=== PATIENT | female | born 1955 | race Caucasian/White ===

== ENCOUNTER → 2019-05-23 12:53 | Outpatient (CLI) | payer BC, SELFPAY ==
[2019-05-23 13:13] LABS: RBC Urine None Seen (0-5/HPF); WBC Urine None Seen (0-5/HPF)
[2019-05-23 13:49] LABS: Add Manual Diff / Slide Review NO; Basophils Absolute Auto 100 /uL (0-100); Basophils Percent Auto 0.6 % (0-2); Eosinophils Absolute Auto 100 /uL (0-450); Eosinophils Percent Auto 0.7 % (2-4); Hematocrit 41.2 % (36-46); Hemoglobin 13.4 g/dL (12.0-16.0); Lymphocytes Absolute Auto 1500 /uL (1100-4500); Lymphocytes Percent Auto 12.7 % (25-40); Mean Corpuscular HGB Conc 32.6 % (30-36); Mean Corpuscular Hemoglobin 27.9 PG (26-34); Mean Corpuscular Volume 85.5 fL (80-100); Monocytes Absolute Auto 600 /uL (0-900); Monocytes Percent Auto 5.1 % (3-14); Neutrophils Absolute Auto 9800 /uL (1500-7000); Neutrophils Percent Auto 80.9 % (50-75); Platelet Count 370 X10^3/uL (150-400); Red Blood Cell Count 4.81 X10^6/uL (4.0-5.2); Red Cell Distribution Width 15.2 % (11.6-14.8); White Blood Cell Count 12.1 X10^3/uL (4.5-11.0)
[2019-05-23 13:57] LABS: Appearance Urine UA CLEAR; Bilirubin Urine UA NEGATIVE (NEGATIVE); Color Urine UA YELLOW; Glucose Urine UA NEGATIVE (Negative); Ketones Urine UA NEGATIVE (NEGATIVE); Leukocyte Esterase Urine UA TRACE (NEGATIVE); Nitrite Urine UA NEGATIVE (Negative); Occult Blood Urine UA NEGATIVE (Negative); Protein Urine UA NEGATIVE (Negative); Specific Gravity Urine UA <=1.005 (1.000-1.035); Urobilinogen Urine UA 0.2 E.U./dL (0.2)
[2019-05-23 14:08] LABS: Bacteria Urine Occasional (0-1); Culture Indicated Urine Specimen Cultured; Squamous Epithelial Cell Urine 0-1 /HPF (0-5/HPF); pH Urine UA 7.5 (4.5-8.0)
[2019-05-23 14:21] LABS: Blood Urea Nitrogen 12 mg/dL (7-17); Calcium 9.7 mg/dL (8.4-10.2); Carbon Dioxide 28 mmol/L (22-32); Chloride 104 mmol/L (98-107); Estimated Glomerular Filt Rate > 60.0 mL/min (>60); Glucose 101 mg/dL (80-110); HEMOLYSIS < 15 (0-50); Potassium 4.6 mmol/L (3.4-5.1); Sodium 140 mmol/L (137-145)
== END ==
PROVIDERS: Visit Provider Orthopaedic Surgery
DX: Z01.818 Encounter for other preprocedural examination (principal); Z01.812 Encounter for preprocedural laboratory examination; N39.9 Disorder of urinary system, unspecified; Z13.1 Encounter for screening for diabetes mellitus; R73.9 Hyperglycemia, unspecified
CPT/HCPCS: 36415; 80048; 81001; 83036; 85025; 87086; 93005

== ENCOUNTER 2019-07-17 12:15 | Observation (INO) | payer BC, SELFPAY ==
[2019-07-11 11:42] VITALS: BMI 30.6
[2019-07-16] VITALS (19 sets, daily range): BP systolic 80–158; BP diastolic 56–91; PULSE 72–87; RESP 10–19; TEMP 35.7–36.9; O2SAT 92–100; BMI 30.8
[2019-07-16] MEDS: LACTATED RINGERS 1,000 ML 42 ML IV ×2 (08:45→13:15)
[2019-07-16] MEDS: VANCOMYCIN 1,000 MG/200 ML PIGGYBACK 200 MG IV (09:10)
[2019-07-16] MEDS: ACETAMINOPHEN 325 MG TABLET 975 MG PO (09:19)
[2019-07-16] MEDS: CELECOXIB 200 MG CAPSULE PO (09:19)
--- NOTE | 2019-07-16 10:04 | PM.PREOP ---
Pre-operative Note Interval Note History & Physical reviewed/Exam performed by Physician: Yes Changes to H&P: No
--- NOTE | 2019-07-16 10:05 | PM.OP.1 ---
Operative Date/Time/Diagnoses Date of procedure: 07/16/19 Time of procedure: 11:05 Pre-op diagnosis: Left knee medial compartment arthritis Post-op diagnosis: same Procedure & Clinicians Procedure: Left knee medial compartment arthroplasty Same procedure as scheduled: Yes Indications: The patient has had progressively worsening left knee pain with radiographic changes consistent with arthritis. Non-operative management has failed and the patient has requested a medial unicompartment knee replacement. The risks, benefits and alternatives to surgery were discussed with the patient prior to proceeding. Risks discussed included, but were not limited to, failure to relieve pain, stiffness, infection, nerve damage, deep venous thrombosis, pulmonary embolism, stroke, coma, heart attack, permanent paralysis and , as well as the potential need for eventual revision of the prosthetic. Surgeon: Cyndy Dunn Moulder Operator: Kevin Valentin Anesthesia Type: General Operative Notes Findings: Severe left knee medial compartment arthritis Closure Type: primary Specimen(s): none sent Prosthetic devices, grafts, tissues, transplants, or devices: [employer] Z UK size D femur, size 3 tibia, +8 poly Estimated Blood Loss (mL): 250 Blood products transfused: none Tourniquet time (min): 79 Procedure in detail: The patient was seen in the pre-operative area, where the left knee was identified as the operative site and this was marked with my initials. The patient received pre-operative antibiotics, and was taken to the operating room and placed on the operative table in the supine position. After satisfactory anesthesia, a real time operator out was performed. The left leg was encircled with a tourniquet about the proximal thigh, and the leg was prepared from the toes to the tourniquet with ChloroPrep in the usual fashion and draped through sterile drapes. The leg was elevated and exsanguinated with Eschmark bandage and the tourniquet inflated to [250] mmHg pressure. The knee was approached through an approximately 10 cm incision medial parapatella incision and carried into the knee through a medial parapatellar arthrotomy. The osteophytes and medial meniscus were removed. Next, a small amount of the anterior tibial boss was carefully resected with a saw. The guide was placed along the medial joint line. It was meticulously adjusted to make sure there was appropriate slope that it was at the joint line and then was pinned to the tibia and the femur. The medial femoral condylar cut was made in extension. The tibial cut was made in flexion. The bone was meticulously irrigated with normal saline. Small amount of additional meniscus was resected posterior capsule was checked and injected with Marcaine. The extension gap was carefully checked with an 8 mm gap director of provider relations was noted that it fit well. A small number of additional osteophytes were resected. The tibia was a size [3]. It was noted that it fit without overhang. The femur was sized and it was noted to be a D. The appropriate cutting guide was pinned into place and carefully positioned on the femoral condyle. Drill holes were placed. The tibia was pinned into place and drill holes were made. Trial reduction with the appropriate poly showed full range of motion and good stability at 0, 45. and 90? with normal tracking of the components without edge loading. The bone was meticulously irrigated and dried. Additional Marcaine was injected. The posterior capsule was injected with 0.25% Marcaine mixed with 20 ml Exparel for post-operative pain control. The remainder of this mixture was injected into the capsule and subcutaneous tissues during cement curing. Range of motion was [0-130], with good stability throughout the range. The trials were then remove. The cement was as applied and the final prosthetics placed. Excess cement was removed during and after cement curing. A brief medial compartment Betadine soak was performed. After confirming there was no extruded cement posteriorly, the final tibial insert was placed. The knee was copiously irrigated and the tourniquet deflated. Hemostasis was obtained. The capsule was closed with interrupted vicryl. The subcutaneous tissue was closed with barbed sutures. The skin with a running 3-0 V-Lock suture and surgical glue. An Aquacel Ag dressing was applied and the patient was taken to recovery having tolerated the procedure well. Complications: none Post-operative Condition: stable Disposition: observation Plan for aftercare: The patient will be maintained on a standard total knee replacement protocol with weight bearing as tolerated. The patient will receive aspirin and sequential compression devices for DVT prophylaxis. The patient will be discharged home when safe for the home environment. She has a history of [place]'s disease and has had episodes of [place]'s crisis in the past. Were get planning to give her preoperative steroids and we will admit her if she is having any problems with either blood pressure or nausea or vomiting.
[2019-07-16] MEDS: CEFAZOLIN 2 GM/100 ML FROZ.PIGGY IV ×2 (10:34→17:30)
[2019-07-16] MEDS: TRANEXAMIC ACID 1,000 MG VIAL 2000 MG INJ ×2 (10:45→12:00)
--- NOTE | 2019-07-16 10:56 | SUR.OPER ---
Supine on padded OR bed. Pillow under head, arms secured on padded armboards <90 degree abduction. Safety belt across torso. Non-operative leg secured with tape over blanket over lower leg. Operative leg secured in DeMayo/Goran positioner. Foam padded brace at thigh of operative leg.
[2019-07-16] MEDS: BUPIVACAINE 0.5% W/ EPI (PF) 30 ML VIAL INJ (11:06)
[2019-07-16] MEDS: BUPIVACAINE LIPOSOME 266 MG/20 ML VIAL INJ (11:07)
[2019-07-16] MEDS: SODIUM CHLORIDE IRRIG SOLUTION 250 ML, POVIDONE-IODINE SPONGE STICKS 1 APPLIC IRR (11:13)
--- NOTE | 2019-07-16 13:07 | DI.RAD.S_ITS ---
PROCEDURE: XR KNEE LT 1TO2V INDICATIONS: POST OPERATIVE UNI KNEE ARTHROPLASTY TECHNIQUE: 2 view(s) of the knee acquired. COMPARISON: [facility], MR, MR KNEE LEFT WITHOUT CONTRAST, 01/31/2019, 9:24. [facility], CR, XR KNEE ARTHRITIC SERIES LT, 12/07/2018, 9:37. FINDINGS: Bones: Patient is status post knee joint arthroplasty. Hardware components are in expected positions. Visualized bony structures are intact. Soft tissues: Overlying postoperative changes are noted. IMPRESSION: Expected limits status post placement of left knee medial unicondylar arthroplasty. Dictated by: Chandan LÓPEZ Interpreted: Cheyenne Melgoza MD on 07/16/2019 at 17:40 Approved by: Cheyenne Melgoza M.D. on 07/16/2019 at 18:37
[2019-07-16] MEDS: fentaNYL 100 MCG/2 ML INJ IV (13:08)
[2019-07-16] MEDS: ONDANSETRON 4 MG/2 ML INJ IV (13:12)
--- NOTE | 2019-07-16 13:15 | SUR.PHASEI ---
Rx given for pain and c/o nausea. HOB elevated, drowsy, maintaining sat on 5LNP.
--- NOTE | 2019-07-16 13:20 | SUR.PHASEI ---
very drowsy, states that pain and nausea are improving, doesn't give number.
--- NOTE | 2019-07-16 13:30 | SUR.PHASEI ---
Pt quietly holding emesis bag to face. Order obtained for Rx.
[2019-07-16] MEDS: METOCLOPRAMIDE 10 MG/2 ML INJ IV (13:33)
--- NOTE | 2019-07-16 13:35 | SUR.PHASEI ---
Pt calm, occasionally holding emesis bag to face for a small amount (indicated by how far apart she held her fingers) of nausea. Reports pin is a 'little better' at 7/10. See FLACC scale.
--- NOTE | 2019-07-16 13:46 | SUR.PHASEI ---
Dr Dunn informed the patient that she is keeping her overnight; report called to the floor. Pt sleeping sitting up, no grimace or non-verbal indicators of pain.
--- NOTE | 2019-07-16 14:10 | PC.NURSE ---
Day shift: Pt on AC unit at approx 1400. Oriented to room and call light. VS WNL. Left knee RUBINA wrap and Aquacel is CDI. CMS intact and PPP. High Fall risk protocol in place. Call light in reach.
--- NOTE | 2019-07-16 14:12 | SUR.PHASEI ---
1357 to room 218, transported on O2 @ 2LNP; transferred into bed with assistance holding left leg. SCDs on, O2 at 2LNP, VSS. Dressing remains CDI, CMS unchanged. Stable, clothing bag and glasses to the room. Pt repeatedly expressed appreciation for care. Pt. reported pain to AC RN, he explained need to balance pain control and breathing. Will assume care for her. No c/o nausea r/t transport, no longer holding emesis bag.
[2019-07-16] MEDS: LACTATED RINGERS 1,000 ML 125 ML IV (14:48)
--- NOTE | 2019-07-16 15:32 | PC.NURSE ---
At 1520, 218 up in chair, complained of pain on right side of bottom, received waffle cushion for support.
--- NOTE | 2019-07-16 16:26 | PT-IP ANOTE ---
PT orders received and chart reviewed. This PT contacted the patient to initiate evaluation, but pt reported feeling too groggy to participate. In the context of pt's adrenal insufficiency and stated reluctance, will hold PT until morning of 07/17.
[2019-07-16] MEDS: OXYCODONE IR 5 MG TABLET PO ×2 (17:14→22:07)
[2019-07-16] MEDS: IBUPROFEN 400 MG TABLET PO ×2 (17:14→22:08)
[2019-07-16] MEDS: ACETAMINOPHEN 325 MG TABLET 650 MG PO (22:08)
[2019-07-16] MEDS: ASPIRIN EC 81 MG TABLET PO (22:08)
[2019-07-16] MEDS: DOCUSATE 100 MG CAPSULE PO (22:08)
[2019-07-16] MEDS: HYDROCORTISONE 10 MG TABLET PO (22:09)
[2019-07-17] MEDS: CEFAZOLIN 2 GM/100 ML FROZ.PIGGY IV (02:38)
[2019-07-17] MEDS: IBUPROFEN 400 MG TABLET PO ×5 (02:39→16:34)
[2019-07-17] MEDS: LEVOTHYROXINE 75 MCG TABLET PO (05:20)
[2019-07-17] MEDS: PANTOPRAZOLE 20 MG TABLET PO (05:20)
[2019-07-17 05:33] VITALS: BP 111/62; PULSE 74; RESP 16; TEMP 36.9; O2SAT 94
[2019-07-17 06:32] LABS: Hematocrit 36.9 % (36-46); Hemoglobin 11.9 g/dL (12.0-16.0)
--- NOTE | 2019-07-17 06:52 | PC.NURSE ---
Pt rested without nausea or uncontrolled pain overnight. Pt reports looking forward to going home today and has plan for neighbor to help her with her needs until she is more independent. RUBINA wrap to left knee intact no signs of bleeding. CMS intact, pt able to independently move BLE, remains weak in LLE. Pt with Hx Lamar's disease. Consults with Endocrinologists. There is a note in pt red chart with directions for treatment if pt becomes symtomatic and also has this [facility] phone number and [facility] provider is encouraged to call if questions arise.
--- NOTE | 2019-07-17 08:08 | P.PN_ITS ---
Subjective Subjective Date Patient Seen: 07/17/19 Time Patient Seen: 08:08 Interval history: Pain is mild. Denies fever chills. No nausea vomiting. She has not yet worked with physical therapy. Otherwise without complaints. Exam Vital Signs (past 8 hours): - 07/17/19 05:33 Temperature 98.4 F Pulse Rate 74 Respiratory Rate 16 Blood Pressure 111/62 Pulse Oximetry 94 Oxygen Delivery Method Room Air Oxygen Flow Rate 0 Narrative Exam Narrative: 64-year-old female resting comfortably in bed in no apparent distress. Left knee dressing is clean, dry and intact. Motor functions intact distally. Sensation grossly intact to light touch. Objective Labs Result Diagrams: 07/17/19 06:25 Labs: Laboratory Results - last 24 hr 07/17/19 06:25 Hgb 11.9 L Hct 36.9 Assessment & Plan Post-op Postoperative Procedures: Procedures Operation Date: 07/16/19 10:15 Actual Procedures Side Surgeon p Unicompartment Knee Arthroplasty-Medial Left Cyndytisha Dunn MD Postop day 1 status post left knee medial compartment arthroplasty. Patient progressing as expected. Mobilize with physical therapy. Likely discharge home later today. Of adrenal insufficiency. We will use 50 mg hydrocortisone every 8 hours if needed if hemodynamically unstable. Patient may resume her current dose of hydrocortisone and fludrocortisone 1 she is back to eating regular meals .
[2019-07-17] MEDS: ASPIRIN EC 81 MG TABLET PO (08:34)
[2019-07-17] MEDS: METFORMIN HCL 500 MG TABLET 1000 MG PO (08:35)
[2019-07-17] MEDS: DOCUSATE 100 MG CAPSULE PO (08:35)
[2019-07-17] MEDS: ACETAMINOPHEN 325 MG TABLET 650 MG PO ×2 (08:36→15:06)
[2019-07-17] MEDS: DULOXETINE 30 MG CAPSULE 60 MG PO (08:36)
[2019-07-17] MEDS: HYDROCORTISONE 10 MG TABLET PO (08:42)
[2019-07-17] MEDS: FLUDROCORTISONE 0.1 MG TABLET PO (08:43)
[2019-07-17 09:08] VITALS: BP 116/68; PULSE 85; RESP 16; TEMP 36.7; O2SAT 95
--- NOTE | 2019-07-17 09:20 | PT.IIE ---
Current Diagnoses Unilateral primary osteoarthritis, left knee (07/16/19) Surgery Performed Operation Date: 07/16/19 10:15 Actual Procedures p Unicompartment Knee Arthroplasty-Medial(Left) - Cyndy Dunn MD Surgical History (Last Updated 07/11/19 @ 11:48 by Lindsay Brown RN) Anesthesia (Resolved) Fibroids (Resolved) History of bladder surgery (Resolved) History of bunionectomy (Resolved ~1996) History of eyelid surgery (Resolved ~2005) History of hysterectomy (Resolved ~1994) History of knee surgery (Resolved) History of oophorectomy (Resolved ~2014) History of tonsillectomy (Resolved ~1960) Status post epidural steroid injection (Acute) Medical History (Last Updated 07/11/19 @ 12:06 by Lindsay Brown RN) Abnormal chest x-ray (Inactive ~2008) Abnormal Pap smear of cervix (Inactive) [place]'s disease (Chronic ~2001) Adrenal crisis (Acute ~2016) Adrenal insufficiency (Acute) Anemia (Inactive ~2000) Asthma (Chronic ~1999) Bulging discs (Chronic ~2015) Cataracts, bilateral (Chronic ~2018) Chicken pox (Resolved) Chronic back pain (Chronic ~2015) Chronic lymphocytic leukemia (Inactive ~2001) Depression (Chronic ~1993) Diabetes mellitus (Chronic ~2008) Diabetes type 2, controlled (Acute) Fecal incontinence (Chronic ~2016) Fibromyalgia (Chronic ~1986) GERD (gastroesophageal reflux disease) (Chronic) Headache (Chronic ~2015) Heavy menstrual period (Inactive) Hemorrhoid (Inactive ~2014) Hiatal hernia (Chronic ~2004) HTN (hypertension) (Acute) Hyperpigmentation (Acute) Hypothyroidism (Chronic ~2001) Infertility (Inactive ~1988) Irregular menstrual cycle (Inactive) Mumps (Resolved ~1967) Ovarian cyst (Resolved) Painful menstrual periods (Inactive) Pneumonia (Resolved ~2008) Sleep apnea (Chronic ~2005) Urinary incontinence in female (Chronic ~2008) Physical Therapy Inpatient Evaluation/Re-Eval M1 PT/OT-IP Prior Functional Status Start: 07/16/19 16:16 Freq: NEEDED Status: Active Protocol: Document 07/17/19 09:20 AB (Rec: 07/17/19 12:02 AB [id number]) Medical Review Prior Functional Status Medical History Reviewed Yes Communication able to make needs known Mobility and Gait pt stated that she is modified independent with all mobilities and ambulation without AD but occasionall uses a SPC due to knee pain Social History Household Members none Living Arrangements House Number of Floors (Floors) One Floor Number of Stairs To Enter/Railing? no steps to enter Home Environment Standard Height Toilet,Walk in Shower,Built-In Shower Seat Home Equipment Straight Cane,Hand Held Shower ,Grab Bars In Shower Additional Social History Comment has a cook candy that comes in every 2 weeks M2 PT-IP Current Condition Start: 07/16/19 16:16 Freq: NEEDED Status: Active Protocol: Document 07/17/19 09:20 AB (Rec: 07/17/19 12:02 AB [id number]) Physical Therapy Current Condition Current Condition Evaluation Date 07/17/19 Treatment Diagnosis s/p L uni knee; difficulty in walking Onset Date 07/16/19 Weight Bearing Status Weight Bearing Status Weight Bear as Tolerated Allowed Weight Bearing Amount (enter % WBAT LLE or #) (%) M3 PT-IP Subjective Start: 07/16/19 16:16 Freq: NEEDED Status: Active Protocol: Document 07/17/19 09:20 AB (Rec: 07/17/19 12:02 AB [id number]) Subjective Physical Therapy Visit Type Type Initial Evaluation Visit Start Time 09:20 Visit Stop Time 10:00 Total Visit Minutes 40 Number of PT SITTER Visits 0 Physical Therapy Visit Comments Patient Comments agreeable to do PT Therapy Pain Assessment Pain When Pain Assessed During Mobility Pain Present Pain Present Pain Reported Location Left Knee Intensity 2 Scale Used Numeric (1 - 10) Pain Management Techniques Apply Cold,Re-positioning, Timing of Activity with Medications M4 PT-IP Mobility and Gait Start: 07/16/19 16:16 Freq: NEEDED Status: Active Protocol: Document 07/17/19 09:20 AB (Rec: 07/17/19 12:02 AB [id number]) PT-Bed Mobility Assessment Supine to Sit Supine to Sit Standby Assistance Sit to Supine Sit to Supine Standby Assistance PT-Transfer Assessment Sit to and From Stand Sit to and from Stand Standby Assistance Equipment Transfer Assistive Device Gait Belt,Front Wheeled Walker Orthotic/Prosthetic Devices or Brace: No Transfers Transfer Destination Chair Transfer Technique ambulated using FWW Transfer Ability Level of Assist Standby Assistance,1 Person Assistance,Use of Upper Extremities Gait Assessment Gait Gait Assistance Required: Standby Assistance Distance (Feet) 40 Able to Maintain Weight Bearing Status Yes During Gait Assistive Devices Assistive Device Gait Belt,Front Wheeled Walker Orthotic/Prosthetic Devices or Brace: No Gait Deviations General Gait Pattern Antalgic Factors Limiting Gait Function Factors Limiting Gait Function Decreased Activity Tolerance, Decreased Strength,Limited Range of Motion,Pain,Poor Balance PT-Balance Assessment Sitting Balance and Reactions Static Sitting Balance Ability Normal Dynamic Sitting Balance Ability Normal Standing Balance and Reactions Static Standing Balance Ability Good Dynamic Standing Balance Ability Fair Device Used FWW M5 PT-IP Objective Assessments Start: 07/16/19 16:16 Freq: NEEDED Status: Active Protocol: Document 07/17/19 09:20 AB (Rec: 07/17/19 12:02 [id number]) Orientation Orientation/Cognition Level of Alertness Alert Orientation Name,Age,Birthday,Month,Date, Year,Day of Week,Place, Situation Language Function Ability No Deficits Noted Safety Awareness Understands Safety Issues Memory Description No Deficits Noted Gross Range of Motion Lower Extremity ROM Assessment Left Impaired Impairments L knee flexion: ~ 60 deg L knee extension: lacking ~ 10 deg to neutral Strength Lower Extremity Strength Assessment Left Impaired Hip 4-/5 Knee 3+/5 Coordination Assessment Gross Coordination Gross Coordination WNL Sensation Assessment Sensation Gross Sensation WNL Muscle Tone Muscle Tone WNL Yes M6 PT-IP Treatment Start: 07/16/19 16:16 Freq: NEEDED Status: Active Protocol: Document 07/17/19 09:20 AB (Rec: 07/17/19 12:02 [id number]) Physical Therapy Treatment Exercises Exercises Heel Slides Education Education Provided Precautions,Weight Bearing Status,Post-Op Packet,Safety M7 PT-IP Assessment and Plan Start: 07/16/19 16:16 Freq: NEEDED Status: Active Protocol: Document 07/17/19 09:20 AB (Rec: 07/17/19 12:02 [id number]) PT Summary Assessment and Plan Potential Rehabilitation Potential Good Status of Condition at Evaluation Stable Summary Impairments Pain,ROM,Strength,Balance,Bed Mobility,Transfers,Gait, Activity Tolerance Assessment Summary pt requires SBA with mobility. pt lives alone and is set up for outpt PT. informed manager operations research regrading need for FWW and stated that she will get an order. pt plans to go home later on today. Goals Bed Mobility Goal Independent Transfer Goal Independent,Front Wheeled Walker Gait Goal Independent,Front Wheel Walker Gait Distance 150 Days to Meet Goals 5 Frequency of Treatment Frequency Of Treatment Twice a Day Treatment Plan Physical Therapy Treatment Plan Bed Mobility Training,Transfer Training,Gait Training, Therapeutic Exercise,Balance Retraining,Post Op Education, Discharge Planning,Hot or Cold Pack,Neuromuscular Re-ed, Coordination Retraining,Manual Therapy Other Recommendations and Next Treatment ambulation Focus Recommendations To Nursing Amount of Assist Needed Standby Assistance Discharge Recommendations PT Discharge Recommendations Home,Outpatient PT Equipment Needed for Home Before FWW Discharge
--- NOTE | 2019-07-17 09:26 | CM.DANOTE ---
Addendum entered by Jeanie Dunn 07/17/19 11:43: FWW ordered for home use. PT requested. Original Note: DCP/Assessment: Reviewed chart. Patient is a 64yr old female admitted under VTC status for uni of left knee performed by Dr. Dunn on 07-16-19. PCP is Dr. Vasquez. Primary payor is 1)[employer] out of State. Met with patient explained CM/SW role. Patient alert and oriented, sitting in recliner at time of visit. Patient anticipates going home today. Therapy evaluation pending. Patient resides alone in [place]. Patient reports no family nearby. Patient resides in single level residence. Patient has cane for ambulation. Patient currently switching PCP to Dr. Vasquez at [facility]. Patient reports that she does have friend/Toma that can assist on occasion if needed. P: Anticipate home later today if stable. FWW may be needed. Awaiting PT evaluation recommendations. ALYX Villanueva Discharge Planning/Care Management CM Discharge Assessment Start: 07/17/19 09:24 Freq: Status: Active Protocol: Document 07/17/19 09:24 KJS (Rec: 07/17/19 09:26 KJS [id number]) Discharge Planning Assessment Assigned Computerized Mill Mill Recorder ALYX Villanueva Contact Information Gera Shah (son) Advance Directives? Yes History Provided By Patient,Medical Record Prior Living Arrangements House Household Members none Type of transporation used prior to Drives own vehicle admit Independent with ADL's Yes Is patient alert and oriented? Yes Caregiver for Another No DME Already Rented / Owned Cane Barriers to Discharge No Transportation Arrangement Friend/Toma can provide transport home Whiteboard Updated in Patient Room with Yes name and ext. # of Computerized Mill Mill Recorder Review Status In Process Next Review Type Continued Stay Review Pre-Anesthesia Assessment Start: 07/11/19 11:42 Freq: Status: Complete Protocol: Document 07/11/19 11:42 CAB (Rec: 07/11/19 12:41 CAB [id number]) Pre-Anesthesia Assessment PAC Comment Surgeon H&P not available at time of chart review. Anesthesia review completed r/ t [place] Patient Information Reviewed Via Chart Review Diagnostic Results EKG Comment Labs/EKG @ 05/23/19 Primary Care Provider Laura Ellis Seen Specialist in Last 12 Months Yes Specialist Seen Internet Marketing Specialist,Orthopedist Comment Dr. Puga's pre/post-op recommendations scanned to record Primary Language [employer] Weapons Custodian Required No Height 165.1 cm Weight 83.461 kg Body Mass Index (BMI) 30.6 Barriers to Learning None Other Aids No Hx Anesthesia Reactions Yes: PONV, headaches, blood pressure issues Anesthesia Review Requested Yes: Surgeon requested re: [place]'s Smoking Status Never smoker Pain Present Pain Reported Musculoskeletal Symptoms Joint Pain Patient is completely paralyzed or No completely immobile Mental Status Oriented to own ability Hx Sleep Apnea Yes: CPAP compliance unknown Currently Taking a Beta Rhona No Anti-Coagulant Therapy No Has a Mortgage Branch Manager No Cardiac Testing No Hx Pacemaker/ICD No Pacemaker Rep Required? No Cardiac Clearance Received Not Applicable dysphagia No Bladder Pattern Incontinent Urinary Catheter Present No Hx Urinary Self Catheterization No Diabetes Yes HgbA1C 6.0 Date 05/23/19 Patient No Lactating No Marital Status Patient Discharge Plan Description Return Home
--- NOTE | 2019-07-17 10:23 | PC.NURSE ---
Addendum entered by Alondra Mcknight R.N. 07/17/19 11:28: PAIN - reports good results from earlier oxycodone, pain 1-2 on scale 0/10. Addendum entered by Alondra Mcknight R.N. 07/17/19 11:10: MS/PAIN - phys therapy in and pt ambul in room, out into hallway,ret to chair for short time and then ret to bed, states the knee discomfort was 5 on scale 0/10, given 5mg po oxycodone with crackers. Original Note: AM NOTE - pt is alert and lamont diet this am w/o nausea, denies discomfort knee at this time, given scheduled tylenol.
[2019-07-17] MEDS: OXYCODONE IR 5 MG TABLET PO ×2 (10:39→16:34)
[2019-07-17 12:00] VITALS: BP 126/67; PULSE 72; RESP 16; TEMP 36.9; O2SAT 96
--- NOTE | 2019-07-17 15:26 | CM.DPNOTE ---
DCP/continued: Received request from ANDERS/Pradip Rodriguez requesting that HH be arranged for this patient. Order obtained for PT/OT. Met with patient and she has no preference in agencies. Asked RICK/Jessica to coordinate HH arrangements and provide patient with agency information. P: Home with [facility]. Patient aware and agreeable. ALYX Villanueva
[2019-07-17 15:45] VITALS: BP 130/76; PULSE 79; RESP 17; TEMP 36.6; O2SAT 92
--- NOTE | 2019-07-17 16:09 | PT.IPTN ---
Current Diagnoses Unilateral primary osteoarthritis, left knee (07/17/19) Surgery Performed Operation Date: 07/16/19 10:15 Actual Procedures p Unicompartment Knee Arthroplasty-Medial(Left) - Cyndy Dunn MD Physical Therapy Treatment Note M2 PT-IP Current Condition Start: 07/16/19 16:16 Freq: NEEDED Status: Active Protocol: Document 07/17/19 09:20 AB (Rec: 07/17/19 12:02 AB [id number]) Physical Therapy Current Condition Current Condition Evaluation Date 07/17/19 Treatment Diagnosis s/p L uni knee; difficulty in walking Onset Date 07/16/19 Weight Bearing Status Weight Bearing Status Weight Bear as Tolerated Allowed Weight Bearing Amount (enter % WBAT LLE or #) (%) M3 PT-IP Subjective Start: 07/16/19 16:16 Freq: NEEDED Status: Active Protocol: Document 07/17/19 14:37 ARIK (Rec: 07/17/19 15:22 ARIK [id number]) Subjective Physical Therapy Visit Type Type Treatment Note Visit Start Time 14:37 Visit Stop Time 15:06 Total Visit Minutes 29 Notes Treatment supervised by GAMING COMMISSIONER Barb. Number of GAMING COMMISSIONER Visits 1 Physical Therapy Visit Comments Patient Comments Pt agreeable to work w/ PT. Patient Goals To go home Therapy Pain Assessment Pain When Pain Assessed During Mobility Pain Present Pain Present Pain Reported Location Left Knee Intensity 3 Scale Used Numeric (1 - 10) Pain Management Techniques Apply Cold,Re-positioning, Timing of Activity with Medications M4 PT-IP Mobility and Gait Start: 07/16/19 16:16 Freq: NEEDED Status: Active Protocol: Document 07/17/19 14:37 ARIK (Rec: 07/17/19 15:22 ARIK [id number]) PT-Bed Mobility Assessment Supine to Sit Supine to Sit Standby Assistance Sit to Supine Sit to Supine Standby Assistance Scooting Scooting to Edge of Bed Standby Assistance PT-Transfer Assessment Sit to and From Stand Sit to and from Stand Standby Assistance Equipment Transfer Assistive Device Gait Belt,Front Wheeled Walker Orthotic/Prosthetic Devices or Brace: No Transfers Transfer Destination Bed,Toilet Transfer Technique ambulated using FWW Transfer Ability Level of Assist Standby Assistance,1 Person Assistance,Use of Upper Extremities Comments Mobility Comments Pt was SBA for all bed mobility and transfers. Required no cues for proper management of FWW. Pt requested to use bathroom, SBA for stand<>sit and sit<>stand from toilet w/ safe use of handrail. Pt left in bed w/ all needs in reach. Gait Assessment Gait Gait Assistance Required: Standby Assistance Distance (Feet) 200 Able to Maintain Weight Bearing Status Yes During Gait Assistive Devices Assistive Device Gait Belt,Front Wheeled Walker Orthotic/Prosthetic Devices or Brace: No Gait Deviations General Gait Pattern Antalgic Factors Limiting Gait Function Factors Limiting Gait Function Decreased Activity Tolerance, Decreased Sensation,Decreased Strength,Limited Range of Motion,Pain Comments Gait Comments Pt was able to ambulate ~200 ft from bed to toilet then into hallway and back to bed. She demonstrated proper use of FWW and utilizied more UE when feeling fatigued. Required 2 short standing rest breaks. Min cues for heel toe walking and quad activation. PT-Balance Assessment Sitting Balance and Reactions Static Sitting Balance Ability Normal Dynamic Sitting Balance Ability Normal Standing Balance and Reactions Static Standing Balance Ability Good Dynamic Standing Balance Ability Fair Device Used FWW Comments Other Balance Tests/Deviations/Treatment Weight shifting w/ FWW. : M5 PT-IP Objective Assessments Start: 07/16/19 16:16 Freq: NEEDED Status: Active Protocol: Document 07/17/19 09:20 AB (Rec: 07/17/19 12:02 AB [id number]) Orientation Orientation/Cognition Level of Alertness Alert Orientation Name,Age,Birthday,Month,Date, Year,Day of Week,Place, Situation Language Function Ability No Deficits Noted Safety Awareness Understands Safety Issues Memory Description No Deficits Noted Gross Range of Motion Lower Extremity ROM Assessment Left Impaired Impairments L knee flexion: ~ 60 deg L knee extension: lacking ~ 10 deg to neutral Strength Lower Extremity Strength Assessment Left Impaired Hip 4-/5 Knee 3+/5 Coordination Assessment Gross Coordination Gross Coordination WNL Sensation Assessment Sensation Gross Sensation WNL Muscle Tone Muscle Tone WNL Yes M6 PT-IP Treatment Start: 07/16/19 16:16 Freq: NEEDED Status: Active Protocol: Document 07/17/19 14:37 ARIK (Rec: 07/17/19 15:22 ARIK [id number]) Physical Therapy Treatment Education Education Provided Precautions,Weight Bearing Status,Post-Op Packet,Safety M7 PT-IP Assessment and Plan Start: 07/16/19 16:16 Freq: NEEDED Status: Active Protocol: Document 07/17/19 14:37 ARIK (Rec: 07/17/19 15:22 ARIK [id number]) PT Summary Assessment and Plan Potential Rehabilitation Potential Good Status of Condition at Evaluation Stable Summary Impairments Pain,ROM,Strength,Balance,Bed Mobility,Transfers,Gait, Activity Tolerance Assessment Summary Pt showed improvements for tolerance to actvity. Pain did not go above a 3. Pt is SBA for all bed mobility and transfers. She safely demonstrated ability to get in and out of bed, as well as sit and stand from toilet. Pt ambulated ~200 ft w/ 2 short rest breaks and min cues for heel toe walking and quad activation. Reviewed post op exercises. Pt reported that she has home health PT being set up. Goals Bed Mobility Goal Independent Transfer Goal Independent,Front Wheeled Walker Gait Goal Independent,Front Wheel Walker Gait Distance 150 Days to Meet Goals 5 Frequency of Treatment Frequency Of Treatment Twice a Day Treatment Plan Physical Therapy Treatment Plan Bed Mobility Training,Transfer Training,Gait Training, Therapeutic Exercise,Balance Retraining,Post Op Education, Discharge Planning,Hot or Cold Pack,Neuromuscular Re-ed, Coordination Retraining,Manual Therapy Recommendations To Nursing Amount of Assist Needed Standby Assistance,1 Person Assist Discharge Recommendations PT Discharge Recommendations Home,Outpatient PT Equipment Needed for Home Before FWW Discharge Reviewed by Barb Hinson PTA
--- NOTE | 2019-07-17 17:11 | P.DS_ITS ---
History of Present Illness History of Present Illness Date Patient Seen: 07/17/19 Time Patient Seen: 17:11 Chief complaint: [id number] Narrative: Patient did well with physical therapy. Denies fever chills. No nausea vomiting. Pain is well controlled. Discharge Providers Provider Date of admission: 07/17/19 12:15 Discharge Date: 07/17/19 Primary care physician: Laura Ellis MD Consults: 07/11/19 12:46 Consult to Anesthesiology Routine Comment: Consulting Provider: Anesthesiologist Reason for consultation: Surgeon requested re: Boone's disease Consult to Respiratory Therapy Evaluate & Treat Comment: OTPT 07/16-Sleep apnea-CPAP compliance unknown Physician Instructions: Evaluate and treat 07/16/19 06:00 Consult to Anesthesiology Routine Comment: Consulting Provider: Anesthesiologist Reason for consultation: Regional block for post operative pain control 07/16/19 09:18 Consult to Respiratory Therapy Evaluate & Treat Comment: Physician Instructions: Evaluate and treat 07/16/19 14:09 Consult to Discharge Planning Routine Comment: Consult to Physical Therapy Evaluate & Treat Comment: Physician Instructions: postop TKA protocol Consult to Respiratory Therapy Evaluate & Treat Comment: Physician Instructions: Evaluate and treat 07/17/19 11:36 Consult to Home Health Routine Comment: DX: Osteoarthritis left knee Reason For Exam: FWW for home use Discharge provider: Pradip Rodriguez PA-C Summary Hospital Course Discharge Diagnosis: Status post left knee medial compartment arthroplasty secondary to left knee medial compartment arthritis Hospital Course: Procedure: Left knee medial compartment arthroplasty Same procedure as scheduled: Yes Indications: The patient has had progressively worsening left knee pain with radiographic changes consistent with arthritis. Non-operative management has failed and the patient has requested a medial unicompartment knee replacement. The risks, benefits and alternatives to surgery were discussed with the patient prior to proceeding. Risks discussed included, but were not limited to, failure to relieve pain, stiffness, infection, nerve damage, deep venous thrombosis, pulmonary embolism, stroke, coma, heart attack, permanent paralysis and , as well as the potential need for eventual revision of the prosthetic. Surgeon: Cyndy Dunn Custodial Officer: Kevin Valentin Anesthesia Type: General Operative Notes Findings: Severe left knee medial compartment arthritis Closure Type: primary Specimen(s): none sent Prosthetic devices, grafts, tissues, transplants, or devices: [employer] size D femur, size 3 tibia, +8 poly Estimated Blood Loss (mL): 250 Blood products transfused: none Tourniquet time (min): 79 Patient admitted to the hospital for left knee medial compartment arthroplasty. Patient consented to the same. Patient taken to operating room yesterday underwent left knee medial compartment arthroplasty. Patient back in her room recovering well as in stable condition. Her vitals have remained stable. Rubi guevara has history of primary adrenal insufficiency and hemodynamically has remained stable postoperatively. The patient has a neighbor that will be assisting her at home. She does have limited mobility, range of motion and balance as well as decreased strength left lower extremity. She will need home health physical therapy secondary to these issues. Status at Discharge Cognitive/behavioral status at discharge: at baseline, oriented Functional status at discharge: uses cane/walker Overall status at discharge: patient is progressing back to baseline Time Spent with Patient Time spent: Less than 30 minutes Exam Vital Signs (past 8 hours): - 07/17/19 12:00 07/17/19 15:45 Temperature 98.4 F 97.8 F Pulse Rate 72 79 Respiratory Rate 16 17 Blood Pressure 126/67 130/76 Pulse Oximetry 96 92 Oxygen Delivery Method Room Air Oxygen Flow Rate 0 Narrative Exam Narrative: Pleasant 64-year-old female in no apparent distress. See prior progress note. Objective Labs Result Diagrams: 07/17/19 06:25 Labs: Laboratory Results - last 24 hr 07/17/19 06:25 Hgb 11.9 L Hct 36.9 Discharge Plan Discharge Plan Patient Disposition: Home Discharge orders & Medications Prescriptions: New acetaminophen 325 mg Tablet 650 mg PO TID Qty: 60 RF: 0 aspirin 81 mg Tablet,Delayed Release (Dr/Ec) 81 mg PO BID Qty: 60 RF: 0 ibuprofen 400 mg Tablet 400 mg PO Q4HR Qty: 60 RF: 0 oxycodone 5 mg Tablet 5 mg PO Q3HR PRN (Reason: Pain, Moderate (4-6)) Qty: 40 RF: 0 Continued hydrocortisone 5 mg Tablet 10 mg PO BID RF: 0 metformin 500 mg Tablet 1,000 mg PO DAILY RF: 0 levothyroxine [Synthroid] 75 mcg Tablet 75 mcg PO DAILY RF: 0 omeprazole 20 mg Capsule,Delayed Release(Dr/Ec) 20 mg PO DAILY RF: 0 montelukast 10 mg Tablet 10 mg PO DAILY RF: 0 lisinopril 5 mg Tablet 5 mg PO DAILY RF: 0 fludrocortisone 0.1 mg Tablet 0.1 mg PO BID RF: 0 duloxetine 60 mg Capsule,Delayed Release(Dr/Ec) 60 mg PO DAILY RF: 0 Myrbetriq 50 mg Tablet Extended Release 24 Hr 50 mg PO DAILY RF: 0 Follow up/Referrals: Laura Ellis MD [Primary Care Provider] - Cyndy Dunn MD [Physician] - (2 wks) Discharge Health Status Health Concerns: Patient has history of primary adrenal insufficiency. Patient may resume her current dose of hydrocortisone and fludrocortosine now that she is back eathing regular meals. Diet/Activity/Treatments Diet: Carb-consistent/Diabetic Activity: WBAT Cold/Heat Therapy: ice as needed Skin/Wound/Dressing Care Report to your healthcare provider any signs of infection, such as:: chills, fever, increased pain, unusual drainage and unusual redness Dressing: keep clean and dry Discharge Data Primary Care Provider: Laura Ellis Attending Provider: Cyndy Dunn Admit Date/Time: 07/17/19 12:15
== END 2019-07-17 20:16 | disposition home health service (06) ==
LOC: OR 13:49
PROVIDERS: Admitting Provider Orthopaedic Surgery; PCP Internal Medicine; Visit Provider Orthopaedic Surgery
PROC: (CPT 27446; principal; 2019-07-16 10:15)
DX: M17.12 Unilateral primary osteoarthritis, left knee (principal); I10 Essential (primary) hypertension; G47.30 Sleep apnea, unspecified; E11.9 Type 2 diabetes mellitus without complications; J45.909 Unspecified asthma, uncomplicated; Z79.84 Long term (current) use of oral hypoglycemic drugs; E27.1 Primary adrenocortical insufficiency; E66.9 Obesity, unspecified; D64.9 Anemia, unspecified
CPT/HCPCS: 27446; 36415; 73560; 82962; 85014; 85018; 94762; 97116; 97161; 97530; C1776; G0378; C9290; J0690; J2405; J2704; J2765; J3010

== ENCOUNTER → 2020-04-19 10:16 | Outpatient (CLI) | payer BC, SELFPAY ==
[2019-07-16 15:35] VITALS: BMI 30.8
[2020-04-22 06:50] LABS: COVID19 Sendout Not Detected (Not Detect)
== END ==
PROVIDERS: PCP Family Medicine; Visit Provider Nurse Practitioner
DX: Z11.59 Encounter for screening for other viral diseases (principal)
CPT/HCPCS: 87635

== ENCOUNTER 2020-04-22 13:47 | Day surgery (SDC) | payer BC, SELFPAY ==
[2019-07-16 15:35] VITALS: BMI 30.8
[2020-04-20 11:36] VITALS: BMI 31.6
[2020-04-22] VITALS (8 sets, daily range): BP systolic 112–144; BP diastolic 72–98; PULSE 76–91; RESP 14–20; TEMP 35.8–37.1; O2SAT 98–100; BMI 29.9
--- NOTE | 2020-04-22 | PATH_ITS ---
[facility] Accession Number: [id number] . 01 Material submitted: . neck - POSTERIOR NECK MASS . 01 Clinical history: . SDC . 01 Diagnosis: Posterior Neck, Excision: Mature fibroadipose tissue, consistent with lipoma. MRV 04/24/2020 0943 Local . 01 Electronically signed: . Ja Miguel MD, Dermatopathologist NPI- [id number] . 01 Gross description: . Received in formalin, labeled posterior neck mass, and consists of a 3.0 x 1.5 x 1.2 cm newberry-yellow fragment of soft tissue, which is inked blue and sectioned to reveal newberry-yellow lobulated cut surfaces. [employer] sections are submitted in cassettes A1-A2. ([id number]) /MRV 04/23/2020 1237 Local . 01 Pathologist provided ICD-10: D17.9 . 01 CPT . 503340 Performed at: [address], [place], [place] [id number] MD Sergey Schultz MD Phone: [phone]
[2020-04-22] MEDS: LACTATED RINGERS 1,000 ML 42 ML IV (14:06)
[2020-04-22] MEDS: SCOPOLAMINE 1 PATCH TOP (14:07)
[2020-04-22] MEDS: ACETAMINOPHEN 325 MG TABLET 975 MG PO (14:07)
--- NOTE | 2020-04-22 15:13 | PM.PREOP ---
Pre-operative Note COVID-19 COVID-19 status: Negative Result date/Date tested (Pos, Neg/Pending): 04/19/20 Interval Note History & Physical reviewed/Exam performed by Physician: Yes Changes to H&P: No
[2020-04-22] MEDS: methylPREDNISolone 125 MG/2 ML VIAL 100 MG IV (15:15)
[2020-04-22] MEDS: CEFAZOLIN 2 GM/100 ML FROZ.PIGGY IV (15:20)
--- NOTE | 2020-04-22 15:49 | SUR.OPER ---
Lateral on padded OR bed, head on pillow, bottom leg bent with gel pad under knee to foot, upper leg straight and supported with pillows. Upper arm supported by pillows and secured over bottom arm to padded arm board. Safety belt at hip, tape over blanket lower legs.
[2020-04-22] MEDS: BUPIVACAINE 0.25% W/ EPI 30 ML VIAL INJ (15:53)
--- NOTE | 2020-04-22 16:20 | PM.OP.1 ---
Operative Date/Time/Diagnoses Date of procedure: 04/22/20 Time of procedure: 16:21 Pre-op diagnosis: Posterior neck mass Post-op diagnosis: other (irregular fatty mass with heterogenous consistency ) Procedure & Clinicians Procedure: Excision of posterior neck mass 2 cm x 2 cm x 3 cm Same procedure as scheduled: Yes Indications: Pain, paresthesias, neoplasm of uncertain malignant potential Surgeon: Val Brunson Anesthesia Type: General Operative Notes Findings: Regular fatty mass of heterogeneous consistency, 2 x 2 x 3 cm Closure Type: primary Specimen(s): other (Posterior neck mass) Estimated Blood Loss (mL): 1 Procedure in detail: The patient was brought into the OR, placed supine on the OR table, and appropriate preoperative antibiotics were given. Sequential compression devices were placed on both legs and turned on. General anesthesia was induced and the patient was intubated with an LMA by the anesthesiologist. She was then positioned in right lateral decubitus position in the posterior neck was prepped and draped in sterile fashion. Surgical time-out was conducted. Local anesthetic was then infiltrated in the skin crease overlying the mass. A 4 cm transverse incision was made in the skin with a 15 blade, and carried down through the dermis and subcutaneous tissue using cautery. A dense fibrous fatty mass was encountered and dissected free from surrounding fascia and muscle attachments. Once entirely freed, it was removed from the wound and passed off the field for pathology. The remaining wound bed was irrigated, and hemostasis was achieved with cautery. The deep dermis was closed with 3-0 vicryl. The skin was closed with running 4-0 Monocryl subcuticular stitch. The skin edges were sealed with Dermabond. The patient was awakened from anesthesia and extubated. She tolerated the procedure well. Needle, sponge and instrument counts were correct x 2. The patient was transferred to PACU in stable condition. Complications: none Post-operative Condition: stable Disposition: PACU
--- NOTE | 2020-04-22 17:16 | SUR.PHASEII ---
Pt up and ambulating gait steady, getting dressed now, ride on her way.
== END 2020-04-22 17:53 | disposition home or self-care (01) ==
PROVIDERS: PCP Family Medicine; Referring Provider Surgery; Visit Provider Surgery
PROC: (CPT 21931; principal; 2020-04-22 15:15)
DX: D17.1 Benign lipomatous neoplasm of skin and subcutaneous tissue of trunk (principal); I10 Essential (primary) hypertension; E27.1 Primary adrenocortical insufficiency; K21.9 Gastro-esophageal reflux disease without esophagitis; G47.33 Obstructive sleep apnea (adult) (pediatric); M79.7 Fibromyalgia
CPT/HCPCS: 21931; J0690; J1100; J1885; J2250; J2405; J2704; J2930

== ENCOUNTER → 2020-12-26 15:04 | Outpatient (CLI) | payer BC, SELFPAY ==
[2019-07-16 15:35] VITALS: BMI 30.8
--- NOTE | 2020-12-26 15:05 | DI.MRI.S_ITS ---
PROCEDURE: MR CERVICAL SPINE WO CON INDICATIONS: Radiculopathy, cervical region TECHNIQUE: Noncontrast sagittal T1 spin echo and T2 fast spin echo, sagittal STIR, foraminal oblique sagittal T2 fast spin echo, and axial gradient echo or T2 fast spin echo through the cervical spine. COMPARISON: None. FINDINGS: Image quality: Excellent. Alignment and Curvature: There is loss of normal cervical lordosis. There is mild, grade 1 retrolisthesis of C4 on C5 and C5 on C6. Mild grade 1 anterolisthesis of C7 on T1. Bone Marrow: Marrow demonstrates normal overall signal. There is mild reactive signal within the endplates adjacent to the C4-C5, C5-C6, C6-C7, C7-T1 intervertebral discs. Spinal Cord: Visualized spinal cord has normal size and signal. No cerebellar tonsillar herniation. Paraspinous Soft Tissues: No paravertebral masses. Prevertebral soft tissues are normal in thickness. C2-C3: Moderate disc desiccation. Mild diffuse disc bulge. No significant canal, or foraminal stenosis. C3-C4: Mild disc desiccation and diffuse disc bulge. Mild facet and uncovertebral hypertrophy. Mild canal stenosis. No foraminal stenosis. C4-C5: Moderate disc height loss and desiccation. Mild diffuse disc bulge. Mild facet and uncovertebral hypertrophy bilaterally. Moderate to severe canal stenosis with minimal anterior cord flattening. Moderate bilateral foraminal stenosis. C5-C6: Moderate disc height loss and desiccation. Mild diffuse disc bulge with superimposed right far lateral broad-based protrusion. Mild facet and uncovertebral hypertrophy bilaterally. Moderate to severe canal stenosis. Minimal anterior cord flattening. Severe right and moderate left foraminal stenosis. Right C6 nerve root compression. C6-C7: Moderate disc height loss and desiccation. Mild diffuse disc bulge with superimposed right far lateral broad-based protrusion. Moderate facet and uncovertebral hypertrophy bilaterally. Moderate canal stenosis. Severe right and moderate left foraminal stenosis. Right C7 nerve root compression. C7-T1: Mild disc height loss and desiccation. Mild diffuse disc bulge. Mild facet and uncovertebral hypertrophy bilaterally. Mild canal stenosis. Mild bilateral foraminal stenosis. IMPRESSION: 1. Multilevel degenerative disc and facet disease, as well as ligamentum flavum hypertrophy and epidural lipomatosis. 2. Multilevel canal stenoses, worst at C4-C5 and C5-C6, where there is minimal cord flattening present. 3. Multilevel foraminal stenoses, worst at C5-C6 and C6-C7 where there is associated intraforaminal nerve root compression. Recommend correlation with clinical symptoms to ascertain relevance of these findings. Dictated by: Sri Pressley M.D. on 12/28/2020 at 9:17 Approved by: Sri Pressley M.D. on 12/28/2020 at 9:21
== END ==
PROVIDERS: PCP Family Medicine; Referring Provider Physical Medicine & Rehabilitation; Visit Provider Physical Medicine & Rehabilitation
DX: M47.22 Other spondylosis with radiculopathy, cervical region (principal); M50.11 Cervical disc disorder with radiculopathy, high cervical region; M48.02 Spinal stenosis, cervical region; E88.2 Lipomatosis, not elsewhere classified
CPT/HCPCS: 72141

== ENCOUNTER → 2021-09-01 14:57 | Outpatient (CLI) | payer MEDICARE, OTHER, SELFPAY ==
[2021-08-16 13:49] VITALS: BMI 30.8
--- NOTE | 2021-09-01 14:59 | DI.MG.S_ITS ---
BILATERAL DIGITAL SCREENING MAMMOGRAM 3D/2D WITH CAD: 09/01/2021 CLINICAL: Routine screening. Family history of breast cancer. Comparison is made to exams dated: 09/04/2018 mammogram and 10/15/2018 mammogram - outside location. There are scattered fibroglandular elements in both breasts. Current study was also evaluated with a Computer Aided Detection (CAD) system. There are benign calcifications in both breasts. No significant masses, calcifications, or other findings are seen in either breast. There has been no significant interval change. IMPRESSION: BENIGN There is no mammographic evidence of malignancy. A 1 year screening mammogram is recommended. This exam was interpreted at Station ID: [id number]. NOTE: For mammograms, a report in lay terms will be sent to the patient. Approximately 15% of breast malignancies will not be visualized mammographically. In the management of a palpable breast mass, a negative mammogram must not discourage biopsy of a clinically suspicious lesion. Electronically Signed By: Sergey hernandez/elias:09/01/2021 15:22:19 letter sent: Normal Exam ACR BI-RADS Category 2: Benign Finding(s) 3342F
== END ==
PROVIDERS: PCP Family Medicine; Referring Provider Family Medicine; Visit Provider Family Medicine
DX: Z12.31 Encounter for screening mammogram for malignant neoplasm of breast (principal); Z80.3 Family history of malignant neoplasm of breast
CPT/HCPCS: 77063; 77067

== ENCOUNTER → 2021-10-04 10:02 | Outpatient (CLI) | payer MEDICARE, OTHER, SELFPAY ==
[2021-08-16 13:49] VITALS: BMI 30.8
[2021-10-04 12:54] LABS: COVID19 -Nasal RAPID Negative (Negative)
== END ==
PROVIDERS: PCP Family Medicine; Referring Provider Surgery; Visit Provider Surgery
DX: Z01.812 Encounter for preprocedural laboratory examination (principal); Z20.822 Contact with and (suspected) exposure to COVID-19
CPT/HCPCS: 87635; C9803

== ENCOUNTER 2021-10-05 11:42 | Day surgery (SDC) | payer MEDICARE, OTHER, SELFPAY ==
[2021-08-16 13:49] VITALS: BMI 30.8
[2021-10-05 12:07] VITALS: BP 142/89; PULSE 83; RESP 18; TEMP 36; O2SAT 99
[2021-10-05 12:16] VITALS: BMI 32.1
[2021-10-05] MEDS: LACTATED RINGERS 1,000 ML 200 ML IV (12:24)
[2021-10-05 12:29] VITALS: BMI 32.1
--- NOTE | 2021-10-05 12:53 | PM.PREOP ---
Pre-operative Note Interval Note History & Physical reviewed/Exam performed by Physician: Yes Changes to H&P: No
--- NOTE | 2021-10-05 13:14 | SUR.OPER ---
STIFFENER USED , PATIENT TOLERATED PROCEDURE WELL
[2021-10-05] MEDS: MIDAZOLAM 5 MG/5 ML VIAL IV (13:21)
[2021-10-05] MEDS: fentaNYL 250 MCG/5 ML INJ IV ×2 (13:22→13:39)
--- NOTE | 2021-10-05 13:36 | PM.OP.COLON ---
Operative Date/Time/Diagnoses Date of procedure: 10/05/21 Time of procedure: 13:37 Pre-op diagnosis: Rectal bleeding Post-op diagnosis: other (Internal hemorrhoids) Procedure & Clinicians Study performed: Colonoscopy, hemorrhoidal banding x1 Same procedure as scheduled: Yes Indications: 66-year-old woman with intermittent bright red blood per rectum. Surgeon: Elder Wheeler Procedure Notes Procedure in detail: Medications: Conscious sedation using 5mg IV midazolam and 150mcg IV of fentanyl The history and physical was performed/updated and the patient is ASA class is 2. The procedure was discussed in detail with the patient. Potential risks complications including infection, bleeding, missed diagnosis, perforation, need for surgery, and were explained. Their questions were answered and informed consent was obtained. Patient was brought to the procedure room and placed standard monitoring equipment. The patient's vital signs were monitored continuously throughout the entire procedure. Prior to starting time-out was performed. The patient was placed in the left lateral recumbent position. Procedural sedation was administered. Examination began with a thorough inspection of the perianal area there was no evidence of fissures, fistulae, external hemorrhoids or cutaneous malignancy. The colonoscopy scope was then placed into the anal canal and was advanced to the cecum, which was identified by the ileocecal valve, the appendiceal orifice and the confluence of the taenia. The scope was then slowly withdrawn examining colon thoroughly in all directions, irrigating it of any residual stool. FINDINGS 1. No masses or polyps. 2. Grade 2 internal hemorrhoids. There was a grade 2 left lateral internal hemorrhoid. The endoscope was placed into the rectum. The hemorrhoidal pedicle was grasped elevated and then doubly ligated at its base with hemorrhoidal bands. The patient tolerated the procedure well. They will be discharged once criteria are met. The prep was of good/excellent quality. The withdrawl time was 7minutes. The sedation time was 35 minutes. Specimen(s): none sent Complications: none Impression: Hemorrhoids Post-procedure Recommendations: Colonoscopy in 10 years and High fiber diet Disposition: same day surgery
--- NOTE | 2021-10-05 13:38 | SUR.OPER ---
BANDING OF ONE HEMORRHOID
[2021-10-05 13:40] VITALS: BP 154/91; PULSE 72; RESP 12; TEMP 36.1; O2SAT 97
[2021-10-05 13:45] VITALS: BP 135/78; PULSE 68; RESP 16; O2SAT 96
[2021-10-05 13:50] VITALS: BP 136/78; PULSE 68; RESP 19; O2SAT 95
[2021-10-05 13:55] VITALS: BP 127/49; PULSE 72; RESP 16; O2SAT 95
[2021-10-05 14:00] VITALS: BP 127/77; PULSE 68; RESP 15; O2SAT 99
--- NOTE | 2021-10-05 14:11 | SUR.PHASEII ---
discharge instructions reviewed with pt and she verbalized understanding.
== END 2021-10-05 14:16 | disposition home or self-care (01) ==
PROVIDERS: PCP Family Medicine; Referring Provider Surgery; Visit Provider Surgery
PROC: 0DJD8ZZ Inspection of Lower Intestinal Tract, Via Natural or Artificial Opening Endoscopic (ICD-10-PCS; CPT 45378; principal; 2021-10-05 13:00)
DX: K62.5 Hemorrhage of anus and rectum (principal); K64.1 Second degree hemorrhoids
CPT/HCPCS: 45398; 99152; 99153; J2250; J3010

== ENCOUNTER → 2021-10-11 10:01 | Outpatient (CLI) | payer MEDICARE, OTHER, SELFPAY ==
[2021-08-16 13:49] VITALS: BMI 30.8
[2021-10-11 11:38] LABS: Hemoglobin A1C% w Est Avg Glu 6.3 % (4.0-6.0)
[2021-10-11 11:47] LABS: Albumin 4.4 g/dL (3.5-5.0); BUN Creatinine Ratio 25.9 (6-22); Blood Urea Nitrogen 14 mg/dL (7-17); Calcium 9.2 mg/dL (8.4-10.2); Carbon Dioxide 27 mmol/L (22-32); Chloride 104 mmol/L (98-107); Cholesterol 167 mg/dL (140-199); Estimated Glomerular Filt Rate > 60.0 mL/min (>60); Glucose 99 mg/dL (80-110); HDL Cholesterol 72 mg/dL (40-60); HEMOLYSIS < 15 (0-50); LDL Cholesterol Calculated 72 mg/dL (<100); Sodium 138 mmol/L (137-145); Triglycerides 115 mg/dL (35-150)
[2021-10-11 12:01] LABS: Vitamin D 25 Hydroxy (D3) 33.5 ng/mL (30.0-100.0)
[2021-10-11 12:02] LABS: Free T4, Direct Thyroxine 1.24 ng/dL (0.78-2.19)
[2021-10-11 12:16] LABS: Thyroid Stimulating Hormone 0.585 uIU/mL (0.47-4.68)
[2021-10-12 07:38] LABS: Calcium 9.3 mg/dL (8.7-10.3); Parathyroid Hormone, Intact 50 pg/mL (15-65)
== END ==
PROVIDERS: PCP Family Medicine; Referring Provider Student in an Organized Health Care Education/Training Program; Visit Provider Student in an Organized Health Care Education/Training Program
DX: E11.9 Type 2 diabetes mellitus without complications (principal); M81.8 Other osteoporosis without current pathological fracture; E27.1 Primary adrenocortical insufficiency
CPT/HCPCS: 36415; 80061; 80069; 82306; 82310; 83036; 83970; 84439; 84443

== ENCOUNTER → 2022-01-06 11:06 | Outpatient (CLI) | payer MEDICARE, OTHER, SELFPAY ==
[2021-08-16 13:49] VITALS: BMI 30.8
[2022-01-06 11:38] LABS: COVID19 -Nasal RAPID POSITIVE (Negative)
== END ==
PROVIDERS: PCP Family Medicine; Visit Provider Nurse Practitioner Family
DX: U07.1 COVID-19 (principal); Z20.822 Contact with and (suspected) exposure to COVID-19
CPT/HCPCS: 87635

== ENCOUNTER → 2022-03-03 12:59 | Outpatient (CLI) | payer MEDICARE, OTHER, SELFPAY ==
[2021-08-16 13:49] VITALS: BMI 30.8
--- NOTE | 2022-03-03 13:02 | DI.MRI.S_ITS ---
PROCEDURE: MR LUMBAR SPINE WO CON INDICATIONS: Radiculopathy, lumbar region TECHNIQUE: Noncontrast sagittal T1 spin echo and T2 fast echo, sagittal STIR, and T2 fast spin echo through the lumbar spine. In cases with scoliosis, additional coronal T2 fast spin echo may be performed. COMPARISON: [facility] [place], [place], XR LUMBAR SPINE WITH OBLIQUES PLUS FLEXION EXTENSION, 02/21/2022, 14:04. FINDINGS: Image quality: Excellent. Alignment and Curvature: There is normal bony alignment. Bone Marrow: Marrow is of normal overall signal. No acute vertebral body compression fractures. Spinal Cord: Conus medullaris terminates at the L1 level. Visualized cord demonstrates normal signal and size. Paraspinous Soft Tissues: No paravertebral masses. T12-L1: No canal stenosis or foraminal stenosis. L1-L2: No canal stenosis or foraminal stenosis. L2-L3: Posterior disc bulge. Facet hypertrophy. Moderate canal stenosis. Right posterior lateral annulus tear associated with large diffuse lateral disc bulge, mildly posteriorly displacing the right L2 nerve root far laterally L3-L4: Moderately large diffuse disc bulge, eccentric to the left, with facet hypertrophy. Moderate canal stenosis. Left foraminal disc protrusion impinges on the inferior aspect of the left L3 nerve root, contributing to moderate to severe left foraminal stenosis. L4-L5: Diffuse disc bulge. Facet hypertrophy. Severe canal stenosis. [id number]-zm-[id number] bilateral foraminal stenosis. L5-S1: Disc bulge. Prominent bilateral facet hypertrophy. Mild canal stenosis. Moderate bilateral foraminal narrowing with mild flattening deformity on the exiting bilateral L5 nerve roots. IMPRESSION: 1. Diffuse degenerative change with multilevel disc bulges and multilevel facet arthropathy. 2. Canal stenosis is moderate at L2-L3, moderate at L3-L4, severe at L4-L5, and mild at L5-S1. 3. At L2-L3, there is right posterior lateral annulus tear associated with disc bulge, posteriorly displacing the right L2 nerve root far laterally. 4. At L3-L4, there is a left foraminal disc protrusion which impinges on the left L3 nerve root in the foramen. Dictated by: Simon Ngo M.D. on 03/03/2022 at 15:58 Approved by: Simon Ngo M.D. on 03/03/2022 at 16:04
== END ==
PROVIDERS: PCP Family Medicine; Referring Provider Physical Medicine & Rehabilitation; Visit Provider Physical Medicine & Rehabilitation
DX: M47.26 Other spondylosis with radiculopathy, lumbar region (principal); M47.27 Other spondylosis with radiculopathy, lumbosacral region; M48.061 Spinal stenosis, lumbar region without neurogenic claudication; M48.07 Spinal stenosis, lumbosacral region
CPT/HCPCS: 72148

== ENCOUNTER → 2022-03-22 08:58 | Outpatient (CLI) | payer MEDICARE, OTHER, SELFPAY ==
[2021-08-16 13:49] VITALS: BMI 30.8
--- NOTE | 2022-03-22 | DI.MRI.S_ITS ---
PROCEDURE: MR CERVICAL SPINE WO CON INDICATIONS: Radiculopathy, cervical region TECHNIQUE: Noncontrast sagittal T1 spin echo and T2 fast spin echo, sagittal STIR, foraminal oblique sagittal T2 fast spin echo, and axial gradient echo or T2 fast spin echo through the cervical spine. COMPARISON: [facility], MR, MR CERVICAL SPINE WO CON, 12/26/2020, 15:11. [facility], MR, MR CERVICAL SPINE WITHOUT CONTRAST, 04/20/2018, 10:45. FINDINGS: Image quality: This examination is limited by involuntary motion artifact. Alignment and Curvature: There is straightening of the normal cervical lordosis. No focal AP alignment abnormality is seen. Bone Marrow: Marrow demonstrates normal overall signal. Spinal Cord: Visualized spinal cord has normal size and signal. No cerebellar tonsillar herniation. Paraspinous Soft Tissues: No paravertebral masses. Prevertebral soft tissues are normal in thickness. C2-C3: No significant abnormality is seen. C3-C4: The disc height is well-preserved. Loss of disc signal is seen at this level. A mild degree of generalized disc osteophyte complex is seen. Mild to moderate facet hypertrophy is seen. No significant neural foraminal or central canal narrowing can be seen. C4-C5: Moderate loss of disc height is seen. Loss of disc signal is seen. Moderate generalized disc osteophyte complex is seen. There is a central disc osteophyte protrusion. At least moderate facet hypertrophy is seen. There is moderate to severe left-sided and mild right-sided neural foraminal narrowing. There is at least moderate central canal narrowing seen, with mild mass effect upon the ventral spinal cord. When comparison is made with the prior images, these findings are similar. C5-C6: Moderate loss of disc height is seen. Loss of disc signal is seen. Moderate disc osteophyte complex is seen, which is eccentric to the right. There is moderate right-sided and yjdu-kv-[id number] left-sided facet hypertrophy. Moderate to severe bilateral neural foraminal narrowing can be seen, right worse than left. No significant change from the prior. C6-C7: Moderate loss of disc height is seen. Loss of disc signal is seen. Moderate disc osteophyte complex is seen, which is eccentric to the right. Mild facet joint hypertrophy is seen. There is moderate to severe right-sided and at least moderate left-sided neural foraminal narrowing. Mild central canal narrowing is seen. When comparison is made with the prior images, these findings are similar. C7-T1: The disc height is well-preserved. Loss of disc signal is seen at this level. A mild degree of generalized disc osteophyte complex is seen. There is mild right-sided and no significant left-sided neural foraminal narrowing. Minimal central canal narrowing is seen. No significant change from the prior. IMPRESSION: Multiple levels of cervical spine degenerative change are seen, which are similar to 202. Straightening of the normal cervical lordosis is seen, which is commonly observed in patients with muscular spasm. Dictated by: Dawson Moore M.D. on 03/22/2022 at 13:13 Approved by: Dawson Moore M.D. on 03/22/2022 at 13:21
== END ==
PROVIDERS: PCP Family Medicine; Referring Provider Physical Medicine & Rehabilitation; Visit Provider Physical Medicine & Rehabilitation
DX: M47.22 Other spondylosis with radiculopathy, cervical region (principal)
CPT/HCPCS: 72141

== ENCOUNTER → 2022-05-12 13:34 | Outpatient (CLI) | payer MEDICARE, OTHER, SELFPAY ==
[2021-08-16 13:49] VITALS: BMI 30.8
[2022-05-12 14:07] LABS: Add Manual Diff / Slide Review NO; Basophils Absolute Auto 100 /uL (0-100); Eosinophils Absolute Auto 100 /uL (0-450); Eosinophils Percent Auto 1.1 % (2-4); Hematocrit 40.1 % (36-46); Hemoglobin 13.3 g/dL (12.0-16.0); Lymphocytes Absolute Auto 2400 /uL (1100-4500); Lymphocytes Percent Auto 24.9 % (25-40); Mean Corpuscular HGB Conc 33.1 % (30-36); Mean Corpuscular Hemoglobin 28.9 PG (26-34); Mean Corpuscular Volume 87.3 fL (80-100); Monocytes Absolute Auto 500 /uL (0-900); Monocytes Percent Auto 5.3 % (3-14); Neutrophils Absolute Auto 6600 /uL (1500-7000); Neutrophils Percent Auto 67.7 % (50-75); Platelet Count 358 X10^3/uL (150-400); Red Blood Cell Count 4.59 X10^6/uL (4.0-5.2); Red Cell Distribution Width 14.9 % (11.6-14.8); White Blood Cell Count 9.8 X10^3/uL (4.5-11.0)
[2022-05-12 14:19] LABS: BUN Creatinine Ratio 19.4 (6-22); Blood Urea Nitrogen 13 mg/dL (7-17); Calcium 9.3 mg/dL (8.4-10.2); Carbon Dioxide 24 mmol/L (22-32); Chloride 101 mmol/L (98-107); Estimated Glomerular Filt Rate > 60 mL/min (>60); Glucose 109 mg/dL (80-110); HEMOLYSIS < 15 (0-50); Potassium 4.5 mmol/L (3.4-5.1); Sodium 138 mmol/L (137-145)
== END ==
PROVIDERS: PCP Family Medicine; Referring Provider Orthopaedic Surgery Orthopaedic Surgery of the Spine; Visit Provider Orthopaedic Surgery Orthopaedic Surgery of the Spine
DX: Z01.818 Encounter for other preprocedural examination (principal); Z01.812 Encounter for preprocedural laboratory examination
CPT/HCPCS: 36415; 80048; 85025; 93005

== ENCOUNTER → 2022-06-10 11:25 | Outpatient (CLI) | payer MEDICARE, OTHER, SELFPAY ==
[2021-08-16 13:49] VITALS: BMI 30.8
[2022-06-10 12:27] LABS: COVID19 -Nasal RAPID Negative (Negative)
== END ==
PROVIDERS: PCP Family Medicine; Referring Provider Orthopaedic Surgery Orthopaedic Surgery of the Spine; Visit Provider Orthopaedic Surgery Orthopaedic Surgery of the Spine
DX: Z20.822 Contact with and (suspected) exposure to COVID-19 (principal)
CPT/HCPCS: 87635; C9803

== ENCOUNTER 2022-06-13 11:22 | Inpatient (IN) | payer MEDICARE, OTHER, SELFPAY ==
[2021-08-16 13:49] VITALS: BMI 30.8
[2022-06-06 14:20] VITALS: BMI 32.8
[2022-06-13] VITALS (19 sets, daily range): BP systolic 99–165; BP diastolic 66–99; PULSE 78–95; RESP 11–39; TEMP 35.8–36.7; O2SAT 80–98; BMI 32.1
[2022-06-13] MEDS: LACTATED RINGERS 1,000 ML 42 ML IV (12:13)
--- NOTE | 2022-06-13 12:18 | SUR.PREOP ---
Took patient's home medciation vibegron to pharmacy for ID and storage.
--- NOTE | 2022-06-13 12:46 | PM.PREOP ---
Pre-operative Note COVID-19 COVID-19 status: Negative Result date/Date tested (Pos, Neg/Pending): 06/12/22 Criteria for continued procedure: Expected advancement of disease process, Possibility delay results in more complex future surgery or treatment, Increased loss of function, Continuing or worsening of significant or severe pain, Deterioration of the patient's condition or overall health and Delay expected to result in less-positive ultimate med/surg outcome Interval Note History & Physical reviewed/Exam performed by Physician: Yes Changes to H&P: No
[2022-06-13] MEDS: CEFAZOLIN 2 GM/100 ML PREMIX 100 ML IV ×2 (14:00→20:33)
[2022-06-13] MEDS: BUPIVACAINE 0.25% (PF) 30 ML, EPINEPHrine 0.3 MG INJ (14:15)
--- NOTE | 2022-06-13 14:25 | SUR.OPER ---
Supine on padded OR bed, head on pillow, arms padded and tucked at sides, legs uncrossed, safety belt at thigh, tape over blanket over lower legs .
--- NOTE | 2022-06-13 16:38 | DI.RAD.S_ITS ---
PROCEDURE: XR CERVICAL SPINE 2V OR 3V INDICATIONS: C4-5,C5-6,C6-7 ACDF TECHNIQUE: 2 view(s) of the cervical spine were acquired. COMPARISON: None. FINDINGS: Intraoperative images were obtained for ACDF from C4-C7 with hardware in expected position.. IMPRESSION: Intraoperative images for C4-C7 ACDF. Please see operative note for details. Dictated by: Doe Zhang M.D. on 06/13/2022 at 16:53 Approved by: Doe Zhang M.D. on 06/13/2022 at 16:54
--- NOTE | 2022-06-13 16:45 | PM.OP.1 ---
Operative Date/Time/Diagnoses Date of procedure: 06/13/22 Time of procedure: 14:30 Pre-op diagnosis: 1. C4-5, C5-6, C6-7 spinal stenosis 2. Cervical spondylosis with radiculopathy Post-op diagnosis: same Procedure & Clinicians Procedure: 1. C4-5 C5-6 C6-7 anterior cervical diskectomy and fusion 2. C4-5 C5-6 C6-7 anterior interbody cage placement 3. C4-5 C5-6 C6-7 anterior instrumentation with plate and screw placement in C4-C5-C6 and C7 vertebrae 4. Utilization of microsurgical technique and operating microscope Same procedure as scheduled: Yes Indications: Patient has been having chronic neck pain and worsening cervical radiculopathy. Patient failed multiple conservative management with worsening pain weakness and numbness in her upper extremity. Patient has been having difficulty performing activity of daily living. After discussing risks benefits of treatment options, patient elected proceed with surgery. Surgeon: Norris Banegas Vehicle Fare Collector: Peyton Post Click Yes if Unassisted: No Anesthesia Type: General Operative Notes Closure Type: primary Specimen(s): none sent Prosthetic devices, grafts, tissues, transplants, or devices: Globus Extend Plate, Titanium Cages Applied: catheter Estimated Blood Loss (mL): 10 Blood products transfused: none Procedure in detail: Patient was seen in the preoperative area. Risks and benefits of the surgery was discussed with the patient. Operative consent was obtained and placed in the chart. Patient was then taken to the operative room. Prophylactic antibiotic was given less than 0.5 hr prior to skin incision. General anesthesia was administered. Patient was placed into a supine position on her radiolucent table. Bilateral shoulders were taped down to allow proper C-arm imaging. Anterior cervical area was prepped and draped in a sterile fashion. Time-out was performed at this time. Using lateral C-arm imaging, the level between C4 and C7 was identified and marked on patient's neck. A oblique incision from midline towards medial border of sternocleidomastoid muscle was made. The platysma muscle was incised in line with skin incision. Metzenbaum scissor was used to develop the plane between the medial border of sternocleidomastoid and the strap muscles medially. The carotid sheath and its contents were identified and protected behind the hand-held retractor during the entire case. The plane between the carotid sheath and strap muscles was developed with Metzenbaum scissors. Dissection was made down to the level of the anterior cervical fascia. Longus colli muscle was incised on the anterior aspect of vertebral bodies bilaterally from C4-C7. Spinal needle was placed into the C4-5 disc space and confirmed with lateral C-arm imaging. Self-retaining retractors were then placed protecting the carotid sheath the sheath laterally and the esophagus medially while exposing the surgical field between C4-C7 vertebrae. Using microsurgical technique and operative microscope, anterior cervical diskectomy was performed at C4-5 C5-6 and C6-7 level. This was done by removing the disc material, removing the anterior and posterior osteophytes posterior longitudinal ligaments along with performing bilateral foraminotomies at all 3 levels. Patient was found to have severe central and foraminal stenosis at all 3 levels. Patient's stenosis was fully decompressed after decompression was completed. After the diskectomy was completed, 3 anterior interbody cages were obtained. The cages were packed with globus Trifecta bone grafting material. One cage each along with the bone grafting material was then packed into the interbody spaces from C4-C7 with one cage into each interbody level. Patient had large anterior osteophytes at C4, C5, C6 and C7 vertebrae. Large osteophytes was removed using Leksell rongeur in order to place anterior cervical plate. After the cages were placed, the anterior cervical plate was stabilized to the C4-C7 vertebrae using 2 screws at each each level. Total 8 screws were placed. After confirming placement of the hardware with AP and lateral C-arm imaging, the screws were locked into the plate using the locking mechanism and torque limiting screwdriver. After the hardware was placed and confirmed with AP and lateral C-arm imaging, the wound was irrigated with sterile normal saline. Hemostasis was accomplished using bipolar cautery. Carotid sheath contents and the esophagus was inspected and visualized and identified to be well protected throughout the entire case prior to closure. Platysma muscle and the subcutaneous tissue was closed with 2-0 Vicryl. The skin was closed with 4-0 Monocryl and Steri-Strips. Patient tolerated the procedure well. Patient was transferred recovery room in stable condition. There were no complications. Complications: none Post-operative Condition: stable Disposition: PACU Plan for aftercare: Admit to inpatient hospital
[2022-06-13] MEDS: ALBUTEROL/IPRATROPIUM 3 ML AMPUL INH (17:55)
--- NOTE | 2022-06-13 19:13 | SUR.PHASEI ---
Patient drowsy but arousable to verbal stimuli; following all commands when prompted. Patient falls back asleep quickly but appears in no distress. Patient remains in PACU due to delay of inpatient nurses taking report due to shift change.
--- NOTE | 2022-06-13 19:30 | SUR.PHASEI ---
Called report to floor AURORA Guan. Informed her that patient remains drowzy at this time, pt awakens to voice, is alert and oriented and follows commands x 4. Pt remains on nasal cannula at 4L and is sating 94%.
[2022-06-13] MEDS: SODIUM CHLORIDE 0.9% 1,000 ML 100 ML IV (20:33)
[2022-06-13] MEDS: HYDROCORTISONE 100 MG/2 ML VIAL 8 MG IV (20:49)
[2022-06-13] MEDS: HYDROMORPHONE 0.5 MG INJ IV (21:43)
[2022-06-14] VITALS (8 sets, daily range): BP systolic 105–129; BP diastolic 57–78; PULSE 73–87; RESP 16–18; TEMP 35.8–36.6; O2SAT 92–100; BMI 32.1
[2022-06-14] MEDS: HYDROMORPHONE 0.5 MG INJ IV ×5 (00:08→11:21)
--- NOTE | 2022-06-14 04:29 | PC.NURSE ---
Pt is AxOx4 now and cooperative. Pt arrived to the unit around 1999 and pt was very lethargic and oriented x2. Pt c/o pain around neck and hand 8/10 and recieving IV Dilaudid 0.5mg almost Q2 hrs with good effect. Pt has pain on her throat and incision area so pt was unable to swallow pills. Thus, all PO meds not given and got order for IV Hydrocortisone for her Dolton's diseases. Driscoll is draining well and adequate now. Pt is sleeping between care and able make her needs known. No other changes. Continue monitor.
[2022-06-14] MEDS: CEFAZOLIN 2 GM/100 ML PREMIX 100 ML IV (05:18)
[2022-06-14] MEDS: SODIUM CHLORIDE 0.9% 1,000 ML 100 ML IV (05:32)
[2022-06-14] MEDS: ONDANSETRON 4 MG/2 ML INJ IV (07:41)
[2022-06-14] MEDS: ALBUTEROL 2.5 MG/3 ML NEB (ADULT) INH ×3 (07:43→18:59)
[2022-06-14] MEDS: BUDESONIDE 0.5 MG/2 ML NEB INH ×2 (07:43→18:59)
--- NOTE | 2022-06-14 07:46 | P.PN_ITS ---
Subjective Subjective Date Patient Seen: 06/14/22 Time Patient Seen: 07:46 Interval history: Patient's pain is moderate to severe. Patient notes nausea. No fever or chills. No shortness of breath or chest pain. Exam Vital Signs (past 8 hours): - 06/14/22 00:03 06/14/22 00:00 06/14/22 04:00 Temperature 97.4 F L 97.6 F Pulse Rate 77 79 73 Respiratory Rate 17 18 Blood Pressure 114/73 129/78 Pulse Oximetry 99 100 98 Oxygen Delivery Method Nasal Cannula Oxygen Flow Rate 4 3 3 Fraction of Inspired Oxygen 36 Fraction of Inspired Oxygen 36 SaO2/FiO2 Ratio 275 Oxygen Delivery Method Nasal Cannula Oxygen Flow Rate 3 Narrative Exam Narrative: 66-year-old female resting comfortably in bed in no apparent distress. Soft collar is on. Dressing clean dry and intact. Motor functions intact bilateral upper extremities. Const General: cooperative and comfortable Nutritional Appearance: average body habitus Orientation: alert Resp Effort & Inspection: normal respiratory effort and able to speak in complete sentences [facility] Medical History Abnormal chest x-ray (~2008) Abnormal Pap smear of cervix [place]'s disease (~2001) Adrenal crisis (~2016) Adrenal insufficiency Anemia (~2000) Anxiety Asthma (~1999) Back pain Bruises easily Bulging discs (~2015) Cataracts, bilateral (~2018) Cervical somatic dysfunction Cervical spinal stenosis Chicken pox Chronic back pain (~2015) Chronic lymphocytic leukemia (~2001) Chronic neck pain CLL (chronic lymphocytic leukemia) Constipation COVID-19 virus infection (01/06/22) Cranial somatic dysfunction Depression (~1993) Diabetes mellitus (~2008) Diabetes type 2, controlled External hemorrhoid, bleeding Fecal incontinence (~2016) Fibromyalgia (~1986) GERD (gastroesophageal reflux disease) Headache (~2015) Heavy menstrual period Hemorrhoid (~2014) Hiatal hernia (~2004) History of pneumonia HTN (hypertension) Hyperpigmentation Hypothyroidism (~2001) Infertility (~1988) Irregular menstrual cycle Mumps (~1967) Neck pain Ovarian cyst Painful menstrual periods Pelvic somatic dysfunction Pneumonia (~2008) Rib pain on right side Segmental and somatic dysfunction of abdomen and other regions Segmental and somatic dysfunction of lumbar region Segmental and somatic dysfunction of rib cage Segmental and somatic dysfunction of thoracic region Sleep apnea (~2005) Somatic dysfunction of sacral spine Tension headache, chronic Urinary incontinence Urinary incontinence in female (~2008) Surgical History Anesthesia Fibroids H/O excision of mass (04/22/20) H/O hysterectomy with oophorectomy History of bladder surgery History of bunionectomy (~1996) History of colonoscopy (10/05/21) History of eyelid surgery (~2005) History of hysterectomy (~1994) History of knee surgery History of oophorectomy (~2014) History of tonsillectomy (~1960) Hx of foot surgery (~07/2021) Status post blepharoplasty of both eyes Status post epidural steroid injection Status post unicompartmental knee replacement, left (07/16/19) Family History Father Prostate cancer History of heart disease Hypertension Mother History of heart disease Hypertension Hyperlipidemia Mental health problem Stroke Sister Atrial fibrillation TIA (transient ischemic attack) Diabetes mellitus History of heart disease Hyperlipidemia Hypertension Stroke Lupus Fibromyalgia Grandfather Liver disease Grandmother History of heart disease Hyperlipidemia Hypertension Stroke Grandfather Stroke Grandmother Cancer Social History marital status: unknown household members: none occupational status: previously employed Smoking Status: Never smoker alcohol intake: current substance use type: does not use Assessment & Plan Post-op Postoperative Procedures: Procedures Operation Date: 06/13/22 10:45 Actual Procedure Side Surgeon p C4-5,C5-6, C6-7 ACDF w. anterior instrumentation Norris Banegas MD Postoperative day: 1 Postoperative status: marginal pain control Postoperative status narrative: Patient stable status post C4-C5, C5-C6, C6-C7 anterior cervical diskectomy and fusion Postoperative plan: routine post-op care Postoperative plan narrative: Multimodal pain management Soft collar for comfort Mobilize with physical therapy, limit bending, twisting, lifting Disposition, likely home tomorrow
[2022-06-14] MEDS: HYDROCORTISONE 10 MG TABLET PO ×2 (08:27→21:19)
[2022-06-14] MEDS: LEVOTHYROXINE 75 MCG TABLET PO (08:27)
[2022-06-14] MEDS: CALCIUM CARBONATE 500 MG TAB 1000 MG PO (08:28)
[2022-06-14] MEDS: MONTELUKAST 10 MG TABLET PO (08:28)
[2022-06-14] MEDS: FLUDROCORTISONE 0.1 MG TABLET 0.2 MG PO (08:28)
[2022-06-14] MEDS: CHOLECALCIFEROL (VITAMIN D3) 400 UNIT TABLET PO (08:28)
[2022-06-14] MEDS: METFORMIN HCL 500 MG TABLET 1000 MG PO (08:28)
[2022-06-14] MEDS: ATORVASTATIN 20 MG TABLET 40 MG PO (08:28)
[2022-06-14] MEDS: DULOXETINE 30 MG CAPSULE 60 MG PO (08:29)
[2022-06-14] MEDS: DOCUSATE 100 MG CAPSULE PO ×2 (08:29→21:19)
[2022-06-14] MEDS: lisinopriL 5 MG TABLET PO (08:35)
[2022-06-14] MEDS: ACETAMINOPHEN 325 MG TABLET 650 MG PO ×2 (09:38→15:41)
[2022-06-14] MEDS: OXYCODONE IR 5 MG TABLET 10 MG PO ×5 (09:39→21:21)
--- NOTE | 2022-06-14 10:43 | CM.DANOTE ---
DCP: Case received, EMR reviewed and met with patient. Introduced self and role. Was able to obtain information regarding patient's baseline activity status prior to her surgery, as well as her current living situation. DCP assessment completed with information currently available. Patient is a 66 year old female who admitted yesterday morning to the care of the orthopedic team. PCP: Dr. Vasquez. Payer: confirmed: Medicare/[employer]. Patient came to the hospital via private vehicle for a surgical procedure. Patient had C4-5, C6-7 anterior diskectomy and fusion. Patient has history of spinal stenosis. Met with patient in her room. She was sitting up in bed, neck collar in place. She is alert and oriented, pleasant. Confirmed that patient resides alone in [place]. She has a son, Gera, who lives in [place]. Patient indicated that she has a friend named Krista, who will be staying with her for a few days. She indicated that after that, her cousin will stay with her. At patient's baseline, she is independent. She is from [facility], retired after 30 years working for the [employer]. She came up to this area since her nephew was up here at the time, but is no longer here. She has no family in this area. P: DCP to continue to follow for any needs. She will be working with P.T. Patient should be able to go home when medically stable. Pat Holt RN/Polygraph Examiner Discharge Planning/Care Management CM Discharge Assessment Start: 06/14/22 10:42 Freq: Status: Active Protocol: Document 06/14/22 10:42 (Rec: 06/14/22 10:43 [id number]) Discharge Planning Assessment Assigned Warehouse Picker Pat Holt RN/Polygraph Examiner Advance Directives? Yes Advance Directives on File No History Provided By Patient,Medical Record Prior Living Arrangements House Household Members none Type of transporation used prior to Drives own vehicle admit Independent with ADL's Yes Is patient alert and oriented? Yes Caregiver for Another No Barriers to Discharge No Comment Lives alone, but friend, Krista , will stay with her for a few days, then her cousin. Discharge Plan Home Transportation Arrangement Friend Referrals Initiated None needed Whiteboard Updated in Patient Room with Yes name and ext. # of Warehouse Picker Review Status In Process Next Review Type Continued Stay Review Pre-Anesthesia Assessment Start: 05/31/22 07:38 Freq: Status: Active Protocol: Document 06/06/22 14:20 CAB (Rec: 05/31/22 08:56 CAB [id number]) Pre-Anesthesia Assessment Patient Information Reviewed Via Phone Assessment Assessment Completed With Patient Diagnostic Results BMP/CMP,CBC,EKG Comment Labs/ECG @ [facility] 05/12/22, COVID screen @ [facility] 06/10/22 Primary Care Provider Pradip Vasquez Seen Specialist in Last 12 Months Yes Specialist Seen Medical Laboratory Technicians,Orthopedist Comment Endocrinology 05/18/22 scanned -hydrocortisone directions in Surgeon H&P Primary Language Azeri Preferred Language Azeri Inventory Manager Required No Height 5 ft 4 in Weight 191 lb Body Mass Index (BMI) 32.8 Visual Assist Glasses Dentition Type Teeth, Natural Present Barriers to Learning None Other Aids No Hx Anesthesia Reactions Yes: PONV, headaches, hypotension -JOSE RAFAEL untreated Additional comment Hydrocortisone directions in H &P scanned, in surgery folder dos Hx Family Anesthesia Reaction No Hx Malignant Hyperthermia No Hx Blood Transfusions No: 2001 Hx Blood Transfusion Reaction No Anesthesia Review Requested Yes: PAC courtesy re: Steroid dosing pre/nelli/post per Medical Laboratory Technicians Additional comment Anesthesia review scanned alcohol intake current alcohol intake frequency holidays/special occasions only Smoking Status Never smoker Substance Use Type does not use Pain Present Pain Reported Musculoskeletal Symptoms Back Pain,Joint Pain,Limited Range of Motion,Numbness, Radiating Pain into Limb History of Falling (Recent or History of No ) Patient is completely paralyzed or No completely immobile Mental Status Oriented to own ability Is patient on oxygen? No Does patient have SEWELL/SOB No Hx Sleep Apnea Yes: Untreatment CPAP/BIPAP use prescribed not used Currently Taking a Beta Rhona No Hx Chest Pain No Hx SOB Yes Hx Syncope or Dizziness No Anti-Coagulant Therapy No Has a Windlasser No Cardiac Testing No Hx Pacemaker/ICD No Pacemaker Rep Required? No Diet Type At Home Regular Dysphagia No Gastrointestinal Symptoms Constipation Urinary Catheter Present No Hx Urinary Self Catheterization No Diabetes Yes HgbA1C 6.3 Date 10/11/21 Patient No Lactating No Presence of External or Internal Medical Yes: bladder sling, left Devices partial knee Received a COVID vaccine? Yes Received all doses? Yes Comment Pt had Covid 01/06/22 Marital Status Lives With none Current Living Arrangements House Number of Floors (Floors) One Floor Support System Friend(s) Does the Patient Have Assistance After Yes: Friend will stay with Surgery patient at DC to assist with care Patient Discharge Plan Description Return Home Comment Pt advised 2 day length of stay per surgeon Feels Safe in Current Environment Yes Been Physically Hurt or Threatened By a No Person in Current Environment Do you have thoughts of harming yourself None or others? Are you currently considering suicide? No Do you have a plan to hurt yourself or No Plan others? Do You Have Any Spiritual Beliefs That No May Affect Your HC Choices? Do You Have Any Cultural Practices That No May Affect Your HC Choices? Comment Agnostic Who Can We Speak to About Patient's Care Family, friends Identifying Code for Release of Patient Declines to issue Information Health Care Proxy/Next of Kin Gera (son) Chloe (friend) Health Care Proxy Phone Number Gera: [phone] Chloe: Emergency Contact Name Krista (friend) Emergency Contact Advance Directives? Yes Power of Grocery Deliverer No PAC Instructions Nasal antibiotic,No ETOH/ petroleum product on skin DOS, NPO,Pre-surgical wash,Sensory aids,Sturdy shoes/comfortable clothes,Do not bring valuables and remove jewelry
--- NOTE | 2022-06-14 11:30 | PT.IIE ---
Current Diagnoses Other spondylosis with radiculopathy, cervical region (06/13/22) Spinal stenosis, cervical region (06/13/22) Surgery Performed Operation Date: 06/13/22 10:45 Actual Procedures p C4-5,C5-6, C6-7 ACDF w. anterior instrumentation - Norris Banegas MD Surgical History (Last Reviewed 06/14/22 @ 07:47 by Pradip Rodriguez PA-C) Anesthesia Fibroids H/O excision of mass (04/22/20) H/O hysterectomy with oophorectomy History of bladder surgery History of bunionectomy (~1996) History of colonoscopy (10/05/21) History of eyelid surgery (~2005) History of hysterectomy (~1994) History of knee surgery History of oophorectomy (~2014) History of tonsillectomy (~1960) Hx of foot surgery (~07/2021) Status post blepharoplasty of both eyes Status post epidural steroid injection Status post unicompartmental knee replacement, 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/16/19) Medical History (Last Reviewed 06/14/22 @ 07:47 by Pradip Rodriguez PA-C) Abnormal chest x-ray (~2008) Abnormal Pap smear of cervix Lior's disease (~2001) Adrenal crisis (~2016) Adrenal insufficiency Anemia (~2000) Anxiety Asthma (~1999) Back pain Bruises easily Bulging discs (~2015) Cataracts, bilateral (~2018) Cervical somatic dysfunction Cervical spinal stenosis Chicken pox Chronic back pain (~2015) Chronic lymphocytic leukemia (~2001) Chronic neck pain CLL (chronic lymphocytic leukemia) Constipation COVID-19 virus infection (01/06/22) Cranial somatic dysfunction Depression (~1993) Diabetes mellitus (~2008) Diabetes type 2, controlled External hemorrhoid, bleeding Fecal incontinence (~2016) Fibromyalgia (~1986) GERD (gastroesophageal reflux disease) Headache (~2015) Heavy menstrual period Hemorrhoid (~2014) Hiatal hernia (~2004) History of pneumonia HTN (hypertension) Hyperpigmentation Hypothyroidism (~2001) Infertility (~1988) Irregular menstrual cycle Mumps (~1967) Neck pain Ovarian cyst Painful menstrual periods Pelvic somatic dysfunction Pneumonia (~2008) Rib pain on right side Segmental and somatic dysfunction of abdomen and other regions Segmental and somatic dysfunction of lumbar region Segmental and somatic dysfunction of rib cage Segmental and somatic dysfunction of thoracic region Sleep apnea (~2005) Somatic dysfunction of sacral spine Tension headache, chronic Urinary incontinence Urinary incontinence in female (~2008) Physical Therapy Inpatient Evaluation/Re-Eval M1 PT/OT-IP Prior Functional Status Start: 06/14/22 13:03 Freq: NEEDED Status: Active Protocol: Document 06/14/22 11:30 AB (Rec: 06/14/22 13:13 [email or web address]) Medical Review Prior Functional Status Communication able to make needs known Mobility and Gait pt stated that she is modified independent with all mobilities and ambulation without AD but occasionally uses her SPC for mobility Activities of Daily Living and IADL's per OT note: Pt states has not been able to do her IADl's and minimal ADL's recently due to her weakness and pain. Social History Household Members none Living Arrangements House Number of Floors (Floors) One Floor Number of Stairs To Enter/Railing? pt lives in a 55+ community no steps to enter Home Environment High Toilet,Walk in Shower, Built-In Shower Seat Home Equipment Front Wheel Walker,Straight Cane,Shower Seat with Backrest ,Hand Held Shower,Grab Bars In Shower Additional Social History Comment pt stated that her friend will stay with her to assist her for ~ 1 week and then afterwards, her cousing will stay with her for another week to assist her. M2 PT-IP Current Condition Start: 06/14/22 13:03 Freq: NEEDED Status: Active Protocol: Document 06/14/22 11:30 AB (Rec: 06/14/22 13:13 [email or web address]) Physical Therapy Current Condition Current Condition Evaluation Date 06/14/22 Treatment Diagnosis s/p C4-5, C5-6, C6-7 ACDF; difficulty in walking Onset Date 06/13/22 M3 PT-IP Subjective Start: 06/14/22 13:03 Freq: NEEDED Status: Active Protocol: Document 06/14/22 11:30 AB (Rec: 06/14/22 13:13 [email or web address]) Subjective Physical Therapy Visit Type Type Initial Evaluation Visit Start Time 11:30 Visit Stop Time 11:50 Total Visit Minutes 20 Number of COLLECTION CORRESPONDENT Visits 0 Physical Therapy Visit Comments Patient Comments agreeable to do PT Therapy Pain Assessment Pain When Pain Assessed At Rest Pain Present Pain Present Pain Reported Location neck Intensity 5 Scale Used Numeric (0 - 10) Pain Management Techniques Distraction,Modification of Treatment,Re-positioning, Timing of Activity with Medications M4 PT-IP Mobility and Gait Start: 06/14/22 13:03 Freq: NEEDED Status: Active Protocol: Document 06/14/22 11:30 AB (Rec: 06/14/22 13:13 AB [email or web address]) PT-Bed Mobility Assessment Rolling Type of Rolling Log Rolling Level of Assist Standby Assistance Supine to Sit Supine to Sit Standby Assistance Sit to Supine Sit to Supine Standby Assistance PT-Transfer Assessment Sit to and From Stand Sit to and from Stand Contact Guard Assistance,1 Person Assistance,Use of Upper Extremities Equipment Transfer Assistive Device None,Gait Belt Orthotic/Prosthetic Devices or Brace: No Transfers Transfer Destination Bed,Chair Transfer Technique Stand Step Pivot Transfer Ability Level of Assist Minimal Assistance Comments Mobility Comments pt sitting on chair. stated that she has an asthma flare up affecting her endurance and mobility but agreed to do PT. reviewed cervical precautions and log roll bed mobility. pt completed sit to stand from the chair CGA and step transfer to bed without AD min A and cues. unsteady gait. completed log roll sit<>supine SBA. ambulated using FWW towards the sink ~ 10 ft CGA. educated on soft collar management. has chronic UE weakness and numbness and needs assistance with collar management. pt ambulated back to the chair using FWW CGA. positioned on the chair. call light and table placed within reach. Gait Assessment Gait Gait Assistance Required: Contact Guard Assist Distance (Feet) 12 Able to Maintain Weight Bearing Status Yes During Gait Assistive Devices Assistive Device Gait Belt,Front Wheeled Walker Orthotic/Prosthetic Devices or Brace: No Gait Deviations General Gait Pattern Decreased Stride Length, Decreased Feet Clearance,Step- to Gait Factors Limiting Gait Function Factors Limiting Gait Function Decreased Activity Tolerance, Decreased Strength,Limited Range of Motion,Pain,Poor Balance,Poor Safety Awareness, Respiratory Distress PT-Balance Assessment Sitting Balance and Reactions Static Sitting Balance Ability Good Dynamic Sitting Balance Ability Good Standing Balance and Reactions Static Standing Balance Ability Fair Dynamic Standing Balance Ability Fair Device Used FWW M5 PT-IP Objective Assessments Start: 06/14/22 13:03 Freq: NEEDED Status: Active Protocol: Document 06/14/22 11:30 AB (Rec: 06/14/22 13:13 AB [id number]) Orientation Orientation/Cognition Level of Alertness Alert Orientation Name,Place,Situation Language Function Ability No Deficits Noted Safety Awareness Decreased Safety Awareness Memory Description No Deficits Noted Gross Range of Motion Lower Extremity ROM Assessment Within Functional Limits Strength Lower Extremity Strength Hip 4-/5 Knee 4-/5 Sensation Assessment Sensation Gross Sensation Right UE Impaired,Left UE Impaired Light Touch Impaired Proprioception (Position) Impaired Sensation Description Numbness Muscle Tone Muscle Tone WNL No M6 PT-IP Treatment Start: 06/14/22 13:03 Freq: NEEDED Status: Active Protocol: Document 06/14/22 11:30 AB (Rec: 06/14/22 13:13 AB [id number]) Physical Therapy Treatment Education Education Provided Precautions,Weight Bearing Status,Safety M7 PT-IP Assessment and Plan Start: 06/14/22 13:03 Freq: NEEDED Status: Active Protocol: Document 06/14/22 11:30 AB (Rec: 06/14/22 13:13 AB [email or web address]) PT Summary Assessment and Plan Potential Rehabilitation Potential Fair Status of Condition at Evaluation Evolving Summary Impairments Pain,ROM,Strength,Balance, Coordination,Sensation,Tone, Cognition,Bed Mobility, Transfers,Gait,Activity Tolerance Assessment Summary pt requiring CGA with mobility using FWW at this time. pt plans to go home with her friend/cousin to assist and will conduct caregiver training when appropriate. will continue to assess progress. Goals Bed Mobility Goal Independent Transfer Goal Independent,Front Wheeled Walker Gait Goal Independent,Front Wheel Walker Gait Distance 150 Other Goals improve ambulation without AD ~ 150 ft SBA Days to Meet Goals 5 Frequency of Treatment Frequency Of Treatment Twice a Day Treatment Plan Physical Therapy Treatment Plan Bed Mobility Training,Transfer Training,Gait Training, Therapeutic Exercise,Balance Retraining,Post Op Education, Discharge Planning,Hot or Cold Pack,Neuromuscular Re-ed, Coordination Retraining,Manual Therapy Precautions Cervical Spine Precautions Soft Collar for Comfort,No Heavy Lifting,Log Roll Recommendations To Nursing Amount of Assist Needed 1 Person Assist Discharge Recommendations PT Discharge Recommendations Home with Assistance, Outpatient PT Transportation Needs at Discharge Private Vehicle
--- NOTE | 2022-06-14 12:34 | OT.IP.EVAL ---
Current Diagnoses Other spondylosis with radiculopathy, cervical region (06/13/22) Spinal stenosis, cervical region (06/13/22) Surgery Performed Operation Date: 06/13/22 10:45 Actual Procedures p C4-5,C5-6, C6-7 ACDF w. anterior instrumentation - Norris Banegas MD Past Medical History (Last Reviewed 06/14/22 @ 07:47 by Pradip Rodriguez PA-C) Abnormal chest x-ray (~2008) Abnormal Pap smear of cervix [place]'s disease (~2001) Adrenal crisis (~2016) Adrenal insufficiency Anemia (~2000) Anxiety Asthma (~1999) Back pain Bruises easily Bulging discs (~2015) Cataracts, bilateral (~2018) Cervical somatic dysfunction Cervical spinal stenosis Chicken pox Chronic back pain (~2015) Chronic lymphocytic leukemia (~2001) Chronic neck pain CLL (chronic lymphocytic leukemia) Constipation COVID-19 virus infection (01/06/22) Cranial somatic dysfunction Depression (~1993) Diabetes mellitus (~2008) Diabetes type 2, controlled External hemorrhoid, bleeding Fecal incontinence (~2016) Fibromyalgia (~1986) GERD (gastroesophageal reflux disease) Headache (~2015) Heavy menstrual period Hemorrhoid (~2014) Hiatal hernia (~2004) History of pneumonia HTN (hypertension) Hyperpigmentation Hypothyroidism (~2001) Infertility (~1988) Irregular menstrual cycle Mumps (~1967) Neck pain Ovarian cyst Painful menstrual periods Pelvic somatic dysfunction Pneumonia (~2008) Rib pain on right side Segmental and somatic dysfunction of abdomen and other regions Segmental and somatic dysfunction of lumbar region Segmental and somatic dysfunction of rib cage Segmental and somatic dysfunction of thoracic region Sleep apnea (~2005) Somatic dysfunction of sacral spine Tension headache, chronic Urinary incontinence Urinary incontinence in female (~2008) Surgical History (Last Reviewed 06/14/22 @ 07:47 by Pradip Rodriguez PA-C) Anesthesia Fibroids H/O excision of mass (04/22/20) H/O hysterectomy with oophorectomy History of bladder surgery History of bunionectomy (~1996) History of colonoscopy (10/05/21) History of eyelid surgery (~2005) History of hysterectomy (~1994) History of knee surgery History of oophorectomy (~2014) History of tonsillectomy (~1960) Hx of foot surgery (~07/2021) Status post blepharoplasty of both eyes Status post epidural steroid injection Status post unicompartmental knee replacement, 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 Activities of Daily Living and IADL's Pt states has not been able to do her IADl's and minimal ADL 's recently due to her weakness and pain. Social History Household Members none Living Arrangements House Number of Floors (Floors) One Floor Number of Stairs To Enter/Railing? no steps Home Environment Standard Height Toilet,Walk in Shower Home Equipment Front Wheel Walker,Straight Cane,Hand Held Shower,Animal Chiropractor, Grab Bars In Shower Additional Social History Comment built in shower seat Pt states to have a friend stay with her til Monday and then to have her cousin come Monday through Monday, . M2 OT-IP Current Condition Start: 06/14/22 12:17 Freq: Status: Active Protocol: Document 06/14/22 10:38 [facility] (Rec: 06/14/22 12:34 [facility] [id number]) Occupational Therapy Current Condition Current Condition Evaluation Date 06/14/22 Treatment Diagnosis S/p C4-5, C56-, C6-7 ACDF Diagnosis Onset Date 06/13/22 Post Operative Precautions Cervical Spine Precautions Soft Collar for Comfort,No Heavy Lifting,Log Roll M3 OT- IP Subjective and Pain Start: 06/14/22 12:17 Freq: Status: Active Protocol: Document 06/14/22 10:38 [facility] (Rec: 06/14/22 12:34 [facility] [id number]) OT- Subjective Occupational Therapy Visit Type Type Initial Evaluation Visit Start Time 10:38 Visit Stop Time 11:06 Total Visit Minutes 28 Occupational Therapy Visit Comments Patient Comments Pt agreed to try to get up for OT eval. Patient/Caregiver Goals To go home. OT Pain Assessment Pain When Pain Assessed At Rest Pain Present Pain Present Pain Reported Location neck Intensity 4 Scale Used Numeric (0 - 10) M4 OT- IP ADL's Start: 11/08/22 12:17 Freq: Status: Active Protocol: Document 06/14/22 10:38 [facility] (Rec: 06/14/22 12:34 [facility] [id number]) OT [id number] Comments OT Self-Feeding Comments Pt states regular food was delivered and then requested to have cream of wheat. Went over swallowing suggestions after ACDF with pt. Pt able to state good understanding for all. OT ADL-Grooming Comments OT Grooming Comments Not performed as pt is too much pain. OT ADL-Oral Care Comments Oral Care Comments Not performed. OT ADL-Dressing Comments OT Dressing Comments Initiated education for LB dressing needs, however pt coughing a lot and had to stop. OT ADL-Toileting Comments OT Toileting Comments NOt performed. OT ADL-Bathing Comments OT Bathing Comments Not performed. M5 OT- IP IADL's Start: 06/14/22 12:17 Freq: Status: Active Protocol: Document 06/14/22 10:38 [facility] (Rec: 06/14/22 12:34 [facility] [id number]) OT-Instrumental Activities of Daily Living Home Safety Awareness Awareness of Need for Assistance at Home Good Awareness Home Safety Comments At this time her friend or cousin will be home to assist with all her needs of ADL's, IADL's, and mobility needs. M6 OT- IP Functional Cognition Start: 06/14/22 12:17 Freq: Status: Active Protocol: Document 06/14/22 10:38 [facility] (Rec: 06/14/22 12:34 [facility] [id number]) Cognitive Factors Limiting Selfcare Function Cognitive Ability Level of Alertness Alert Patient Orientation Name,Place,Situation Attention Span Ability Capable of Focused Attention, Capable of Sustained Attention Ability to Follow Commands Able to Follow One Step Commands Cognitive Comments Cognitive Assessment Comments Pt able to follow commands for ADl and mobility needs. Pt was tearful, needing encouragement but cooperative. OT- Vision and Hearing OT- Hearing Assessment OT- Hearing Assessment WFL OT- Vision Assessment Visual Acuity Glasses All The Time M7 OT- IP Mobility and Balance Start: 06/14/22 12:17 Freq: Status: Active Protocol: Document 06/14/22 10:38 [facility] (Rec: 06/14/22 12:34 [facility] [id number]) OT- Bed Mobility Assessment Rolling Type of Rolling Roll to Right Level of Assistance Minimal Assistance Supine to Sit Supine to Sit Assist Minimal Assistance OT-Transfer Assessment Sit to and From Stand Sit to and from Stand Minimal Assistance Transfers Transfer Ability Minimal Assistance Technique Transfer Destination Bed,Chair Transfer Technique Stand Step Pivot Devices Transfer Assistive Devices Gait Belt,Front Wheeled Walker Comments Mobility Comments RICCARDO to help roll to her right and assist to help with her trunk upright. Pt on 1L of O2 and dropped to 84%. Pt nurse present and able to place O2 on again at 2L and increased to 92%. RICCARDO to stand to FWW and able to transfer to the recliner. Pt in pain due to coughing and wanting to stop, as RT awaiting to work with the pt. OT- Balance Assessment Sitting Balance and Reactions Static Sitting Balance Ability Good Dynamic Sitting Balance Ability Good Standing Balance and Reactions Static Standing Balance Ability Fair Dynamic Standing Balance Ability Fair M8 OT- IP Objective Assessments Start: 06/14/22 12:17 Freq: Status: Active Protocol: Document 06/14/22 10:38 [facility] (Rec: 06/14/22 12:34 [facility] [id number]) OT-Muscle Tone Assessment Muscle Tone WNL Yes M9 OT- IP Assessment and Plan Start: 06/14/22 12:17 Freq: Status: Active Protocol: Document 06/14/22 10:38 [facility] (Rec: 06/14/22 12:34 [facility] [id number]) OT Summary Assessment and Plan Potential Rehabilitation Potential Good Analytic Complexity at Evaluation Low Summary OT Impairments Pain,Balance,Functional Mobility,Grooming,Dressing, Toileting,Bathing,Toilet Transfers,Shower Transfers Progress Towards Goals Progressing Toward Goals,Slow Progress due to Medical Issues Assessment Summary Pt low complexity and main barriers are pain, still on O2 , and now needing one person assist for needs. Pt able to participate in OT eval however due to the continuous coughing had to stop due to her pain and fatigue. Able to initiate training for ADl needs. Pt when medically stable to have friend and cousin there to assist with her needs. Goals Grooming Goal Independent Dressing Goal Independent Toileting Goal Independent Bathing Goal Independent Toilet Transfer Goal Independent Shower Transfer Goal Independent Days to Meet Goals 7 Frequency of Treatment Frequency Of Treatment Once a Day Treatment Plan OT Treatment Plan ADL Training,Functional Mobility,Patient/Family Education,Discharge Planning Other Treatment Recommendations and Next ADL's and possibly shower Treatment Focus Discharge Recommendations OT Discharge Recommendations Home with Assistance Transportation Needs at Discharge Private Vehicle
--- NOTE | 2022-06-14 13:35 | PT.IPTN ---
Current Diagnoses Other spondylosis with radiculopathy, cervical region (06/13/22) Spinal stenosis, cervical region (06/13/22) Surgery Performed Operation Date: 06/13/22 10:45 Actual Procedures p C4-5,C5-6, C6-7 ACDF w. anterior instrumentation - Norris Banegas MD Physical Therapy Treatment Note M2 PT-IP Current Condition Start: 06/14/22 13:03 Freq: NEEDED Status: Active Protocol: Document 06/14/22 11:30 AB (Rec: 06/14/22 13:13 AB [email or web address]) Physical Therapy Current Condition Current Condition Evaluation Date 06/14/22 Treatment Diagnosis s/p C4-5, C5-6, C6-7 ACDF; difficulty in walking Onset Date 06/13/22 M3 PT-IP Subjective Start: 06/14/22 13:03 Freq: NEEDED Status: Active Protocol: Document 06/14/22 13:35 AB (Rec: 06/14/22 15:46 AB [email or web address]) Subjective Physical Therapy Visit Type Type Treatment Note Visit Start Time 13:35 Visit Stop Time 14:01 Total Visit Minutes 26 Number of SHOPFITTER Visits 0 Physical Therapy Visit Comments Patient Comments agreeable to do PT Therapy Pain Assessment Pain When Pain Assessed At Rest Pain Present Pain Present Pain Reported Location neck Intensity 6 Scale Used Numeric (0 - 10) Pain Management Techniques Apply Cold,Distraction, Modification of Treatment,Re- positioning,Timing of Activity with Medications M4 PT-IP Mobility and Gait Start: 06/14/22 13:03 Freq: NEEDED Status: Active Protocol: Document 06/14/22 13:35 AB (Rec: 06/14/22 15:46 AB [email or web address]) PT-Bed Mobility Assessment Rolling Type of Rolling Log Rolling Level of Assist Standby Assistance Supine to Sit Supine to Sit Standby Assistance Sit to Supine Sit to Supine Standby Assistance PT-Transfer Assessment Sit to and From Stand Sit to and from Stand Contact Guard Assistance,1 Person Assistance,Use of Upper Extremities Equipment Transfer Assistive Device Gait Belt,Front Wheeled Walker Orthotic/Prosthetic Devices or Brace: No Transfers Transfer Destination Bed Transfer Technique ambulated Transfer Ability Level of Assist Contact Guard Assistance,1 Person Assistance,Use of Upper Extremities Comments Mobility Comments pt's friend in room with pt. caregiver training conducted. educated friend regarding pt' s cervical precautions and log roll bed mobility. educated on soft collar management and able to assist pt with soft collar. educated on use of safety belt and how to assist pt. friend was able to put safety belt on pt and assisted pt with sit to stand ambulation in room ~ 30 ft using W CGA. pt. completed log roll sit<>supine x 2 sets and initially requiring cues but able to complete without cues afterwards. educated friend to assist and cue pt when needed and understood. positioned pt in bed. call light and table placed within reach. pt and friend without further questions. Gait Assessment Gait Gait Assistance Required: Contact Guard Assist Distance (Feet) 30 Able to Maintain Weight Bearing Status Yes During Gait Assistive Devices Assistive Device Gait Belt,Front Wheeled Walker Orthotic/Prosthetic Devices or Brace: No Gait Deviations General Gait Pattern Antalgic,Decreased Stride Length,Decreased Feet Clearance,Step-to Gait Factors Limiting Gait Function Factors Limiting Gait Function Decreased Activity Tolerance, Decreased Strength,Limited Range of Motion,Pain,Poor Balance,Poor Safety Awareness M5 PT-IP Objective Assessments Start: 06/14/22 13:03 Freq: NEEDED Status: Active Protocol: Document 06/14/22 11:30 AB (Rec: [facility]14[facility]22 [email or web address] Orientation Orientation/Cognition Level of Alertness Alert Orientation Name,Place,Situation Language Function Ability No Deficits Noted Safety Awareness Decreased Safety Awareness Memory Description No Deficits Noted Gross Range of Motion Lower Extremity ROM Assessment Within Functional Limits Strength Lower Extremity Strength Hip 4-/5 Knee 4-/5 Sensation Assessment Sensation Gross Sensation Right UE Impaired,Left UE Impaired Light Touch Impaired Proprioception (Position) Impaired Sensation Description Numbness Muscle Tone Muscle Tone WNL No M6 PT-IP Treatment Start: 06/14/22 13:03 Freq: NEEDED Status: Active Protocol: Document 06/14/22 13:35 AB (Rec: 06/14/22 15:46 AB [email or web address]) Physical Therapy Treatment Education Education Provided Precautions,Weight Bearing Status,Safety Brace Education [place],Caregiver M7 PT-IP Assessment and Plan Start: 06/14/22 13:03 Freq: NEEDED Status: Active Protocol: Document 06/14/22 13:35 AB (Rec: 06/14/22 15:46 [email or web address]) PT Summary Assessment and Plan Potential Rehabilitation Potential Good Summary Impairments Pain,ROM,Strength,Balance, Coordination,Sensation,Tone, Cognition,Bed Mobility, Transfers,Gait,Activity Tolerance Progress Towards Goals Slow Progress due to Pain Assessment Summary caregiver training conducted and caregiver was able to assist pt safely with mobility . pt may go home when medically stable. Goals Bed Mobility Goal Independent Transfer Goal Independent,Front Wheeled Walker Gait Goal Independent,Front Wheel Walker Gait Distance 150 Other Goals improve ambulation without AD ~ 150 ft SBA Days to Meet Goals 5 Frequency of Treatment Frequency Of Treatment Twice a Day Treatment Plan Physical Therapy Treatment Plan Bed Mobility Training,Transfer Training,Gait Training, Therapeutic Exercise,Balance Retraining,Post Op Education, Discharge Planning,Hot or Cold Pack,Neuromuscular Re-ed, Coordination Retraining,Manual Therapy Precautions Cervical Spine Precautions Soft Collar for Comfort,No Heavy Lifting,Log Roll Recommendations To Nursing Amount of Assist Needed 1 Person Assist Discharge Recommendations PT Discharge Recommendations Home with Assistance, Outpatient PT Transportation Needs at Discharge Private Vehicle
[2022-06-14] MEDS: SENNOSIDES 8.6 MG TABLET 17.2 MG PO (21:19)
[2022-06-15] VITALS (8 sets, daily range): BP systolic 108–128; BP diastolic 62–73; PULSE 78–91; RESP 16–18; TEMP 36.4–36.8; O2SAT 94–98
--- NOTE | 2022-06-15 | DI.RAD.S_ITS ---
PROCEDURE: XR CHEST 1V INDICATIONS: decreased O2 sat w PT, s/p ACDF TECHNIQUE: One view of the chest was acquired. COMPARISON: None. FINDINGS: Surgical changes and devices: Cervical fixation plates are present. Lungs and pleura: Bibasilar opacities are present slightly more prominent on the left. Mediastinum: Mediastinal contours appear normal. Heart size is normal. Bones and chest wall: No suspicious bony lesions. Overlying soft tissues appear unremarkable. IMPRESSION: Bibasilar opacities suggestive of atelectasis. However, developing pneumonia cannot be excluded. Dictated by: Cheyenne Melgoza M.D. on 06/15/2022 at 16:12 Approved by: Cheyenne Melgoza M.D. on 06/15/2022 at 16:13
[2022-06-15] MEDS: OXYCODONE IR 5 MG TABLET 10 MG PO ×5 (00:38→16:47)
[2022-06-15] MEDS: PANTOPRAZOLE DR 20 MG TABLET PO (06:05)
[2022-06-15] MEDS: LEVOTHYROXINE 75 MCG TABLET PO (06:05)
--- NOTE | 2022-06-15 07:38 | PM.DS.1 ---
History of Present Illness History of Present Illness Date Patient Seen: 06/15/22 Time Patient Seen: 07:38 Chief complaint: INPT Narrative: Patient is complaining of moderate neck pain this morning. She notes she is having difficulty swallowing solid foods, but has not tried ensure yet. Encouraged the patient to try ensure this morning. She notes she has left upper extremity numbness, which is improving from prior to surgery. Overall she is feeling well and would like to be discharged home today. Discharge Providers Provider Date of admission: 06/13/22 11: Discharge Date: 06/15/22 Primary care physician: Pradip Vasquez DO Consults: 05/31/22 08:56 Consult to Anesthesiology Routine Comment: Consulting Provider: Anesthesiologist Reason for consultation: PAC courtesy re: Steroid dosing per Endocrinology 06/13/22 19:30 Consult to Occupational Therapy Evaluate & Treat Comment: Physician Instructions: Evaluate and treat Consult to Physical Therapy Evaluate & Treat Comment: Physician Instructions: Evaluate and Treat Discharge provider: Peyton Post PA-C Summary Hospital Course Discharge Diagnosis: 1. C4-5, C5-6, C6-7 spinal stenosis 2. Cervical spondylosis with radiculopathy Hospital Course: Operative Date/Time/Diagnoses Date of procedure: 06/13/22 Time of procedure: 14:30 Procedure & Clinicians Procedure: 1.? C4-5 C5-6 C6-7 anterior cervical diskectomy and fusion 2.? C4-5 C5-6 C6-7 anterior interbody cage placement 3.? C4-5 C5-6 C6-7 anterior instrumentation with plate and screw placement in C4-C5-C6 and C7 vertebrae 4.? Utilization of microsurgical technique and operating microscope Same procedure as scheduled: Yes Indications: Patient has been having chronic neck pain and worsening cervical radiculopathy. Patient failed multiple conservative management with worsening pain weakness and numbness in her upper extremity.? Patient has been having difficulty performing activity of daily living.? After discussing risks benefits of treatment options, patient elected proceed with surgery. Surgeon: Norris Banegas Typesetter Perforator Operator: Peyton Post Click Yes if Unassisted: No Anesthesia Type: General Operative Notes Closure Type: primary Specimen(s): none sent Prosthetic devices, grafts, tissues, transplants, or devices: Globus Extend Plate, Titanium Cages Applied: catheter Estimated Blood Loss (mL): 10 Blood products transfused: none Status at Discharge Cognitive/behavioral status at discharge: at baseline, oriented Functional status at discharge: independent ambulation Overall status at discharge: patient is progressing back to baseline Exam Vital Signs (past 8 hours): - 06/15/22 00:00 06/15/22 04:00 Temperature 97.5 F L 98.0 F Pulse Rate 89 78 Respiratory Rate 16 16 Blood Pressure 108/62 109/69 Pulse Oximetry 96 98 Oxygen Flow Rate 1 2 Fraction of Inspired Oxygen 98 SaO2/FiO2 Ratio 275 Oxygen Delivery Method Nasal Cannula Oxygen Flow Rate 2 Narrative Exam Narrative: Pleasant 66-year-old female, resting comfortably in bed, no acute distress. Dressing is clean, dry, intact. No surrounding erythema or induration. Bilateral upper extremity: Motor function: Strength is 4/5 on the left as compared to the right with electronic plotting system operator, wrist extension, otherwise 5/5 with wrist flexion and finger intrinsics. [facility] Medical History Abnormal chest x-ray (~2008) Abnormal Pap smear of cervix [place]'s disease (~2001) Adrenal crisis (~2016) Adrenal insufficiency Anemia (~2000) Anxiety Asthma (~1999) Back pain Bruises easily Bulging discs (~2015) Cataracts, bilateral (~2018) Cervical somatic dysfunction Cervical spinal stenosis Chicken pox Chronic back pain (~2015) Chronic lymphocytic leukemia (~2001) Chronic neck pain CLL (chronic lymphocytic leukemia) Constipation COVID-19 virus infection (01/06/22) Cranial somatic dysfunction Depression (~1993) Diabetes mellitus (~2008) Diabetes type 2, controlled External hemorrhoid, bleeding Fecal incontinence (~2016) Fibromyalgia (~1986) GERD (gastroesophageal reflux disease) Headache (~2015) Heavy menstrual period Hemorrhoid (~2014) Hiatal hernia (~2004) History of pneumonia HTN (hypertension) Hyperpigmentation Hypothyroidism (~2001) Infertility (~1988) Irregular menstrual cycle Mumps (~1967) Neck pain Ovarian cyst Painful menstrual periods Pelvic somatic dysfunction Pneumonia (~2008) Rib pain on right side Segmental and somatic dysfunction of abdomen and other regions Segmental and somatic dysfunction of lumbar region Segmental and somatic dysfunction of rib cage Segmental and somatic dysfunction of thoracic region Sleep apnea (~2005) Somatic dysfunction of sacral spine Tension headache, chronic Urinary incontinence Urinary incontinence in female (~2008) Surgical History Anesthesia Fibroids H/O excision of mass (04/22/20) H/O hysterectomy with oophorectomy History of bladder surgery History of bunionectomy (~1996) History of colonoscopy (10/05/21) History of eyelid surgery (~2005) History of hysterectomy (~1994) History of knee surgery History of oophorectomy (~2014) History of tonsillectomy (~1960) Hx of foot surgery (~07/2021) Status post blepharoplasty of both eyes Status post epidural steroid injection Status post unicompartmental knee replacement, left (07/16/19) Family History Father Prostate cancer History of heart disease Hypertension Mother History of heart disease Hypertension Hyperlipidemia Mental health problem Stroke Sister Atrial fibrillation TIA (transient ischemic attack) Diabetes mellitus History of heart disease Hyperlipidemia Hypertension Stroke Lupus Fibromyalgia Grandfather Liver disease Grandmother History of heart disease Hyperlipidemia Hypertension Stroke Grandfather Stroke Grandmother Cancer Social History marital status: unknown household members: none occupational status: previously employed Smoking Status: Never smoker alcohol intake: current substance use type: does not use Discharge Assessment & Plan Assessment and Plan Assessment: -stable status post C4-5, C5-6, C6-7 ACDF Plan of Treatment: -mobilize with PT/OT. No bending, lifting, twisting x6 weeks. Weightbearing as tolerated. -continue with multimodal pain management. Change Tylenol to scheduled, encouraged Vistaril for muscle spasms. -continue to monitor swallowing, encouraged ensure this morning -DC home today once cleared by PT/OT and able to tolerate po Discharge Plan Discharge Plan Patient Disposition: Home Discharge orders & Medications Prescriptions: New hydroxyzine pamoate 25 mg Capsule 25 mg PO Q4HR PRN (Reason: muscle spasms, pain, nausea) Qty: 40 0RF oxycodone 5 mg Tablet See Rx Instructions .ROUTE .COMPLEX PRN (Reason: Pain, Severe (7-10)) Qty: 42 0RF Rx Instructions: Take 1-2 tablets by mouth every 4 hours as needed for moderate to severe postop pain docusate sodium 100 mg Capsule 100 mg PO BID PRN (Reason: constipation) Qty: 30 0RF acetaminophen 500 mg capsule 500 mg PO Q6H MDD Max 3000 mg per day PRN (Reason: fever or pain) Qty: 90 0RF Continued Gemtesa 75 mg tablet 75 mg PO DAILY Qty: 90 3RF levothyroxine [Synthroid] 75 mcg tablet 75 mcg PO DAILY Qty: 90 1RF calcium carbonate [Calcium 500] 500 mg calcium (1,250 mg) tablet 1,000 mg PO DAILY cholecalciferol (vitamin D3) 10 mcg (400 unit) capsule 10 mcg PO DAILY hydrocortisone 5 mg Tablet 10 mg PO BID Rx Instructions: took 20mg per physician instruction on 06/12 and 06/13 metformin 500 mg Tablet 1,000 mg PO DAILY fludrocortisone 0.1 mg Tablet 0.2 mg PO DAILY methocarbamol 750 mg Tablet 750 mg PO TID PRN (Reason: Pain) Solu-Cortef Act-O-Vial (PF) 100 mg/2 mL recon soln 100 mg IM DAILY PRN (Reason: Rozina's flare) Label Comments: PRN for rozina's crisis; last used/hospitalized 2018 budesonide-formoterol [Symbicort] 80-4.5 mcg/actuation Hfa Aerosol Inhaler 2 puff INHALATION BID-TID PRN (Reason: Shortness Of Breath) atorvastatin 40 mg tablet 40 mg PO DAILY omeprazole 20 mg capsule,delayed release(DR/EC) 20 mg PO DAILY montelukast 10 mg tablet 10 mg PO DAILY lisinopril 5 mg tablet 5 mg PO DAILY duloxetine 60 mg capsule,delayed release(DR/EC) 60 mg PO DAILY Discontinued acetaminophen 500 mg Tablet 500 - 1,000 mg PO DAILY PRN (Reason: Pain) Follow up/Referrals: Pradip Vasquez DO [Primary Care Provider] - Norris Banegas MD [Physician] - (10-14 days for postoperative visit) Diet/Activity/Treatments Diet: Diet as Tolerated Other treatments: Medications: -OTC Tylenol 500 mg 1 tablet every 4 hours as needed for pain/fever. Max 6 tablets per day. -Oxycodone 5 mg take 1-2 tablets every 4 hours as needed for moderate-severe pain (narcotic pain medication). -As needed medications: -Ducolax and /or MiraLax as needed for constipation from narcotic pain medications. -Pepcid AC as needed for stomach upset. -Vistaril (hydroxyine) 25mg 1 tab every 4 hours as needed for spasms/pain/nausea. Diet: -Stick with soft, easy to swallow foods for the first few days. Dressing/Wound care: -Keep dressing in place until postoperative follow-up office visit. -Okay to shower. Keep wound out of direct water stream. Can use PressNSeal plastic wrap to protect from shower stream. No soaking or submerging until all the scabs fall off (approximately 6 weeks). -Please call the office if dressing becomes wet, soiled, or saturated. Activities: -Wear collar when sitting upright or standing. May take off to eat and shower. Can sleep without collar, but you may find it more comfortable to wear while sleeping. -Limit bending, lifting, twisting. -Continue with home exercises as directed by your physical therapist. -Ice your incision as needed for pain/inflammation/swelling. You can heat to the back of your neck as needed for pain. Protect your skin with a folded pillowcase. -Incentive Spirometer (breathing device from hospital): 5-10xs every hour while awake for the first 1-2 weeks. Follow-up: -Follow-up with your surgeon or PA in the office in 10-14 days after surgery. -Follow-up with your surgeon 6 weeks postoperatively. Call the office if you have chest pain, shortness of breath, significant swelling that will not resolve with elevating, fever over 101?, significantly worsening pain, or are concerned you might need to go to the Emergency Room. [facility] Orth[facility]ics: [phone] Skin/Wound/Dressing Care Report to your healthcare provider any signs of infection, such as:: chills, fever, night sweats, unusual drainage and unusual redness Visit Report/Discharge Packet Instructions: DI for Anterior Cervical Discectomy and Fusion, DI for Prescription Opioid Use Stand Alone Forms: Surgery Discharge Discharge Data Primary Care Provider: Pradip Vasquez
[2022-06-15] MEDS: hydrOXYzine pamoate 25 MG CAPSULE PO ×2 (07:49→22:27)
[2022-06-15] MEDS: ATORVASTATIN 20 MG TABLET 40 MG PO (07:49)
[2022-06-15] MEDS: DULOXETINE 30 MG CAPSULE 60 MG PO (07:49)
[2022-06-15] MEDS: HYDROCORTISONE 10 MG TABLET PO ×2 (07:49→21:07)
[2022-06-15] MEDS: ACETAMINOPHEN 325 MG TABLET 650 MG PO ×3 (07:50→17:51)
[2022-06-15] MEDS: FLUDROCORTISONE 0.1 MG TABLET 0.2 MG PO (07:50)
[2022-06-15] MEDS: CALCIUM CARBONATE 500 MG TAB 1000 MG PO (07:50)
[2022-06-15] MEDS: MONTELUKAST 10 MG TABLET PO (07:50)
[2022-06-15] MEDS: CHOLECALCIFEROL (VITAMIN D3) 400 UNIT TABLET PO (07:50)
[2022-06-15] MEDS: lisinopriL 5 MG TABLET PO (07:50)
[2022-06-15] MEDS: DOCUSATE 100 MG CAPSULE PO ×2 (07:51→21:07)
[2022-06-15] MEDS: METFORMIN HCL 500 MG TABLET 1000 MG PO (07:51)
--- NOTE | 2022-06-15 08:11 | CM.DPC ---
DCP Cont: Per MD, pt is stable for discharge. Pt will discharge home today via her friend, Krista. No other needs. Shital Ramirez RN/DCP
[2022-06-15] MEDS: ALBUTEROL 2.5 MG/3 ML NEB (ADULT) INH ×3 (08:12→19:19)
[2022-06-15] MEDS: BUDESONIDE 0.5 MG/2 ML NEB INH ×2 (08:12→19:19)
--- NOTE | 2022-06-15 09:59 | OT.IP.TRT ---
Current Diagnoses Other spondylosis with radiculopathy, cervical region (06/13/22) Spinal stenosis, cervical region (06/13/22) Surgery Performed Operation Date: 06/13/22 10:45 Actual Procedures p C4-5,C5-6, C6-7 ACDF w. anterior instrumentation - Norris Banegas MD Occupational Therapy Treatment Note M2 OT-IP Current Condition Start: 06/14/22 12:17 Freq: Status: Active Protocol: Document 06/14/22 10:38 [facility] (Rec: 06/14/22 12:34 [facility] [id number]) Occupational Therapy Current Condition Current Condition Evaluation Date 06/14/22 Treatment Diagnosis S/p C4-5, C56-, C6-7 ACDF Diagnosis Onset Date 06/13/22 Post Operative Precautions Cervical Spine Precautions Soft Collar for Comfort,No Heavy Lifting,Log Roll M3 OT- IP Subjective and Pain Start: 06/14/22 12:17 Freq: Status: Active Protocol: Document 06/15/22 10:05 [facility] (Rec: 06/15/22 10:21 [facility] [id number]) OT- Subjective Occupational Therapy Visit Type Type Treatment Note Visit Start Time 09:15 Visit Stop Time 09:59 Total Visit Minutes 44 Occupational Therapy Visit Comments Patient Comments Pt agreed to get up to use the bathroom. Patient/Caregiver Goals To go home. OT Pain Assessment Pain When Pain Assessed At Rest Pain Present Pain Present Pain Reported M4 OT- IP ADL's Start: 06/14/22 12:17 Freq: Status: Active Protocol: Document 06/15/22 10:05 [facility] (Rec: 06/15/22 10:21 [facility] [id number]) OT [id number] Comments OT Self-Feeding Comments Pt states having to eat very slowly and reminded pt to eat while upright and take smaller bites and sips. OT ADL-Grooming Comments OT Grooming Comments Able to wash her hands while standing at the sink. OT ADL-Oral Care Comments Oral Care Comments Educated best to just spit into a cup. OT ADL-Dressing Comments OT Dressing Comments Pt about to get dressed however getting very tired and O2 dropping, nursing notified . Educated to pt for use of LB dressing equipment for needs. OT ADL-Toileting General Evaluation Toileting Ability Standby Assistance OT ADL-Bathing Comments OT Bathing Comments Pt states to shower at home. M5 OT- IP IADL's Start: 06/14/22 12:17 Freq: Status: Active Protocol: Document 06/14/22 10:38 [facility] (Rec: 06/14/22 12:34 [facility] [id number]) OT-Instrumental Activities of Daily Living Home Safety Awareness Awareness of Need for Assistance at Home Good Awareness Home Safety Comments At this time her friend or cousin will be home to assist with all her needs of ADL's, IADL's, and mobility needs. M6 OT- IP Functional Cognition Start: 06/14/22 12:17 Freq: Status: Active Protocol: Document 06/15/22 10:05 [facility] (Rec: 06/15/22 10:21 [facility] [id number]) Cognitive Factors Limiting Selfcare Function Cognitive Ability Level of Alertness Alert,Drowsy Cognitive Comments Cognitive Assessment Comments Pt able to follow commands for ADl and mobility needs however very groggy. M7 OT- IP Mobility and Balance Start: 06/14/22 12:17 Freq: Status: Active Protocol: Document 06/15/22 10:05 [facility] (Rec: 06/15/22 10:21 [facility] [id number]) OT- Bed Mobility Assessment Rolling Type of Rolling Roll to Right Level of Assistance Standby Assistance Supine to Sit Supine to Sit Assist Standby Assistance OT-Transfer Assessment Sit to and From Stand Sit to and from Stand Standby Assistance Transfers Transfer Ability Standby Assistance Technique Transfer Destination Bed,Chair,Toilet Transfer Technique Stand Step Pivot Devices Transfer Assistive Devices Gait Belt,Front Wheeled Walker Comments Mobility Comments After use of toilet, pt on RA and decreased to 78% and within 2 minutes increased to 89%. Had pt do incentive spirometer and able to increase to 93% on RA and then decreased to 88% and then decreasing to 84%. Turned the O2 on for pt at 2L and increased to 94%. Pt tends to be a mouth breather and had shallow breaths. Pt' s nurse came in and trial of RA again and dropped to 86%, on 1L 88% and then back on 2L 94%. Pt just wanting to rest at this time. OT- Balance Assessment Sitting Balance and Reactions Static Sitting Balance Ability Normal Dynamic Sitting Balance Ability Good Standing Balance and Reactions Static Standing Balance Ability Good Dynamic Standing Balance Ability Fair M8 OT- IP Objective Assessments Start: 06/14/22 12:17 Freq: Status: Active Protocol: Document 06/14/22 10:38 [facility] (Rec: 06/14/22 12:34 [facility] [id number]) OT-Muscle Tone Assessment Muscle Tone WNL Yes M9 OT- IP Assessment and Plan Start: 06/14/22 12:17 Freq: Status: Active Protocol: Document 06/15/22 10:05 [facility] (Rec: 06/15/22 10:21 [facility] [id number]) OT Summary Assessment and Plan Potential Rehabilitation Potential Good Analytic Complexity at Evaluation Low Summary OT Impairments Pain,Balance,Functional Mobility,Dressing,Toileting, Bathing,Activity Tolerance Progress Towards Goals Progressing Toward Goals,Slow Progress due to Medical Issues Assessment Summary Pt having decreased O2 during activity tolerance and dropped to low 80%, notified nursing and O2 place on 2l and at 94%. Pt states is very tired and wanting to rest. Pt able to urinate on the toilet today. When pt cleared medically, to go home with assist. Goals Dressing Goal Independent Bathing Goal Independent Shower Transfer Goal Independent Days to Meet Goals 5 Frequency of Treatment Frequency Of Treatment Once a Day Treatment Plan OT Treatment Plan ADL Training,Functional Mobility,Patient/Family Education,Discharge Planning Other Treatment Recommendations and Next shower if still here Treatment Focus Discharge Recommendations OT Discharge Recommendations Home with Assistance Transportation Needs at Discharge Private Vehicle
--- NOTE | 2022-06-15 10:45 | PT-IP ANOTE ---
Pt refused PT this AM due to fatigue, stating she has no further needs but is feeling very groggy and is on O2. RN aware.
--- NOTE | 2022-06-15 11:26 | PC.NURSE ---
Addendum entered by Annetta Townsend R.N. 06/15/22 17:55: Peyton MCNAMARA notified of pt's continuing oxygen needs, D/C cancelled for today. Addendum entered by Annetta Townsend R.N. 06/15/22 12:46: Desatted top 87% while awake and sitting up, only increased to 88% after deep breathing and IS use. Placed on 1L NC. Addendum entered by Annetta Townsend R.N. 06/15/22 12:33: CXR done in room. Noted to be 99% on 2L NC, oxygen off at this time and 94% on RA. Prompted pt to use IS which she did, up to 750 on IS. Encouraged to cough and deep breathe. Cont. pulse ox left on at this time for monitoring purposes. Continues to sit up in chair. Original Note: Day Shift Note Pt alert and oriented x3 although expresses fatigue. Medicated for 9/10 pain to head and neck this AM. Placed on RA O2 at 94-95%. Gauze dressing to neck C/D/I, soft collar in place for comfort. Up with OT this morning, oxygen dropped to the low 80s and pt ultimately had to be placed back 2L to keep sats above 92%. Encouraged pt to cough and deep breathe as pt breathes shallowly, instructed on use of IS and on need to use hourly, pt acknowledged understanding. Peyton MCNAMARA notified of the above, no orders received at this time. Driscoll catheter d/c'd this am 0800 and pt is voiding without issue. Call light is within reach, using appropriately to make needs known.
--- NOTE | 2022-06-15 15:10 | PT-IP ANOTE ---
Pt still too fatigued to work w/ PT, reporting SOB but no issues mobilizing. Has been cleared from PT and completed caregiver training. Will check back in AM.
[2022-06-15] MEDS: SENNOSIDES 8.6 MG TABLET 17.2 MG PO (21:07)
[2022-06-15] MEDS: OXYCODONE IR 5 MG TABLET PO (21:11)
[2022-06-16] MEDS: ACETAMINOPHEN 325 MG TABLET 650 MG PO ×2 (00:23→06:18)
[2022-06-16 00:30] VITALS: PULSE 90; RESP 18; O2SAT 99
[2022-06-16] MEDS: ALBUTEROL 2.5 MG/3 ML NEB (ADULT) INH ×2 (00:30→11:53)
[2022-06-16 04:00] VITALS: BP 107/71; PULSE 72; RESP 18; TEMP 36.3; O2SAT 95
[2022-06-16] MEDS: LEVOTHYROXINE 75 MCG TABLET PO (06:17)
[2022-06-16] MEDS: OXYCODONE IR 5 MG TABLET PO ×2 (06:17→09:36)
[2022-06-16] MEDS: PANTOPRAZOLE DR 20 MG TABLET PO (06:17)
--- NOTE | 2022-06-16 06:36 | PC.NURSE ---
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 Ambulates steadily into BR with walker. Drsg to anterior neck CDI, soft collar in place. Medicated with scheduled Tylenol, prn oxycodone 5mg, and PO Vistaril for pain.
[2022-06-16] MEDS: CALCIUM CARBONATE 500 MG TAB 1000 MG PO (09:20)
[2022-06-16] MEDS: DULOXETINE 30 MG CAPSULE 60 MG PO (09:21)
[2022-06-16] MEDS: CHOLECALCIFEROL (VITAMIN D3) 400 UNIT TABLET PO (09:21)
[2022-06-16] MEDS: MONTELUKAST 10 MG TABLET PO (09:21)
[2022-06-16] MEDS: DOCUSATE 100 MG CAPSULE PO (09:21)
[2022-06-16] MEDS: METFORMIN HCL 500 MG TABLET 1000 MG PO (09:21)
[2022-06-16] MEDS: ATORVASTATIN 20 MG TABLET 40 MG PO (09:22)
[2022-06-16 09:28] VITALS: BP 110/62; PULSE 91
[2022-06-16] MEDS: HYDROCORTISONE 10 MG TABLET PO (09:28)
[2022-06-16] MEDS: FLUDROCORTISONE 0.1 MG TABLET 0.2 MG PO (09:28)
[2022-06-16 09:34] VITALS: BP 110/62; PULSE 90; RESP 17; TEMP 36.2; O2SAT 95
--- NOTE | 2022-06-16 10:06 | OT.IP.TRT ---
Current Diagnoses Other spondylosis with radiculopathy, cervical region (06/13/22) Spinal stenosis, cervical region (06/13/22) Surgery Performed Operation Date: 06/13/22 10:45 Actual Procedures p C4-5,C5-6, C6-7 ACDF w. anterior instrumentation - Norris Banegas MD Occupational Therapy Treatment Note M2 OT-IP Current Condition Start: 06/14/22 12:17 Freq: Status: Active Protocol: Document 06/14/22 10:38 [facility] (Rec: 06/14/22 12:34 [facility] [id number]) Occupational Therapy Current Condition Current Condition Evaluation Date 06/14/22 Treatment Diagnosis S/p C4-5, C56-, C6-7 ACDF Diagnosis Onset Date 06/13/22 Post Operative Precautions Cervical Spine Precautions Soft Collar for Comfort,No Heavy Lifting,Log Roll M3 OT- IP Subjective and Pain Start: 06/14/22 12:17 Freq: Status: Active Protocol: Document 06/16/22 09:34 [facility] (Rec: 06/16/22 11:27 [facility] [id number]) OT- Subjective Occupational Therapy Visit Type Type Treatment Note Visit Start Time 09:34 Visit Stop Time 10:06 Total Visit Minutes 32 Occupational Therapy Visit Comments Patient Comments Pt wanting to shower. Patient/Caregiver Goals TO go home. OT Pain Assessment Pain When Pain Assessed During Mobility Pain Present Pain Present Pain Reported Location neck Intensity 4 Scale Used Numeric (0 - 10) M4 OT- IP ADL's Start: 06/14/22 12:17 Freq: Status: Active Protocol: Document 06/16/22 09:34 [facility] (Rec: 06/16/22 11:27 [facility] [id number]) OT BTF-Wsay-Dptcsdy Comments OT Self-Feeding Comments NOt at meal time. Per pt doing better with swallowing needs today. OT ADL-Grooming Comments OT Grooming Comments Not performed. OT ADL-Oral Care Comments Oral Care Comments Educated best to just spit into a cup. OT ADL-Dressing General Eval Upper Body Dressing Ability Independent Lower Body Dressing Ability Standby Assistance Comments OT Dressing Comments Pt able to comfortably cross her legs to nat/doff her socks at this time. OT ADL-Toileting General Evaluation Toileting Ability Standby Assistance OT ADL-Bathing General Evaluation Bathing Ability Minimal Assistance Areas Needing Assistance Wash/Dry Back Comments OT Bathing Comments Pt just needing assist to wash her back. Pt able to safely use grab bars to assist to stand during showering needs. M5 OT- IP IADL's Start: 06/14/22 12:17 Freq: Status: Active Protocol: Document 06/14/22 10:38 [facility] (Rec: 06/14/22 12:34 [facility] [id number]) OT-Instrumental Activities of Daily Living Home Safety Awareness Awareness of Need for Assistance at Home Good Awareness Home Safety Comments At this time her friend or cousin will be home to assist with all her needs of ADL's, IADL's, and mobility needs. M6 OT- IP Functional Cognition Start: 06/14/22 12:17 Freq: Status: Active Protocol: Document 06/16/22 09:34 [facility] (Rec: 06/16/22 11:27 [facility] [id number]) Cognitive Factors Limiting Selfcare Function Cognitive Ability Level of Alertness Alert Attention Span Ability Capable of Focused Attention, Capable of Sustained Attention Ability to Follow Commands Able to Follow Multi-Step Commands Memory Description No Deficits Noted Safety Awareness Underestimates Need for Assistance Cognitive Comments Cognitive Assessment Comments Pt much more alert today. Pt just needing one cue to keep the FWW in front of her. Pt needing cues to take her time and take deep breaths in. M7 OT- IP Mobility and Balance Start: 06/14/22 12:17 Freq: Status: Active Protocol: Document 06/16/22 09:34 [facility] (Rec: 06/16/22 11:27 [facility] [id number]) OT- Bed Mobility Assessment Rolling Type of Rolling Roll to Right Level of Assistance Standby Assistance Supine to Sit Supine to Sit Assist Standby Assistance OT-Transfer Assessment Sit to and From Stand Sit to and from Stand Standby Assistance Transfers Transfer Ability Standby Assistance,Contact Guard Assistance Technique Transfer Destination Bed,Chair,Shower Stall,Toilet Transfer Technique Stand Step Pivot Devices Transfer Assistive Devices Gait Belt,Front Wheeled Walker Comments Mobility Comments CGA to step into the shower. Pt on RA and dropped to 78% afer the shower and increased to 94% after a few deep breaths and about 20 seconds. After pt able to walk back to the recliner with FWW pt at 91 %. OT- Balance Assessment Sitting Balance and Reactions Static Sitting Balance Ability Normal Dynamic Sitting Balance Ability Normal Standing Balance and Reactions Static Standing Balance Ability Good Dynamic Standing Balance Ability Fair M8 OT- IP Objective Assessments Start: 06/14/22 12:17 Freq: Status: Active Protocol: Document 06/14/22 10:38 [facility] (Rec: 06/14/22 12:34 [facility] [id number]) OT-Muscle Tone Assessment Muscle Tone WNL Yes M9 OT- IP Assessment and Plan Start: 06/14/22 12:17 Freq: Status: Active Protocol: Document 06/16/22 09:34 [facility] (Rec: 06/16/22 11:27 [facility] [id number]) OT Summary Assessment and Plan Potential Rehabilitation Potential Good Analytic Complexity at Evaluation Low Summary OT Impairments Pain,Balance,Functional Mobility,Bathing Progress Towards Goals Progressing Toward Goals Assessment Summary Pt doing much better with O2 need and on RA and after a shower dropped tp 79% but able to quickly recover to 94%. Pt after walking out of the shower to the recliner at91%. Pt needing cues to take her time and take rest breaks. Pt to have friend /cousin to assist her at home. Pt looking to go home today. Goals Bathing Goal Independent Shower Transfer Goal Independent Days to Meet Goals 3 Frequency of Treatment Frequency Of Treatment Once a Day Treatment Plan OT Treatment Plan ADL Training,Functional Mobility,Patient/Family Education,Discharge Planning Discharge Recommendations OT Discharge Recommendations Home with Assistance Transportation Needs at Discharge Private Vehicle
[2022-06-16] MEDS: Vibegron [Gemtesa] 75 mg tablet 75 EACH PO (10:15)
--- NOTE | 2022-06-16 10:41 | PC.NURSE ---
Day note: Patient up OOB to shower and back to chair with OT. Alert, oriented and pleasantly cooperative. Received patient on O2 at 1L, O2 sat 99%. Weaned off O2, O2 sat between 92-98% on RA. Patient states her breathing effort has much improved from previous day. No difficulty swallowing or taking pills, states ability to swallow pills is also easier than previous day. Continue with soft collar in place, dressing to anterior neck CDI. IS at bedside. Updated Missy (friend/support) via phone. Call light within reach. Cleared by therapies.
--- NOTE | 2022-06-16 10:45 | PT-IP ANOTE ---
Attempted to see pt at 10:45, pt refused PT stating she has no further needs, feels safe to d/c home, and is fatigued from shower. Pt would like home health services, IT ARCHITECT is aware.
--- NOTE | 2022-06-16 11:09 | CM.DPC ---
DCP Discharge Home with HH Per Ortho, pt medically stable to d/c home today with no identified barriers to discharge. Pt assessed by RT for home oxygen. Per PT, recommending safe d/c home with assist from friend and family and feels that HH would be beneficial especially due to oxygen levels and pt has used HH before but no preference on HH agencies. SW made referral to [facility] based on vendor calendar and BASKET [employer] kindly provided pt with brochure and SW updated RN. SW faxed clinicals to [facility] along with F2F and HH orders. Plan: Patient to d/c home before lunchtime via friend POV and [facility] to start after discharge. ALYX Alvares
[2022-06-16 11:53] VITALS: PULSE 92; RESP 18; O2SAT 88
--- NOTE | 2022-06-16 12:56 | PC.NURSE ---
Discharge note: Patient cleared for discharge by PT/OT. VSS and remain on RA, sats 96%. Discharge instructions given to patient and friend Missy, discussed importance of F/U with Ortho on 06/28, Rx medications, mobility precautions, dressing care, and s/sx of when to RTC. Both verbalized understanding of discharge instructions. Home medication obtained from pharmacy. Home via private vehicle accompanied by Missy.
== END 2022-06-16 13:19 | disposition home health service (06) | DRG 472 ==
PROVIDERS: Admitting Provider Orthopaedic Surgery Orthopaedic Surgery of the Spine; PCP Family Medicine; Referring Provider Orthopaedic Surgery Orthopaedic Surgery of the Spine; Visit Provider Orthopaedic Surgery Orthopaedic Surgery of the Spine
PROC: 0RG20A0 Fusion of 2 or more Cervical Vertebral Joints with Interbody Fusion Device, Anterior Approach, Anterior Column, Open Approach (ICD-10-PCS; principal; 2022-06-13 10:45)
DX: M48.02 Spinal stenosis, cervical region (principal); E27.1 Primary adrenocortical insufficiency; M47.22 Other spondylosis with radiculopathy, cervical region; R53.83 Other fatigue; R06.02 Shortness of breath; E03.9 Hypothyroidism, unspecified; E11.9 Type 2 diabetes mellitus without complications; K21.9 Gastro-esophageal reflux disease without esophagitis; I10 Essential (primary) hypertension; J45.909 Unspecified asthma, uncomplicated; M79.7 Fibromyalgia; Z79.84 Long term (current) use of oral hypoglycemic drugs; Z20.822 Contact with and (suspected) exposure to COVID-19
CPT/HCPCS: 36415; 71045; 72040; 76000; 82962; 87635; 94640; 94760; 97162; 97165; 97530; 97535; C9803; C1713; J0171; J0690; J1170; J1720; J2250; J2405; J3010; J7613

== ENCOUNTER → 2022-09-24 08:28 | Outpatient (CLI) | payer MEDICARE, OTHER, SELFPAY ==
[2022-06-14 07:59] VITALS: BMI 32.1
--- NOTE | 2022-09-24 08:31 | DI.MG.S_ITS ---
BILATERAL DIGITAL SCREENING MAMMOGRAM 3D/2D WITH CAD: 09/24/2022 CLINICAL: Routine screening. Family history of breast cancer. Comparison is made to exams dated: 09/01/2021 mammogram - [facility], 10/15/2018 mammogram, and 09/04/2018 mammogram - outside location. There are scattered areas of fibroglandular density in both breasts (category b / 25%-50% glandular tissue). Current study was also evaluated with a Computer Aided Detection (CAD) system. There are benign calcifications in both breasts. No significant masses, calcifications, or other findings are seen in either breast. There has been no significant interval change. IMPRESSION: BENIGN There is no mammographic evidence of malignancy. A 1 year screening mammogram is recommended. Based on the Tyrer Cuzick model (a risk assessment model) the patient's lifetime risk is 8.3% and her 10 year risk is 4.4%. According to the ACR, ACS, and NCCN guidelines, an annual breast MRI exam along with mammogram is recommended if the patient's lifetime risk is 20% or greater. This exam was interpreted at Station ID: [id number]. NOTE: For mammograms, a report in lay terms will be sent to the patient. Approximately 15% of breast malignancies will not be visualized mammographically. In the management of a palpable breast mass, a negative mammogram must not discourage biopsy of a clinically suspicious lesion. Electronically Signed By: Arnaldo gonzalez/elias:09/26/2022 07:25:31 letter sent: Normal Exam ACR BI-RADS Category 2: Benign Finding(s) [id number]
== END ==
PROVIDERS: PCP Family Medicine; Referring Provider Family Medicine; Visit Provider Family Medicine
DX: Z12.31 Encounter for screening mammogram for malignant neoplasm of breast (principal); Z80.3 Family history of malignant neoplasm of breast
CPT/HCPCS: 77063; 77067

== ENCOUNTER → 2022-10-23 12:00 | Outpatient (CLI) | payer MEDICARE, OTHER, SELFPAY ==
[2022-06-14 07:59] VITALS: BMI 32.1
--- NOTE | 2022-10-23 12:01 | DI.MRI.S_ITS ---
PROCEDURE: MR KNEE LT WO CON INDICATIONS: LEFT KNEE LATERAL MENISCUS TEAR TECHNIQUE: Noncontrast sagittal PD fast spin echo and T2 fast spin echo with fat saturation, sagittal 3-D FLASH with fat saturation; coronal T1 spin echo and PD fast spin echo with fat saturation, and axial PD fast spin echo with fat saturation through the knee. COMPARISON: None. FINDINGS: Image quality: Diagnostic. Patient motion is noted during the study.. Menisci: Patient is status post medial femoral tibial compartment arthroplasty. Subtle signal abnormality involving anterior horn of lateral meniscus is seen extending to superior articulating surface suggestive of subtle oblique tear involving lateral meniscus. The lateral meniscal root ligament is intact. Cruciate ligaments: The anterior and posterior cruciate ligaments appear intact. Medial structures: Susceptibility artifacts are seen in medial femoral tibial compartment partially limits evaluation. The medial collateral ligament appears grossly intact. Visualized portions of the pes anserinus tendons appear normal. No abnormal bursal fluid. Lateral structures: The lateral collateral ligament, long and short heads of the biceps femoris tendon appear grossly intact. The popliteus tendon appears normal; the popliteofibular ligament appears intact. Iliotibial band appears normal. Anterior structures: The quadriceps and patellar tendons appear intact. Patellar alignment is normal. No femoral trochlear dysplasia or ventral trochlear prominence. No edema in the infrapatellar fat pad. Bones and cartilage: No bone marrow contusions or fractures. [id number] lateral femoral tibial compartment and patellofemoral compartment osteoarthritic changes are seen with low-grade chondromalacia. Joint space: There is moderate knee joint fluid. There is a small Reeder's cyst. Normal appearing synovial plicae are incidentally noted. IMPRESSION: 1. Patient is status post prior medial patellofemoral compartment arthroplasty with susceptibility artifacts. Study is also slightly degraded due to patient motion. 2. Suggestion of oblique tear involving anterior horn of lateral meniscus extending to superior articulating surface. 3. The cruciate ligaments are intact. Lateral collateral ligament is grossly intact. 4. [id number] lateral femoral tibial compartment and patellofemoral compartment osteoarthritis and low-grade chondromalacia. No gross fracture or dislocation. Moderate joint effusion, no gross loose bodies. Small Reeder's cyst. Dictated by: Clayton Lewis M.D. on 10/24/2022 at 8:30 Approved by: Clayton Lewis M.D. on 10/24/2022 at 8:36
== END ==
PROVIDERS: PCP Family Medicine; Referring Provider Orthopaedic Surgery; Visit Provider Orthopaedic Surgery
DX: M22.42 Chondromalacia patellae, left knee (principal); M17.12 Unilateral primary osteoarthritis, left knee; M25.462 Effusion, left knee; M71.22 Synovial cyst of popliteal space [Baker], left knee; Z96.652 Presence of left artificial knee joint
CPT/HCPCS: 73721

== ENCOUNTER → 2023-04-24 10:50 | Outpatient (CLI) | payer MEDICARE, OTHER, SELFPAY ==
[2022-06-14 07:59] VITALS: BMI 32.1
[2023-04-24 12:58] LABS: Add Manual Diff / Slide Review NO; Basophils Absolute Auto 100 /uL (0-100); Eosinophils Absolute Auto 300 /uL (0-450); Eosinophils Percent Auto 3.4 % (2-4); Hematocrit 37.7 % (36-46); Hemoglobin 12.4 g/dL (12.0-16.0); Lymphocytes Absolute Auto 2800 /uL (1100-4500); Lymphocytes Percent Auto 34.8 % (25-40); Mean Corpuscular HGB Conc 32.9 % (30-36); Mean Corpuscular Hemoglobin 27.1 PG (26-34); Mean Corpuscular Volume 82.4 fL (80-100); Monocytes Absolute Auto 500 /uL (0-900); Monocytes Percent Auto 6.8 % (3-14); Neutrophils Absolute Auto 4300 /uL (1500-7000); Platelet Count 339 X10^3/uL (150-400); Red Blood Cell Count 4.58 X10^6/uL (4.0-5.2); Red Cell Distribution Width 16.6 % (11.6-14.8)
[2023-04-24 13:10] LABS: Hemoglobin A1C% w Est Avg Glu 6.2 % (4.0-6.0)
[2023-04-24 13:14] LABS: Alanine Aminotransferase 22 IU/L (<35); Albumin Globulin Ratio 1.6 (1.0-2.8); Alkaline Phosphatase 60 U/L (38-126); Aspartate Aminotransferase 21 IU/L (14-36); BUN Creatinine Ratio 23.2 (6-22); Bilirubin Total 0.4 mg/dL (0.2-1.3); Blood Urea Nitrogen 13 mg/dL (7-17); Calcium 9.4 mg/dL (8.4-10.2); Carbon Dioxide 28 mmol/L (22-32); Chloride 103 mmol/L (98-107); Cholesterol 176 mg/dL (140-199); Estimated Glomerular Filt Rate > 60 mL/min (>60); Globulin 2.5 g/dL (1.7-4.1); Glucose 86 mg/dL (80-110); HDL Cholesterol 84 mg/dL (40-60); HEMOLYSIS 27 (0-50); LDL Cholesterol Calculated 72 mg/dL (<100); Potassium 4.5 mmol/L (3.4-5.1); Sodium 136 mmol/L (137-145); Total Protein 6.5 g/dL (6.3-8.2); Triglycerides 102 mg/dL (35-150)
[2023-04-24 13:22] LABS: Creatinine Urine Random 104.2 mg/dL
[2023-04-24 13:25] LABS: Microalbumi Creatinin Ratio Ur 12.4 ug/mg CR (<30); Microalbumin Urine Random 1.3 mg/dL (0-1.6)
[2023-04-24 13:46] LABS: Thyroid Stimulating Hormone 0.891 uIU/mL (0.47-4.68)
== END ==
PROVIDERS: PCP Family Medicine; Referring Provider Family Medicine; Visit Provider Family Medicine
DX: E03.9 Hypothyroidism, unspecified (principal); E11.9 Type 2 diabetes mellitus without complications
CPT/HCPCS: 36415; 80053; 80061; 82043; 82570; 83036; 84443; 85025

== ENCOUNTER 2023-06-27 14:23 | Emergency (ER) | payer MEDICARE, OTHER, SELFPAY ==
[2023-05-01 15:10] VITALS: BMI 32.1
[2023-06-27] VITALS (19 sets, daily range): BP systolic 114–166; BP diastolic 56–98; PULSE 83–104; RESP 16–40; TEMP 36.7; O2SAT 91–100; BMI 31.6
--- NOTE | 2023-06-27 15:01 | DI.RAD.S_ITS ---
PROCEDURE: XR CHEST 1V INDICATIONS: concern for adrenal crisis, sob, abd pain TECHNIQUE: One view of the chest was acquired. COMPARISON: [facility], CR, XR CHEST 1V, 06/15/2022, 12:19. FINDINGS: Surgical changes and devices: ACDF of the lower cervical spine. Lungs and pleura: Lungs are clear. No pleural effusions or pneumothorax. Mediastinum: Mediastinal contours appear normal. Heart size is normal. Bones and chest wall: No suspicious bony lesions. Overlying soft tissues appear unremarkable. IMPRESSION: No acute cardiopulmonary abnormality is seen. Dictated by: Ja Nguyen M.D. on 06/27/2023 at 15:46 Approved by: Ja Nguyen M.D. on 06/27/2023 at 15:46
[2023-06-27] MEDS: HYDROCORTISONE 100 MG/2 ML VIAL IV (16:36)
[2023-06-27] MEDS: SODIUM CHLORIDE 0.9% 1,000 ML 1000 ML IV ×2 (16:36→21:11)
[2023-06-27] MEDS: HYDROMORPHONE 0.5 MG INJ IV (16:36)
[2023-06-27 17:06] LABS: Alanine Aminotransferase 30 IU/L (<35); Albumin 5.2 g/dL (3.5-5.0); Albumin Globulin Ratio 1.5 (1.0-2.8); Alkaline Phosphatase 79 U/L (38-126); Aspartate Aminotransferase 39 IU/L (14-36); BUN Creatinine Ratio 14.3 (6-22); Bilirubin Total 0.8 mg/dL (0.2-1.3); Blood Urea Nitrogen 18 mg/dL (7-17); Calcium 10.8 mg/dL (8.4-10.2); Carbon Dioxide 20 mmol/L (22-32); Chloride 97 mmol/L (98-107); Creatine Kinase 147 U/L (30-135); Estimated Glomerular Filt Rate 47 mL/min (>60); Globulin 3.5 g/dL (1.7-4.1); Glucose 116 mg/dL (80-110); HEMOLYSIS 31 (0-50); Lipase 184 U/L (23-300); Sodium 131 mmol/L (137-145); Total Protein 8.7 g/dL (6.3-8.2)
[2023-06-27 17:07] LABS: Lactate (Lactic Acid) 3.2 mmol/L (0.7-2.1)
[2023-06-27 17:09] LABS: Potassium 5.8 mmol/L (3.4-5.1)
[2023-06-27 17:16] LABS: Add Manual Diff / Slide Review NO; Basophils Absolute Auto 200 /uL (0-100); Basophils Percent Auto 1.4 % (0-2); Eosinophils Absolute Auto 100 /uL (0-450); Eosinophils Percent Auto 0.8 % (2-4); Hemoglobin 15.4 g/dL (12.0-16.0); Lymphocytes Absolute Auto 2400 /uL (1100-4500); Lymphocytes Percent Auto 20.9 % (25-40); Mean Corpuscular HGB Conc 33.5 % (30-36); Mean Corpuscular Hemoglobin 27.1 PG (26-34); Mean Corpuscular Volume 80.8 fL (80-100); Monocytes Absolute Auto 1200 /uL (0-900); Monocytes Percent Auto 10.8 % (3-14); Neutrophils Absolute Auto 7600 /uL (1500-7000); Neutrophils Percent Auto 66.1 % (50-75); Platelet Count 411 X10^3/uL (150-400); Red Blood Cell Count 5.69 X10^6/uL (4.0-5.2); Red Cell Distribution Width 17.6 % (11.6-14.8); White Blood Cell Count 11.5 X10^3/uL (4.5-11.0)
[2023-06-27 17:18] LABS: NT-proBNP (BNP-Adult 18+) 71 pg/mL (<125); Troponin I < 0.012 ng/mL (0.01-0.034)
--- NOTE | 2023-06-27 18:15 | ED.ABDPAIN ---
HPI - Abdominal Pain General Chief Complaint: Abdominal Pain Stated Complaint: ADRENAL CRISIS/ADDISONS DISEASE/ABD PAIN/SOB Time Seen by Provider: 06/27/23 15:00 Source: patient Mode of arrival: Wheelchair Limitations: no limitations Related Data Home Medications Medication Instructions Recorded Confirmed fludrocortisone 0.1 mg tablet 0.2 mg PO DAILY 07/11/19 05/19/23 hydrocortisone 5 mg tablet 10 mg PO BID 07/11/19 05/19/23 metformin 500 mg tablet 1,000 mg PO DAILY 07/11/19 05/19/23 calcium carbonate 500 mg calcium 1,000 mg PO DAILY 04/07/20 05/19/23 (1,250 mg) tablet (Calcium 500) cholecalciferol (vitamin D3) 10 10 mcg PO DAILY 04/07/20 05/19/23 mcg (400 unit) capsule budesonide-formoterol HFA 80 2 puff inhalation BID-TID PRN 06/06/22 05/19/23 mcg-4.5 mcg/actuation aerosol Shortness Of Breath inhaler (Symbicort) atorvastatin 40 mg tablet 40 mg PO DAILY 06/13/22 05/19/23 Previous Rx's Medication Instructions Recorded levothyroxine 75 mcg tablet 75 mcg PO DAILY #90 tabs 12/25/19 (Synthroid) hydrocortisone sod succ (PF) 100 100 mg (2 mL) IM DAILY PRN 12/13/22 mg/2 mL solution for injection Lior's flare #25 ea (Solu-Cortef Act-O-Vial (PF)) lisinopril 10 mg tablet 10 mg PO DAILY #90 tabs 02/13/23 omeprazole 20 mg capsule,delayed See Rx Instructions .Route 02/13/23 release .COMPLEX #90 caps vibegron 75 mg tablet (Gemtesa) 75 mg PO DAILY #90 tabs 03/06/23 montelukast 10 mg tablet 10 mg PO DAILY #90 tabs 03/08/23 albuterol sulfate 90 mcg/actuation 2 puff inhalation QID PRN 04/14/23 aerosol inhaler shortness of breath or wheezing #8.5 grams duloxetine 60 mg capsule,delayed 60 mg PO DAILY #90 caps 05/05/23 release (Cymbalta) trazodone 50 mg tablet 50 - 100 mg (1 - 2 x 50 mg) PO 05/05/23 BEDTIME PRN insomnia #60 tabs Allergies Allergy/AdvReac Type Severity Reaction Status Date / Time shellfish derived Allergy Intermediate Hives Verified 05/19/23 15:11 latex Allergy Mild Rash Verified 05/19/23 15:11 pregabalin AdvReac Severe brain fog Verified 05/19/23 15:11 Patient History Medical History Weight gain due to medication Urine test positive for microalbuminuria Anxiety disorder Chronic bilateral low back pain with bilateral sciatica COVID-19 virus infection (01/06/22) Bruises easily CLL (chronic lymphocytic leukemia) Anxiety Urinary incontinence Constipation Cervical spinal stenosis Back pain Neck pain History of pneumonia Rectal bleeding Neck mass Tension headache, chronic Chronic neck pain Segmental and somatic dysfunction of abdomen and other regions Somatic dysfunction of sacral spine Pelvic somatic dysfunction Segmental and somatic dysfunction of lumbar region Segmental and somatic dysfunction of thoracic region Segmental and somatic dysfunction of rib cage Cervical somatic dysfunction Cranial somatic dysfunction Diabetes type 2, controlled HTN (hypertension) Adrenal crisis (~2016) Hyperpigmentation Adrenal insufficiency Pneumonia (~2008) Sleep apnea (~2005) Asthma (~1999) Abnormal chest x-ray (~2008) Depression (~1993) Headache (~2015) Bulging discs (~2015) Fibromyalgia (~1986) Chronic back pain (~2015) Mumps (~1967) Chicken pox Anemia (~2000) Cataracts, bilateral (~2018) Painful menstrual periods Ovarian cyst Irregular menstrual cycle Infertility (~1988) Heavy menstrual period Abnormal Pap smear of cervix Urinary incontinence in female (~2008) Fecal incontinence (~2016) GERD (gastroesophageal reflux disease) Hiatal hernia (~2004) Hemorrhoid (~2014) [place]'s disease (~2001) Hypothyroidism (~2001) Diabetes mellitus (~2008) Chronic lymphocytic leukemia (~2001) Sinusitis Surgical History Hx of foot surgery (~07/2021) History of colonoscopy (10/05/21) H/O excision of mass (04/22/20) Status post blepharoplasty of both eyes Status post unicompartmental knee replacement, left (07/16/19) H/O hysterectomy with oophorectomy Status post epidural steroid injection Anesthesia History of bunionectomy (~1996) History of eyelid surgery (~2005) History of knee surgery History of bladder surgery History of oophorectomy (~2014) History of tonsillectomy (~1960) History of hysterectomy (~1994) Fibroids Family History Father Prostate cancer History of heart disease Hypertension Mother History of heart disease Hypertension Hyperlipidemia Mental health problem Stroke Sister Atrial fibrillation TIA (transient ischemic attack) Diabetes mellitus History of heart disease Hyperlipidemia Hypertension Stroke Lupus Fibromyalgia Grandfather Liver disease Grandmother History of heart disease Hyperlipidemia Hypertension Stroke Grandfather Stroke Grandmother Cancer Social History marital status: unknown household members: none occupational status: previously employed Smoking Status: Never smoker alcohol intake: current substance use type: does not use Smoking Status: Never smoker alcohol intake frequency: holidays/special occasions only Substance Use Type: does not use Exam Initial Vital Signs Initial Vital Signs: Vital Signs Temperature 98.1 F 06/27/23 14:50 Pulse Rate 102 H 06/27/23 14:50 Respiratory Rate 40 H 06/27/23 14:50 Blood Pressure 157/89 H 06/27/23 14:50 Pulse Oximetry 99 06/27/23 14:50 Oxygen Delivery Method Room Air 06/27/23 14:50 Course Orders Ordered: ED Orders 06/27/23 15:00 EKG-12 Lead Stat 06/27/23 15:01 Chest [XR chest 1V] Stat 06/27/23 16:30 BNP [NT-proBNP (BNP-Adult 18+)] Stat Complete Blood Count AUTO DIFF Stat Comprehensive Metabolic Panel Stat Lactate (Lactic Acid) Stat Lipase Stat Procalcitonin Stat Troponin & CK Cardiac Panel Stat 06/27/23 16:45 Blood Culture Stat 06/27/23 18:31 CT kidney ureter bladder (KUB) Stat 06/27/23 19:00 BMP [Basic Metabolic Panel] Stat Discontinued Medications Hydrocortisone (Hydrocortisone 100 Mg/2 Ml Vial) 100 mg IV NOW ONE Stop: 06/27/23 15:01 Last Admin: 06/27/23 16:36 Dose: 100 mg Documented By: SHAWN Hydromorphone HCl (Hydromorphone 0.5 Mg Inj) 0.5 mg IV NOW ONE Stop: 06/27/23 16:31 Last Admin: 06/27/23 16:36 Dose: 0.5 mg Documented By: SHAWN Sodium Chloride (Normal Saline 0.9%) 1,000 mls @ 1,000 mls/hr IV BOLUS ONE Stop: 06/27/23 15:59 Last Infusion: 06/27/23 20:11 Dose: Infused Documented By: Admin: 06/27/23 16:36 Dose: 1,000 mls/hr Documented By: SHAWN Vital Signs Vital signs: Vital Signs - 8 hr 06/27/23 14:50 06/27/23 16:11 06/27/23 16:12 Temperature 98.1 F Pulse Rate 102 H 104 H 99 H Respiratory Rate 40 H Blood Pressure 157/89 H Pulse Oximetry 99 95 100 Oxygen Delivery Method Room Air 06/27/23 16:12 06/27/23 16:30 06/27/23 16:41 Temperature Pulse Rate 91 H 90 Respiratory Rate 18 Blood Pressure 142/95 H Pulse Oximetry 100 100 Oxygen Delivery Method 06/27/23 16:41 06/27/23 17:00 06/27/23 17:00 Temperature Pulse Rate 86 Respiratory Rate Blood Pressure 154/79 H 166/75 H Pulse Oximetry 99 Oxygen Delivery Method 06/27/23 17:30 06/27/23 17:31 06/27/23 17:31 Temperature Pulse Rate 84 84 Respiratory Rate Blood Pressure 164/74 H Pulse Oximetry 92 91 Oxygen Delivery Method 06/27/23 18:00 06/27/23 18:00 06/27/23 18:30 Temperature Pulse Rate 87 88 Respiratory Rate Blood Pressure 157/94 H Pulse Oximetry 91 94 Oxygen Delivery Method 06/27/23 18:30 06/27/23 19:00 06/27/23 19:01 Temperature Pulse Rate 89 Respiratory Rate Blood Pressure 156/98 H 140/65 Pulse Oximetry 93 Oxygen Delivery Method 06/27/23 19:01 06/27/23 19:30 06/27/23 19:30 Temperature Pulse Rate 85 86 Respiratory Rate 16 Blood Pressure 130/64 Pulse Oximetry 92 91 Oxygen Delivery Method Room Air MDM - Abdominal Pain Lab Data 06/27/23 16:30 06/27/23 19:00 Labs: Lab Results 06/27/23 06/27/23 Range/Units 16:30 19:00 WBC 11.5 H (4.5-11.0) X10^3/uL RBC 5.69 H (4.0-5.2) X10^6/uL Hgb 15.4 (12.0-16.0) g/dL Hct 46.0 (36-46) % MCV 80.8 (80-100) fL MCH 27.1 (26-34) PG MCHC 33.5 (30-36) % RDW 17.6 H (11.6-14.8) % Plt Count 411 H (150-400) X10^3/uL Neut % (Auto) 66.1 (50-75) % Lymph % (Auto) 20.9 L (25-40) % [place] % (Auto) 10.8 (3-14) % Eos % (Auto) 0.8 L (2-4) % Baso % (Auto) 1.4 (0-2) % Neut # (Auto) 7600 H (4694-3902) /uL Lymph # (Auto) 2400 (0569-8690) /uL [place] # (Auto) 1200 H (0-900) /uL Eos # (Auto) 100 (0-450) /uL Baso # (Auto) 200 H (0-100) /uL Sodium 131 L 131 L (137-145) mmol/L Potassium 5.8 H 4.5 D (3.4-5.1) mmol/L Chloride 97 L 98 (98-107) mmol/L Carbon Dioxide 20 L 20 L (22-32) mmol/L BUN 18 H 18 H (7-17) mg/dL Creatinine 1.26 H 0.96 (0.52-1.04) mg/dL Estimated GFR 47 L > 60 (>60) mL/min BUN/Creatinine Ratio 14.3 18.8 (6-22) Glucose 116 H 127 H (80-110) mg/dL Lactate 3.2 H 1.1 (0.7-2.1) mmol/L Calcium 10.8 H 10.1 (8.4-10.2) mg/dL Total Bilirubin 0.8 (0.2-1.3) mg/dL AST 39 H (14-36) IU/L ALT 30 (<35) IU/L Alkaline Phosphatase 79 (38-126) U/L Total Creatine Kinase 147 H (30-135) U/L Troponin I < 0.012 (0.01-0.034) ng/mL NT-Pro-B Natriuret Pep 71 (<125) pg/mL Total Protein 8.7 H (6.3-8.2) g/dL Albumin 5.2 H (3.5-5.0) g/dL Globulin 3.5 (1.7-4.1) g/dL Albumin/Globulin Ratio 1.5 (1.0-2.8) Lipase 184 (23-300) U/L Procalcitonin 0.10 (<0.5) ng/mL Discharge Plan Departure Clinical Impression: Abdominal pain Activity Restrictions/Additional Instructions: Your workup today showed gallstones in the gallbladder. Your sodium is slightly low, follow-up to have this rechecked with your physician in the next week. It is unclear if you are having a true adrenal crisis please take your steroids as per your angiography technologist by doubling your dose at this time. Please return for fevers, new or worsening abdominal back or flank pain, persistent vomiting, lightheadedness or passing out or other new or concerning changes. Prescriptions: No Action Solu-Cortef Act-O-Vial (PF) 100 mg/2 mL recon soln 100 mg IM DAILY PRN (Reason: Lior's flare) Qty: 25 2RF omeprazole 20 mg capsule,delayed release(DR/EC) See Rx Instructions .ROUTE .COMPLEX Qty: 90 1RF Dose Instruction: TAKE 1 CAPSULE DAILY Rx Instructions: TAKE 1 CAPSULE DAILY lisinopril 10 mg tablet 10 mg PO DAILY Qty: 90 3RF Gemtesa 75 mg tablet 75 mg PO DAILY Qty: 90 0RF montelukast 10 mg tablet 10 mg PO DAILY Qty: 90 3RF levothyroxine [Synthroid] 75 mcg tablet 75 mcg PO DAILY Qty: 90 1RF albuterol sulfate 90 mcg/actuation HFA aerosol inhaler 2 puff inhalation QID PRN (Reason: shortness of breath or wheezing) Qty: 8.5 3RF duloxetine [Cymbalta] 60 mg capsule,delayed release(DR/EC) 60 mg PO DAILY Qty: 90 3RF trazodone 50 mg tablet 50 - 100 mg PO BEDTIME PRN (Reason: insomnia) Qty: 60 5RF calcium carbonate [Calcium 500] 500 mg calcium (1,250 mg) tablet 1,000 mg PO DAILY cholecalciferol (vitamin D3) 10 mcg (400 unit) capsule 10 mcg PO DAILY hydrocortisone 5 mg Tablet 10 mg PO BID Rx Instructions: took 20mg per physician instruction on 06/12 and 06/13 metformin 500 mg Tablet 1,000 mg PO DAILY fludrocortisone 0.1 mg Tablet 0.2 mg PO DAILY budesonide-formoterol [Symbicort] 80-4.5 mcg/actuation Hfa Aerosol Inhaler 2 puff INHALATION BID-TID PRN (Reason: Shortness Of Breath) atorvastatin 40 mg tablet 40 mg PO DAILY Referrals: Pradip Vasquez DO [Primary Care Provider] -
[2023-06-27 18:25] LABS: Reflexed Lactate in 2 Hours Y
--- NOTE | 2023-06-27 18:31 | DI.CT.S_ITS ---
PROCEDURE: CT KIDNEY URETER BLADDER (KUB) INDICATIONS: abd pain, recent bactrim sissy, electrolyte changes. TECHNIQUE: Axial sections were acquired from the lung bases to the pubic symphysis. Coronal and sagittal reformats were performed. For radiation dose reduction, the following was used: automated exposure control, adjustment of mA and/or kV according to patient size. COMPARISON: None. FINDINGS: Image quality: Excellent. Lung bases: Unremarkable. Heart: No significant findings. URINARY: Right Kidney: No stones or hydronephrosis. Right Ureter: No hydroureter. Left Kidney: Cortical stone in the superior pole. No hydronephrosis. Left Ureter: No hydroureter. Bladder: Four sub 3 millimeter stones projecting the bladder outlet (series 2, image 81 and 82) ABDOMEN: Liver: No contour-deforming solid mass. Gallbladder: Gallbladder sludge versus small stones. No wall thickening or pericholecystic edema to suggest acute cholecystitis. Biliary ducts: No biliary dilation. Pancreas: No ductal dilation. Spleen: Size is within normal limits. Adrenal Glands: No adrenal nodules. Stomach and Bowel: Normal colonic caliber, without significant wall thickening. Peritoneum: No abnormal intraperitoneal fluid. No free air. Ventral Wall: Small umbilical hernia containing fat. Abdominal Nodes: No enlarged retroperitoneal or mesenteric lymph nodes. Vessels: Aorta and inferior vena cava are normal in size. PELVIS: Pelvic Organs: Unremarkable. Pelvic Nodes: Unremarkable. Miscellaneous: No inguinal hernias are seen. Bones: Unremarkable. IMPRESSION: Four layering bladder stones measuring less than 3 millimeters. Dictated by: Ja Nguyen M.D. on 06/27/2023 at 19:09 Approved by: Ja Nguyen M.D. on 06/27/2023 at 19:12
[2023-06-27 19:26] LABS: BUN Creatinine Ratio 18.8 (6-22); Blood Urea Nitrogen 18 mg/dL (7-17); Calcium 10.1 mg/dL (8.4-10.2); Carbon Dioxide 20 mmol/L (22-32); Chloride 98 mmol/L (98-107); Estimated Glomerular Filt Rate > 60 mL/min (>60); Glucose 127 mg/dL (80-110); HEMOLYSIS 15 (0-50); Lactate 2HR (Lactic Acid Rflx) 1.1 mmol/L (0.7-2.1); Potassium 4.5 mmol/L (3.4-5.1); Sodium 131 mmol/L (137-145)
--- NOTE | 2023-06-27 20:30 | ED_ITS ---
HPI - General Adult General Chief complaint: Abdominal Pain Stated complaint: ADRENAL CRISIS/ADDISONS DISEASE/ABD PAIN/SOB Time Seen by Provider: 06/27/23 15:00 Source: patient Mode of arrival: Wheelchair History of Present Illness HPI narrative: 67-year-old woman with a history of anxiety, type 2 diabetes, hypertension, hyperlipidemia and [place]'s disease who presents complaining of 4-5 days of abdominal pain has been increasing over the last 2 days. She is had nausea vomiting weakness and muscle spasms. She is concerned that she is having an addisonian crisis and comes in for further evaluation. She does not describe headaches, cough, palpitations, dysuria, flank pain. She describes significantly decreased p.o. intake due to the nausea a bit only a couple of episodes of vomiting this morning. There has been no diarrhea. Related Data Home Medications Medication Instructions Recorded Confirmed fludrocortisone 0.1 mg tablet 0.2 mg PO DAILY 07/11/19 05/19/23 hydrocortisone 5 mg tablet 10 mg PO BID 07/11/19 05/19/23 metformin 500 mg tablet 1,000 mg PO DAILY 07/11/19 05/19/23 calcium carbonate 500 mg calcium 1,000 mg PO DAILY 04/07/20 05/19/23 (1,250 mg) tablet (Calcium 500) cholecalciferol (vitamin D3) 10 10 mcg PO DAILY 04/07/20 05/19/23 mcg (400 unit) capsule budesonide-formoterol HFA 80 2 puff inhalation BID-TID PRN 06/06/22 05/19/23 mcg-4.5 mcg/actuation aerosol Shortness Of Breath inhaler (Symbicort) atorvastatin 40 mg tablet 40 mg PO DAILY 06/13/22 05/19/23 Previous Rx's Medication Instructions Recorded levothyroxine 75 mcg tablet 75 mcg PO DAILY #90 tabs 12/25/19 (Synthroid) hydrocortisone sod succ (PF) 100 100 mg (2 mL) IM DAILY PRN 12/13/22 mg/2 mL solution for injection [place]'s flare #25 ea (Solu-Cortef Act-O-Vial (PF)) lisinopril 10 mg tablet 10 mg PO DAILY #90 tabs 02/13/23 omeprazole 20 mg capsule,delayed See Rx Instructions .Route 02/13/23 release .COMPLEX #90 caps vibegron 75 mg tablet (Gemtesa) 75 mg PO DAILY #90 tabs 03/06/23 montelukast 10 mg tablet 10 mg PO DAILY #90 tabs 03/08/23 albuterol sulfate 90 mcg/actuation 2 puff inhalation QID PRN 04/14/23 aerosol inhaler shortness of breath or wheezing #8.5 grams duloxetine 60 mg capsule,delayed 60 mg PO DAILY #90 caps 05/05/23 release (Cymbalta) trazodone 50 mg tablet 50 - 100 mg (1 - 2 x 50 mg) PO 05/05/23 BEDTIME PRN insomnia #60 tabs ondansetron 4 mg disintegrating 4 mg PO Q8H PRN nausea and 06/27/23 tablet vomiting #14 tabs Allergies Allergy/AdvReac Type Severity Reaction Status Date / Time shellfish derived Allergy Intermediate Hives Verified 05/19/23 15:11 latex Allergy Mild Rash Verified 05/19/23 15:11 pregabalin AdvReac Severe brain fog Verified 05/19/23 15:11 Review of Systems Review of Systems Narrative: Pertinent positive and negative findings as per HPI Patient History Medical History Weight gain due to medication Urine test positive for microalbuminuria Anxiety disorder Chronic bilateral low back pain with bilateral sciatica COVID-19 virus infection (01/06/22) Bruises easily CLL (chronic lymphocytic leukemia) Anxiety Urinary incontinence Constipation Cervical spinal stenosis Back pain Neck pain History of pneumonia Rectal bleeding Neck mass Tension headache, chronic Chronic neck pain Segmental and somatic dysfunction of abdomen and other regions Somatic dysfunction of sacral spine Pelvic somatic dysfunction Segmental and somatic dysfunction of lumbar region Segmental and somatic dysfunction of thoracic region Segmental and somatic dysfunction of rib cage Cervical somatic dysfunction Cranial somatic dysfunction Diabetes type 2, controlled HTN (hypertension) Adrenal crisis (~2016) Hyperpigmentation Adrenal insufficiency Pneumonia (~2008) Sleep apnea (~2005) Asthma (~1999) Abnormal chest x-ray (~2008) Depression (~1993) Headache (~2015) Bulging discs (~2015) Fibromyalgia (~1986) Chronic back pain (~2015) Mumps (~1967) Chicken pox Anemia (~2000) Cataracts, bilateral (~2018) Painful menstrual periods Ovarian cyst Irregular menstrual cycle Infertility (~1988) Heavy menstrual period Abnormal Pap smear of cervix Urinary incontinence in female (~2008) Fecal incontinence (~2016) GERD (gastroesophageal reflux disease) Hiatal hernia (~2004) Hemorrhoid (~2014) [place]'s disease (~2001) Hypothyroidism (~2001) Diabetes mellitus (~2008) Chronic lymphocytic leukemia (~2001) Sinusitis Surgical History Hx of foot surgery (~07/2021) History of colonoscopy (10/05/21) H/O excision of mass (04/22/20) Status post blepharoplasty of both eyes Status post unicompartmental knee replacement, left (07/16/19) H/O hysterectomy with oophorectomy Status post epidural steroid injection Anesthesia History of bunionectomy (~1996) History of eyelid surgery (~2005) History of knee surgery History of bladder surgery History of oophorectomy (~2014) History of tonsillectomy (~1960) History of hysterectomy (~1994) Fibroids Family History Father Prostate cancer History of heart disease Hypertension Mother History of heart disease Hypertension Hyperlipidemia Mental health problem Stroke Sister Atrial fibrillation TIA (transient ischemic attack) Diabetes mellitus History of heart disease Hyperlipidemia Hypertension Stroke Lupus Fibromyalgia Grandfather Liver disease Grandmother History of heart disease Hyperlipidemia Hypertension Stroke Grandfather Stroke Grandmother Cancer Social History marital status: unknown household members: none occupational status: previously employed Smoking Status: Never smoker alcohol intake: current substance use type: does not use Smoking Status: Never smoker alcohol intake frequency: holidays/special occasions only Substance Use Type: does not use Exam Initial Vital Signs Initial Vital Signs: Vital Signs Temperature 98.1 F 06/27/23 14:50 Pulse Rate 102 H 06/27/23 14:50 Respiratory Rate 40 H 06/27/23 14:50 Blood Pressure 157/89 H 06/27/23 14:50 Pulse Oximetry 99 06/27/23 14:50 Oxygen Delivery Method Room Air 06/27/23 14:50 General: Healthy appearing, mild distress secondary to nausea. Able to give a complete and coherent history. Well-nourished well-developed HEENT: Dry mucous membranes, normal sclera with reactive pupils, Neck: No JVD, supple Respiratory: Lungs are clear to auscultation, no wheezing no rales no rhonchi. Full and symmetrical air movement Cardiac: Regular rate and rhythm no murmurs no bruits Abdomen: Soft, mild diffuse abdominal tenderness without rebound or guarding, no flank pain Skin: Warm and dry, no rashes or findings that would suggest an acute cellulitis Neurologic: Grossly neurologically intact with no obvious asymmetries or abnormalities Extremities: No trauma, well perfused, no lower extremity edema. Psych: Cooperative, appropriate insight and affect Course Orders Ordered: ED Orders 06/27/23 15:00 EKG-12 Lead Stat 06/27/23 15:01 Chest [XR chest 1V] Stat 06/27/23 16:30 BNP [NT-proBNP (BNP-Adult 18+)] Stat Complete Blood Count AUTO DIFF Stat Comprehensive Metabolic Panel Stat Lactate (Lactic Acid) Stat Lipase Stat Procalcitonin Stat Troponin & CK Cardiac Panel Stat 06/27/23 16:45 Blood Culture Stat 06/27/23 18:31 CT kidney ureter bladder (KUB) Stat 06/27/23 19:00 BMP [Basic Metabolic Panel] Stat Discontinued Medications Hydrocortisone (Hydrocortisone 100 Mg/2 Ml Vial) 100 mg IV NOW ONE Stop: 06/27/23 15:01 Last Admin: 06/27/23 16:36 Dose: 100 mg Documented By: SHAWN Hydromorphone HCl (Hydromorphone 0.5 Mg Inj) 0.5 mg IV NOW ONE Stop: 06/27/23 16:31 Last Admin: 06/27/23 16:36 Dose: 0.5 mg Documented By: SHAWN Sodium Chloride (Normal Saline 0.9%) 1,000 mls @ 1,000 mls/hr IV BOLUS ONE Stop: 06/27/23 15:59 Last Infusion: 06/27/23 20:11 Dose: Infused Documented By: Admin: 06/27/23 16:36 Dose: 1,000 mls/hr Documented By: SHAWN Sodium Chloride (Normal Saline 0.9%) 1,000 mls @ 1,000 mls/hr IV BOLUS ONE Stop: 06/27/23 22:06 Last Infusion: 06/27/23 22:06 Dose: Infused Documented By: Admin: 06/27/23 21:11 Dose: 1,000 mls/hr Documented By: AMARILIS Ondansetron HCl (Ondansetron 4 Mg/2 Ml Inj) 4 mg IV NOW ONE Stop: 06/27/23 21:08 Last Admin: 06/27/23 21:11 Dose: 4 mg Documented By: AMARILIS Vital Signs Vital signs: Vital Signs - 8 hr 06/27/23 14:50 06/27/23 16:11 06/27/23 16:12 Temperature 98.1 F Pulse Rate 102 H 104 H 99 H Respiratory Rate 40 H Blood Pressure 157/89 H Pulse Oximetry 99 95 100 Oxygen Delivery Method Room Air 06/27/23 16:12 06/27/23 16:30 06/27/23 16:41 Temperature Pulse Rate 91 H 90 Respiratory Rate 18 Blood Pressure 142/95 H Pulse Oximetry 100 100 Oxygen Delivery Method 06/27/23 16:41 06/27/23 17:00 06/27/23 17:00 Temperature Pulse Rate 86 Respiratory Rate Blood Pressure 154/79 H 166/75 H Pulse Oximetry 99 Oxygen Delivery Method 06/27/23 17:30 06/27/23 17:31 06/27/23 17:31 Temperature Pulse Rate 84 84 Respiratory Rate Blood Pressure 164/74 H Pulse Oximetry 92 91 Oxygen Delivery Method 06/27/23 18:00 06/27/23 18:00 06/27/23 18:30 Temperature Pulse Rate 87 88 Respiratory Rate Blood Pressure 157/94 H Pulse Oximetry 91 94 Oxygen Delivery Method 06/27/23 18:30 06/27/23 19:00 06/27/23 19:01 Temperature Pulse Rate 89 Respiratory Rate Blood Pressure 156/98 H 140/65 Pulse Oximetry 93 Oxygen Delivery Method 06/27/23 19:01 06/27/23 19:30 06/27/23 19:30 Temperature Pulse Rate 85 86 Respiratory Rate 16 Blood Pressure 130/64 Pulse Oximetry 92 91 Oxygen Delivery Method Room Air 06/27/23 20:00 06/27/23 20:00 06/27/23 20:30 Temperature Pulse Rate 83 Respiratory Rate Blood Pressure 131/79 149/72 H Pulse Oximetry 100 Oxygen Delivery Method 06/27/23 20:30 06/27/23 21:00 06/27/23 21:30 Temperature Pulse Rate 86 89 87 Respiratory Rate Blood Pressure Pulse Oximetry 96 96 95 Oxygen Delivery Method 06/27/23 21:43 06/27/23 21:43 Temperature Pulse Rate 85 Respiratory Rate Blood Pressure 114/56 L Pulse Oximetry 96 Oxygen Delivery Method Room Air Medical Decision Making Lab Data 06/27/23 16:30 06/27/23 19:00 Labs: Lab Results 06/27/23 06/27/23 Range/Units 16:30 19:00 WBC 11.5 H (4.5-11.0) X10^3/uL RBC 5.69 H (4.0-5.2) X10^6/uL Hgb 15.4 (12.0-16.0) g/dL Hct 46.0 (36-46) % MCV 80.8 (80-100) fL MCH 27.1 (26-34) PG MCHC 33.5 (30-36) % RDW 17.6 H (11.6-14.8) % Plt Count 411 H (150-400) X10^3/uL Neut % (Auto) 66.1 (50-75) % Lymph % (Auto) 20.9 L (25-40) % [place] % (Auto) 10.8 (3-14) % Eos % (Auto) 0.8 L (2-4) % Baso % (Auto) 1.4 (0-2) % Neut # (Auto) 7600 H (2892-2409) /uL Lymph # (Auto) 2400 (4071-6869) /uL [place] # (Auto) 1200 H (0-900) /uL Eos # (Auto) 100 (0-450) /uL Baso # (Auto) 200 H (0-100) /uL Sodium 131 L 131 L (137-145) mmol/L Potassium 5.8 H 4.5 D (3.4-5.1) mmol/L Chloride 97 L 98 (98-107) mmol/L Carbon Dioxide 20 L 20 L (22-32) mmol/L BUN 18 H 18 H (7-17) mg/dL Creatinine 1.26 H 0.96 (0.52-1.04) mg/dL Estimated GFR 47 L > 60 (>60) mL/min BUN/Creatinine Ratio 14.3 18.8 (6-22) Glucose 116 H 127 H (80-110) mg/dL Lactate 3.2 H 1.1 (0.7-2.1) mmol/L Calcium 10.8 H 10.1 (8.4-10.2) mg/dL Total Bilirubin 0.8 (0.2-1.3) mg/dL AST 39 H (14-36) IU/L ALT 30 (<35) IU/L Alkaline Phosphatase 79 (38-126) U/L Total Creatine Kinase 147 H (30-135) U/L Troponin I < 0.012 (0.01-0.034) ng/mL NT-Pro-B Natriuret Pep 71 (<125) pg/mL Total Protein 8.7 H (6.3-8.2) g/dL Albumin 5.2 H (3.5-5.0) g/dL Globulin 3.5 (1.7-4.1) g/dL Albumin/Globulin Ratio 1.5 (1.0-2.8) Lipase 184 (23-300) U/L Procalcitonin 0.10 (<0.5) ng/mL Urine Dip Bedside Urine Glucose Negative Bedside Urine Bilirubin - Negative Bedside Urine Ketone + 15 Urine Specific [place] 1.010 Bedside Urine pH 6.0 Bedside Urine Protein - Negative Bedside Urine Urobilinogen - Negative Bedside Urine Nitrite - Negative Bedside Urine Leukocytes - Negative Esterase Point of care testing: Urine Dip Bedside Urine Glucose Negative Bedside Urine Bilirubin - Negative Bedside Urine Ketone + 15 Urine Specific [place] 1.010 Bedside Urine pH 6.0 Bedside Urine Protein - Negative Bedside Urine Urobilinogen - Negative Bedside Urine Nitrite - Negative Bedside Urine Leukocytes - Negative Esterase MDM Narrative Medical decision making narrative: CC: Abdominal pain with concerns for addisonian crisis Complicating co-morbidities: Lior's disease, followed by endocrinology with specific plan for her addisonian events and follow-up scheduled for tomorrow Data collected from: patient, Medical records reviewed: Family practice notes from May 05 reviewed. Differential considered: Exam documented above, pertinent findings include: Lab Test results independently reviewed as above. Pertinent findings: CBC shows minimally elevated white blood cell count at 11.5 with no left shift, no anemia Chemistries show an initial bump to creatinine at 1.26 with a potassium at 5.8. Calcium slightly elevated at 10.8. Repeat potassium is at 4.5 Lipase is within appropriate limits Procalcitonin is not elevated Initial lactic acid was 3.2., repeat is down to 1.1 Independently reviewed EKG sinus rhythm at a rate of 91. She does not have peaked T-waves nor widening QRS. There are no ischemic changes Imaging studies independently reviewed: Chest x-ray shows no acute pathology CT scan of the abdomen and pelvis shows gallbladder sludge versus small stones but no suggestion of acute cholecystitis. A small umbilical hernia. Bladder stones that are not obstructing or causing problems at this time Treatments: Fluids, hydrocortisone, Dilaudid and Zofran Re-evaluations: After a small dose of Dilaudid, hydrocortisone dose at 100 mg and partial L of fluid patient is feeling significantly better. The abdominal pain seems to be abating however she does continue to complain of nausea. She is able to drink but the nausea is limiting that. We are having significant difficulties with IV access. Now that she has had more fluid we will try again with a functional IV. Would like to give her an additional L of fluid as well as some Zofran. At this point I am not seeing signs of infection, all of her initial abnormalities are improving and likely are result of dehydration secondary to her nausea. She likely will be able to be discharged after additional fluids and some Zofran, on uncomfortable sending her home at this point as she is still minimally able to drink do the nausea Discussion: Patient is re-evaluated. Nausea is controlled abdominal pain has abated she is able to eat and drink. We reviewed all of her labs and unremarkable CT scan. There is no evidence of acute infection or severe adrenal crisis that would require additional imaging or hospitalization at this time. No evidence acute cholecystitis or acute surgical abdomen. She is given some Zofran to have available at home should she need it. We will ask her to follow- up with her senior director insight as scheduled and will return to the ER should the symptoms worsen Discharge Plan Departure Patient Disposition: Home Clinical Impression: Abdominal pain, Lior's disease, Acute dehydration Instructions: DI for Abdominal Pain-Adult Activity Restrictions/Additional Instructions: Your workup today did not show any evidence of acute infection or reason for hospitalization. The CT scan did show some gallstones in her gallbladder but those no evidence that you have acute cholecystitis Your sodium is slightly low, follow-up to have this rechecked with your physician in the next week. It is unclear if you are having a true adrenal crisis please take your steroids as per your senior director insight by doubling your dose at this time. I have given you some Zofran to use at home for nausea. [facility] Please return for fevers, new or worsening abdominal back or flank pain, persistent vomiting, lightheadedness or passing out or other new or concerning changes. Prescriptions: New ondansetron 4 mg tablet,disintegrating 4 mg PO Q8H PRN (Reason: nausea and vomiting) Qty: 14 0RF No Action Solu-Cortef Act-O-Vial (PF) 100 mg/2 mL recon soln 100 mg IM DAILY PRN (Reason: [place]'s flare) Qty: 25 2RF omeprazole 20 mg capsule,delayed release(DR/EC) See Rx Instructions .ROUTE .COMPLEX Qty: 90 1RF Dose Instruction: TAKE 1 CAPSULE DAILY Rx Instructions: TAKE 1 CAPSULE DAILY lisinopril 10 mg tablet 10 mg PO DAILY Qty: 90 3RF Gemtesa 75 mg tablet 75 mg PO DAILY Qty: 90 0RF montelukast 10 mg tablet 10 mg PO DAILY Qty: 90 3RF levothyroxine [Synthroid] 75 mcg tablet 75 mcg PO DAILY Qty: 90 1RF albuterol sulfate 90 mcg/actuation HFA aerosol inhaler 2 puff inhalation QID PRN (Reason: shortness of breath or wheezing) Qty: 8.5 3RF duloxetine [Cymbalta] 60 mg capsule,delayed release(DR/EC) 60 mg PO DAILY Qty: 90 3RF trazodone 50 mg tablet 50 - 100 mg PO BEDTIME PRN (Reason: insomnia) Qty: 60 5RF calcium carbonate [Calcium 500] 500 mg calcium (1,250 mg) tablet 1,000 mg PO DAILY cholecalciferol (vitamin D3) 10 mcg (400 unit) capsule 10 mcg PO DAILY hydrocortisone 5 mg Tablet 10 mg PO BID Rx Instructions: took 20mg per physician instruction on 06/12 and 06/13 metformin 500 mg Tablet 1,000 mg PO DAILY fludrocortisone 0.1 mg Tablet 0.2 mg PO DAILY budesonide-formoterol [Symbicort] 80-4.5 mcg/actuation Hfa Aerosol Inhaler 2 puff INHALATION BID-TID PRN (Reason: Shortness Of Breath) atorvastatin 40 mg tablet 40 mg PO DAILY Referrals: Pradip Vasquez DO [Primary Care Provider] - Stand Alone Forms: Patient Portal/API
[2023-06-27] MEDS: ONDANSETRON 4 MG/2 ML INJ IV (21:11)
[2023-06-27] MEDS: ONDANSETRON 4 MG ODT PREPACK 1 BOTTLE MISC (22:47)
== END 2023-06-27 22:52 | disposition home or self-care (01) ==
PROVIDERS: Emergency Provider Emergency Medicine; PCP Family Medicine
DX: R10.9 Unspecified abdominal pain (principal); E27.1 Primary adrenocortical insufficiency; E86.0 Dehydration; R11.2 Nausea with vomiting, unspecified
CPT/HCPCS: 36415; 71045; 74176; 80048; 80053; 81003; 82550; 83605; 83690; 83880; 84145; 84484; 85025; 87040; 93005; 93010; 96361; 96374; 96375; 99284; J1170; J1720; J2405

== ENCOUNTER → 2023-08-03 12:42 | Outpatient (CLI) | payer MEDICARE, OTHER, SELFPAY ==
[2023-05-01 15:10] VITALS: BMI 32.1
--- NOTE | 2023-08-03 12:45 | DI.US.S_ITS ---
PROCEDURE: US ABDOMEN LIMITED INDICATIONS: RIGHT UPPER QUADRANT - EPIGASTRIC PAIN TECHNIQUE: Real-time scanning was performed of the abdominal and retroperitoneal organs, with image documentation. COMPARISON: None. FINDINGS: Liver: Hepatic parenchyma shows diffuse increased echogenicity consistent with fatty infiltration. Gallbladder: Gallbladder wall nodularity with ring down artifact reflects adenomyomatosis. No cholelithiasis or inflammatory change Common Bile Duct: 5 mm. Pancreas: Unremarkable as visualized IMPRESSION: 1. Probable gallbladder wall adenomyomatosis. No cholelithiasis pericholecystic fluid 2. Approved by: Diony Sims M.D. on 08/03/2023 at 19:44
== END ==
PROVIDERS: PCP Family Medicine; Referring Provider Physician Assistant; Visit Provider Physician Assistant
DX: K21.9 Gastro-esophageal reflux disease without esophagitis (principal); R10.11 Right upper quadrant pain
CPT/HCPCS: 76705

== ENCOUNTER 2023-09-27 10:39 | Day surgery (SDC) | payer MEDICARE, OTHER, SELFPAY ==
[2023-05-01 15:10] VITALS: BMI 32.1
[2023-09-20 14:42] VITALS: BMI 31.4
[2023-09-21 15:35] VITALS: BP 139/74; PULSE 64; RESP 12; TEMP 35.1; O2SAT 99
--- NOTE | 2023-09-26 08:21 | PM.PREOP ---
Pre-operative Note Interval Note History & Physical reviewed/Exam performed by Physician: Yes Changes to H&P: No
[2023-09-27] VITALS (20 sets, daily range): BP systolic 84–150; BP diastolic 49–81; PULSE 56–82; RESP 12–21; TEMP 35.1–36.5; O2SAT 92–100; BMI 31.4
--- NOTE | 2023-09-27 | PATH_ITS ---
[facility] Accession Number: [id number] No. of containers..01 Tissue . 01 Material submitted: . gallbladder - GALLBLADDER . 01 Diagnosis: GALLBLADDER, CHOLECYSTECTOMY: Chronic cholecystitis and cholesterolosis. One benign lymph node identtified. No evidence of malignancy. [facility] 09/29/2023 1023 Local . 01 Electronically signed: . Shruthi Bailon MD, Pathologist NPI- [id number] . 01 Gross description: . The specimen is received in formalin labeled with the patient's name, , and gallbladder, consists of a single, previously disrupted gallbladder measuring 6.4 x 2.7 x 1.2 cm. The serosal surface is pink to violaceous and wrinkled with two full thickness defects, 0.1 and 0.5 cm in greatest dimension. A possible newberry-brown lymph node is noted measuring 0.5 x 0.4 x 0.3 cm (inked blue). The cystic duct is clamped, unoccluded, and measures 0.2 cm in diameter. The gallbladder is opened to reveal less than 1 mL of green viscous bile. No calculi are identified within the lumen or within the container. The mucosal surface is green to red and congested with a single yellow polypoid structure noted measuring 0.1cm in greatest dimension. No lesions are seen. The wall measures up to 0.5 cm in thickness. Supervisory Historian sections to include the intact lymph node candidate, cystic duct margin, and gallbladder wall are submitted in cassette A1. ([id number]) /MRV 09/28/2023 1447 Local . 01 Pathologist provided ICD-10: K81.1 . 01 CPT . 237459 Specimen Comment: A courtesy copy of this report has been sent to [phone] Performed at: [address] [facility] Cytology [address], [place], [place] [id number] MD Sergey Schultz MD Phone: [phone]
[2023-09-27] MEDS: HYDROCORTISONE 100 MG/2 ML VIAL 50 MG IV (11:17)
[2023-09-27] MEDS: LACTATED RINGERS 1,000 ML 21 ML IV ×2 (11:17→21:38)
[2023-09-27] MEDS: CEFAZOLIN 2 GM/100 ML PREMIX 100 ML IV (12:35)
[2023-09-27] MEDS: BUPIVACAINE 0.25% (PF) VIAL 30 ML INJ (12:49)
--- NOTE | 2023-09-27 12:57 | SUR.OPER ---
Supine on padded OR bed, head on pillow, right arm padded and tucked at sides, left arm padded and tucked at side, legs uncrossed, footboard in place, safety belt at thigh, tape over blanket over lower legs .
--- NOTE | 2023-09-27 14:10 | P.OP_ITS ---
Operative Date/Time/Diagnoses Date of procedure: 09/27/23 Time of procedure: 14:11 Pre-op diagnosis: adenomyomatosis of gallbladder Post-op diagnosis: same Procedure & Clinicians Procedure: Laparoscopic cholecystectomy Same procedure as scheduled: Yes Indications: 68 F with Addisons disease and a symptomatic gallbladder here for elective cho lecystectomy Surgeon: Elder Wheeler Anesthesia Type: General Operative Notes Findings: chronic cholecystitis Specimen(s): other (gallbladder) Estimated Blood Loss (mL): 20 Procedure in detail: The patient was placed supine on the table and bilateral lower extremity compression devices were applied. Anesthesia was induced they were intubated with an endotracheal tube and received 2g of Ancef. A time-out was performed. They were prepped and draped in sterile fashion. An infraumbilical incision was made. The fascia was elevated incised and the abdomen was entered atraumatic ally. A blunt tip 12mm balloon trocar was then inserted, pneumoperitoneum was established and inspection of the abdomen demonstrated no evidence of injury. They were placed head up and right side up and then a 11 mm port was placed high in the epigastrium and two 5mm in the right upper quadrant. The gallbladder was grasped by the fundus and retracted over the liver and retracted laterally by th e infundibulum. The gallbladder was chronically inflamed and the adhesions to it were taken down. It was also tense and distended so it was drained percutaneously. Using electrocautery the lateral plane between the gallbladder and the liver was opened towards the fundus. The gallbladder was then retracted laterally and the medial plane was developed in the same manner. With the gallbladder mobilized the bottom of the cystic plate was visualized. The hepatocystic triangle was meticulosly skeletonized with blunt dissection of fat and fibrous tissue from both the front and the back. Only two structures were then clearly seen entering the gallbladder the cystic duct and the cystic artery. With the critical view of safety fully established the cystic duct was clipped twice proximally and once distally using the 10 mm Weck hemoclip applied under direct visualization and then sharply divided. The cystic artery was divided in the same fashion. The gallbladder was removed from the liver bed using electro cautery. The liver bed was then inspected for hemostasis and this was achieved. The abdomen was irrigated with sterile saline and inspection was made that showed the clips in good position. The specimen was removed using Endo-Catch. The abdomen was desufflated. The umbilical fascia was closed with 0 Vicryl in a [id number] fashion under direct visualization. Skin inc isions were irrigated and closed with 4-0 Monocryl. 30 ml of 0.25% bupivacaine was infiltrated into the subcutaneous tissue of the incisions. The wounds were sealed with Dermabond. Patient emerged from anesthesia was extubated and transferred to recovery in stable condition. The sponge and instrument count at the end of the operation was correct. Complications: none Post-operative Condition: stable Disposition: observation
[2023-09-27] MEDS: ONDANSETRON 4 MG/2 ML INJ IV (14:30)
[2023-09-27] MEDS: HYDROMORPHONE 1 MG INJ IV ×2 (14:31→14:42)
[2023-09-27] MEDS: hydrOXYzine 50 MG/ML INJ 25 MG IM (14:46)
[2023-09-27] MEDS: PROCHLORPERAZINE 10 MG/2 ML VIAL IV (15:02)
[2023-09-27] MEDS: OXYCODONE IR 5 MG TABLET PO (15:04)
[2023-09-27] MEDS: TRAZODONE 50 MG TABLET PO (21:38)
[2023-09-27] MEDS: HYDROCORTISONE 10 MG TABLET PO (21:38)
[2023-09-27] MEDS: FLUDROCORTISONE 0.1 MG TABLET PO (21:38)
[2023-09-28] VITALS: BP 142/80; PULSE 69; RESP 16; TEMP 35.9; O2SAT 96; O2SAT 98
--- NOTE | 2023-09-28 01:16 | PC.NURSE ---
Pt bladder scanned at 0000 , (6 hours post jimenez removal) resulted >750ml. Pt opted to get out of bed and attempt to void despite no urge to void and was able to void 1100 ml clear yellow urine, Post void residule was >600 and subsequently staight cathed for 650 urine output. No difficulty with catheterizing and patient denied discomfort fro procedure.
[2023-09-28 04:00] VITALS: BP 185/77; PULSE 97; RESP 19; TEMP 36.2; O2SAT 94; O2SAT 97
[2023-09-28] MEDS: HYDROMORPHONE 1 MG INJ 0.5 MG IV (04:08)
[2023-09-28] MEDS: LEVOTHYROXINE 75 MCG TABLET PO (06:23)
[2023-09-28 08:00] VITALS: O2SAT 93
[2023-09-28 08:51] VITALS: BP 128/70
[2023-09-28] MEDS: PANTOPRAZOLE DR 40 MG TABLET PO (08:51)
[2023-09-28] MEDS: ATORVASTATIN 20 MG TABLET 40 MG PO (08:51)
[2023-09-28] MEDS: HYDROCORTISONE 10 MG TABLET PO (08:51)
[2023-09-28] MEDS: MONTELUKAST 10 MG TABLET PO (08:51)
[2023-09-28] MEDS: METFORMIN HCL 500 MG TABLET 1000 MG PO (08:51)
[2023-09-28] MEDS: DULOXETINE 30 MG CAPSULE 60 MG PO (08:51)
[2023-09-28] MEDS: lisinopriL 10 MG TABLET PO (08:51)
[2023-09-28] MEDS: OXYCODONE IR 5 MG TABLET PO (08:52)
[2023-09-28] MEDS: FLUDROCORTISONE 0.1 MG TABLET PO (08:52)
[2023-09-28] MEDS: IBUPROFEN 600 MG TABLET PO (08:52)
[2023-09-28] MEDS: ONDANSETRON 4 MG ODT SL (09:01)
[2023-09-28 09:02] VITALS: BP 128/70; PULSE 67; RESP 16; TEMP 35.9; O2SAT 90
--- NOTE | 2023-09-28 13:20 | PC.NURSE ---
Pt is dressed and ready for discharge home with Sister. IV has been removed. Went over d/c instructions with Pt-discussed d/c meds, time of last dose reviewed stroke education, reminded Pt to drink plenty of liquids to prevent constipation or dehydration, reviewed s/s of infection and when to call MD, reminded Pt not to lift <10 pounds for at least 6 weeks. Pt denies further question and will be taken out via w/c by DIE PRESSER to POV with Sister and all belongings.
--- NOTE | 2023-09-28 13:43 | CM.DANOTE ---
Discharge Planning/Care Management CM Discharge Assessment Start: 09/28/23 13:40 Freq: Status: Active Protocol: Document 09/28/23 13:40 KASSIDY (Rec: 09/28/23 13:43 [email or web address] [id number]) Discharge Planning Assessment Assigned Labor Relations Or Personnel Negotiator ALYX Victor DPOA/Assigned Designee Name rick Russell Contact Information [phone] Advance Directives? Yes Advance Directives on File Yes History Provided By Patient,Medical Record Prior Living Arrangements House Household Members none Type of transporation used prior to Drives own vehicle admit Independent with ADL's Yes Is patient alert and oriented? Yes Barriers to Discharge No Comment Lives alone, but friend, Krista , will stay with her for a few days, then her cousin. Sister to transport home Discharge Plan Home Transportation Arrangement Friend Referrals Initiated None needed
== END 2023-09-28 13:55 | disposition home or self-care (01) ==
LOC: OR 10:42 → AC 13:42
PROVIDERS: PCP Family Medicine; Referring Provider Surgery; Visit Provider Surgery
PROC: 0FT44ZZ Resection of Gallbladder, Percutaneous Endoscopic Approach (ICD-10-PCS; CPT 47562; principal; 2023-09-27 12:30)
DX: K81.1 Chronic cholecystitis (principal); K82.8 Other specified diseases of gallbladder; G47.33 Obstructive sleep apnea (adult) (pediatric); J44.9 Chronic obstructive pulmonary disease, unspecified
CPT/HCPCS: 47562; 82962; J0690; J0780; J1170; J1720; J2405; J2704; J3010; J3410; J3490

== ENCOUNTER → 2023-10-14 12:46 | Outpatient (CLI) | payer MEDICARE, OTHER, SELFPAY ==
[2023-09-27 16:04] VITALS: BMI 31.4
--- NOTE | 2023-10-14 | DI.MG.S_ITS ---
BILATERAL DIGITAL SCREENING MAMMOGRAM 3D/2D WITH CAD: 10/14/2023 CLINICAL: Routine screening. Family history of breast cancer. Comparison is made to exams dated: 09/24/2022 mammogram, 09/01/2021 mammogram - [facility], and 10/15/2018 mammogram - outside location. There are scattered areas of fibroglandular density in both breasts (category b / 25%-50% glandular tissue). Current study was also evaluated with a Computer Aided Detection (CAD) system. There are benign calcifications in both breasts. No significant masses, calcifications, or other findings are seen in either breast. There has been no significant interval change. IMPRESSION: BENIGN There is no mammographic evidence of malignancy. A 1 year screening mammogram is recommended. Based on the Tyrer Cuzick model (a risk assessment model) the patient's lifetime risk is 8.1% and her 10 year risk is 4.4%. According to the ACR, ACS, and NCCN guidelines, an annual breast MRI exam along with mammogram is recommended if the patient's lifetime risk is 20% or greater. This exam was interpreted at Station ID: [id number]. NOTE: For mammograms, a report in lay terms will be sent to the patient. Approximately 15% of breast malignancies will not be visualized mammographically. In the management of a palpable breast mass, a negative mammogram must not discourage biopsy of a clinically suspicious lesion. Electronically Signed By: Alyce osman/elias:10/16/2023 17:30:53 letter sent: Normal Exam ACR BI-RADS Category 2: Benign Finding(s) 3342F
== END ==
PROVIDERS: PCP Family Medicine; Referring Provider Family Medicine; Visit Provider Family Medicine
DX: Z12.31 Encounter for screening mammogram for malignant neoplasm of breast (principal); Z80.3 Family history of malignant neoplasm of breast; R92.323 Mammographic fibroglandular density, bilateral breasts
CPT/HCPCS: 77063; 77067

== ENCOUNTER → 2023-11-11 10:44 | Outpatient (CLI) | payer MEDICARE, OTHER, SELFPAY ==
[2023-09-27 16:04] VITALS: BMI 31.4
--- NOTE | 2023-11-11 | DI.MRI.S_ITS ---
PROCEDURE: MR CERVICAL SPINE WO CON INDICATIONS: Spinal stenosis, cervical region TECHNIQUE: Noncontrast sagittal T1 spin echo and T2 fast spin echo, sagittal STIR, foraminal oblique sagittal T2 fast spin echo, and axial gradient echo or T2 fast spin echo through the cervical spine. COMPARISON: [facility], MR, MR CERVICAL SPINE WO CON, 03/22/2022, 9:11. [facility], CR, XR CERVICAL SPINE 2 OR 3 VIEWS, 11/02/2023, 13:34. FINDINGS: Image quality: Excellent. Alignment and Curvature: There is normal bony alignment. Interval ACDF at C4 through C7. Bone Marrow: Marrow demonstrates normal overall signal. Spinal Cord: Visualized spinal cord has normal size and signal. No cerebellar tonsillar herniation. Paraspinous Soft Tissues: No paravertebral masses. Prevertebral soft tissues are normal in thickness. C2-C3: No canal stenosis or foraminal stenosis. C3-C4: Increased disc bulge with minimal central posterior disc protrusion.. Mild indentation on the ventral cord. AP diameter of the central canal is 8.4 mm. AP diameter of the central canal previously measured 9.5 mm. Foramina are patent. C4-C5: Significant improvement. Interval ACDF. AP diameter of the central canal has increased from 8.9 mm to 9.8 mm. There is [id number] left foraminal narrowing. C5-C6: Interval fusion. Resolution of canal stenosis. AP diameter of the central canal is 11.3 mm. Significant improvement in bilateral foraminal narrowing. Mild right foraminal narrowing. C6-C7: Interval fusion. No canal stenosis. Bilateral uncovertebral joint hypertrophy. Moderate to severe right foraminal narrowing secondary to uncovertebral joint osteophyte with a degree of right foraminal C7 nerve root impingement. Left foraminal narrowing is moderate with flattening deformity on the exiting left C7 nerve root. C7-T1: No canal stenosis or significant foraminal stenosis. IMPRESSION: 1. Interval ACDF at C3 through C7 with resolution of canal stenosis at the surgical levels. 2. Developing canal stenosis at C3-C4, the level above the fusion. 3. Multilevel foraminal narrowing as described above. Findings include moderate to severe right foraminal narrowing at C6-C7. Dictated by: Simon Ngo M.D. on 11/13/2023 at 9:34 Approved by: Simon Ngo M.D. on 11/13/2023 at 9:53
== END ==
PROVIDERS: PCP Family Medicine; Referring Provider Physical Medicine & Rehabilitation; Visit Provider Physical Medicine & Rehabilitation
DX: M48.02 Spinal stenosis, cervical region (principal); Z98.1 Arthrodesis status
CPT/HCPCS: 72141

== ENCOUNTER → 2023-11-15 16:53 | Outpatient (CLI) | payer MEDICARE, OTHER, SELFPAY ==
[2023-09-27 16:04] VITALS: BMI 31.4
--- NOTE | 2023-11-15 16:54 | DI.RAD.S_ITS ---
PROCEDURE: XR FOOT LT MIN 3V INDICATIONS: Left foot injury TECHNIQUE: 3 views of the foot were acquired. COMPARISON: None. FINDINGS: Bones: No fractures or dislocations. Mild hallux valgus alignment on nonweightbearing view. Moderate 1st MTP joint space narrowing and juxta-articular osteophytosis. No suspicious bony lesions. Soft tissues: No tibiotalar joint effusion. Achilles tendon appears normal. IMPRESSION: 1. No acute bony abnormality. If clinical symptoms persist, consider repeat radiograph in 10-14 days versus cross-sectional imaging. 2. Mild hallux valgus alignment on nonweightbearing view with moderate 1st MTP joint osteoarthritis. Dictated by: Kandis Bolanos M.D. on 11/16/2023 at 15:00 Approved by: Kandis Bolanos M.D. on 11/16/2023 at 15:01
--- NOTE | 2023-11-15 16:54 | DI.RAD.S_ITS ---
PROCEDURE: XR ANKLE LT MIN 3V INDICATIONS: Left foot injury TECHNIQUE: 3 views of the ankle were acquired. COMPARISON: None. FINDINGS: Bones: No fractures or dislocations. Ankle mortise is normally aligned. No suspicious bony lesions. Soft tissues: No tibiotalar joint effusion. Achilles tendon appears normal. IMPRESSION: No acute bony abnormality or significant effusion. Dictated by: Kandis Bolanos M.D. on 11/16/2023 at 14:58 Approved by: Kandis Bolanos M.D. on 11/16/2023 at 14:59
== END ==
PROVIDERS: PCP Family Medicine; Referring Provider Nurse Practitioner Family; Visit Provider Nurse Practitioner Family
DX: S96.912A Strain of unspecified muscle and tendon at ankle and foot level, left foot, initial encounter (principal); X58.XXXA Exposure to other specified factors, initial encounter
CPT/HCPCS: 73610; 73630

== ENCOUNTER → 2023-12-13 13:22 | Outpatient (CLI) | payer MEDICARE, OTHER, SELFPAY ==
[2023-09-27 16:04] VITALS: BMI 31.4
== END ==
PROVIDERS: PCP Family Medicine; Visit Provider Urology
DX: N32.81 Overactive bladder (principal)
CPT/HCPCS: 87086

== ENCOUNTER → 2024-04-07 16:40 | Outpatient (ROUT) | payer MEDICARE, OTHER, SELFPAY ==
[2024-06-19 12:21] VITALS: BMI 28.8
== END ==
PROVIDERS: PCP Family Medicine; Visit Provider Nurse Practitioner Family
DX: Z76.0 Encounter for issue of repeat prescription (principal)
CPT/HCPCS: 80053; 85025; 86140

== ENCOUNTER → 2024-04-17 11:31 | Outpatient (CLI) | payer MEDICARE, OTHER, SELFPAY ==
[2023-09-27 16:04] VITALS: BMI 31.4
== END ==
PROVIDERS: PCP Family Medicine; Visit Provider Urology
DX: R39.9 Unspecified symptoms and signs involving the genitourinary system (principal)
CPT/HCPCS: 87086

== ENCOUNTER → 2024-04-26 15:54 | Outpatient (CLI) | payer MEDICARE, OTHER, SELFPAY ==
[2023-09-27 16:04] VITALS: BMI 31.4
--- NOTE | 2024-04-26 15:55 | DI.MRI.S_ITS ---
PROCEDURE: MR LUMBAR SPINE WO CON INDICATIONS: LUMBAR STENOSIS TECHNIQUE: Noncontrast sagittal T1 spin echo and T2 fast echo, sagittal STIR, and T2 fast spin echo through the lumbar spine. In cases with scoliosis, additional coronal T2 fast spin echo may be performed. COMPARISON: [facility], CR, XR LUMBAR SPINE WITH OBLIQUES PLUS FLEXION EXTENSION, 02/21/2022, 14:04. [facility], RF, LUMBAR SPINE INTERIAMINAR, 11/13/2023, 9:35. [facility], MR, MR LUMBAR SPINE WO CON, 03/03/2022, 13:09. FINDINGS: Image quality: Excellent. Alignment and Curvature: The lumbar lordosis is preserved. There is mild dextrocurvature of the lumbar spine with the apex at L3 Bone Marrow: Marrow is of normal overall signal. No acute vertebral body compression fractures. Anatomy: 5 non rib-bearing lumbar vertebrae are present. Discs: Multilevel disc bulging and disc desiccation, most conspicuous at L2-L3, L3-L4, and L4-L5. Spinal Cord: Conus medullaris terminates at the T12-L1 level. Visualized cord demonstrates normal signal and size. Paraspinous Soft Tissues: No paravertebral masses. Subcentimeter T2 hyperintense structures in the kidneys, too small to characterize, but statistically likely to represent simple cysts (6/4). No abdominal aortic aneurysm. Mild paraspinal muscle atrophy, most conspicuous at the lower lumbar levels. Multilevel findings: Ligamentum flavum thickening, facet arthropathy- moderate at L4-L5 and L5-S1. Ventral epidural lipomatosis, notably at L3-L4, L4-L5, and L5-S1. T12-L1: No significant disc bulge. No central canal stenosis. No foraminal stenosis. L1-L2: No significant disc bulge. No central canal stenosis. No foraminal stenosis. L2-L3: Moderate circumferential disc bulge, resulting in mild central canal stenosis. No foraminal stenosis. L3-L4: Mild circumferential disc bulge, resulting in moderate central canal stenosis. Mild left foraminal stenosis. No right foraminal stenosis. L4-L5: Moderate circumferential disc bulge with central protrusion, resulting in severe central canal stenosis. Mild bilateral foraminal stenosis. Right foraminal protrusion contacting the descending right L5 nerve root (2/10). L5-S1: Mild disc bulge. No central canal stenosis. No foraminal stenosis. IMPRESSION: 1. Severe central canal stenosis at L4-L5, primarily secondary to a disc bulge with a central protrusion. 2. Right L4-L5 foraminal protrusion, contacting the descending right L5 nerve root. Please correlate with symptomatology in the corresponding dermatomal distribution. 3. No severe foraminal stenosis. Dictated by: Stanley Rosales M.D. on 04/29/2024 at 14:29 Approved by: Stanley Rosales M.D. on 04/29/2024 at 14:48
== END ==
LOC: MRI 15:54
PROVIDERS: PCP Family Medicine; Referring Provider Physical Medicine & Rehabilitation; Visit Provider Physical Medicine & Rehabilitation
DX: M48.062 Spinal stenosis, lumbar region with neurogenic claudication (principal); M51.26 Other intervertebral disc displacement, lumbar region; M51.36 Other intervertebral disc degeneration, lumbar region; M51.37 Other intervertebral disc degeneration, lumbosacral region
CPT/HCPCS: 72148

== ENCOUNTER → 2024-04-30 10:30 | Outpatient (CLI) | payer MEDICARE, OTHER, SELFPAY ==
[2023-09-27 16:04] VITALS: BMI 31.4
--- NOTE | 2024-04-30 10:49 | EKG_ITS ---
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
[2024-04-30 12:23] LABS: Add Manual Diff / Slide Review NO; Basophils Absolute Auto 100 /uL (0-100); Basophils Percent Auto 1.2 % (0-2); Eosinophils Absolute Auto 200 /uL (0-450); Eosinophils Percent Auto 2.5 % (2-4); Hematocrit 39.4 % (36-46); Lymphocytes Absolute Auto 2300 /uL (1100-4500); Lymphocytes Percent Auto 25.6 % (25-40); Mean Corpuscular HGB Conc 33.1 % (30-36); Mean Corpuscular Hemoglobin 28.7 PG (26-34); Mean Corpuscular Volume 86.7 fL (80-100); Monocytes Absolute Auto 800 /uL (0-900); Monocytes Percent Auto 8.8 % (3-14); Neutrophils Absolute Auto 5500 /uL (1500-7000); Neutrophils Percent Auto 61.9 % (50-75); Platelet Count 357 X10^3/uL (150-400); Red Blood Cell Count 4.54 X10^6/uL (4.0-5.2); Red Cell Distribution Width 14.9 % (11.6-14.8); White Blood Cell Count 8.9 X10^3/uL (4.5-11.0)
[2024-04-30 15:14] LABS: BUN Creatinine Ratio 28.3 (6-22); Blood Urea Nitrogen 17 mg/dL (7-17); Calcium 9.6 mg/dL (8.4-10.2); Carbon Dioxide 27 mmol/L (22-32); Chloride 100 mmol/L (98-107); Estimated Glomerular Filt Rate > 60 mL/min (>60); Glucose 83 mg/dL (80-110); HEMOLYSIS < 15 (0-50); Potassium 4.5 mmol/L (3.4-5.1); Sodium 133 mmol/L (137-145)
[2024-04-30 19:39] LABS: Hemoglobin A1C% w Est Avg Glu 6.1 % (4.0-6.0)
== END ==
PROVIDERS: PCP Family Medicine; Referring Provider Orthopaedic Surgery Orthopaedic Surgery of the Spine; Visit Provider Orthopaedic Surgery Orthopaedic Surgery of the Spine
DX: Z01.818 Encounter for other preprocedural examination (principal); R73.9 Hyperglycemia, unspecified; Z01.812 Encounter for preprocedural laboratory examination
CPT/HCPCS: 36415; 80048; 83036; 85025; 93005; 93010

== ENCOUNTER → 2024-05-04 11:54 | Outpatient (CLI) | payer MEDICARE, OTHER, SELFPAY ==
[2023-09-27 16:04] VITALS: BMI 31.4
--- NOTE | 2024-05-04 11:55 | DI.CT.S_ITS ---
PROCEDURE: CT LUMBAR SPINE WO CON INDICATIONS: SPINAL STENOSIS,LUMBAR REGION TECHNIQUE: Noncontrast 3 mm thick sections acquired from the T12 level to the sacrum. Sagittal and coronal reformats were constructed. For radiation dose reduction, the following was used: automated exposure control. COMPARISON: None. FINDINGS: Image quality: Excellent. Bones: Slight rightward curvature of the spine. No acute vertebral body compression fractures. No suspicious lytic or blastic bony lesions. No pars defects. T12-L1: Normal. L1-L2: Normal. L2-L3: Broad-based disc bulge with disc osteophyte complex and mild facet hypertrophy causing mild spinal canal narrowing. L3-L4: Asymmetric left subarticular to extraforaminal disc bulge with disc osteophyte complex and facet hypertrophy causing moderate to severe spinal canal narrowing. Mild left neural foraminal narrowing. L4-L5: Central disc protrusion and facet hypertrophy causing severe spinal canal narrowing. Moderate right neural foraminal narrowing. L5-S1: Facet hypertrophy. Broad-based disc bulge. Soft tissues: No retroperitoneal masses or hematomas. Visualized aorta is normal in caliber. Nonobstructing 4 mm stone in the superior calyx of the left kidney. IMPRESSION: Multilevel degenerative disc disease. Of note: Severe spinal canal narrowing at L4-5 due to central disc protrusion and facet hypertrophy. Moderate right neural foraminal narrowing at L4-5. Moderate to severe spinal canal narrowing at L3-4 due to disc osteophyte complex and disc bulge with facet hypertrophy. Mild spinal canal narrowing at L2-3 due to degenerative change. Dictated by: Ja Nguyen M.D. on 05/06/2024 at 12:21 Approved by: Ja Nguyen M.D. on 05/06/2024 at 12:33
== END ==
PROVIDERS: PCP Family Medicine; Referring Provider Orthopaedic Surgery Orthopaedic Surgery of the Spine; Visit Provider Orthopaedic Surgery Orthopaedic Surgery of the Spine
DX: M48.062 Spinal stenosis, lumbar region with neurogenic claudication (principal); M51.26 Other intervertebral disc displacement, lumbar region; M47.816 Spondylosis without myelopathy or radiculopathy, lumbar region; M47.817 Spondylosis without myelopathy or radiculopathy, lumbosacral region; M51.36 Other intervertebral disc degeneration, lumbar region; M51.37 Other intervertebral disc degeneration, lumbosacral region
CPT/HCPCS: 72131

== ENCOUNTER 2024-06-19 06:12 | Inpatient (IN) | payer MEDICARE, OTHER, SELFPAY ==
[2023-09-27 16:04] VITALS: BMI 31.4
[2024-06-13 12:45] VITALS: BMI 28.3
[2024-06-19] VITALS (13 sets, daily range): BP systolic 96–179; BP diastolic 46–93; PULSE 70–98; RESP 13–22; TEMP 36.3–36.7; O2SAT 94–100; BMI 28.8
--- NOTE | 2024-06-19 | DI.RAD.S_ITS ---
PROCEDURE: XR LUMBAR SPINE 2-3V INDICATIONS: TLIF L4-5, L5-S1 TECHNIQUE: 3 views of the lumbar spine were acquired. COMPARISON: None. FINDINGS: Intraoperative images demonstrating L3 through L5 fusion with intervertebral spacers. There is good anatomic alignment and hardware appears intact.. IMPRESSION: Intraoperative L3 through L5 fusion. Dictated by: Cheyenne Melgoza M.D. on 06/19/2024 at 16:54 Approved by: Cheyenne Melgoza M.D. on 06/19/2024 at 16:55
[2024-06-19] MEDS: LACTATED RINGERS 1,000 ML 42 ML IV (07:14)
[2024-06-19] MEDS: HYDROCORTISONE 100 MG/2 ML VIAL 50 MG IV ×2 (07:15→16:18)
[2024-06-19] MEDS: ACETAMINOPHEN 325 MG TABLET 975 MG PO (07:15)
[2024-06-19 07:21] LABS: BUN Creatinine Ratio 35.8 (6-22); Blood Urea Nitrogen 19 mg/dL (7-17); Calcium 9.4 mg/dL (8.4-10.2); Carbon Dioxide 26 mmol/L (22-32); Chloride 105 mmol/L (98-107); Estimated Glomerular Filt Rate > 60 mL/min (>60); Glucose 95 mg/dL (80-110); HEMOLYSIS < 15 (0-50); Potassium 3.9 mmol/L (3.4-5.1); Sodium 138 mmol/L (137-145)
[2024-06-19 07:23] LABS: COVID19 -Nasal RAPID Negative (Negative)
--- NOTE | 2024-06-19 07:40 | PM.PREOP ---
Pre-operative Note Interval Note History & Physical reviewed/Exam performed by Physician: Yes Changes to H&P: No
[2024-06-19] MEDS: CEFAZOLIN 2 GM/100 ML PREMIX 100 ML IV ×2 (07:56→16:18)
[2024-06-19] MEDS: BUPIVACAINE 0.25% W/ EPI (PF) 10 ML VIAL 20 ML INJ (08:21)
--- NOTE | 2024-06-19 08:29 | SUR.OPER ---
Prone on spine table, head in foam head support, padded chest and pelvic supports, gel pad at knees, lower legs supported by pillows; nipples, genitalia and toes free of pressure, arms secured on foam padded arm boards at <90 degrees abduction. Tape over blanket at thigh secured to table. Upper body toro hugger in place.
[2024-06-19] MEDS: BUPIVACAINE LIPOSOME 266 MG/20 ML VIAL INJ (10:46)
--- NOTE | 2024-06-19 10:49 | P.OP_ITS ---
Operative Date/Time/Diagnoses Date of procedure: 06/19/24 Time of procedure: 07:40 Pre-op diagnosis: 1. L5-S1 spondylolisthesis 2. L4-5 spinal stenosis with neurogenic claudication Post-op diagnosis: same Procedure & Clinicians Procedure: 1. L4-5, L5-S1 Postero-lateral and posterior interbody fusion 2. L4-5, L5-S1 interbody cage placement. 3. L4-5, L5-S1 decompressive laminectomy with bilateral facetecomies 4. L4-5, L5-S1 Posterior segmental instrumentation 5. Pinnacle of bone marrow from iliac crest 6. Utilization of microsurgical technique and operating microscope 7. Utilization of robotic assisted navigation Same procedure as scheduled: Yes Indications: Patient has been having chronic back pain and worsening lumbar radiculopathy and symptoms of neurogenic claudication. Patient was found to have L5-S1 anterolisthesis with severe L4-5 spinal stenosis correlating with her symptoms. Patient failed multiple conservative management with worsening pain weakness and numbness in her lower extremity. Patient has been having difficulty performing activity of daily living. After discussing risks benefits of treatment options, patient elected proceed with surgery. Surgeon: Norris Banegas Concrete Pipe Machine Operator: Irish Cerda Click Yes if Unassisted: No Anesthesia Type: General Operative Notes Closure Type: primary Specimen(s): none sent Prosthetic devices, grafts, tissues, transplants, or devices: Globus CREO MIS screws, Rise cages Applied: catheter Estimated Blood Loss (mL): 200 Blood products transfused: none Procedure in detail: Patient was seen in the preoperative area. Risks and benefits of the surgery was discussed with the patient. Informed consent was obtained from the patient and placed in the chart. Surgical site was marked. Patient was taken to the operative room. General anesthesia was administered. Prophylactic antibiotic was given to the patient less than 30 min before the incision was made. Patient was placed into a prone position on the Chance table. Patient's back was then prepped and draped in the sterile fashion. Time-out was performed at this time. After patient was prepped and draped, patient's PSIS was palpated and marked bilaterally. Small 1 cm incision was made over the PSIS for placement of the reference probes. Two trocar was placed into the PSIS 1 on each side. The reference probe was attached to the trocar of the reference apparatus. At this time the C-arm imaging was used to confirm AP and lateral of L4-L5, L5- S1 vertebrae and merged the C-arm imaging using the [employer] robotic navigation system with the CT of the lumbar spine. After successful merging was completed and confirmed, skin marker was used to tank out the skin incision using the [employer] robotic arm. Bilateral incision was made at this time. Pre templated trajectory was used and guided using the [employer] robotic navigation system for bilateral L4, L5, S1 pedicle screw placement. This was done by using the robotic arm to guide the high-speed bur to make a cortical entry point. Next a drill was placed also using the robotic arm and guided using the navigation system drilling partially through bilateral L4, L5 and S1 pedicles. Next L4, L5, S1 pedicle screws it was pre templated and measured was placed onto the power pile driver operator barge mounted and inserted into the pedicles bilaterally. After all 6 screws were placed C-arm imaging was taken of both AP and lateral to confirm the placement. Excellent placement of the screws were confirmed and a matched precisely with the pre planned screw placement using the navigation system. MARs retractor was inserted using [employer]akt[employer]ioivation guidence. Globus MARS retractors was placed inside the incision and docked onto the L4 and L5 lamina. Using microsurgical technique and operating microscope, a L4, L5 laminectomy and L4-5, L5-S1 facetectomy was performed using a Kerrison rongeur. The laminectomy and facetectomy was performed in order to decompress patient's cauda equina as well as the nerve roots exiting at the L4-5, L5-S1 level. Patient was found have severe lateral recess and neural foramen stenosis which was fully decompressed after the laminectomy facetectomy. More than 75% of the facets were removed during the process of decompression rendering L4-5, L5-S1 level grossly unstable and required a fusion procedure at the same time. The disc space at L4-5, L5-S1 was identified, and a total diskectomy was performed at L4-5, L5-S1 level. The endplates were decorticated using a rasp and shaver. The total diskectomy and decortication was performed at L4-5, L5-S1 level in order to to accomplish a L4- 5, L5-S1 fusion. The local bone from the laminectomy and facetectomy was saved for local bone grafting. After the total diskectomy and decortication was completed, Viacel bone graft material was combined with local bone that was harvested earlier. At this time, a separate skin is incision was made over the iliac crest. A Jamshidi needle was inserted into the iliac crest through a separate skin incision on the right. 5 cc of bone marrow aspiration was obtained through the separate skin incision using a Jamshidi needle from the iliac crest. The bone marrow aspiration was combined with local bone and the [employer] bone grafting material. The bone grafting material was placed into the L4-5, L5-S1 interbody space along with a expandable cage. The cage was expanded to its maximum height using the torque limiting screwdriver. The disc preparation as well as the cage insertion were also performed under navigation guidance. After the cage was placed, AP and lateral C-arm imaging was taken to confirm placement of the cage and excellent position was confirmed. Globus MARS retractor was inserted and docked onto the L4-5, L5-S1 posterolateral gutter on the right side. Using the power drill, posterior- lateral decortication was performed at L4-5, L5-S1 level until bleeding cortical bone was identified. The remaining bone grafting material was placed into the L4-5, L5-S1 posterior lateral gutter he order to accomplish posterolateral fusion at the L4-5, L5-S1 level. At this time the tulips were attached to the L4, L5, S1 pedicle screw shanks. After measuring the length of the rods, they were inserted into the tulips of the pedicle screws and locked in place using locking caps and torque limiting screwdriver bilaterally. Total 6 caps and 2 titanium rods was used in order to complete the posterior instrumentation construct. After all the hardware was placed, and confirmed with AP and lateral C-arm imaging, the wound was then irrigated with sterile normal saline and packed with Ray-Renay gauze for 3 min to accomplish hemostasis. After the gauze was removed the deep fascia was closed with #1 Vicryl suture. The subcutaneous layer was closed with 2-0 Vicryl. The skin was closed with skin brown. Patient tolerated the procedure well. There were no complications. Neuro monitoring system was used to monitor patient's neurologic status throughout entire procedure. There was no disturbance of the neural monitoring signals throughout the case. The Operation could not have been safely performed without compromising the technical result or length of the procedure, without the assistance of a skilled regional vice president surgical sales. The regional vice president surgical sales was medically necessary for proper positioning, retraction and manipulation of instruments, proper exposure, surgical preparation, and manipulation of tissue. Complications: none Post-operative Condition: stable Disposition: PACU Plan for aftercare: Admit to inpatient hospital
[2024-06-19] MEDS: HYDROMORPHONE 1 MG INJ IV ×3 (11:20→11:50)
[2024-06-19] MEDS: ONDANSETRON 4 MG/2 ML INJ IV ×2 (11:28→15:54)
[2024-06-19] MEDS: OXYCODONE IR 5 MG TABLET PO ×2 (11:29→14:59)
[2024-06-19] MEDS: hydrOXYzine HCL 25 MG TABLET PO (11:29)
[2024-06-19] MEDS: LACTATED RINGERS 1,000 ML 125 ML IV ×2 (12:11→20:33)
--- NOTE | 2024-06-19 13:36 | PC.NURSE ---
Correction: RN charted titrate ifusion at 1334 total 0 by mistake, no infusion was given at this time.
--- NOTE | 2024-06-19 13:46 | OT.IPNOTE ---
Check with nursing for pt for OT eval. Pt not ready at this time and to check on the pt tomorrow.
--- NOTE | 2024-06-19 14:40 | PC.NURSE ---
Pt arrived on floor just before noon. Incision covered with medipore, small drainage in center otherwise CDI, pt states she was in pain at arrival, the tier and detonator gave IV dilauded, pt responds to questions, and is aware of location, allowed to sleep, O2 levels maintained at 2L NC.
[2024-06-19] MEDS: ACETAMINOPHEN 325 MG TABLET 650 MG PO (14:58)
[2024-06-19] MEDS: CYCLOBENZAPRINE 10 MG TABLET PO (14:59)
--- NOTE | 2024-06-19 15:29 | PT.IIE ---
Current Diagnoses Spondylolisthesis, lumbar region (06/19/24) Spinal stenosis, lumbar region with neurogenic claudication (06/19/24) Surgery Performed Operation Date: 06/19/24 07:45 Actual Procedures p L4-5, L5-S1 TLIF with posterior instrumentation-Robot - Norris Banegas MD Surgical History (Last Updated 06/13/24 @ 13:40 by Doreen Jalloh RN) Anesthesia Fibroids H/O excision of mass (04/22/20) H/O hysterectomy with oophorectomy History of bladder surgery History of bunionectomy (~1996) History of cholecystectomy (09/2023) History of colonoscopy (10/05/21) History of eyelid surgery (~2005) History of hysterectomy (~1994) History of knee surgery History of oophorectomy (~2014) History of tonsillectomy (~1960) Hx of foot surgery (~07/2021) S/P cervical spinal fusion Status post blepharoplasty of both eyes Status post epidural steroid injection Status post unicompartmental knee replacement, left (07/16/19) Medical History (Last Updated 01/19/24 @ 14:50 by Neto Alves MD) Abnormal chest x-ray (~2008) Abnormal Pap smear of cervix [place]'s disease (~2001) Adrenal crisis (~2016) Adrenal insufficiency Anemia (~2000) Anxiety Anxiety disorder Asthma (~1999) Back pain Bladder calculi Bruises easily Bulging discs (~2015) Cataracts, bilateral (~2018) Cervical somatic dysfunction Cervical spinal stenosis Chicken pox Chronic back pain (~2015) Chronic bilateral low back pain with bilateral sciatica Chronic lymphocytic leukemia (~2001) Chronic neck pain CLL (chronic lymphocytic leukemia) Constipation COVID-19 virus infection (01/06/22) Cranial somatic dysfunction Depression (~1993) Diabetes mellitus (~2008) Diabetes type 2, controlled Dysfunctional voiding of urine Fecal incontinence (~2016) Fibromyalgia (~1986) GERD (gastroesophageal reflux disease) Headache (~2015) Heavy menstrual period Hemorrhoid (~2014) Hiatal hernia (~2004) History of bladder stone History of pneumonia HTN (hypertension) Hx of chronic arthritis Hx of chronic lymphocytic leukemia Hx of diabetes mellitus Hx of gastroesophageal reflux (GERD) Hx of iron deficiency anemia Hx of osteoarthritis Hx of osteoporosis Hx of primary hypertension Hx of thyroid disease Hyperpigmentation Hypothyroidism (~2001) Infertility (~1988) Irregular menstrual cycle Mumps (~1967) Neck mass Neck pain Ovarian cyst Painful menstrual periods Pelvic somatic dysfunction Pneumonia (~2008) Rectal bleeding Segmental and somatic dysfunction of abdomen and other regions Segmental and somatic dysfunction of lumbar region Segmental and somatic dysfunction of rib cage Segmental and somatic dysfunction of thoracic region Sinusitis Sleep apnea (~2005) Somatic dysfunction of sacral spine Tension headache, chronic Urinary incontinence Urinary incontinence in female (~2008) Urine test positive for microalbuminuria Weight gain due to medication Physical Therapy Inpatient Evaluation/Re-Eval M1 PT/OT-IP Prior Functional Status Start: 06/19/24 17:26 Freq: NEEDED Status: Active Protocol: Document 06/19/24 15:29 AB (Rec: 06/19/24 17:40 AB [id number]) Medical Review Prior Functional Status Medical History Reviewed Yes Communication able to answer questions but is drowsy Mobility and Gait son in room and provided some info: pt stated that she was independent with all mobilities and ambulation without AD Social History Household Members none Living Arrangements House Number of Floors (Floors) One Floor Number of Stairs To Enter/Railing? no steps to enter Home Environment High Toilet,Walk in Shower Home Equipment Front Wheel Walker,Straight Cane,Shower Seat with Backrest ,Hand Held Shower,Grab Bars Near Toilet,Grab Bars In Shower Additional Social History Comment pt's son will be staying with pt to assist as long as needed M2 PT-IP Current Condition Start: 06/19/24 17:26 Freq: NEEDED Status: Active Protocol: Document 06/19/24 15:29 AB (Rec: 06/19/24 17:40 AB [id number]) Physical Therapy Current Condition Current Condition Evaluation Date 06/19/24 Treatment Diagnosis s/p L4-5, L5S1 TLIF; difficulty in walking Onset Date 06/19/24 M3 PT-IP Subjective Start: 06/19/24 17:26 Freq: NEEDED Status: Active Protocol: Document 06/19/24 15:29 AB (Rec: 06/19/24 17:40 AB [id number]) Subjective Physical Therapy Visit Type Type Initial Evaluation Visit Start Time 15:29 Visit Stop Time 16:05 Number of CYBER SECURITY SYSTEMS ENGINEER Visits 0 Physical Therapy Visit Comments Patient Comments agreed to get up Therapy Pain Assessment Pain When Pain Assessed At Rest Pain Present Pain Present Pain Reported Location Low back, left leg Intensity 10 Scale Used Numeric (0 - 10) Pain Behaviors Crying,Facial Grimacing, Guarding Pain Management Techniques Apply Cold,Distraction, Elevation,Modification of Treatment,Re-positioning, Timing of Activity with Medications M4 PT-IP Mobility and Gait Start: 06/19/24 17:26 Freq: NEEDED Status: Active Protocol: Document 06/19/24 15:29 AB (Rec: 06/19/24 17:40 AB [id number]) PT-Bed Mobility Assessment Rolling Type of Rolling Log Rolling Level of Assist Maximal Assistance Supine to Sit Supine to Sit Maximum Assistance,2 Person Assistance,Bedrails Sit to Supine Sit to Supine Maximum Assistance,2 Person Assistance Scooting Scooting to Edge of Bed Dependent PT-Transfer Assessment Comments Mobility Comments pt supine in bed and son in room with pt. pt with c/o increase back pain of 10/10 and agreed to get up. pt stated that she feels a lot of pressure on her back and wants to move for relieve back pain. obtained PLOF and home set up. pt is drowsy but able to provide some info. son in room also provided some info. educated pt on back precautions and log roll bed mobiltiy. provided pt with post-op folder. BP in supine: 122/65 pt completed log roll supine to sit max A x 2 and max cues. max A for sitting on EOB. c/ o increase back pain. BP checked : 72/41. assisted pt to bed. max A x 2 for sit to supine. positioned pt in bed total A x 2. BP checked: 91/44 . repositioned pt to sidelying on the L. ice pack provided. pt stated that pain is better. BP at end of PT session: 94/ 58. call light and table placed within reach. Left pt with son in room. Gait Assessment Comments Gait Comments unable at this time PT-Balance Assessment Sitting Balance and Reactions Static Sitting Balance Ability Poor Dynamic Sitting Balance Ability Poor M5 PT-IP Objective Assessments Start: 06/19/24 17:26 Freq: NEEDED Status: Active Protocol: Document 06/19/24 15:29 AB (Rec: 06/19/24 17:40 AB [id number]) Orientation Orientation/Cognition Level of Alertness Alert Orientation Name,Place,Situation Safety Awareness Decreased Safety Awareness Memory Description Short Term Impaired Comments pt is drowsy Gross Range of Motion Lower Extremity ROM Assessment Within Functional Limits Strength Lower Extremity Strength Assessment Bilaterally Impaired Comments Strength Comments LLE: 3-/5 RLE: 3+/5 Muscle Tone Muscle Tone WNL Yes M6 PT-IP Treatment Start: 06/19/24 17:26 Freq: NEEDED Status: Active Protocol: Document 06/19/24 15:29 AB (Rec: 06/19/24 17:40 AB [id number]) Physical Therapy Treatment Education Education Provided Precautions,Weight Bearing Status,Post-Op Packet,Safety M7 PT-IP Assessment and Plan Start: 06/19/24 17:26 Freq: NEEDED Status: Active Protocol: Document 06/19/24 15:29 AB (Rec: 06/19/24 17:40 AB [id number]) PT Summary Assessment and Plan Potential Rehabilitation Potential Fair Status of Condition at Evaluation Unstable Summary Impairments Pain,ROM,Strength,Balance, Coordination,Sensation,Tone, Cognition,Bed Mobility, Transfers,Gait,Activity Tolerance Assessment Summary pt is a 68 y/o F s/p L4-5, L5S1 TLIF POD 0. pt with back precautions. pt requiring max A x 2 to total A x 2 with bed mobility and unable to stand today. pt with c/o increase pain pain affecting level of assistance. pt with decrease BP to 72/41 sitting on EOB and unable to tolerate much activity. pt will have her son to assist her at home. d/c plan depending on progress. will continue to assess. Goals Bed Mobility Goal Minimal Assistance Transfer Goal Minimal Assistance,Front Wheeled Walker Gait Goal Minimal Assistance,Front Wheel Walker Gait Distance 100 Other Goals improve bed mobility, transfers, ambulation using FWW ~ 200 ft SBA Days to Meet Goals 5 Frequency of Treatment Frequency Of Treatment Twice a Day Treatment Plan Physical Therapy Treatment Plan Bed Mobility Training,Transfer Training,Gait Training, Therapeutic Exercise,Balance Retraining,Post Op Education, Discharge Planning,Hot or Cold Pack,Neuromuscular Re-ed, Coordination Retraining,Manual Therapy Precautions Lumbar Precautions Log Roll,No Twisting,Limit Bending,Lifting Restriction of 10 lbs,Gait Belt above Incisional Area Recommendations To Nursing Amount of Assist Needed Mechanical Lift Discharge Recommendations PT Discharge Recommendations Home with 27/02 Assist Available,Home Health,SNF Rehab,Home vs SNF Transportation Needs at Discharge Private Vehicle,Wheelchair/ Cabulance
[2024-06-19] MEDS: MONTELUKAST 10 MG TABLET PO (17:28)
[2024-06-19] MEDS: HYDROMORPHONE 0.5 MG INJ IV (20:29)
[2024-06-19] MEDS: SENNOSIDES 8.6 MG TABLET 17.2 MG PO (20:31)
[2024-06-19] MEDS: DOCUSATE 100 MG CAPSULE PO (20:32)
[2024-06-19] MEDS: PANTOPRAZOLE DR 40 MG TABLET PO (20:32)
[2024-06-19] MEDS: TRAZODONE 50 MG TABLET PO (20:32)
[2024-06-20] MEDS: HYDROCORTISONE 100 MG/2 ML VIAL 50 MG IV ×3 (00:01→15:14)
[2024-06-20] MEDS: CEFAZOLIN 2 GM/100 ML PREMIX 100 ML IV (00:01)
[2024-06-20] MEDS: ONDANSETRON 4 MG ODT SL (00:02)
[2024-06-20] MEDS: OXYCODONE IR 5 MG TABLET PO ×3 (00:02→18:53)
[2024-06-20 01:38] VITALS: BP 128/73; PULSE 74; RESP 23; TEMP 36.6; O2SAT 99
[2024-06-20] MEDS: LEVOTHYROXINE 75 MCG TABLET PO (06:33)
[2024-06-20] MEDS: CYCLOBENZAPRINE 10 MG TABLET PO (06:33)
[2024-06-20] MEDS: ACETAMINOPHEN 325 MG TABLET 650 MG PO ×3 (06:33→21:13)
[2024-06-20 06:46] LABS: Hematocrit 32.7 % (36-46); Hemoglobin 11.1 g/dL (12.0-16.0)
[2024-06-20] MEDS: OXYCODONE IR 10 MG TABLET PO (07:38)
[2024-06-20] MEDS: DOCUSATE 100 MG CAPSULE PO ×2 (07:38→21:12)
[2024-06-20 07:39] VITALS: BP 96/62; PULSE 68; RESP 20; TEMP 36.1; O2SAT 98
[2024-06-20 07:57] VITALS: BP 96/62
[2024-06-20] MEDS: FLUDROCORTISONE 0.1 MG TABLET 0.2 MG PO (08:14)
[2024-06-20] MEDS: ATORVASTATIN 20 MG TABLET 40 MG PO (08:14)
[2024-06-20] MEDS: METFORMIN HCL 500 MG TABLET 1000 MG PO (08:14)
[2024-06-20] MEDS: DULOXETINE 30 MG CAPSULE 60 MG PO (08:15)
--- NOTE | 2024-06-20 09:00 | PT.IPTN ---
Current Diagnoses Spondylolisthesis, lumbar region (06/19/24) Spinal stenosis, lumbar region with neurogenic claudication (06/19/24) Surgery Performed Operation Date: 06/19/24 07:45 Actual Procedures p L4-5, L5-S1 TLIF with posterior instrumentation-Robot - Norris Banegas MD Physical Therapy Treatment Note M2 PT-IP Current Condition Start: 06/19/24 17:26 Freq: NEEDED Status: Active Protocol: Document 06/19/24 15:29 AB (Rec: 06/19/24 17:40 AB [id number]) Physical Therapy Current Condition Current Condition Evaluation Date 06/19/24 Treatment Diagnosis s/p L4-5, L5S1 TLIF; difficulty in walking Onset Date 06/19/24 M3 PT-IP Subjective Start: 06/19/24 17:26 Freq: NEEDED Status: Active Protocol: Document 06/20/24 09:28 TS (Rec: 06/20/24 09:36 TS [id number]) Subjective Physical Therapy Visit Type Type Treatment Note Visit Start Time 09:00 Visit Stop Time 09:25 Number of STAVE INSPECTOR Visits 1 Physical Therapy Visit Comments Patient Comments Pt found resting on side, reports high amounts of pain this morning but pain meds are helping. She is agreeable to PT. Therapy Pain Assessment Location Low back, left leg Pain Behaviors Facial Grimacing,Guarding, Restlessness,Wincing Pain Management Techniques Apply Cold,Modification of Treatment,Re-positioning, Timing of Activity with Medications M4 PT-IP Mobility and Gait Start: 06/19/24 17:26 Freq: NEEDED Status: Active Protocol: Document 06/20/24 09:28 TS (Rec: 06/20/24 09:36 TS [id number]) PT-Bed Mobility Assessment Rolling Type of Rolling Log Rolling Level of Assist Maximal Assistance Supine to Sit Supine to Sit Maximum Assistance,1 Person Assistance,Bedrails Sit to Supine Sit to Supine Maximum Assistance,1 Person Assistance PT-Transfer Assessment Comments Mobility Comments Bp in supine 111/57. Pt recalls 2/3 spinal precautions (no lifting). Logroll to L side MaxA with cues for use of handrails. Supine to sit MaxA x1 with cues for use of BUE support. Pt sat on EOB reports dizziness/lightheadedness. BP in sitting 104/56. Pt requests to lay bakc in bed. Sit to supine MaxA x1. Nursing in room to assist with pt. pt was left in bed, all needs met. Gait Assessment Comments Gait Comments unable at this time PT-Balance Assessment Sitting Balance and Reactions Static Sitting Balance Ability Fair Dynamic Sitting Balance Ability Poor M5 PT-IP Objective Assessments Start: 06/19/24 17:26 Freq: NEEDED Status: Active Protocol: Document 06/19/24 15:29 AB (Rec: 06/19/24 17:40 AB [id number]) Orientation Orientation/Cognition Level of Alertness Alert Orientation Name,Place,Situation Safety Awareness Decreased Safety Awareness Memory Description Short Term Impaired Comments pt is drowsy Gross Range of Motion Lower Extremity ROM Assessment Within Functional Limits Strength Lower Extremity Strength Assessment Bilaterally Impaired Comments Strength Comments LLE: 3-/5 RLE: 3+/5 Muscle Tone Muscle Tone WNL Yes M6 PT-IP Treatment Start: 06/19/24 17:26 Freq: NEEDED Status: Active Protocol: Document 06/20/24 09:28 TS (Rec: 06/20/24 09:36 TS [id number]) Physical Therapy Treatment Education Education Provided Precautions,Weight Bearing Status,Post-Op Packet,Safety M7 PT-IP Assessment and Plan Start: 06/19/24 17:26 Freq: NEEDED Status: Active Protocol: Document 06/20/24 09:28 TS (Rec: 06/20/24 09:36 TS [id number]) PT Summary Assessment and Plan Potential Rehabilitation Potential Fair Summary Impairments Pain,ROM,Strength,Balance, Coordination,Sensation,Tone, Cognition,Bed Mobility, Transfers,Gait,Activity Tolerance Progress Towards Goals Slow Progress due to Pain,Slow Progress due to Medical Issues,Slow Progress due to Activity Tolerance Assessment Summary Pt is making slow progress with her mobility. She requires MaxA for all bed mobility and cues for no twisting while in bed. She is lightheaded and dizzy when she sits up, see vitals in mobility comments. PT is recommending [facility] vs SNF at this time. Goals Bed Mobility Goal Minimal Assistance Transfer Goal Minimal Assistance,Front Wheeled Walker Gait Goal Minimal Assistance,Front Wheel Walker Gait Distance 100 Other Goals improve bed mobility, transfers, ambulation using FWW ~ 200 ft SBA Days to Meet Goals 5 Frequency of Treatment Frequency Of Treatment Twice a Day Treatment Plan Physical Therapy Treatment Plan Bed Mobility Training,Transfer Training,Gait Training, Therapeutic Exercise,Balance Retraining,Post Op Education, Discharge Planning,Hot or Cold Pack,Neuromuscular Re-ed, Coordination Retraining,Manual Therapy Precautions Lumbar Precautions Log Roll,No Twisting,Limit Bending,Lifting Restriction of 10 lbs,Gait Belt above Incisional Area Recommendations To Nursing Amount of Assist Needed 1 Person Assist Discharge Recommendations PT Discharge Recommendations Home with 27/02 Assist Available,Home Health,SNF Rehab,Home vs SNF Transportation Needs at Discharge Private Vehicle,Wheelchair/ Cabulance
--- NOTE | 2024-06-20 10:54 | OT.IP.EVAL ---
Current Diagnoses Spondylolisthesis, lumbar region (06/19/24) Spinal stenosis, lumbar region with neurogenic claudication (06/19/24) Surgery Performed Operation Date: 06/19/24 07:45 Actual Procedures p L4-5, L5-S1 TLIF with posterior instrumentation-Robot - Norris Banegas MD Past Medical History (Last Updated 01/19/24 @ 14:50 by Neto Alves MD) Abnormal chest x-ray (~2008) Abnormal Pap smear of cervix Duval's disease (~2001) Adrenal crisis (~2016) Adrenal insufficiency Anemia (~2000) Anxiety Anxiety disorder Asthma (~1999) Back pain Bladder calculi Bruises easily Bulging discs (~2015) Cataracts, bilateral (~2018) Cervical somatic dysfunction Cervical spinal stenosis Chicken pox Chronic back pain (~2015) Chronic bilateral low back pain with bilateral sciatica Chronic lymphocytic leukemia (~2001) Chronic neck pain CLL (chronic lymphocytic leukemia) Constipation COVID-19 virus infection (01/06/22) Cranial somatic dysfunction Depression (~1993) Diabetes mellitus (~2008) Diabetes type 2, controlled Dysfunctional voiding of urine Fecal incontinence (~2016) Fibromyalgia (~1986) GERD (gastroesophageal reflux disease) Headache (~2015) Heavy menstrual period Hemorrhoid (~2014) Hiatal hernia (~2004) History of bladder stone History of pneumonia HTN (hypertension) Hx of chronic arthritis Hx of chronic lymphocytic leukemia Hx of diabetes mellitus Hx of gastroesophageal reflux (GERD) Hx of iron deficiency anemia Hx of osteoarthritis Hx of osteoporosis Hx of primary hypertension Hx of thyroid disease Hyperpigmentation Hypothyroidism (~2001) Infertility (~1988) Irregular menstrual cycle Mumps (~1967) Neck mass Neck pain Ovarian cyst Painful menstrual periods Pelvic somatic dysfunction Pneumonia (~2008) Rectal bleeding Segmental and somatic dysfunction of abdomen and other regions Segmental and somatic dysfunction of lumbar region Segmental and somatic dysfunction of rib cage Segmental and somatic dysfunction of thoracic region Sinusitis Sleep apnea (~2005) Somatic dysfunction of sacral spine Tension headache, chronic Urinary incontinence Urinary incontinence in female (~2008) Urine test positive for microalbuminuria Weight gain due to medication Surgical History (Last Updated 06/13/24 @ 13:40 by Doreen Jalloh RN) Anesthesia Fibroids H/O excision of mass (04/22/20) H/O hysterectomy with oophorectomy History of bladder surgery History of bunionectomy (~1996) History of cholecystectomy (09/2023) History of colonoscopy (10/05/21) History of eyelid surgery (~2005) History of hysterectomy (~1994) History of knee surgery History of oophorectomy (~2014) History of tonsillectomy (~1960) Hx of foot surgery (~07/2021) S/P cervical spinal fusion Status post blepharoplasty of both eyes Status post epidural steroid injection Status post unicompartmental knee replacement, left (07/16/19) Occupational Therapy Inpatient Evaluation/Re-Eval M1 PT/OT-IP Prior Functional Status Start: 06/19/24 17:26 Freq: NEEDED Status: Active Protocol: Document 06/20/24 12:11 [facility] (Rec: 06/20/24 12:27 [facility] [id number]) Medical Review Prior Functional Status Medical History Reviewed Yes Communication able to answer questions but is drowsy Mobility and Gait Per PT eval-son in room and provided some info: pt stated that she was independent with all mobilities and ambulation without AD Activities of Daily Living and IADL's Pt having pain but able to do all mobility and ADL needs. Pt states due to pain limited her walking and used the grocery cart in the grocery stores. Social History Household Members none Living Arrangements House Number of Floors (Floors) One Floor Number of Stairs To Enter/Railing? no steps to enter Home Environment High Toilet,Walk in Shower Home Equipment Front Wheel Walker,Straight Cane,Shower Seat with Backrest ,Hand Held Shower,Grab Bars Near Toilet,Grab Bars In Shower Additional Social History Comment pt's son will be staying with pt to assist as long as needed M2 OT-IP Current Condition Start: 06/20/24 12:11 Freq: Status: Active Protocol: Document 06/20/24 12:11 [facility] (Rec: 06/20/24 12:27 [facility] [id number]) Occupational Therapy Current Condition Current Condition Evaluation Date 06/20/24 Treatment Diagnosis S/P L4-5, L5-S1 TLIF Diagnosis Onset Date 06/19/24 Post Operative Precautions Lumbar Precautions Log Roll,No Twisting,Limit Bending,Lifting Restriction of 10 lbs,Gait Belt above Incisional Area M3 OT- IP Subjective and Pain Start: 06/20/24 12:11 Freq: Status: Active Protocol: Document 06/20/24 12:11 [facility] (Rec: 06/20/24 12:27 [facility] [id number]) OT- Subjective Occupational Therapy Visit Type Type Initial Evaluation Visit Start Time 10:05 Visit Stop Time 10:54 Occupational Therapy Visit Comments Patient Comments Pt agreed to try to get up to use the BSC. Patient/Caregiver Goals TO get better and open to going to skilled rehab. OT Pain Assessment Pain When Pain Assessed At Rest Pain Present Pain Present Pain Reported Location Low back, left leg Intensity 5 Scale Used Numeric (0 - 10) M4 OT- IP ADL's Start: 06/20/24 12:11 Freq: Status: Active Protocol: Document 06/20/24 12:11 [facility] (Rec: 06/20/24 12:27 [facility] [id number]) OT [id number] General Evaluation Self-Feeding Ability Independent OT ADL-Grooming General Evaluation Grooming Ability Minimal Assistance Areas Needing Assistance Combing/Brushing Hair Comments OT Grooming Comments Pt able to wash her face and [employer] assist to put on her hair. OT ADL-Oral Care Comments Oral Care Comments Not performed. OT ADL-Dressing General Eval Lower Body Dressing Ability Maximum Assistance Areas Needing Assistance Underpants/Brief,Socks OT ADL-Toileting General Evaluation Toileting Ability Maximum Assistance Areas Needing Assistance Manage Clothing,Perform Perineal Hygiene Comments OT Toileting Comments MOD/MAXA x2 with FWW to transfer to the [facility] [place]. Assist for all hygiene and brief management needs. OT ADL-Bathing Comments OT Bathing Comments Pt able to sponge her arms and face off at this time. M5 OT- IP IADL's Start: 06/20/24 12:11 Freq: Status: Active Protocol: Document 06/20/24 12:11 [facility] (Rec: 06/20/24 12:27 [facility] [id number]) OT-Instrumental Activities of Daily Living Home Safety Awareness Home Safety Comments Pt still very drowsy at this time. Meal Preparation Meal Preparation Comments Pt will need assist. Regulatory Affairs Specialist Regulatory Affairs Specialist Comments Pt will need assist. M6 OT- IP Functional Cognition Start: 06/20/24 12:11 Freq: Status: Active Protocol: Document 06/20/24 12:11 [facility] (Rec: 06/20/24 12:27 [facility] [id number]) Cognitive Factors Limiting Selfcare Function Cognitive Ability Level of Alertness Drowsy Patient Orientation Name,Age,Place,Situation Attention Span Ability Capable of Focused Attention, Capable of Sustained Attention Ability to Follow Commands Able to Follow One Step Commands with Increased Time, Able to Follow One Step Commands with Repetition Cognitive Comments Cognitive Assessment Comments Pt able to states 2/3 back precautions. Pt very drowsy and needing vc for for FWW management and for mobility needs. OT- Vision and Hearing OT- Hearing Assessment OT- Hearing Assessment WFL OT- Vision Assessment Visual Acuity Glasses All The Time Visual Attentiveness WFL Occular Pursuits WFL M7 OT- IP Mobility and Balance Start: 06/20/24 12:11 Freq: Status: Active Protocol: Document 06/20/24 12:11 [facility] (Rec: 06/20/24 12:27 [facility] [id number]) OT- Bed Mobility Assessment Supine to Sit Supine to Sit Assist Moderate Assistance Sit to Supine Sit to Supine Assist Moderate Assistance,2 Person Assistance Scooting Scooting to Edge of Bed Moderate Assistance OT-Transfer Assessment Sit to and From Stand Sit to and from Stand Moderate Assistance,Maximum Assistance,2 Person Assistance Transfers Transfer Ability Moderate Assistance,2 Person Assistance Technique Transfer Destination Bed,Bedside Commode Transfer Technique Stand Step Pivot Devices Transfer Assistive Devices Gait Belt,Front Wheeled Walker Comments Mobility Comments MODA x1 to assist to get her trunk upright and MOD/MAXAX 2 to stand to the FWW and assist for the transfer- assist to guide the FWW and for her balance. Pt needing 2 person assist for transfers at this time. OT- Balance Assessment Sitting Balance and Reactions Static Sitting Balance Ability Good Dynamic Sitting Balance Ability Fair Standing Balance and Reactions Static Standing Balance Ability Poor Dynamic Standing Balance Ability Poor M8 OT- IP Objective Assessments Start: 06/20/24 12:11 Freq: Status: Active Protocol: Document 06/20/24 12:11 [facility] (Rec: 06/20/24 12:27 [facility] [id number]) OT Gross Range of Motion Upper Extremity Range of Motion Assessment Within Functional Limits OT Strength Upper Extremity Strength Assessment Within Functional Limits M9 OT- IP Assessment and Plan Start: 06/20/24 12:11 Freq: Status: Active Protocol: Document 06/20/24 12:11 [facility] (Rec: 06/20/24 12:27 [facility] [id number]) OT Summary Assessment and Plan Potential Rehabilitation Potential Good Analytic Complexity at Evaluation Low Summary OT Impairments Pain,Strength,Balance, Functional Mobility,Grooming, Dressing,Toileting,Bathing, Toilet Transfers,Shower Transfers,Activity Tolerance Progress Towards Goals Slow Progress due to Pain,Slow Progress due to Medical Issues Assessment Summary Pt low complexity and main barriers are pain, drowsy, and needing extensive assist for mobility and ADL needs at this time. Pt will benefit from skilled rehab prior to going home. Goals Self-Feeding Goal Independent Grooming Goal Independent Dressing Goal Minimal Assistance Toileting Goal Standby Assistance Bathing Goal Minimal Assistance Toilet Transfer Goal Standby Assistance Shower Transfer Goal Contact Guard Assistance Days to Meet Goals 15 Frequency of Treatment Other frequency 5x/week Treatment Plan OT Treatment Plan ADL Training,Functional Mobility,Patient/Family Education,Discharge Planning Discharge Recommendations OT Discharge Recommendations SNF Rehab Transportation Needs at Discharge Wheelchair/Cabulance
--- NOTE | 2024-06-20 12:36 | PM.PNPO.1 ---
Subjective Subjective Interval history: Lola is a pleasant 68 year old female who is POD#1 s/p L4-5, L5-S1 Postero-lateral and posterior interbody fusion by Dr. Banegas. Today patient reports she is having a lot of low back pain and L sided back spasms, spasms are currently resolved but was in a lot of pain earlier today d/t the spasms. She has cyclobenzaprine ordered which she reports seems to be working well. Denies any radiating pain. She reports today when she worked w/ PT she was able to sit up at the side of the bed but had significant difficulty standing d/t feeling weak in bilateral LE still. She still has Driscoll in place. Lives at home w/ her adult son and would like d/c to home to him after she stabilizes here in the hospital for a few days. She also has a hx of Addisons disease and is requiring stress dosing post-op. Patient endorses some L foot paresthesias but notes that this was present prior to surgery as well. Denies fever, chills, chest pain, SOB, nausea, vomiting. Exam Vital Signs (past 8 hours): - 06/20/24 07:39 06/20/24 07:57 Temperature 96.9 F L Pulse Rate 68 Respiratory Rate 20 Blood Pressure 96/62 96/62 Pulse Oximetry 98 Oxygen Delivery Method Nasal Cannula Oxygen Flow Rate 2 Narrative Exam Narrative: Patient lying comfortably in bed during our interview today. No acute distress. AOx3. 5/5 strength with DF, PF, EHL R. LEFT: 3/5 DF, 4/5 PF, 3/5 EHL. Decreased sensation in the LLE, patient reports unchanged from prior to surgery. Gross sensation intact in the RLE. Calves soft and non-tender bilaterally. SCDs are on and functioning. Brisk capillary refill, pulses intact. Post-surgical dressing clean, dry and intact over the lumbar spine without drainage. Objective Labs 06/20/24 05:30 06/19/24 06:47 Labs: Laboratory Results - last 24 hr 06/20/24 05:30 Hgb 11.1 L Hct 32.7 L PFSH Medical History (Updated 01/19/24 @ 14:50 by Neto Alves MD) History of bladder stone Dysfunctional voiding of urine Bladder calculi Hx of thyroid disease Hx of osteoporosis Hx of osteoarthritis Hx of primary hypertension Hx of gastroesophageal reflux (GERD) Hx of diabetes mellitus Hx of chronic lymphocytic leukemia Hx of chronic arthritis Hx of iron deficiency anemia Weight gain due to medication Urine test positive for microalbuminuria Anxiety disorder Chronic bilateral low back pain with bilateral sciatica COVID-19 virus infection (01/06/22) Bruises easily CLL (chronic lymphocytic leukemia) Anxiety Urinary incontinence Constipation Cervical spinal stenosis Back pain Neck pain History of pneumonia Rectal bleeding Neck mass Tension headache, chronic Chronic neck pain Segmental and somatic dysfunction of abdomen and other regions Somatic dysfunction of sacral spine Pelvic somatic dysfunction Segmental and somatic dysfunction of lumbar region Segmental and somatic dysfunction of thoracic region Segmental and somatic dysfunction of rib cage Cervical somatic dysfunction Cranial somatic dysfunction Diabetes type 2, controlled HTN (hypertension) Adrenal crisis (~2016) Hyperpigmentation Adrenal insufficiency Pneumonia (~2008) Sleep apnea (~2005) Asthma (~1999) Abnormal chest x-ray (~2008) Depression (~1993) Headache (~2015) Bulging discs (~2015) Fibromyalgia (~1986) Chronic back pain (~2015) Mumps (~1967) Chicken pox Anemia (~2000) Cataracts, bilateral (~2018) Painful menstrual periods Ovarian cyst Irregular menstrual cycle Infertility (~1988) Heavy menstrual period Abnormal Pap smear of cervix Urinary incontinence in female (~2008) Fecal incontinence (~2016) GERD (gastroesophageal reflux disease) Hiatal hernia (~2004) Hemorrhoid (~2014) Runnels's disease (~2001) Hypothyroidism (~2001) Diabetes mellitus (~2008) Chronic lymphocytic leukemia (~2001) Sinusitis Surgical History (Updated 06/13/24 @ 13:40 by Doreen Jalloh RN) History of cholecystectomy (09/2023) S/P cervical spinal fusion Hx of foot surgery (~07/2021) History of colonoscopy (10/05/21) H/O excision of mass (04/22/20) Status post blepharoplasty of both eyes Status post unicompartmental knee replacement, left (07/16/19) H/O hysterectomy with oophorectomy Status post epidural steroid injection Anesthesia History of bunionectomy (~1996) History of eyelid surgery (~2005) History of knee surgery History of bladder surgery History of oophorectomy (~2014) History of tonsillectomy (~1960) History of hysterectomy (~1994) Fibroids Family History Father Prostate cancer History of heart disease Hypertension Cancer Mother History of heart disease Hypertension Hyperlipidemia Mental health problem Stroke Coronary artery disease Sister Atrial fibrillation TIA (transient ischemic attack) Diabetes mellitus History of heart disease Hyperlipidemia Hypertension Stroke Lupus Fibromyalgia Cancer Thyroid disorder Urinary tract bacterial infections Grandfather Liver disease Grandmother History of heart disease Hyperlipidemia Hypertension Stroke Grandfather Stroke Grandmother Cancer Social History marital status: number of children: 2 household members: none occupational status: previously employed Smoking Status: Never smoker alcohol intake: current substance use type: does not use caffeine: Yes Type(s) of exercise: walking frequency: 5-6 times per week duration: 45-60 minutes/day Assessment & Plan Post-op Postoperative Procedures: Procedures Operation Date: 06/19/24 07:45 Actual Procedure Side Surgeon p L4-5, L5-S1 TLIF with posterior instrumentation-Robot Norris Banegas MD Postoperative plan narrative: 1) Plan to discharge to home in the next few days pending adequate hydrocortisone taper, progress w/ PT/mobility and pain control. 2) Continue multimodal pain management. She has cyclobenzaprine ordered as needed for back spasms. 3) Mechanical DVT prophylaxis, SCDs to be worn while in bed. 4) Will transition to IV hydrocortisone 50mg Q12 hours on POD#2, if stable and tolerating PO intake, will then transition to 10 mg b.i.d. (maintenance dose) prior to d/c. Continue patients baseline dosing of fludrocortisone throughout the postop period. 5) Work w/ PT/OT on mobility. Maintain BLT restrictions. She does have some left foot weakness noted on exam, will continue to monitor. 6) Keep dressing intact, clean, dry until 2 week postop appointment. No soaking the incision site in pools or tubs. No topical ointments or creams to the incision site. 7) Follow up at [facility] orthopedics in 2 weeks for a postop appointment and wound check. All patient's questions were answered, they demonstrates understanding and are in agreement with the plan. Call our office if any questions or concerns arise.
--- NOTE | 2024-06-20 13:17 | PT.IPTN ---
Current Diagnoses Spondylolisthesis, lumbar region (06/19/24) Spinal stenosis, lumbar region with neurogenic claudication (06/19/24) Surgery Performed Operation Date: 06/19/24 07:45 Actual Procedures p L4-5, L5-S1 TLIF with posterior instrumentation-Robot - Norris Banegas MD Physical Therapy Treatment Note M2 PT-IP Current Condition Start: 06/19/24 17:26 Freq: NEEDED Status: Active Protocol: Document 06/19/24 15:29 [facility] (Rec: 06/19/24 17:40 AB [id number]) Physical Therapy Current Condition Current Condition Evaluation Date 06/19/24 Treatment Diagnosis s/p L4-5, L5S1 TLIF; difficulty in walking Onset Date 06/19/24 M3 PT-IP Subjective Start: 06/19/24 17:26 Freq: NEEDED Status: Active Protocol: Document 06/20/24 14:17 TS (Rec: 06/20/24 14:25 TS [id number]) Subjective Physical Therapy Visit Type Type Treatment Note Visit Start Time 13:17 Visit Stop Time 13:40 Number of ACQUISITIONS ANALYST Visits 2 Physical Therapy Visit Comments Patient Comments Pt found resting in bed, son in room, she is agreeable to PT. Therapy Pain Assessment Pain When Pain Assessed At Rest Pain Present Pain Present Pain Reported M4 PT-IP Mobility and Gait Start: 06/19/24 17:26 Freq: NEEDED Status: Active Protocol: Document 06/20/24 14:17 TS (Rec: 06/20/24 14:25 TS [id number]) PT-Bed Mobility Assessment Rolling Type of Rolling Log Rolling Level of Assist Maximal Assistance Supine to Sit Supine to Sit Maximum Assistance,1 Person Assistance,Bedrails Sit to Supine Sit to Supine Maximum Assistance,1 Person Assistance Scooting Scooting to Edge of Bed Maximum Assistance PT-Transfer Assessment Sit to and From Stand Sit to and from Stand Moderate Assistance,1 Person Assistance Equipment Transfer Assistive Device Gait Belt,Front Wheeled Walker Comments Mobility Comments Bp in supine 123/61. Logroll to L side MaxA. Supine to sit MaxA x1 for uprighting trunk. BP in sitting 130/64. Pt is tearful from pain and has some lightheadedness. she agrees to try and stand. STS with FWW x2 ModA x1. Pt reports increased lightheadedness in standing, BP in standing 109/ 72. She sidesteps to HOB with FWW. Sit to supine into bed MaxA. Pt was left in bed, all needs met. Gait Assessment Comments Gait Comments Sidesteps x4 PT-Balance Assessment Sitting Balance and Reactions Static Sitting Balance Ability Good Dynamic Sitting Balance Ability Fair Standing Balance and Reactions Static Standing Balance Ability Poor Dynamic Standing Balance Ability Poor Device Used FWW M5 PT-IP Objective Assessments Start: 06/19/24 17:26 Freq: NEEDED Status: Active Protocol: Document 06/19/24 15:29 [facility] (Rec: 06/19/24 17:40 AB [id number]) Orientation Orientation/Cognition Level of Alertness Alert Orientation Name,Place,Situation Safety Awareness Decreased Safety Awareness Memory Description Short Term Impaired Comments pt is drowsy Gross Range of Motion Lower Extremity ROM Assessment Within Functional Limits Strength Lower Extremity Strength Assessment Bilaterally Impaired Comments Strength Comments LLE: 3-/5 RLE: 3+/5 Muscle Tone Muscle Tone WNL Yes M6 PT-IP Treatment Start: 06/19/24 17:26 Freq: NEEDED Status: Active Protocol: Document 06/20/24 14:17 TS (Rec: 06/20/24 14:25 TS [id number]) Physical Therapy Treatment Education Education Provided Precautions,Weight Bearing Status,Post-Op Packet,Safety M7 PT-IP Assessment and Plan Start: 06/19/24 17:26 Freq: NEEDED Status: Active Protocol: Document 06/20/24 14:17 TS (Rec: 06/20/24 14:25 TS [id number]) PT Summary Assessment and Plan Potential Rehabilitation Potential Fair Summary Impairments Pain,ROM,Strength,Balance, Coordination,Sensation,Tone, Cognition,Bed Mobility, Transfers,Gait,Activity Tolerance Progress Towards Goals Slow Progress due to Pain,Slow Progress due to Medical Issues,Slow Progress due to Activity Tolerance Assessment Summary pt continues to make slow progress with her mobility. She requries MaxA for bed mobility and cues for sequencing. She progressed into standing this session but continues to have lightheadedness and orthostatic, see vitals above. Her pain remains significant. Pt may requires SNF if she does not improve. PT is recommending home vs SNF. Goals Bed Mobility Goal Minimal Assistance Transfer Goal Minimal Assistance,Front Wheeled Walker Gait Goal Minimal Assistance,Front Wheel Walker Gait Distance 100 Other Goals improve bed mobility, transfers, ambulation using FWW ~ 200 ft SBA Days to Meet Goals 5 Frequency of Treatment Frequency Of Treatment Twice a Day Treatment Plan Physical Therapy Treatment Plan Bed Mobility Training,Transfer Training,Gait Training, Therapeutic Exercise,Balance Retraining,Post Op Education, Discharge Planning,Hot or Cold Pack,Neuromuscular Re-ed, Coordination Retraining,Manual Therapy Precautions Lumbar Precautions Log Roll,No Twisting,Limit Bending,Lifting Restriction of 10 lbs,Gait Belt above Incisional Area Recommendations To Nursing Amount of Assist Needed 2 Person Assist Discharge Recommendations PT Discharge Recommendations Home with 27/02 Assist Available,Home Health,SNF Rehab,Home vs SNF Transportation Needs at Discharge Private Vehicle,Wheelchair/ Cabulance
--- NOTE | 2024-06-20 15:16 | CM.DANOTE ---
Initial DCP Assessment Note Pt is a 68 yo female, resident of [place], now POD#[address] Banegas PCP: Pradip Vasquez Payer: [employer]/[place] Reviewed chart, therapies recommending home w/27/02 vs SNF depending on progress, patient remains on O2 today. Met w/patient to review discharge plan. Patient was considering SNF however has decided to return home with her son to assist 27/02. [facility] has had [facility] after prior surgery and would like them again at discharge. Patient has discussed this plan with Ortho PA who agrees; CATY 06/22- Plan: Discharge home w/family and HH anticipated. CM team following closely. Need referral to [facility] Discharge Planning/Care Management CM Discharge Assessment Start: 06/20/24 15:13 Freq: Status: Active Protocol: Document 06/20/24 15:13 [facility] (Rec: 06/20/24 15:16 [facility] [id number]) Discharge Planning Assessment Assigned Yard Person ALYX Victor DPOA/Assigned Designee Name tito Russell Contact Information [phone] Advance Directives? Yes Advance Directives on File Yes History Provided By Patient,Medical Record Prior Living Arrangements House Household Members none Type of transporation used prior to Drives own vehicle admit Independent with ADL's Yes Is patient alert and oriented? Yes Comment Tito Boss will stay with patient upon discharge Discharge Plan Home with Home Health Transportation Arrangement Family Referrals Initiated Home Health
[2024-06-20] MEDS: MONTELUKAST 10 MG TABLET PO (17:26)
[2024-06-20 18:00] VITALS: PULSE 88; O2SAT 96
[2024-06-20 20:31] VITALS: BP 119/66; PULSE 85; RESP 18; TEMP 36.1; O2SAT 96
[2024-06-20] MEDS: SENNOSIDES 8.6 MG TABLET 17.2 MG PO (21:12)
[2024-06-20] MEDS: TRAZODONE 50 MG TABLET PO (21:12)
[2024-06-20] MEDS: PANTOPRAZOLE DR 40 MG TABLET PO (21:12)
[2024-06-21] MEDS: HYDROCORTISONE 100 MG/2 ML VIAL 50 MG IV ×3 (00:15→21:22)
[2024-06-21] MEDS: ACETAMINOPHEN 325 MG TABLET 650 MG PO ×3 (04:07→16:16)
[2024-06-21] MEDS: LEVOTHYROXINE 75 MCG TABLET PO (05:59)
[2024-06-21] MEDS: OXYCODONE IR 5 MG TABLET PO ×4 (06:00→16:54)
[2024-06-21 08:00] VITALS: BP 124/56; PULSE 77; RESP 18; TEMP 36.3; O2SAT 95
[2024-06-21] MEDS: DOCUSATE 100 MG CAPSULE PO ×2 (08:59→21:22)
[2024-06-21] MEDS: FLUDROCORTISONE 0.1 MG TABLET 0.2 MG PO (08:59)
[2024-06-21] MEDS: ATORVASTATIN 20 MG TABLET 40 MG PO ×2 (08:59→21:22)
[2024-06-21] MEDS: METFORMIN HCL 500 MG TABLET 1000 MG PO (08:59)
[2024-06-21] MEDS: DULOXETINE 30 MG CAPSULE 60 MG PO (08:59)
--- NOTE | 2024-06-21 09:35 | PT.IPTN ---
Current Diagnoses Spondylolisthesis, lumbar region (06/19/24) Spinal stenosis, lumbar region with neurogenic claudication (06/19/24) Surgery Performed Operation Date: 06/19/24 07:45 Actual Procedures p L4-5, L5-S1 TLIF with posterior instrumentation-Robot - Norris Banegas MD Physical Therapy Treatment Note M2 PT-IP Current Condition Start: 06/19/24 17:26 Freq: NEEDED Status: Active Protocol: Document 06/19/24 15:29 AB (Rec: 06/19/24 17:40 AB [id number]) Physical Therapy Current Condition Current Condition Evaluation Date 06/19/24 Treatment Diagnosis s/p L4-5, L5S1 TLIF; difficulty in walking Onset Date 06/19/24 M3 PT-IP Subjective Start: 06/19/24 17:26 Freq: NEEDED Status: Active Protocol: Document 06/21/24 10:16 TS (Rec: 06/21/24 10:27 TS [id number]) Subjective Physical Therapy Visit Type Type Treatment Note Visit Start Time 09:35 Visit Stop Time 10:05 Number of HAND TOUCH UP PAINTER Visits 3 Physical Therapy Visit Comments Patient Comments Pt found resting in the chair, reports her pain is 8/10 with mobility, she is feeling better today. pt is agreeable to PT. Therapy Pain Assessment Pain When Pain Assessed During Mobility Pain Present Pain Present Pain Reported Location Low back, left leg Intensity 8 Scale Used Numeric (0 - 10) Pain Behaviors Facial Grimacing,Guarding, Restlessness,Wincing Pain Management Techniques Apply Cold,Modification of Treatment,Re-positioning, Timing of Activity with Medications M4 PT-IP Mobility and Gait Start: 06/19/24 17:26 Freq: NEEDED Status: Active Protocol: Document 06/21/24 10:16 TS (Rec: 06/21/24 10:27 TS [id number]) PT-Transfer Assessment Sit to and From Stand Sit to and from Stand Moderate Assistance,1 Person Assistance Equipment Transfer Assistive Device Gait Belt,Front Wheeled Walker Comments Mobility Comments Pt recalls 3/3 spinal precautions. STS with FWW ModA x1 from the chair. She ambulates in the room ~25'CGA with FWW., has no buckling or LOB. PA enters room to check on pt. PT was left in the chair, all needs met. Attempting to setup caregiver training for this afternoon but unable to contact son at this time. Gait Assessment Gait Gait Assistance Required: Contact Guard Assist Distance (Feet) 25 Assistive Devices Assistive Device Gait Belt,Front Wheeled Walker Gait Deviations General Gait Pattern Decreased Stride Length, Decreased Feet Clearance,Step- to Gait Factors Limiting Gait Function Factors Limiting Gait Function Decreased Activity Tolerance, Decreased Strength,Difficulty Following Directions,Poor Balance,Poor Safety Awareness Comments Gait Comments See mobility comments Stair Climbing Assessment Comments Stair Climbing Comments no stairs PT-Balance Assessment Sitting Balance and Reactions Static Sitting Balance Ability Good Dynamic Sitting Balance Ability Fair Standing Balance and Reactions Static Standing Balance Ability Fair Dynamic Standing Balance Ability Fair Device Used FWW M5 PT-IP Objective Assessments Start: 06/19/24 17:26 Freq: NEEDED Status: Active Protocol: Document 06/19/24 15:29 AB (Rec: 06/19/24 17:40 AB [id number]) Orientation Orientation/Cognition Level of Alertness Alert Orientation Name,Place,Situation Safety Awareness Decreased Safety Awareness Memory Description Short Term Impaired Comments pt is drowsy Gross Range of Motion Lower Extremity ROM Assessment Within Functional Limits Strength Lower Extremity Strength Assessment Bilaterally Impaired Comments Strength Comments LLE: 3-/5 RLE: 3+/5 Muscle Tone Muscle Tone WNL Yes M6 PT-IP Treatment Start: 06/19/24 17:26 Freq: NEEDED Status: Active Protocol: Document 06/21/24 10:16 TS (Rec: 06/21/24 10:27 [id number]) Physical Therapy Treatment Education Education Provided Precautions,Weight Bearing Status,Post-Op Packet,Safety M7 PT-IP Assessment and Plan Start: 06/19/24 17:26 Freq: NEEDED Status: Active Protocol: Document 06/21/24 10:16 TS (Rec: 06/21/24 10:27 [id number]) PT Summary Assessment and Plan Potential Rehabilitation Potential Fair Summary Impairments Pain,ROM,Strength,Balance, Coordination,Sensation,Tone, Cognition,Bed Mobility, Transfers,Gait,Activity Tolerance Progress Towards Goals Slow Progress due to Pain,Slow Progress due to Activity Tolerance Assessment Summary Pt is making some progress with her mobility this session but she continues to be limited by pain and poor activity tolerance. She requires ModA for STS. She progressed her gait to ~25'CGA with FWW. She has a low tolerance to gait at this time . She is has no dizziness or lightheadedness this session. Attempting to setup up caregiver training for this afternoon, was unable to contact son at this time. Goals Bed Mobility Goal Minimal Assistance Transfer Goal Minimal Assistance,Front Wheeled Walker Gait Goal Minimal Assistance,Front Wheel Walker Gait Distance 100 Other Goals improve bed mobility, transfers, ambulation using FWW ~ 200 ft SBA Days to Meet Goals 5 Frequency of Treatment Frequency Of Treatment Twice a Day Treatment Plan Physical Therapy Treatment Plan Bed Mobility Training,Transfer Training,Gait Training, Therapeutic Exercise,Balance Retraining,Post Op Education, Discharge Planning,Hot or Cold Pack,Neuromuscular Re-ed, Coordination Retraining,Manual Therapy Precautions Lumbar Precautions Log Roll,No Twisting,Limit Bending,Lifting Restriction of 10 lbs,Gait Belt above Incisional Area Recommendations To Nursing Amount of Assist Needed 2 Person Assist Discharge Recommendations PT Discharge Recommendations Home with 27/02 Assist Available,Home Health Transportation Needs at Discharge Private Vehicle,Wheelchair/ Cabulance
--- NOTE | 2024-06-21 09:35 | OT.IP.TRT ---
Current Diagnoses Spondylolisthesis, lumbar region (06/19/24) Spinal stenosis, lumbar region with neurogenic claudication (06/19/24) Surgery Performed Operation Date: 06/19/24 07:45 Actual Procedures p L4-5, L5-S1 TLIF with posterior instrumentation-Robot - Norris Banegas MD Occupational Therapy Treatment Note M2 OT-IP Current Condition Start: 06/20/24 12:11 Freq: Status: Active Protocol: Document 06/20/24 12:11 [facility] (Rec: 06/20/24 12:27 [facility] [id number]) Occupational Therapy Current Condition Current Condition Evaluation Date 06/20/24 Treatment Diagnosis S/P L4-5, L5-S1 TLIF Diagnosis Onset Date 06/19/24 Post Operative Precautions Lumbar Precautions Log Roll,No Twisting,Limit Bending,Lifting Restriction of 10 lbs,Gait Belt above Incisional Area M3 OT- IP Subjective and Pain Start: 06/20/24 12:11 Freq: Status: Active Protocol: Document 06/21/24 09:26 [facility] (Rec: 06/21/24 09:34 [facility] [id number]) OT- Subjective Occupational Therapy Visit Type Type Treatment Note Visit Start Time 08:50 Visit Stop Time 09:24 Occupational Therapy Visit Comments Patient Comments Pt agreed to get up. Patient/Caregiver Goals TO go home. OT Pain Assessment Pain When Pain Assessed At Rest Pain Present Pain Present Pain Reported Location Low back, left leg Intensity 3 Scale Used Numeric (0 - 10) Description Spasm M4 OT- IP ADL's Start: 06/20/24 12:11 Freq: Status: Active Protocol: Document 06/21/24 09:26 [facility] (Rec: 06/21/24 09:34 [facility] [id number]) OT HIV-Prrz-Fhoqicx General Evaluation Self-Feeding Ability Independent OT ADL-Grooming General Evaluation Areas Needing Assistance Retrieving/Set-up of Grooming Items Comments OT Grooming Comments While seated. OT ADL-Oral Care General Eval Oral Care Ability Independent Comments Oral Care Comments Educated if standing to hinge at her hips or spit into a cup to best follow her back precautions. OT ADL-Toileting Comments OT Toileting Comments Pt feeling very constipated and nursing able to give her meds. Suggested pt would best benefit from a BSC at home. OT ADL-Bathing Comments OT Bathing Comments Pt states does have a shower chair at home. At this time if going home best for pt to have a bath aid. M5 OT- IP IADL's Start: 06/20/24 12:11 Freq: Status: Active Protocol: Document 06/20/24 12:11 [facility] (Rec: 06/20/24 12:27 [facility] [id number]) OT-Instrumental Activities of Daily Living Home Safety Awareness Home Safety Comments Pt still very drowsy at this time. Meal Preparation Meal Preparation Comments Pt will need asisst. Poultry Farm Supervisor Poultry Farm Supervisor Comments Pt will need assist. M6 OT- IP Functional Cognition Start: 06/20/24 12:11 Freq: Status: Active Protocol: Document 06/21/24 09:26 [facility] (Rec: 06/21/24 09:34 [facility] [id number]) Cognitive Factors Limiting Selfcare Function Cognitive Ability Level of Alertness Alert Patient Orientation Name,Age,Birthday,Month,Date, Year,Day of Week,Place, Situation Attention Span Ability Capable of Focused Attention, Capable of Sustained Attention Ability to Follow Commands Able to Follow One Step Commands Cognitive Comments Cognitive Assessment Comments Pt much clearer today and able to follow her back precautions for ADL and mobility needs. M7 OT- IP Mobility and Balance Start: 06/20/24 12:11 Freq: Status: Active Protocol: Document 06/21/24 09:26 [facility] (Rec: 06/21/24 09:34 [facility] [id number]) OT- Bed Mobility Assessment Supine to Sit Supine to Sit Assist Moderate Assistance OT-Transfer Assessment Sit to and From Stand Sit to and from Stand Moderate Assistance Transfers Transfer Ability Moderate Assistance Technique Transfer Destination Bed,Chair Devices Transfer Assistive Devices Gait Belt,Front Wheeled Walker Comments Mobility Comments Assist to use green pad to scoot her bottom over. MODA to assist to get her trunk upright and scoot to the edge of the bed. Pt not able to stand all the way up initially due to spasm and on second attempt able to come to stand with MODA X 1 with FWW. Heavy use of the FWW with her arm and MODA to transfer to the recliner. O2 on RA at 99%, O2 ok to leave off per nursing as prior on 1/. OT- Balance Assessment Sitting Balance and Reactions Static Sitting Balance Ability Good Dynamic Sitting Balance Ability Good Standing Balance and Reactions Static Standing Balance Ability Fair Dynamic Standing Balance Ability Poor M8 OT- IP Objective Assessments Start: 06/20/24 12:11 Freq: Status: Active Protocol: Document 06/20/24 12:11 [facility] (Rec: 06/20/24 12:27 [facility] [id number]) OT Gross Range of Motion Upper Extremity Range of Motion Assessment Within Functional Limits OT Strength Upper Extremity Strength Assessment Within Functional Limits M9 OT- IP Assessment and Plan Start: 06/20/24 12:11 Freq: Status: Active Protocol: Document 06/21/24 09:26 [facility] (Rec: 06/21/24 09:34 [facility] [id number]) OT Summary Assessment and Plan Potential Rehabilitation Potential Good Analytic Complexity at Evaluation Low Summary OT Impairments Pain,Strength,Balance, Functional Mobility,Grooming, Dressing,Toileting,Bathing, Toilet Transfers,Shower Transfers,Activity Tolerance Progress Towards Goals Progressing Toward Goals,Slow Progress due to Pain,Slow Progress due to Medical Issues Assessment Summary Pt making improvements but still having lot of back pain, constipation, and spasms. Pt now would like to go home with her son and have home health. Pt will also benefit from a bath aid. Pt aware best to get BSC and LB dressing equipment . Goals Self-Feeding Goal Independent Grooming Goal Independent Dressing Goal Minimal Assistance Toileting Goal Standby Assistance Bathing Goal Minimal Assistance Toilet Transfer Goal Standby Assistance Shower Transfer Goal Contact Guard Assistance Days to Meet Goals 10 Frequency of Treatment Other frequency 5x/week Treatment Plan OT Treatment Plan ADL Training,Functional Mobility,Patient/Family Education,Discharge Planning Discharge Recommendations OT Discharge Recommendations Home with 27/02 Assist Available,Home Health Transportation Needs at Discharge Private Vehicle
--- NOTE | 2024-06-21 09:58 | PM.PNPO.1 ---
Subjective Subjective Interval history: Lola is a pleasant 68 year old female who is POD#2 s/p L4-5, L5-S1 Postero-lateral and posterior interbody fusion by Dr. Banegas. Today patient reports she is doing much better than yesterday. Back pain improved, left lower extremity numbness and weakness improved from yesterday as well. Denies any radiating pain. She worked w/ PT today and was able to get up and ambulate around her room w/ the use of a walker. She still has a Driscoll in place. Feels like she needs to have a BM. Lives at home w/ her adult son and would like d/c to home to him after she stabilizes here in the hospital for a few days. She also has a hx of Addisons disease and is requiring stress dosing post-op, will plan to taper her down today. Denies fever, chills, chest pain, SOB, nausea, vomiting. Exam Vital Signs (past 8 hours): - 06/21/24 08:00 Temperature 97.3 F L Pulse Rate 77 Respiratory Rate 18 Blood Pressure 124/56 L Pulse Oximetry 95 Oxygen Flow Rate 0 Oxygen Delivery Method Nasal Cannula Oxygen Flow Rate 0 Narrative Exam Narrative: Patient sitting comfortably in bedside chair during our interview today. No acute distress. AOx3. 5/5 strength with DF, PF, EHL R. LEFT: 4/5 DF, 5/5 PF, 4/5 EHL. Gross sensation intact throughout BL LE. Calves soft and non-tender bilaterally. Brisk capillary refill, pulses intact. Post-surgical dressing clean, dry and intact over the lumbar spine without drainage. Objective Labs 06/20/24 05:30 06/19/24 06:47 [facility] Medical History (Updated 01/19/24 @ 14:50 by Neto Alves MD) History of bladder stone Dysfunctional voiding of urine Bladder calculi Hx of thyroid disease Hx of osteoporosis Hx of osteoarthritis Hx of primary hypertension Hx of gastroesophageal reflux (GERD) Hx of diabetes mellitus Hx of chronic lymphocytic leukemia Hx of chronic arthritis Hx of iron deficiency anemia Weight gain due to medication Urine test positive for microalbuminuria Anxiety disorder Chronic bilateral low back pain with bilateral sciatica COVID-19 virus infection (01/06/22) Bruises easily CLL (chronic lymphocytic leukemia) Anxiety Urinary incontinence Constipation Cervical spinal stenosis Back pain Neck pain History of pneumonia Rectal bleeding Neck mass Tension headache, chronic Chronic neck pain Segmental and somatic dysfunction of abdomen and other regions Somatic dysfunction of sacral spine Pelvic somatic dysfunction Segmental and somatic dysfunction of lumbar region Segmental and somatic dysfunction of thoracic region Segmental and somatic dysfunction of rib cage Cervical somatic dysfunction Cranial somatic dysfunction Diabetes type 2, controlled HTN (hypertension) Adrenal crisis (~2016) Hyperpigmentation Adrenal insufficiency Pneumonia (~2008) Sleep apnea (~2005) Asthma (~1999) Abnormal chest x-ray (~2008) Depression (~1993) Headache (~2015) Bulging discs (~2015) Fibromyalgia (~1986) Chronic back pain (~2015) Mumps (~1967) Chicken pox Anemia (~2000) Cataracts, bilateral (~2018) Painful menstrual periods Ovarian cyst Irregular menstrual cycle Infertility (~1988) Heavy menstrual period Abnormal Pap smear of cervix Urinary incontinence in female (~2008) Fecal incontinence (~2016) GERD (gastroesophageal reflux disease) Hiatal hernia (~2004) Hemorrhoid (~2014) Lior's disease (~2001) Hypothyroidism (~2001) Diabetes mellitus (~2008) Chronic lymphocytic leukemia (~2001) Sinusitis Surgical History (Updated 06/13/24 @ 13:40 by Doreen Jalloh RN) History of cholecystectomy (09/2023) S/P cervical spinal fusion Hx of foot surgery (~07/2021) History of colonoscopy (10/05/21) H/O excision of mass (04/22/20) Status post blepharoplasty of both eyes Status post unicompartmental knee replacement, left (07/16/19) H/O hysterectomy with oophorectomy Status post epidural steroid injection Anesthesia History of bunionectomy (~1996) History of eyelid surgery (~2005) History of knee surgery History of bladder surgery History of oophorectomy (~2014) History of tonsillectomy (~1960) History of hysterectomy (~1994) Fibroids Family History Father Prostate cancer History of heart disease Hypertension Cancer Mother History of heart disease Hypertension Hyperlipidemia Mental health problem Stroke Coronary artery disease Sister Atrial fibrillation TIA (transient ischemic attack) Diabetes mellitus History of heart disease Hyperlipidemia Hypertension Stroke Lupus Fibromyalgia Cancer Thyroid disorder Urinary tract bacterial infections Grandfather Liver disease Grandmother History of heart disease Hyperlipidemia Hypertension Stroke Grandfather Stroke Grandmother Cancer Social History marital status: number of children: 2 household members: none occupational status: previously employed Smoking Status: Never smoker alcohol intake: current substance use type: does not use caffeine: Yes Type(s) of exercise: walking frequency: 5-6 times per week duration: 45-60 minutes/day Assessment & Plan Post-op Postoperative Procedures: Procedures Operation Date: 06/19/24 07:45 Actual Procedure Side Surgeon p L4-5, L5-S1 TLIF with posterior instrumentation-Robot Norris Banegas MD Postoperative plan narrative: 1) Plan to discharge to home in the next few days pending adequate hydrocortisone taper, progress w/ PT/mobility and pain control. Would like to have patients Driscoll catheter removed today after working w/ PT. 2) Continue multimodal pain management. She has cyclobenzaprine ordered as needed for back spasms. 3) Mechanical DVT prophylaxis, SCDs to be worn while in bed. 4) Will transition to IV hydrocortisone 50mg Q12 hours today, if stable and tolerating PO intake, will then transition to 10 mg b.i.d. (maintenance dose) prior to d/c. Continue patients baseline dosing of fludrocortisone throughout the postop period. 5) Work w/ PT/OT on mobility. Maintain BLT restrictions. 6) Keep dressing intact, clean, dry until 2 week postop appointment. No soaking the incision site in pools or tubs. No topical ointments or creams to the incision site. 7) Follow up at [facility] orthopedics in 2 weeks for a postop appointment and wound check. All patient's questions were answered, they demonstrates understanding and are in agreement with the plan. Call our office if any questions or concerns arise.
--- NOTE | 2024-06-21 12:59 | CM.DPNOTE ---
DCP Cont Faxed F2F, HH order and clinicals to [facility] for review, per patient's preference. CATY 06/22 or 06/23. CM team following for coordination. JW
--- NOTE | 2024-06-21 13:33 | OT.IP.TRT ---
Current Diagnoses Spondylolisthesis, lumbar region (06/19/24) Spinal stenosis, lumbar region with neurogenic claudication (06/19/24) Surgery Performed Operation Date: 06/19/24 07:45 Actual Procedures p L4-5, L5-S1 TLIF with posterior instrumentation-Robot - Norris Banegas MD Occupational Therapy Treatment Note M2 OT-IP Current Condition Start: 06/20/24 12:11 Freq: Status: Active Protocol: Document 06/20/24 12:11 [facility] (Rec: 06/20/24 12:27 [facility] [id number]) Occupational Therapy Current Condition Current Condition Evaluation Date 06/20/24 Treatment Diagnosis S/P L4-5, L5-S1 TLIF Diagnosis Onset Date 06/19/24 Post Operative Precautions Lumbar Precautions Log Roll,No Twisting,Limit Bending,Lifting Restriction of 10 lbs,Gait Belt above Incisional Area M3 OT- IP Subjective and Pain Start: 06/20/24 12:11 Freq: Status: Active Protocol: Document 06/21/24 13:37 [facility] (Rec: 06/21/24 13:44 [facility] [id number]) OT- Subjective Occupational Therapy Visit Type Type Treatment Note Visit Start Time 13:15 Visit Stop Time 13:33 Occupational Therapy Visit Comments Patient Comments Pt's son in the room for caregiver training. Patient/Caregiver Goals TO go home. OT Pain Assessment Pain When Pain Assessed At Rest Pain Present Pain Present Pain Reported Location Low back, left leg Description Radiating M4 OT- IP ADL's Start: 06/20/24 12:11 Freq: Status: Active Protocol: Document 06/21/24 13:37 [facility] (Rec: 06/21/24 13:44 [facility] [id number]) OT ADL-Toileting Comments OT Toileting Comments Able to go over best way to wipe so able to follow her back precautions. Use of wipes, standing and possibly getting a toilet paper aid. Pt will benefit from a BSC. OT ADL-Bathing Comments OT Bathing Comments Pt too tired to shower and suggested to shower prior to going home. M5 OT- IP IADL's Start: 06/20/24 12:11 Freq: Status: Active Protocol: Document 06/20/24 12:11 [facility] (Rec: 06/20/24 12:27 [facility] [id number]) OT-Instrumental Activities of Daily Living Home Safety Awareness Home Safety Comments Pt still very drowsy at this time. Meal Preparation Meal Preparation Comments Pt will need asisst. Nitrocellulose Operator Nitrocellulose Operator Comments Pt will need assist. M6 OT- IP Functional Cognition Start: 06/20/24 12:11 Freq: Status: Active Protocol: Document 06/21/24 13:37 [facility] (Rec: 06/21/24 13:44 [facility] [id number]) Cognitive Factors Limiting Selfcare Function Cognitive Comments Cognitive Assessment Comments Intact. M7 OT- IP Mobility and Balance Start: 06/20/24 12:11 Freq: Status: Active Protocol: Document 06/21/24 13:37 [facility] (Rec: 06/21/24 13:44 [facility] [id number]) OT- Bed Mobility Assessment Supine to Sit Supine to Sit Assist Minimal Assistance Sit to Supine Sit to Supine Assist Moderate Assistance OT-Transfer Assessment Sit to and From Stand Sit to and from Stand Moderate Assistance Transfers Transfer Ability Contact Guard Assistance Technique Transfer Destination Bed,Chair Devices Transfer Assistive Devices Gait Belt,Front Wheeled Walker Comments Mobility Comments Able to train her son to assist pt for bed mobility needs and able to demonstrate good understanding and safety. OT- Balance Assessment Sitting Balance and Reactions Static Sitting Balance Ability Normal Dynamic Sitting Balance Ability Good Standing Balance and Reactions Static Standing Balance Ability Good Dynamic Standing Balance Ability Good M8 OT- IP Objective Assessments Start: 06/20/24 12:11 Freq: Status: Active Protocol: Document 06/20/24 12:11 [facility] (Rec: 06/20/24 12:27 [facility] [id number]) OT Gross Range of Motion Upper Extremity Range of Motion Assessment Within Functional Limits OT Strength Upper Extremity Strength Assessment Within Functional Limits M9 OT- IP Assessment and Plan Start: 06/20/24 12:11 Freq: Status: Active Protocol: Document 06/21/24 13:37 [facility] (Rec: 06/21/24 13:44 [facility] [id number]) OT Summary Assessment and Plan Potential Rehabilitation Potential Good Analytic Complexity at Evaluation Low Summary OT Impairments Pain,Strength,Balance, Functional Mobility,Grooming, Dressing,Toileting,Bathing, Toilet Transfers,Shower Transfers,Activity Tolerance Progress Towards Goals Progressing Toward Goals,Slow Progress due to Pain Assessment Summary Pt's son able to come for caregiver training for ADL and mobility needs. Pt to go home with 27/02 assist and home health. Pt will also benefit from a bath aid. Goals Self-Feeding Goal Independent Grooming Goal Independent Dressing Goal Independent Toileting Goal Independent Bathing Goal Standby Assistance Toilet Transfer Goal Independent Shower Transfer Goal Standby Assistance Days to Meet Goals 10 Frequency of Treatment Other frequency 5x/week Treatment Plan OT Treatment Plan ADL Training,Functional Mobility,Patient/Family Education,Discharge Planning Discharge Recommendations OT Discharge Recommendations Home with 24/7 Assist Available,Home Health Transportation Needs at Discharge Private Vehicle
[2024-06-21] MEDS: CYCLOBENZAPRINE 10 MG TABLET PO ×2 (13:52→21:22)
[2024-06-21] MEDS: MONTELUKAST 10 MG TABLET PO (16:15)
[2024-06-21] MEDS: MAGNESIUM HYDROXIDE 30 ML UDC PO (16:17)
--- NOTE | 2024-06-21 16:31 | PT.IPTN ---
Current Diagnoses Spondylolisthesis, lumbar region (06/19/24) Spinal stenosis, lumbar region with neurogenic claudication (06/19/24) Surgery Performed Operation Date: 06/19/24 07:45 Actual Procedures p L4-5, L5-S1 TLIF with posterior instrumentation-Robot - Norris Banegas MD Physical Therapy Treatment Note M2 PT-IP Current Condition Start: 06/19/24 17:26 Freq: NEEDED Status: Active Protocol: Document 06/19/24 15:29 AB (Rec: 06/19/24 17:40 AB [id number]) Physical Therapy Current Condition Current Condition Evaluation Date 06/19/24 Treatment Diagnosis s/p L4-5, L5S1 TLIF; difficulty in walking Onset Date 06/19/24 M3 PT-IP Subjective Start: 06/19/24 17:26 Freq: NEEDED Status: Active Protocol: Document 06/21/24 16:23 TS (Rec: 06/21/24 16:31 TS [id number]) Subjective Physical Therapy Visit Type Type Treatment Note Visit Start Time 12:50 Visit Stop Time 13:14 Notes Son present for caregiver training. Number of UPSETTER SETTER UP Visits 4 Physical Therapy Visit Comments Patient Comments Pt found resting in bed, she is agreeable to PT. Therapy Pain Assessment Pain When Pain Assessed At Rest Pain Present Pain Present Pain Reported M4 PT-IP Mobility and Gait Start: 06/19/24 17:26 Freq: NEEDED Status: Active Protocol: Document 06/21/24 16:23 TS (Rec: 06/21/24 16:31 TS [id number]) PT-Bed Mobility Assessment Rolling Type of Rolling Log Rolling Level of Assist Moderate Assistance Supine to Sit Supine to Sit Maximum Assistance,1 Person Assistance,Bedrails Scooting Scooting to Edge of Bed Contact Guard Assistance PT-Transfer Assessment Sit to and From Stand Sit to and from Stand Moderate Assistance Equipment Transfer Assistive Device Gait Belt,Front Wheeled Walker Comments Mobility Comments Logroll to L side with assist from son. Supine to sit MaxA with assist from son. Son dons gait belt prior to STS. STS with FWW ModA. Pt ambulates SBA/CGA with FWW ~20'. Pt sat in chair, all needs met. Gait Assessment Gait Gait Assistance Required: Contact Guard Assist Distance (Feet) 20 Assistive Devices Assistive Device Gait Belt,Front Wheeled Walker Gait Deviations General Gait Pattern Decreased Stride Length, Decreased Feet Clearance,Step- to Gait Factors Limiting Gait Function Factors Limiting Gait Function Decreased Activity Tolerance, Decreased Strength,Difficulty Following Directions,Poor Balance,Poor Safety Awareness Comments Gait Comments See mobility comments PT-Balance Assessment Sitting Balance and Reactions Static Sitting Balance Ability Normal Dynamic Sitting Balance Ability Good Standing Balance and Reactions Static Standing Balance Ability Fair Dynamic Standing Balance Ability Fair Device Used FWW M5 PT-IP Objective Assessments Start: 06/19/24 17:26 Freq: NEEDED Status: Active Protocol: Document 06/19/24 15:29 AB (Rec: 06/19/24 17:40 AB [id number]) Orientation Orientation/Cognition Level of Alertness Alert Orientation Name,Place,Situation Safety Awareness Decreased Safety Awareness Memory Description Short Term Impaired Comments pt is drowsy Gross Range of Motion Lower Extremity ROM Assessment Within Functional Limits Strength Lower Extremity Strength Assessment Bilaterally Impaired Comments Strength Comments LLE: 3-/5 RLE: 3+/5 Muscle Tone Muscle Tone WNL Yes M6 PT-IP Treatment Start: 06/19/24 17:26 Freq: NEEDED Status: Active Protocol: Document 06/21/24 16:23 TS (Rec: 06/21/24 16:31 TS [id number]) Physical Therapy Treatment Education Education Provided Precautions,Weight Bearing Status,Post-Op Packet,Safety M7 PT-IP Assessment and Plan Start: 06/19/24 17:26 Freq: NEEDED Status: Active Protocol: Document 06/21/24 16:23 TS (Rec: 06/21/24 16:31 TS [id number]) PT Summary Assessment and Plan Potential Rehabilitation Potential Fair Summary Impairments Pain,ROM,Strength,Balance, Coordination,Sensation,Tone, Cognition,Bed Mobility, Transfers,Gait,Activity Tolerance Progress Towards Goals Slow Progress due to Pain,Slow Progress due to Activity Tolerance Assessment Summary Pt is making some progress with her mobility but is limited by poor activity tolerance and pain. Pt performs mobility with son who is her caregiver while she recovers. She continues to require MaxA for bed mobility. She ambulates short distances in the room before requiring a rest break. Son was instructed in and performed bed mobility, STS, and gait with pt. PT is recommending pt return home with assist and HHPT. Goals Bed Mobility Goal Minimal Assistance Transfer Goal Minimal Assistance,Front Wheeled Walker Gait Goal Minimal Assistance,Front Wheel Walker Gait Distance 100 Other Goals improve bed mobility, transfers, ambulation using FWW ~ 200 ft SBA Days to Meet Goals 5 Frequency of Treatment Frequency Of Treatment Twice a Day Treatment Plan Physical Therapy Treatment Plan Bed Mobility Training,Transfer Training,Gait Training, Therapeutic Exercise,Balance Retraining,Post Op Education, Discharge Planning,Hot or Cold Pack,Neuromuscular Re-ed, Coordination Retraining,Manual Therapy Precautions Lumbar Precautions Log Roll,No Twisting,Limit Bending,Lifting Restriction of 10 lbs,Gait Belt above Incisional Area Recommendations To Nursing Amount of Assist Needed 1 Person Assist Discharge Recommendations PT Discharge Recommendations Home with 27/02 Assist Available,Home Health Transportation Needs at Discharge Private Vehicle
[2024-06-21 20:36] VITALS: BP 123/67; PULSE 82; RESP 16; TEMP 36.1; O2SAT 94
[2024-06-21] MEDS: SENNOSIDES 8.6 MG TABLET 17.2 MG PO (21:22)
[2024-06-21] MEDS: TRAZODONE 50 MG TABLET PO (21:22)
[2024-06-21] MEDS: PANTOPRAZOLE DR 40 MG TABLET PO (21:22)
[2024-06-22 00:41] VITALS: BP 114/67; PULSE 77; RESP 16; TEMP 35.9; O2SAT 94
[2024-06-22] MEDS: OXYCODONE IR 5 MG TABLET PO ×2 (05:35→08:40)
[2024-06-22] MEDS: LEVOTHYROXINE 75 MCG TABLET PO (05:35)
[2024-06-22 05:47] VITALS: BP 114/67; PULSE 80; RESP 18; TEMP 36.4; O2SAT 96
[2024-06-22 08:00] VITALS: BP 124/73; PULSE 81; RESP 18; TEMP 36.5; O2SAT 90
[2024-06-22] MEDS: FLUDROCORTISONE 0.1 MG TABLET 0.2 MG PO (08:40)
[2024-06-22] MEDS: METFORMIN HCL 500 MG TABLET 1000 MG PO (08:40)
[2024-06-22] MEDS: DULOXETINE 30 MG CAPSULE 60 MG PO (08:40)
[2024-06-22] MEDS: DOCUSATE 100 MG CAPSULE PO ×2 (08:41→20:14)
[2024-06-22] MEDS: HYDROCORTISONE 100 MG/2 ML VIAL 50 MG IV (08:41)
[2024-06-22] MEDS: lisinopriL 10 MG TABLET PO (08:41)
[2024-06-22] MEDS: CYCLOBENZAPRINE 10 MG TABLET PO (09:59)
--- NOTE | 2024-06-22 10:21 | DI.US.S_ITS ---
PROCEDURE: US PERIPH VENOUS LOW EXTREM LT INDICATIONS: DVT TECHNIQUE: Real-time imaging, as well as color and pulse Doppler interrogation, were performed of the lower extremity deep veins from the inguinal ligament to the popliteal fossa, with documentation of the visualized calf veins. COMPARISON: None. FINDINGS: The common femoral, femoral, popliteal, and the visualized calf veins are normally compressible, and free of intraluminal thrombus. Color and pulse Doppler demonstrate normal phasic intraluminal flow. There is normal augmentation response to distal compression maneuver. IMPRESSION: No findings of lower extremity deep venous thrombosis. Approved by: Diony Sims M.D. on 06/22/2024 at 15:38
--- NOTE | 2024-06-22 10:22 | PM.PNPO.1 ---
Subjective Subjective Interval history: Lola is a pleasant 68 year old female who is POD#3 s/p L4-5, L5-S1 Postero-lateral and posterior interbody fusion by Dr. Banegas. Patient states that she is declined since yesterday. She has increased pain along her left lower extremity radiating from her hip down to her calf. She states she had similar leg pain prior to surgery but it resolved for 2 days postop and is returned this morning. She has had to take cyclobenzaprine oxycodone and acetaminophen this morning. She had to decline physical therapy this morning. She was able to get up and use the walker and use the restroom. Denies fever, chills, chest pain, SOB, nausea, vomiting. Exam Vital Signs (past 8 hours): - 06/22/24 05:47 06/22/24 08:00 Temperature 97.6 F 97.7 F Pulse Rate 80 81 Respiratory Rate 18 18 Blood Pressure 114/67 124/73 Pulse Oximetry 96 90 L Oxygen Flow Rate 0 0 Oxygen Delivery Method Nasal Cannula Oxygen Flow Rate 0 Narrative Exam Narrative: Patient appears to be acute pain this morning. Tenderness to palpation over the left greater trochanteric region radiating down the posterior thigh and posterior calf. Sensation grossly intact to light touch. No warmth or redness noted of the posterior thigh or calf. RLE: 5/5 strength with DF, PF, EHL LEFT: 3/5 DF, 5/5 PF, 5/5 EHL. SCDs are off. Resp Effort & Inspection: normal respiratory effort and able to speak in complete sentences Objective Labs 06/20/24 05:30 06/19/24 06:47 [facility] Medical History (Updated 01/19/24 @ 14:50 by Neto Alves MD) History of bladder stone Dysfunctional voiding of urine Bladder calculi Hx of thyroid disease Hx of osteoporosis Hx of osteoarthritis Hx of primary hypertension Hx of gastroesophageal reflux (GERD) Hx of diabetes mellitus Hx of chronic lymphocytic leukemia Hx of chronic arthritis Hx of iron deficiency anemia Weight gain due to medication Urine test positive for microalbuminuria Anxiety disorder Chronic bilateral low back pain with bilateral sciatica COVID-19 virus infection (01/06/22) Bruises easily CLL (chronic lymphocytic leukemia) Anxiety Urinary incontinence Constipation Cervical spinal stenosis Back pain Neck pain History of pneumonia Rectal bleeding Neck mass Tension headache, chronic Chronic neck pain Segmental and somatic dysfunction of abdomen and other regions Somatic dysfunction of sacral spine Pelvic somatic dysfunction Segmental and somatic dysfunction of lumbar region Segmental and somatic dysfunction of thoracic region Segmental and somatic dysfunction of rib cage Cervical somatic dysfunction Cranial somatic dysfunction Diabetes type 2, controlled HTN (hypertension) Adrenal crisis (~2016) Hyperpigmentation Adrenal insufficiency Pneumonia (~2008) Sleep apnea (~2005) Asthma (~1999) Abnormal chest x-ray (~2008) Depression (~1993) Headache (~2015) Bulging discs (~2015) Fibromyalgia (~1986) Chronic back pain (~2015) Mumps (~1967) Chicken pox Anemia (~2000) Cataracts, bilateral (~2018) Painful menstrual periods Ovarian cyst Irregular menstrual cycle Infertility (~1988) Heavy menstrual period Abnormal Pap smear of cervix Urinary incontinence in female (~2008) Fecal incontinence (~2016) GERD (gastroesophageal reflux disease) Hiatal hernia (~2004) Hemorrhoid (~2014) [place]'s disease (~2001) Hypothyroidism (~2001) Diabetes mellitus (~2008) Chronic lymphocytic leukemia (~2001) Sinusitis Surgical History (Updated 06/13/24 @ 13:40 by Doreen Jalloh RN) History of cholecystectomy (09/2023) S/P cervical spinal fusion Hx of foot surgery (~07/2021) History of colonoscopy (10/05/21) H/O excision of mass (04/22/20) Status post blepharoplasty of both eyes Status post unicompartmental knee replacement, left (07/16/19) H/O hysterectomy with oophorectomy Status post epidural steroid injection Anesthesia History of bunionectomy (~1996) History of eyelid surgery (~2005) History of knee surgery History of bladder surgery History of oophorectomy (~2014) History of tonsillectomy (~1960) History of hysterectomy (~1994) Fibroids Family History Father Prostate cancer History of heart disease Hypertension Cancer Mother History of heart disease Hypertension Hyperlipidemia Mental health problem Stroke Coronary artery disease Sister Atrial fibrillation TIA (transient ischemic attack) Diabetes mellitus History of heart disease Hyperlipidemia Hypertension Stroke Lupus Fibromyalgia Cancer Thyroid disorder Urinary tract bacterial infections Grandfather Liver disease Grandmother History of heart disease Hyperlipidemia Hypertension Stroke Grandfather Stroke Grandmother Cancer Social History marital status: number of children: 2 household members: none occupational status: previously employed Smoking Status: Never smoker alcohol intake: current substance use type: does not use caffeine: Yes Type(s) of exercise: walking frequency: 5-6 times per week duration: 45-60 minutes/day Assessment & Plan Post-op Postoperative Procedures: Procedures Operation Date: 06/19/24 07:45 Actual Procedure Side Surgeon p L4-5, L5-S1 TLIF with posterior instrumentation-Robot Norris Banegas MD Postoperative day: 3 Postoperative status: marginal pain control Postoperative plan: routine post-op care and ambulate Postoperative plan narrative: 1) Plan to discharge to home vs SNF pending adequate hydrocortisone taper, progress w/ PT/mobility and pain control. Will discuss with CM. 2) Continue multimodal pain management. She has cyclobenzaprine ordered as needed for back spasms. 3) Mechanical DVT prophylaxis, SCDs to be worn while in bed. Placed on patient this morning. 4) D/C IV hydrocortisone 50mg Q12 hours today. Transition to 10 mg b.i.d. (maintenance dose). Continue patients baseline dosing of fludrocortisone throughout the postop period. 5) Ordering U/S for left LE to rule out DVT due to increased left leg pain and reduced mobility. 6) Work w/ PT/OT on mobility. Maintain BLT restrictions. 7) Keep dressing intact, clean, dry until 2 week postop appointment. No soaking the incision site in pools or tubs. No topical ointments or creams to the incision site. 8) Follow up at [facility] orthopedics in 2 weeks for a postop appointment and wound check. All patient's questions were answered, they demonstrates understanding and are in agreement with the plan. Call our office if any questions or concerns arise. Time Spent With Patient Time with patient: 15-24 minutes Quality VTE Deep Vein Thrombosis/Pulmonary Embolism Present on Admission: No
--- NOTE | 2024-06-22 10:35 | PT.IPTN ---
Current Diagnoses Spondylolisthesis, lumbar region (06/19/24) Spinal stenosis, lumbar region with neurogenic claudication (06/19/24) Surgery Performed Operation Date: 06/19/24 07:45 Actual Procedures p L4-5, L5-S1 TLIF with posterior instrumentation-Robot - Norris Banegas MD Physical Therapy Treatment Note M2 PT-IP Current Condition Start: 06/19/24 17:26 Freq: NEEDED Status: Active Protocol: Document 06/19/24 15:29 AB (Rec: 06/19/24 17:40 AB [id number]) Physical Therapy Current Condition Current Condition Evaluation Date 06/19/24 Treatment Diagnosis s/p L4-5, L5S1 TLIF; difficulty in walking Onset Date 06/19/24 M3 PT-IP Subjective Start: 06/19/24 17:26 Freq: NEEDED Status: Active Protocol: Document 06/22/24 10:59 TS (Rec: 06/22/24 11:08 TS [id number]) Subjective Physical Therapy Visit Type Type Treatment Note Visit Start Time 10:35 Visit Stop Time 10:58 Number of GREEN MEAT GRADER Visits 5 Physical Therapy Visit Comments Patient Comments Pt found resting in bed, reports she is going to have an US for blood clots, she is agreeable to PT. Therapy Pain Assessment Pain When Pain Assessed At Rest Pain Present Pain Present Pain Reported Location Low back, left leg Intensity 9 Scale Used Numeric (0 - 10) Pain Behaviors Facial Grimacing,Guarding, Restlessness,Wincing Pain Management Techniques Apply Cold,Modification of Treatment,Re-positioning, Timing of Activity with Medications M4 PT-IP Mobility and Gait Start: 06/19/24 17:26 Freq: NEEDED Status: Active Protocol: Document 06/22/24 10:59 TS (Rec: 06/22/24 11:08 TS [id number]) PT-Bed Mobility Assessment Rolling Type of Rolling Log Rolling Level of Assist Moderate Assistance Supine to Sit Supine to Sit Maximum Assistance,1 Person Assistance,Bedrails Sit to Supine Sit to Supine Maximum Assistance,1 Person Assistance Scooting Scooting to Edge of Bed Contact Guard Assistance PT-Transfer Assessment Sit to and From Stand Sit to and from Stand Minimal Assistance,1 Person Assistance Equipment Transfer Assistive Device Gait Belt,Front Wheeled Walker Comments Mobility Comments Logroll to L side ModA with cues for sequencing. Supine to sit MaxA for uprighting trunk . STS with FWW Yris. Pt ambulates ~20' in the room CGA , pt reports high pain and requests back to bed. Sit to supine into bed MaxA with max cues. Pt was left in bed, nursing notified of high pain. Gait Assessment Gait Gait Assistance Required: Contact Guard Assist Distance (Feet) 20 Assistive Devices Assistive Device Gait Belt,Front Wheeled Walker Gait Deviations General Gait Pattern Decreased Stride Length, Decreased Feet Clearance,Step- to Gait Factors Limiting Gait Function Factors Limiting Gait Function Decreased Activity Tolerance, Decreased Strength,Difficulty Following Directions,Poor Balance,Poor Safety Awareness Comments Gait Comments See mobility comments PT-Balance Assessment Sitting Balance and Reactions Static Sitting Balance Ability Normal Dynamic Sitting Balance Ability Good Standing Balance and Reactions Static Standing Balance Ability Fair Dynamic Standing Balance Ability Fair Device Used FWW M5 PT-IP Objective Assessments Start: 06/19/24 17:26 Freq: NEEDED Status: Active Protocol: Document 06/19/24 15:29 AB (Rec: 06/19/24 17:40 AB [id number]) Orientation Orientation/Cognition Level of Alertness Alert Orientation Name,Place,Situation Safety Awareness Decreased Safety Awareness Memory Description Short Term Impaired Comments pt is drowsy Gross Range of Motion Lower Extremity ROM Assessment Within Functional Limits Strength Lower Extremity Strength Assessment Bilaterally Impaired Comments Strength Comments LLE: 3-/5 RLE: 3+/5 Muscle Tone Muscle Tone WNL Yes M6 PT-IP Treatment Start: 06/19/24 17:26 Freq: NEEDED Status: Active Protocol: Document 06/22/24 10:59 TS (Rec: 06/22/24 11:08 [id number]) Physical Therapy Treatment Education Education Provided Precautions,Weight Bearing Status,Post-Op Packet,Safety M7 PT-IP Assessment and Plan Start: 06/19/24 17:26 Freq: NEEDED Status: Active Protocol: Document 06/22/24 10:59 TS (Rec: 06/22/24 11:08 [id number]) PT Summary Assessment and Plan Potential Rehabilitation Potential Fair Summary Impairments Pain,ROM,Strength,Balance, Coordination,Sensation,Tone, Cognition,Bed Mobility, Transfers,Gait,Activity Tolerance Progress Towards Goals Slow Progress due to Pain,Slow Progress due to Activity Tolerance Assessment Summary Pt is maing slow progress with her mobility due to pain. She continues to require ModA/ MaxA for bed mobility. She required decreased assist for STS this session. She continues to ambulate short distances in the room. PT continues to recommend Home with 24/7 assist. Goals Bed Mobility Goal Minimal Assistance Transfer Goal Minimal Assistance,Front Wheeled Walker Gait Goal Minimal Assistance,Front Wheel Walker Gait Distance 100 Other Goals improve bed mobility, transfers, ambulation using FWW ~ 200 ft SBA Days to Meet Goals 5 Frequency of Treatment Frequency Of Treatment Twice a Day Treatment Plan Physical Therapy Treatment Plan Bed Mobility Training,Transfer Training,Gait Training, Therapeutic Exercise,Balance Retraining,Post Op Education, Discharge Planning,Hot or Cold Pack,Neuromuscular Re-ed, Coordination Retraining,Manual Therapy Precautions Lumbar Precautions Log Roll,No Twisting,Limit Bending,Lifting Restriction of 10 lbs,Gait Belt above Incisional Area Recommendations To Nursing Amount of Assist Needed 1 Person Assist Discharge Recommendations PT Discharge Recommendations Home with 24/7 Assist Available,Home Health Transportation Needs at Discharge Private Vehicle
[2024-06-22] MEDS: OXYCODONE IR 10 MG TABLET PO ×3 (10:58→20:15)
[2024-06-22] MEDS: ACETAMINOPHEN 325 MG TABLET 650 MG PO (10:58)
--- NOTE | 2024-06-22 14:34 | PT.IPTN ---
Current Diagnoses Spondylolisthesis, lumbar region (06/19/24) Spinal stenosis, lumbar region with neurogenic claudication (06/19/24) Surgery Performed Operation Date: 06/19/24 07:45 Actual Procedures p L4-5, L5-S1 TLIF with posterior instrumentation-Robot - Norris Banegas MD Physical Therapy Treatment Note M2 PT-IP Current Condition Start: 06/19/24 17:26 Freq: NEEDED Status: Active Protocol: Document 06/19/24 15:29 AB (Rec: 06/19/24 17:40 AB [id number]) Physical Therapy Current Condition Current Condition Evaluation Date 06/19/24 Treatment Diagnosis s/p L4-5, L5S1 TLIF; difficulty in walking Onset Date 06/19/24 M3 PT-IP Subjective Start: 06/19/24 17:26 Freq: NEEDED Status: Active Protocol: Document 06/22/24 15:08 TS (Rec: 06/22/24 15:14 TS [id number]) Subjective Physical Therapy Visit Type Type Treatment Note Visit Start Time 14:34 Visit Stop Time 15:00 Number of VETERINARY X RAY OPERATOR Visits 6 Physical Therapy Visit Comments Patient Comments Pt found resting in bed, reports her pain in better this afternoon, she is agreeable to PT. Therapy Pain Assessment Pain When Pain Assessed At Rest Pain Present Pain Present Pain Reported M4 PT-IP Mobility and Gait Start: 06/19/24 17:26 Freq: NEEDED Status: Active Protocol: Document 06/22/24 15:08 TS (Rec: 06/22/24 15:14 TS [id number]) PT-Bed Mobility Assessment Rolling Level of Assist Contact Guard Assistance,1 Person Assistance Supine to Sit Supine to Sit Minimal Assistance,1 Person Assistance,Bedrails Sit to Supine Sit to Supine Minimal Assistance,1 Person Assistance Scooting Scooting to Edge of Bed Standby Assistance PT-Transfer Assessment Sit to and From Stand Sit to and from Stand Minimal Assistance,1 Person Assistance Equipment Transfer Assistive Device Gait Belt,Front Wheeled Walker Comments Mobility Comments Logroll to L side CGA, pt demonstrates good carryover. Supine to sit Yris for uprighting trunk to EOB. STS with FWW Yris. She ambulates in the room ~25'SBA with FWW. She requests to use toilet. pt performs own pericare and performs STS from toilet SBA. Sit to supine into bed Yris for Le's. Pt was left in bed, all needs met. Gait Assessment Gait Gait Assistance Required: Standby Assistance Distance (Feet) 25 Assistive Devices Assistive Device Gait Belt,Front Wheeled Walker Gait Deviations General Gait Pattern Decreased Stride Length, Decreased Feet Clearance,Step- to Gait Factors Limiting Gait Function Factors Limiting Gait Function Decreased Activity Tolerance, Decreased Strength,Poor Balance Comments Gait Comments See mobility comments PT-Balance Assessment Sitting Balance and Reactions Static Sitting Balance Ability Normal Dynamic Sitting Balance Ability Good Standing Balance and Reactions Static Standing Balance Ability Fair Dynamic Standing Balance Ability Fair Device Used FWW M5 PT-IP Objective Assessments Start: 06/19/24 17:26 Freq: NEEDED Status: Active Protocol: Document 06/19/24 15:29 AB (Rec: 06/19/24 17:40 AB [id number]) Orientation Orientation/Cognition Level of Alertness Alert Orientation Name,Place,Situation Safety Awareness Decreased Safety Awareness Memory Description Short Term Impaired Comments pt is drowsy Gross Range of Motion Lower Extremity ROM Assessment Within Functional Limits Strength Lower Extremity Strength Assessment Bilaterally Impaired Comments Strength Comments LLE: 3-/5 RLE: 3+/5 Muscle Tone Muscle Tone WNL Yes M6 PT-IP Treatment Start: 06/19/24 17:26 Freq: NEEDED Status: Active Protocol: Document 06/22/24 15:08 TS (Rec: 06/22/24 15:14 [id number]) Physical Therapy Treatment Education Education Provided Precautions,Weight Bearing Status,Post-Op Packet,Safety M7 PT-IP Assessment and Plan Start: 06/19/24 17:26 Freq: NEEDED Status: Active Protocol: Document 06/22/24 15:08 TS (Rec: 06/22/24 15:14 [id number]) PT Summary Assessment and Plan Potential Rehabilitation Potential Fair Summary Impairments Pain,ROM,Strength,Balance, Coordination,Sensation,Tone, Cognition,Bed Mobility, Transfers,Gait,Activity Tolerance Progress Towards Goals Progressing Toward Goals Assessment Summary Pt is doing well with her mobility this session. She requires decreased assist for bed mobility and STS. She demonstrates good carryover of logroll technique and is aware of her spinal precautions. Her pain is much improved from this morning. She is to have an US to check for blood clots. PT is recommending home with 27/02 assist. Goals Bed Mobility Goal Minimal Assistance Transfer Goal Minimal Assistance,Front Wheeled Walker Gait Goal Minimal Assistance,Front Wheel Walker Gait Distance 100 Other Goals improve bed mobility, transfers, ambulation using FWW ~ 200 ft SBA Days to Meet Goals 5 Frequency of Treatment Frequency Of Treatment Twice a Day Treatment Plan Physical Therapy Treatment Plan Bed Mobility Training,Transfer Training,Gait Training, Therapeutic Exercise,Balance Retraining,Post Op Education, Discharge Planning,Hot or Cold Pack,Neuromuscular Re-ed, Coordination Retraining,Manual Therapy Precautions Lumbar Precautions Log Roll,No Twisting,Limit Bending,Lifting Restriction of 10 lbs,Gait Belt above Incisional Area Recommendations To Nursing Amount of Assist Needed 1 Person Assist Discharge Recommendations PT Discharge Recommendations Home with 27/02 Assist Available,Home Health Transportation Needs at Discharge Private Vehicle
[2024-06-22] MEDS: MONTELUKAST 10 MG TABLET PO (17:00)
[2024-06-22] MEDS: ATORVASTATIN 20 MG TABLET 40 MG PO (20:14)
[2024-06-22] MEDS: HYDROCORTISONE 10 MG TABLET PO (20:14)
[2024-06-22] MEDS: SENNOSIDES 8.6 MG TABLET 17.2 MG PO (20:14)
[2024-06-22] MEDS: TRAZODONE 50 MG TABLET PO (20:14)
[2024-06-22] MEDS: PANTOPRAZOLE DR 40 MG TABLET PO (20:14)
[2024-06-22 20:28] VITALS: BP 118/65; PULSE 79; RESP 16; TEMP 35.9; O2SAT 95
[2024-06-23] MEDS: OXYCODONE IR 5 MG TABLET PO ×4 (00:59→19:45)
[2024-06-23] MEDS: OXYCODONE IR 10 MG TABLET PO ×3 (04:45→23:59)
[2024-06-23] MEDS: ACETAMINOPHEN 325 MG TABLET 650 MG PO ×2 (04:46→19:45)
[2024-06-23] MEDS: LEVOTHYROXINE 75 MCG TABLET PO (06:02)
[2024-06-23 08:00] VITALS: BP 101/55; PULSE 74; RESP 16; TEMP 35.8; O2SAT 92
[2024-06-23] MEDS: FLUDROCORTISONE 0.1 MG TABLET 0.2 MG PO (08:47)
[2024-06-23] MEDS: DOCUSATE 100 MG CAPSULE PO ×2 (08:47→20:34)
[2024-06-23] MEDS: DULOXETINE 30 MG CAPSULE 60 MG PO (08:48)
[2024-06-23] MEDS: lisinopriL 10 MG TABLET PO (08:48)
[2024-06-23] MEDS: HYDROCORTISONE 10 MG TABLET PO ×2 (08:48→20:34)
[2024-06-23] MEDS: METFORMIN HCL 500 MG TABLET 1000 MG PO (08:48)
--- NOTE | 2024-06-23 10:19 | P.PN_ITS ---
Subjective Subjective Date Patient Seen: 06/23/24 Time Patient Seen: 10:20 Interval history: Patient is seen on rounds today, recall she is status post L4-L5, L5-S1 interbody fusion. She initially had improvement of her symptoms for about a day and a half and then they became worse and she developed increased pain as well as weakness specifically in the quad and some dorsiflexion on her left lower extremity. No significant changes over the last 24 hours. Is hoping to go home With home health. Exam Vital Signs (past 8 hours): - 06/23/24 08:00 Temperature 96.5 F L Pulse Rate 74 Respiratory Rate 16 Blood Pressure 101/55 L Pulse Oximetry 92 Oxygen Flow Rate 0 Oxygen Delivery Method Room Air Oxygen Flow Rate 0 Narrative Exam Narrative: HEENT: Head atraumatic eyes anicteric moist mucous membranes Cardiovascular: Palpable peripheral pulses extremities are warm and well perfused Respiratory: Breathing comfortably on room air Psychiatric: Appropriate mood and affect Neuro: No acute deficits Musculoskeletal: Exam of the left lower extremity demonstrates weakness in quad, inability to do a straight leg raise or get her heel off of the bed. Able to flex her hamstring, able to fire EHL FHL, tib ant and gastrocs with good strength. Sensation intact to light touch in sural, saphenous, superficial peroneal, deep peroneal and tibial nerve distributions (from L2 through S2 ). 2+ dorsalis pedis pulse with brisk capillary refill less than 2 seconds Objective Labs 06/20/24 05:30 06/19/24 06:47 [facility] Medical History (Updated 01/19/24 @ 14:50 by Neto Alves MD) History of bladder stone Dysfunctional voiding of urine Bladder calculi Hx of thyroid disease Hx of osteoporosis Hx of osteoarthritis Hx of primary hypertension Hx of gastroesophageal reflux (GERD) Hx of diabetes mellitus Hx of chronic lymphocytic leukemia Hx of chronic arthritis Hx of iron deficiency anemia Weight gain due to medication Urine test positive for microalbuminuria Anxiety disorder Chronic bilateral low back pain with bilateral sciatica COVID-19 virus infection (01/06/22) Bruises easily CLL (chronic lymphocytic leukemia) Anxiety Urinary incontinence Constipation Cervical spinal stenosis Back pain Neck pain History of pneumonia Rectal bleeding Neck mass Tension headache, chronic Chronic neck pain Segmental and somatic dysfunction of abdomen and other regions Somatic dysfunction of sacral spine Pelvic somatic dysfunction Segmental and somatic dysfunction of lumbar region Segmental and somatic dysfunction of thoracic region Segmental and somatic dysfunction of rib cage Cervical somatic dysfunction Cranial somatic dysfunction Diabetes type 2, controlled HTN (hypertension) Adrenal crisis (~2016) Hyperpigmentation Adrenal insufficiency Pneumonia (~2008) Sleep apnea (~2005) Asthma (~1999) Abnormal chest x-ray (~2008) Depression (~1993) Headache (~2015) Bulging discs (~2015) Fibromyalgia (~1986) Chronic back pain (~2015) Mumps (~1967) Chicken pox Anemia (~2000) Cataracts, bilateral (~2018) Painful menstrual periods Ovarian cyst Irregular menstrual cycle Infertility (~1988) Heavy menstrual period Abnormal Pap smear of cervix Urinary incontinence in female (~2008) Fecal incontinence (~2016) GERD (gastroesophageal reflux disease) Hiatal hernia (~2004) Hemorrhoid (~2014) Lior's disease (~2001) Hypothyroidism (~2001) Diabetes mellitus (~2008) Chronic lymphocytic leukemia (~2001) Sinusitis Surgical History (Updated 06/13/24 @ 13:40 by Doreen Jalloh RN) History of cholecystectomy (09/2023) S/P cervical spinal fusion Hx of foot surgery (~07/2021) History of colonoscopy (10/05/21) H/O excision of mass (04/22/20) Status post blepharoplasty of both eyes Status post unicompartmental knee replacement, left (07/16/19) H/O hysterectomy with oophorectomy Status post epidural steroid injection Anesthesia History of bunionectomy (~1996) History of eyelid surgery (~2005) History of knee surgery History of bladder surgery History of oophorectomy (~2014) History of tonsillectomy (~1960) History of hysterectomy (~1994) Fibroids Family History Father Prostate cancer History of heart disease Hypertension Cancer Mother History of heart disease Hypertension Hyperlipidemia Mental health problem Stroke Coronary artery disease Sister Atrial fibrillation TIA (transient ischemic attack) Diabetes mellitus History of heart disease Hyperlipidemia Hypertension Stroke Lupus Fibromyalgia Cancer Thyroid disorder Urinary tract bacterial infections Grandfather Liver disease Grandmother History of heart disease Hyperlipidemia Hypertension Stroke Grandfather Stroke Grandmother Cancer Social History marital status: number of children: 2 household members: none occupational status: previously employed Smoking Status: Never smoker alcohol intake: current substance use type: does not use caffeine: Yes Type(s) of exercise: walking frequency: 5-6 times per week duration: 45-60 minutes/day Assessment & Plan Assessment & Plan narrative: assessment: 68-year-old female status post L4-L5 and L5-S1 interbody fusion Plan: Patient will continue to rehab with physical therapy, when she was safe to discharge she will be allowed to do so. Reassurance provided today. Independent call was made to Dr. Banegas to discuss the patient's progress. He agrees with the plan. No new imaging necessary today. All questions answered fully into the patient's satisfaction. Time-Based Coding :: [TOTAL MINUTES] spent with patient and on the chart (including review of chart, obtaining history, exam, reviewing outside data, placing orders, documenting exam and treatment plan, and counseling patient) on [DATE]. Quality VTE Deep Vein Thrombosis/Pulmonary Embolism Present on Admission: No
--- NOTE | 2024-06-23 10:19 | PC.NURSE ---
Addendum entered by Samantha Galvez R.N. 06/23/24 16:14: pt awakened with pain level 8\10 in left leg sciatic pain. medicated with oxy 10mg po, repositioned for comfort, refuses ice at this time. Addendum entered by Samantha Galvez R.N. 06/23/24 10:59: pt up to BR using walker and SBA, then amb with PT. pt clearly in pain moaning and breathing heavly. back to bed states pain 8/10 medicated with 5 mg oxy instead of 10mg to stay within time limits vs level of pain number at this time, also med with flexeril, ice applied pillows between legs, scd's off for now for comfort. bed alarmed, call light within reach. Original Note: 0850 pt up to sink for mouth care, having pain in left leg like sciatica 6, medicated with oxy back to bed with assist
[2024-06-23] MEDS: CYCLOBENZAPRINE 10 MG TABLET PO (10:55)
--- NOTE | 2024-06-23 11:00 | PT.IPTN ---
Current Diagnoses Spondylolisthesis, lumbar region (06/19/24) Spinal stenosis, lumbar region with neurogenic claudication (06/19/24) Surgery Performed Operation Date: 06/19/24 07:45 Actual Procedures p L4-5, L5-S1 TLIF with posterior instrumentation-Robot - Norris Banegas MD Physical Therapy Treatment Note M2 PT-IP Current Condition Start: 06/19/24 17:26 Freq: NEEDED Status: Active Protocol: Document 06/19/24 15:29 AB (Rec: 06/19/24 17:40 AB [id number]) Physical Therapy Current Condition Current Condition Evaluation Date 06/19/24 Treatment Diagnosis s/p L4-5, L5S1 TLIF; difficulty in walking Onset Date 06/19/24 M3 PT-IP Subjective Start: 06/19/24 17:26 Freq: NEEDED Status: Active Protocol: Document 06/23/24 10:30 MB (Rec: 06/23/24 11:00 MB [id number]) Subjective Physical Therapy Visit Type Type Initial Evaluation Visit Start Time 10:30 Visit Stop Time 10:54 Number of CHANNEL MANAGER Visits 0 Physical Therapy Visit Comments Patient Comments Pt reports 8/10 pain left back , side and leg and states she has been getting up to the BR. She is reluctantly agreeable to PT. Therapy Pain Assessment Pain When Pain Assessed At Rest Pain Present Pain Present Pain Reported Location Low back, left leg Intensity 8 Scale Used Numeric (0 - 10) M4 PT-IP Mobility and Gait Start: 06/19/24 17:26 Freq: NEEDED Status: Active Protocol: Document 06/23/24 10:30 MB (Rec: 06/23/24 11:00 MB [id number]) PT-Bed Mobility Assessment Rolling Type of Rolling Log Rolling,Roll to Right,Roll to Left Level of Assist Standby Assistance Supine to Sit Supine to Sit Standby Assistance,Bedrails Sit to Supine Sit to Supine Standby Assistance,Bedrails Scooting Scooting to Edge of Bed Standby Assistance PT-Transfer Assessment Sit to and From Stand Sit to and from Stand Standby Assistance Equipment Transfer Assistive Device Gait Belt,Front Wheeled Walker Orthotic/Prosthetic Devices or Brace: No Transfers Transfer Destination Bed Transfer Technique Ambulation Transfer Ability Level of Assist Standby Assistance Comments Mobility Comments Pt recalls 2/3 back precautions and must be reminded about no lifting and log rolling. Heavy use of rails and increased pain with all mobility, though she reports pain is a little better with gait, pt with heavy breathing and occ whimpering. Pt requires cues for hand placement and side lying for log roll to get back into bed Gait Assessment Gait Gait Assistance Required: Standby Assistance Distance (Feet) 100 Able to Maintain Weight Bearing Status Yes During Gait Assistive Devices Assistive Device Gait Belt,Front Wheeled Walker Orthotic/Prosthetic Devices or Brace: No Gait Deviations General Gait Pattern Antalgic Factors Limiting Gait Function Factors Limiting Gait Function Pain,Poor Safety Awareness Comments Gait Comments Pt takes standing rest breaks with gait about every 25' feet PT-Balance Assessment Sitting Balance and Reactions Static Sitting Balance Ability Good Dynamic Sitting Balance Ability Good Standing Balance and Reactions Static Standing Balance Ability Good Dynamic Standing Balance Ability Fair Device Used RW M5 PT-IP Objective Assessments Start: 06/19/24 17:26 Freq: NEEDED Status: Active Protocol: Document 06/19/24 15:29 AB (Rec: 06/19/24 17:40 AB [id number]) Orientation Orientation/Cognition Level of Alertness Alert Orientation Name,Place,Situation Safety Awareness Decreased Safety Awareness Memory Description Short Term Impaired Comments pt is drowsy Gross Range of Motion Lower Extremity ROM Assessment Within Functional Limits Strength Lower Extremity Strength Assessment Bilaterally Impaired Comments Strength Comments LLE: 3-/5 RLE: 3+/5 Muscle Tone Muscle Tone WNL Yes M6 PT-IP Treatment Start: 06/19/24 17:26 Freq: NEEDED Status: Active Protocol: Document 06/23/24 10:30 MB (Rec: 06/23/24 11:00 MB [id number]) Physical Therapy Treatment Education Education Provided Precautions,Safety M7 PT-IP Assessment and Plan Start: 06/19/24 17:26 Freq: NEEDED Status: Active Protocol: Document 06/23/24 10:30 MB (Rec: 06/23/24 11:00 MB [id number]) PT Summary Assessment and Plan Potential Rehabilitation Potential Fair Status of Condition at Evaluation Evolving Summary Impairments Pain,ROM,Strength,Balance,Bed Mobility,Transfers,Gait Progress Towards Goals Slow Progress due to Pain Assessment Summary Pt requires SBA and cues for safe mobility and gait today. Pain appears to be her biggest issue, not mobility. She is getting up with nsg and will have son assistance at home at d/c. Goals Bed Mobility Goal Independent Transfer Goal Independent,Front Wheeled Walker Gait Goal Independent,Front Wheel Walker Gait Distance 150 Days to Meet Goals 5 Frequency of Treatment Frequency Of Treatment Once a Day Treatment Plan Physical Therapy Treatment Plan Bed Mobility Training,Transfer Training,Gait Training, Therapeutic Exercise,Balance Retraining,Post Op Education, Discharge Planning,Hot or Cold Pack,Neuromuscular Re-ed, Coordination Retraining,Manual Therapy Precautions Lumbar Precautions Log Roll,No Twisting,Limit Bending,Lifting Restriction of 10 lbs,Gait Belt above Incisional Area Recommendations To Nursing Amount of Assist Needed 1 Person Assist Discharge Recommendations PT Discharge Recommendations Home with 24/ Assist Available,Home Health Transportation Needs at Discharge Private Vehicle
--- NOTE | 2024-06-23 13:33 | CM.DPC ---
DCP Cont. Reviewed EMR and team rounds for status updates. Pt not yet stable for d/c due to pain. Will likely d/c home w/HH on Monday, 06/24.
[2024-06-23] MEDS: MONTELUKAST 10 MG TABLET PO (16:09)
[2024-06-23 20:00] VITALS: BP 103/55; PULSE 77; RESP 18; TEMP 36.4; O2SAT 94
[2024-06-23] MEDS: ATORVASTATIN 20 MG TABLET 40 MG PO (20:34)
[2024-06-23] MEDS: SENNOSIDES 8.6 MG TABLET 17.2 MG PO (20:34)
[2024-06-23] MEDS: PANTOPRAZOLE DR 40 MG TABLET PO (20:34)
[2024-06-23] MEDS: TRAZODONE 50 MG TABLET PO (20:34)
[2024-06-24] MEDS: ACETAMINOPHEN 325 MG TABLET 650 MG PO (05:54)
[2024-06-24] MEDS: LEVOTHYROXINE 75 MCG TABLET PO (05:55)
--- NOTE | 2024-06-24 07:16 | P.DS_ITS ---
History of Present Illness History of Present Illness Date Patient Seen: 06/24/24 Time Patient Seen: 07:17 Chief complaint: INPT Narrative: Operative Date/Time/Diagnoses Date of procedure: 06/19/24 Time of procedure: 07:40 Pre-op diagnosis: 1. L5-S1 spondylolisthesis 2. L4-5 spinal stenosis with neurogenic claudication Post-op diagnosis: same Procedure & Clinicians Procedure: 1. L4-5, L5-S1 Postero-lateral and posterior interbody fusion 2. L4-5, L5-S1 interbody cage placement. 3. L4-5, L5-S1 decompressive laminectomy with bilateral facetecomies 4. L4-5, L5-S1 Posterior segmental instrumentation 5. [place] of bone marrow from iliac crest 6. Utilization of microsurgical technique and operating microscope 7. Utilization of robotic assisted navigation Same procedure as scheduled: Yes Indications: Patient has been having chronic back pain and worsening lumbar radiculopathy and symptoms of neurogenic claudication. Patient was found to have L5-S1 anterolisthesis with severe L4-5 spinal stenosis correlating with her symptoms. Patient failed multiple conservative management with worsening pain weakness and numbness in her lower extremity. Patient has been having difficulty performing activity of daily living. After discussing risks benefits of treatment options, patient elected proceed with surgery. Surgeon: Norris Banegas Chef Instructor: Irish Cerda Click Yes if Unassisted: No Anesthesia Type: General Operative Notes Closure Type: primary Specimen(s): none sent Prosthetic devices, grafts, tissues, transplants, or devices: Globus CREO MIS screws, Rise cages Applied: catheter Estimated Blood Loss (mL): 200 Blood products transfused: none Discharge Providers Provider Date of admission: 06/19/24 06:12 Discharge Date: 06/24/24 Primary care physician: Pradip Vasquez DO Consults: 06/19/24 06:00 Consult to Anesthesiology Routine Comment: Consulting Provider: Anesthesiologist Reason for consultation: Lior's - please read preop orders and H&P Has provider been notified: No 06/19/24 11:46 Consult to Occupational Therapy Evaluate & Treat Comment: Physician Instructions: Evaluate and treat Consult to Physical Therapy Evaluate & Treat Comment: Physician Instructions: Evaluate and Treat 06/21/24 12:49 Consult to Home Health Routine Comment: Reason For Exam: Home health upon discharge Discharge provider: Irish Cerda PA-C Summary Hospital Course Discharge Diagnosis: L5-S1 spondylolisthesis, L4-5 spinal stenosis with neurogenic claudication; s/p L4-5, L5-S1 lumbar fusion Hospital Course: Pts postop course was remarkable for difficulty w/ pain control. On the morning of POD# 5, she was lying in bed, says she has continued left buttock pain but otherwise feeling well. Has son at home for help, but feels like she will need HHRN for help with showering. Eating and voiding without difficulty, though she hasn't moved her bowels since prior to surgery. She worked w/ PT throughout her stay. She received stress doses of hydrocortisone in the periop period as recommended by her technical solutions engineer. Exam Vital Signs (past 8 hours): Oxygen Delivery Method Room Air Oxygen Flow Rate 0 Narrative Exam Narrative: 5/5 strength in hip flexors, quadriceps, hamstrings, PF, DF, EHL bilaterally. Sensation to light touch intact throughout BLE. Calves soft and compressible. Low back dressings have been changed since surgery and are CDI. Objective Labs 06/20/24 05:30 06/19/24 06:47 [facility] Medical History (Updated 01/19/24 @ 14:50 by Neto Alves MD) History of bladder stone Dysfunctional voiding of urine Bladder calculi Hx of thyroid disease Hx of osteoporosis Hx of osteoarthritis Hx of primary hypertension Hx of gastroesophageal reflux (GERD) Hx of diabetes mellitus Hx of chronic lymphocytic leukemia Hx of chronic arthritis Hx of iron deficiency anemia Weight gain due to medication Urine test positive for microalbuminuria Anxiety disorder Chronic bilateral low back pain with bilateral sciatica COVID-19 virus infection (01/06/22) Bruises easily CLL (chronic lymphocytic leukemia) Anxiety Urinary incontinence Constipation Cervical spinal stenosis Back pain Neck pain History of pneumonia Rectal bleeding Neck mass Tension headache, chronic Chronic neck pain Segmental and somatic dysfunction of abdomen and other regions Somatic dysfunction of sacral spine Pelvic somatic dysfunction Segmental and somatic dysfunction of lumbar region Segmental and somatic dysfunction of thoracic region Segmental and somatic dysfunction of rib cage Cervical somatic dysfunction Cranial somatic dysfunction Diabetes type 2, controlled HTN (hypertension) Adrenal crisis (~2016) Hyperpigmentation Adrenal insufficiency Pneumonia (~2008) Sleep apnea (~2005) Asthma (~1999) Abnormal chest x-ray (~2008) Depression (~1993) Headache (~2015) Bulging discs (~2015) Fibromyalgia (~1986) Chronic back pain (~2015) Mumps (~1967) Chicken pox Anemia (~2000) Cataracts, bilateral (~2018) Painful menstrual periods Ovarian cyst Irregular menstrual cycle Infertility (~1988) Heavy menstrual period Abnormal Pap smear of cervix Urinary incontinence in female (~2008) Fecal incontinence (~2016) GERD (gastroesophageal reflux disease) Hiatal hernia (~2004) Hemorrhoid (~2014) Lior's disease (~2001) Hypothyroidism (~2001) Diabetes mellitus (~2008) Chronic lymphocytic leukemia (~2001) Sinusitis Surgical History (Updated 06/24/24 @ 07:21 by Irish Cerda PA-C) History of cholecystectomy (09/2023) S/P cervical spinal fusion Hx of foot surgery (~07/2021) History of colonoscopy (10/05/21) H/O excision of mass (04/22/20) Status post blepharoplasty of both eyes Status post unicompartmental knee replacement, left (07/16/19) H/O hysterectomy with oophorectomy Status post epidural steroid injection Anesthesia History of bunionectomy (~1996) History of eyelid surgery (~2005) History of knee surgery History of bladder surgery History of oophorectomy (~2014) History of tonsillectomy (~1960) History of hysterectomy (~1994) Fibroids Family History Father Prostate cancer History of heart disease Hypertension Cancer Mother History of heart disease Hypertension Hyperlipidemia Mental health problem Stroke Coronary artery disease Sister Atrial fibrillation TIA (transient ischemic attack) Diabetes mellitus History of heart disease Hyperlipidemia Hypertension Stroke Lupus Fibromyalgia Cancer Thyroid disorder Urinary tract bacterial infections Grandfather Liver disease Grandmother History of heart disease Hyperlipidemia Hypertension Stroke Grandfather Stroke Grandmother Cancer Social History marital status: number of children: 2 household members: none occupational status: previously employed Smoking Status: Never smoker alcohol intake: current substance use type: does not use caffeine: Yes Type(s) of exercise: walking frequency: 5-6 times per week duration: 45-60 minutes/day Discharge Assessment & Plan Assessment and Plan Assessment: L5-S1 spondylolisthesis, L4-5 spinal stenosis with neurogenic claudication; s/p L4-5, L5-S1 lumbar fusion Plan of Treatment: Discharge home w/ HHRN services and family. Multimodal pain control, regular glucocorticoid regimen. F/u in office in 2 weeks as scheduled. Discharge Plan Discharge Plan Patient Disposition: Home Health Service Discharge orders & Medications Prescriptions: New oxycodone 5 mg Tablet 5 mg PO Q4-6H PRN (Reason: Pain, Moderate (4-6)) Qty: 40 0RF polyethylene glycol 3350 17 gram Powder In Packet 17 g PO DAILY PRN (Reason: Constipation) Qty: 100 0RF bisacodyl 10 mg Suppository 10 mg NC PRN PRN (Reason: Constipation) Qty: 12 0RF Continued cyclobenzaprine 10 mg tablet 10 mg PO 3XD PRN (Reason: Pain, Severe) lisinopril 10 mg tablet 10 mg PO DAILY Qty: 7 0RF Rx Instructions: PT WILL NEED TO BE SEEN BEFORE NEXT RENWAL 03/27/24 hydrocortisone 10 mg tablet 10 mg PO BID Qty: 14 0RF duloxetine [Cymbalta] 60 mg capsule,delayed release(DR/EC) 60 mg PO DAILY Qty: 90 0RF Rx Instructions: PT WILL NEED TO SEE HER PCP BEFORE NEXT RENEWAL 04/19/24 fludrocortisone 0.1 mg Tablet 0.2 mg PO QAM atorvastatin 40 mg tablet 40 mg PO DAILY metformin 500 mg tablet 1,000 mg PO QAM trazodone 50 mg tablet 50 mg PO BEDTIME pantoprazole 40 mg tablet,delayed release (DR/EC) 40 mg PO QPM montelukast 10 mg tablet 10 mg PO QPM Solu-Cortef Act-O-Vial (PF) 100 mg/2 mL recon soln 100 mg IM DAILY PRN (Reason: Lior's crisis) Gemtesa 75 mg tablet 75 mg PO QAM acetaminophen [Tylenol Extra Strength] 500 mg Tablet 500 mg PO BID PRN (Reason: Pain, Moderate) albuterol sulfate 90 mcg/actuation Hfa Aerosol Inhaler 2 puff INHALATION QID PRN (Reason: asthma) levothyroxine [Synthroid] 75 mcg tablet 75 mcg PO QAM Follow up/Referrals: Norris Banegas MD [Physician] - 07/11/24 1:20 pm (Follow up w/ Irish Cerda PA-C, at [facility] office in [place]) Pradip Vasquez DO [Primary Care Provider] - Diet/Activity/Treatments Diet: Diet as Tolerated Activity: No deep bending or twisting at the waist. No lifting more than 10 pounds. Skin/Wound/Dressing Care Report to your healthcare provider any signs of infection, such as:: chills, fever, night sweats, unusual drainage and unusual redness Dressing: May shower. Keep dressing as dry as possible. If dressing becomes wet or dirty, remove and replace with clean, dry gauze. No bathing or otherwise soaking incisions. Do not apply any creams, lotions, or ointments to incisions. Visit Report/Discharge Packet Instructions: DI for Prescription Opioid Use, DI for Transforaminal Lumbar Interbody Fusion Stand Alone Forms: Patient Portal/API, Stroke Signs & Symptoms, Surgery Discharge Discharge Data Primary Care Provider: Pradip Vasquez Quality VTE Deep Vein Thrombosis/Pulmonary Embolism Present on Admission: No
[2024-06-24 08:00] VITALS: BP 105/61; PULSE 71; RESP 15; TEMP 36.3; O2SAT 95
[2024-06-24 08:01] VITALS: BP 105/61
[2024-06-24] MEDS: OXYCODONE IR 5 MG TABLET PO (08:01)
[2024-06-24] MEDS: lisinopriL 10 MG TABLET PO (08:01)
[2024-06-24] MEDS: FLUDROCORTISONE 0.1 MG TABLET 0.2 MG PO (08:01)
[2024-06-24] MEDS: DOCUSATE 100 MG CAPSULE PO (08:01)
[2024-06-24] MEDS: HYDROCORTISONE 10 MG TABLET PO (08:02)
[2024-06-24] MEDS: DULOXETINE 30 MG CAPSULE 60 MG PO (08:03)
[2024-06-24] MEDS: METFORMIN HCL 500 MG TABLET 1000 MG PO (08:03)
[2024-06-24] MEDS: MAGNESIUM HYDROXIDE 30 ML UDC PO (08:11)
--- NOTE | 2024-06-24 12:07 | PC.NURSE ---
D/c instructions reviewed with Pt, and she was educated on ways to reduce constipation, including increasing fluid intake and using prescribed stool softeners as needed. Reminded Pt not to drive while taking narcotics. IV was removed. Pt showered and dressed with assistance, and confirmed that she had all of her belongings.
--- NOTE | 2024-06-24 12:28 | CM.DPNOTE ---
DC Note Patient discharging home today with family. Updated [facility] and emailed DC Summary to Allison. YI
== END 2024-06-24 13:10 | disposition home health service (06) | DRG 427 ==
PROVIDERS: Anesthesiology; Admitting Provider Orthopaedic Surgery Orthopaedic Surgery of the Spine; PCP Family Medicine; Referring Provider Orthopaedic Surgery Orthopaedic Surgery of the Spine; Visit Provider Orthopaedic Surgery Orthopaedic Surgery of the Spine
PROC: 0SG00AJ Fusion of Lumbar Vertebral Joint with Interbody Fusion Device, Posterior Approach, Anterior Column, Open Approach (ICD-10-PCS; principal; 2024-06-19 07:45)
DX: M48.062 Spinal stenosis, lumbar region with neurogenic claudication (principal); E27.1 Primary adrenocortical insufficiency; M43.17 Spondylolisthesis, lumbosacral region; M43.16 Spondylolisthesis, lumbar region; M81.8 Other osteoporosis without current pathological fracture; M48.07 Spinal stenosis, lumbosacral region; M54.16 Radiculopathy, lumbar region; M62.830 Muscle spasm of back; G89.18 Other acute postprocedural pain; I10 Essential (primary) hypertension; F32.A Depression, unspecified; E11.9 Type 2 diabetes mellitus without complications; K21.9 Gastro-esophageal reflux disease without esophagitis; E03.9 Hypothyroidism, unspecified; J45.909 Unspecified asthma, uncomplicated; Z98.1 Arthrodesis status; Z79.84 Long term (current) use of oral hypoglycemic drugs
CPT/HCPCS: 36415; 72100; 76000; 80048; 82962; 85014; 85018; 87635; 93971; 97116; 97163; 97165; 97530; 97535; A9270; C1713; C1821; C9290; J0330; J0690; J1171; J1720; J2250; J2405; J2704; J3010

== ENCOUNTER 2024-07-03 11:04 | Emergency (ER) | payer MEDICARE, OTHER, SELFPAY ==
[2024-06-19 12:21] VITALS: BMI 28.8
[2024-07-03] VITALS (107 sets, daily range): BP systolic 77–154; BP diastolic 45–69; PULSE 73–98; RESP 13–47; TEMP 36.6–39.9; O2SAT 89–100; BMI 30.9
--- NOTE | 2024-07-03 11:17 | DI.RAD.S_ITS ---
PROCEDURE: XR CHEST 1V INDICATIONS: sepsis TECHNIQUE: One view of the chest was acquired. COMPARISON: [facility], CR, XR CHEST 1V, 06/27/2023, 15:01. FINDINGS: Surgical changes and devices: Cervical fusion hardware Lungs and pleura: Submaximal inspiration with patchy bibasilar atelectasis. No pleural effusions or pneumothorax. Mediastinum: Mediastinal contours appear normal. Heart size is normal. Bones and chest wall: No suspicious bony lesions. Overlying soft tissues appear unremarkable. IMPRESSION: Submaximal inspiration with patchy bibasilar atelectasis. Dictated by: Simon Ngo M.D. on 07/03/2024 at 12:15 Approved by: Simon Ngo M.D. on 07/03/2024 at 12:16
--- NOTE | 2024-07-03 11:19 | DI.CT.S_ITS ---
PROCEDURE: CT CHEST ABDOMEN W CON INDICATIONS: sepsis unclear cause - back pain TECHNIQUE: After the administration of intravenous contrast, 5 mm thick sections acquired from the lung apices to the iliac crests. 5 mm coronal and sagittal reformats were performed, with additional 7 mm coronal MIP reformats through the lungs. For radiation dose reduction, the following was used: automated exposure control, adjustment of mA and/or kV according to patient size. COMPARISON: [facility], CT, CT KIDNEY URETER BLADDER (KUB), 06/27/2023, 18:36. FINDINGS: Image quality: Diagnostic. CHEST: Lower Neck: No enlarged lymph nodes. Thyroid: No thyroid nodules which require sonographic follow up, per consensus guidelines. Axillae: No enlarged lymph nodes. Chest Wall: Unremarkable. Bones: Unremarkable. Lungs and Pleura: Small right pleural effusion and trace left pleural effusion. Consolidative opacities in the right greater than left lower lung kirk. Heart: Heart size is normal. No pericardial effusion. Thoracic Vessels: The aorta and pulmonary arteries demonstrate normal size. Mediastinum and Kate: No enlarged lymph nodes. Esophagus: No wall thickening. No hiatal hernia. ABDOMEN: Liver: No solid mass. Gallbladder: Surgically absent. Biliary ducts: No biliary dilation. Pancreas: No ductal dilation. Spleen: Size is within normal limits. Adrenal Glands: No adrenal nodules. Kidneys and Ureters: Fluid collection at the superior pole the left kidney measuring 2.5 x 2.7 x 2.7 cm. There is significant edema surrounding the left kidney. Wall thickening of the collecting system and ureter with enhancement. No hydronephrosis. Right kidney is normal in appearance. Mild wall thickening enhancement of the collecting system and ureter with surrounding inflammation. Stomach and Bowel: Normal colonic caliber, without significant wall thickening. Large stool burden. Normal appendix. Peritoneum: No abnormal intraperitoneal fluid. No free air. Abdominal Wall: No significant ventral hernia. Posterior skin brown from back surgery. Abdominal Nodes: No retroperitoneal or mesenteric adenopathy by size criteria. Vessels: Aorta and inferior vena cava are normal in size. Mild atherosclerotic vascular calcifications. PELVIS: Pelvic Organs: Unremarkable. Bladder: Wall thickening of the urinary bladder. Pelvic Nodes: No enlarged lymph nodes. Miscellaneous: No inguinal hernias are seen. Bones: No aggressive osseous abnormality. L4 through S1 posterior spinal fixation. Degenerative changes of the spine. ACDF hardware. IMPRESSION: 1. Fluid collection at the superior pole of the left kidney measuring 2.7 cm, may represent an abscess. There is significant surrounding inflammation. Wall thickening of the bilateral renal collecting systems and ureters, greater on the left with surrounding inflammation. Wall thickening of the urinary bladder. Findings are most consistent with infection, recommend correlation with urinalysis. 2. Small right pleural effusion. Right greater than left lower lobe consolidative opacities, may represent infection or aspiration. 3. Large stool burden, correlate for constipation. Dictated by: Gerald Cook M.D. on 07/03/2024 at 12:38 Approved by: Gerald Cook M.D. on 07/03/2024 at 12:49
--- NOTE | 2024-07-03 11:21 | EKG_ITS ---
[address] [id number] Test Date: 2024-07-03 Pat Name: Lola Regalado Department: Room: Gender: Female Receiving Operator: DINORAH : [id number] Requested By: Order Number: [id number] Reading MD: Jelani Hinson Measurements Intervals [place] Rate: 93 P: 31 WI: 134 QRS: 0 QRSD: 84 T: 55 QT: 352 QTc: 437 Interpretive Statements Normal sinus rhythm Electronically Signed On 07-03-2024 14:10:27 PST by Jelani Hinson
--- NOTE | 2024-07-03 11:38 | PC.NURSE ---
[facility] started patient on Norepinephrine 4mg/hr per [facility] EMT. Medication start 1054 and stopped upon arrival here at 1108. Pressures have remained stable with a MAP >65.
[2024-07-03 11:44] LABS: Add Manual Diff / Slide Review NO; Basophils Absolute Auto 100 /uL (0-100); Basophils Percent Auto 0.9 % (0-2); Eosinophils Absolute Auto 200 /uL (0-450); Eosinophils Percent Auto 1.4 % (2-4); Hematocrit 29.4 % (36-46); Hemoglobin 9.8 g/dL (12.0-16.0); Lymphocytes Absolute Auto 2300 /uL (1100-4500); Mean Corpuscular HGB Conc 33.3 % (30-36); Mean Corpuscular Hemoglobin 28.7 PG (26-34); Monocytes Absolute Auto 1300 /uL (0-900); Monocytes Percent Auto 7.5 % (3-14); Neutrophils Absolute Auto 12800 /uL (1500-7000); Neutrophils Percent Auto 76.2 % (50-75); Platelet Count 496 X10^3/uL (150-400); Red Blood Cell Count 3.41 X10^6/uL (4.0-5.2); Red Cell Distribution Width 14.4 % (11.6-14.8); White Blood Cell Count 16.8 X10^3/uL (4.5-11.0)
--- NOTE | 2024-07-03 11:49 | ED_ITS ---
HPI - Back Pain/Injury General Chief Complaint: Back Pain/Injury Stated Complaint: Sepsis Time Seen by Provider: 07/03/24 11:13 Source: patient and EMS History of Present Illness HPI Narrative: 69-year-old female with history of Towns's disease, recent lumbar back surgery by Dr. Banegas, complains of some back pain postoperative, feverish today, denies anterior abdominal discomfort, some more frequent urination, no incontinence of urine. No flank area discomfort. Denies chest pain shortness of breath, occasional cough. No injury or trauma since surgery. No indwelling Driscoll catheter or suprapubic catheter. Some nausea no vomiting. No loose stools, black or red stools. 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 Arrived by EMS, who felt patient had systolic blood pressure 64 in the field, IV fluids started, IV norepinephrine started pre-hospital, still infusing on arrival. Related Data Home Medications Medication Instructions Recorded Confirmed fludrocortisone 0.1 mg tablet 0.2 mg PO QAM 07/11/19 06/19/24 atorvastatin 40 mg tablet 40 mg PO DAILY 06/13/22 06/19/24 levothyroxine 75 mcg tablet 75 mcg PO QAM 12/07/23 06/19/24 (Synthroid) cyclobenzaprine 10 mg tablet 10 mg PO 3XD PRN Pain, Severe 04/07/24 06/19/24 acetaminophen 500 mg tablet 500 mg PO BID PRN Pain, Moderate 06/13/24 06/19/24 (Tylenol Extra Strength) albuterol sulfate 90 mcg/actuation 2 puff inhalation QID PRN asthma 06/13/24 06/19/24 aerosol inhaler hydrocortisone sod succ (PF) 100 100 mg IM DAILY PRN Towns's 06/13/24 06/19/24 mg/2 mL solution for injection crisis (Solu-Cortef Act-O-Vial (PF)) metformin 500 mg tablet 1,000 mg PO QAM 06/13/24 06/19/24 montelukast 10 mg tablet 10 mg PO QPM 06/13/24 06/13/24 pantoprazole 40 mg tablet,delayed 40 mg PO QPM 06/13/24 06/13/24 release trazodone 50 mg tablet 50 mg PO BEDTIME for insomnia 06/13/24 06/19/24 vibegron 75 mg tablet (Gemtesa) 75 mg PO QAM 06/13/24 06/13/24 Previous Rx's Medication Instructions Recorded hydrocortisone 10 mg tablet 10 mg PO BID #14 tabs 04/07/24 lisinopril 10 mg tablet 10 mg PO DAILY #7 tabs 04/07/24 duloxetine 60 mg capsule,delayed 60 mg PO DAILY #90 caps 04/19/24 release (Cymbalta) bisacodyl 10 mg rectal suppository [address] PRN PRN Constipation #12 06/24/24 ea oxycodone 5 mg tablet 5 mg PO Q4-6H PRN Pain, Moderate 06/24/24 (4-6) #40 tabs polyethylene glycol 3350 17 gram 17 g PO DAILY PRN Constipation 06/24/24 oral powder packet #100 ea Allergies Allergy/AdvReac Type Severity Reaction Status Date / Time shellfish derived Allergy Intermediate Hives Verified 06/19/24 06:41 latex Allergy Mild Rash Verified 06/19/24 06:41 pregabalin AdvReac Severe brain fog Verified 06/19/24 06:41 Review of Systems Review of Systems Narrative: See HPI Patient History Medical History (Updated 07/03/24 @ 16:46 by Андрей Moscoso MD) History of bladder stone Dysfunctional voiding of urine Bladder calculi Hx of thyroid disease Hx of osteoporosis Hx of osteoarthritis Hx of primary hypertension Hx of gastroesophageal reflux (GERD) Hx of diabetes mellitus Hx of chronic lymphocytic leukemia Hx of chronic arthritis Hx of iron deficiency anemia Weight gain due to medication Urine test positive for microalbuminuria Anxiety disorder Chronic bilateral low back pain with bilateral sciatica COVID-19 virus infection (01/06/22) Bruises easily CLL (chronic lymphocytic leukemia) Anxiety Urinary incontinence Constipation Cervical spinal stenosis Back pain Neck pain History of pneumonia Rectal bleeding Neck mass Tension headache, chronic Chronic neck pain Segmental and somatic dysfunction of abdomen and other regions Somatic dysfunction of sacral spine Pelvic somatic dysfunction Segmental and somatic dysfunction of lumbar region Segmental and somatic dysfunction of thoracic region Segmental and somatic dysfunction of rib cage Cervical somatic dysfunction Cranial somatic dysfunction Diabetes type 2, controlled HTN (hypertension) Adrenal crisis (~2016) Hyperpigmentation Adrenal insufficiency Pneumonia (~2008) Sleep apnea (~2005) Asthma (~1999) Abnormal chest x-ray (~2008) Depression (~1993) Headache (~2015) Bulging discs (~2015) Fibromyalgia (~1986) Chronic back pain (~2015) Mumps (~1967) Chicken pox Anemia (~2000) Cataracts, bilateral (~2018) Painful menstrual periods Ovarian cyst Irregular menstrual cycle Infertility (~1988) Heavy menstrual period Abnormal Pap smear of cervix Urinary incontinence in female (~2008) Fecal incontinence (~2016) GERD (gastroesophageal reflux disease) Hiatal hernia (~2004) Hemorrhoid (~2014) Towns's disease (~2001) Hypothyroidism (~2001) Diabetes mellitus (~2008) Chronic lymphocytic leukemia (~2001) Sinusitis Surgical History (Updated 06/24/24 @ 07:21 by Irish Cerda PA-C) History of cholecystectomy (09/2023) S/P cervical spinal fusion Hx of foot surgery (~07/2021) History of colonoscopy (10/05/21) H/O excision of mass (04/22/20) Status post blepharoplasty of both eyes Status post unicompartmental knee replacement, left (07/16/19) H/O hysterectomy with oophorectomy Status post epidural steroid injection Anesthesia History of bunionectomy (~1996) History of eyelid surgery (~2005) History of knee surgery History of bladder surgery History of oophorectomy (~2014) History of tonsillectomy (~1960) History of hysterectomy (~1994) Fibroids Family History Father Prostate cancer History of heart disease Hypertension Cancer Mother History of heart disease Hypertension Hyperlipidemia Mental health problem Stroke Coronary artery disease Sister Atrial fibrillation TIA (transient ischemic attack) Diabetes mellitus History of heart disease Hyperlipidemia Hypertension Stroke Lupus Fibromyalgia Cancer Thyroid disorder Urinary tract bacterial infections Grandfather Liver disease Grandmother History of heart disease Hyperlipidemia Hypertension Stroke Grandfather Stroke Grandmother Cancer Social History marital status: number of children: 2 household members: none occupational status: previously employed Smoking Status: Never smoker alcohol intake: current substance use type: does not use caffeine: Yes Type(s) of exercise: walking frequency: 5-6 times per week duration: 45-60 minutes/day Smoking Status: Never smoker alcohol intake frequency: holidays/special occasions only Substance Use Type: does not use Exam Narrative Exam Narrative: GENERAL: Well-developed patient, in mild distress. HEAD: Atraumatic. Normocephalic. EYES: Pupils equal round and reactive. Extraocular motions intact. No scleral icterus. No injection or drainage. ENT: Nose without bleeding, purulent drainage. Throat without erythema, tonsillar hypertrophy or exudate. Airway patent. NECK: Trachea midline. Non tender CARDIOVASCULAR: Regular rate and rhythm without murmurs, gallops, or rubs. RESPIRATORY: Clear to auscultation. Breath sounds equal bilaterally. No wheezes, rales, or rhonchi. GASTROINTESTINAL: Abdomen soft, non-tender, nondistended. EXTREMITIES: No edema or joint tenderness. BACK: Nontender without deformity or crepitance. No flank tenderness. NEURO: AOx3. Motor functions grossly nonfocal SKIN: No rash or erythema of visible areas Initial Vital Signs Initial Vital Signs: Vital Signs Pulse Rate 91 H 07/03/24 11:10 Pulse Oximetry 91 07/03/24 11:10 Oxygen Delivery Method Nasal Cannula 07/03/24 11:10 Oxygen Flow Rate 2 07/03/24 11:10 Procedures Central Line Placement Right Femoral: Time of procedure: 14:50 Time Out Performed: No Patient Placed on Monitor/Pulse Ox: Yes MD Prep: mask, gown and gloves Central Line Prep: Chlorhexidine scrub Local Anesthetic: lidocaine 1% and with epi Amount of anesthesia used (mL): 8 Ultrasound Used for Placement: Yes Central Line Lumen Inserted: triple Post Procedure: sutured in place, good blood return, all ports aspirated, flushed, capped and sterile dressing applied Patient Tolerated Procedure: Well Complications: none Course Orders Ordered: ED Orders 07/03/24 11:17 XR chest 1V Stat 07/03/24 11:19 CT chest abdomen w con Stat 07/03/24 11:22 EKG-12 Lead Stat 07/03/24 11:30 Ammonia (NH3) Stat Complete Blood Count AUTO DIFF Stat Comprehensive Metabolic Panel Stat Cortisol Random Stat Lactate (Lactic Acid) Stat Lipase Stat Procalcitonin Stat Respiratory Panel (Film Array) Stat 07/03/24 11:35 Blood Culture Stat 07/03/24 12:30 Urinalysis and Microscopic Stat Urine Culture Stat Discontinued Medications Hydrocortisone (Hydrocortisone 100 Mg/2 Ml Vial) 100 mg IV NOW ONE Stop: 07/03/24 11:16 Last Admin: 07/03/24 11:57 Dose: 100 mg Documented By: RB Vancomycin HCl/Dextrose (Vancomycin) 2,000 mg in 400 mls @ 200 mls/hr IV NOW ONE Stop: 07/03/24 13:15 Last Infusion: 07/03/24 15:00 Dose: Infused Documented By: Admin: 07/03/24 12:32 Dose: 200 mls/hr Documented By: RB Cefepime HCl 2 gm/ Sodium (Chloride) 100 mls @ 200 mls/hr IV NOW ONE Stop: 07/03/24 11:17 Last Infusion: 07/03/24 12:32 Dose: Infused Documented By: Admin: 07/03/24 11:57 Dose: 200 mls/hr Documented By: RB Sodium Chloride (Normal Saline 0.9%) 1,000 mls @ 2,000 mls/hr IV BOLUS ONE Stop: 07/03/24 11:49 Last Infusion: 07/03/24 13:11 Dose: Infused Documented By: Infusion: 07/03/24 12:01 Dose: 999 mls/hr Documented By: Admin: 07/03/24 11:56 Dose: 2,000 mls/hr Documented By: RB Acetaminophen (Ofirmev) 1,000 mg in 100 mls @ 400 mls/hr IV NOW ONE Stop: 07/03/24 12:59 Last Infusion: 07/03/24 13:08 Dose: Infused Documented By: Admin: 07/03/24 12:50 Dose: 400 mls/hr Documented By: RB NOREPINEPHRINE BITARTRATE/D5W (Levophed) 4 mg in 250 mls @ 30.702 mls/hr IV TITRATE STAR; Protocol Last Titration: 07/03/24 19:05 Dose: 0.05 mcg/kg/min, 15 mls/hr Documented By: Titration: 07/03/24 14:25 Dose: 0.05 mcg/kg/min, 15.351 mls/hr Documented By: Admin: 07/03/24 14:03 Dose: 0.1 mcg/kg/min, 30.702 mls/hr Documented By: TIARA Lidocaine/Epinephrine (Lidocaine 1% W/Epi 20ml) 20 ml INJ INTRA-OP ONE Stop: 07/03/24 13:51 Last Admin: 07/03/24 13:56 Dose: 20 ml Documented By: TIARA Vital Signs Vital signs: Vital Signs - 8 hr 07/03/24 11:30 07/03/24 11:34 07/03/24 11:36 Temperature Pulse Rate 98 H 96 H 95 H Respiratory Rate 38 H 38 H 37 H Blood Pressure Pulse Oximetry 91 96 99 Oxygen Delivery Method Oxygen Flow Rate 2 2 2 07/03/24 11:36 07/03/24 11:38 07/03/24 11:38 Temperature Pulse Rate 94 H Respiratory Rate 39 H Blood Pressure 118/56 L 109/54 L Pulse Oximetry 100 Oxygen Delivery Method Oxygen Flow Rate 2 07/03/24 11:40 07/03/24 11:45 07/03/24 11:50 Temperature Pulse Rate 94 H 93 H 93 H Respiratory Rate 45 H 31 H 33 H Blood Pressure Pulse Oximetry 99 Oxygen Delivery Method Nasal Cannula Oxygen Flow Rate 2 07/03/24 11:51 07/03/24 11:51 07/03/24 11:53 Temperature Pulse Rate 93 H 94 H Respiratory Rate 31 H 32 H Blood Pressure 111/57 L Pulse Oximetry 97 Oxygen Delivery Method Nasal Cannula Oxygen Flow Rate 2 07/03/24 11:53 07/03/24 11:54 07/03/24 11:54 Temperature Pulse Rate 92 H Respiratory Rate 35 H Blood Pressure 107/58 L 105/53 L Pulse Oximetry 96 Oxygen Delivery Method Nasal Cannula Oxygen Flow Rate 2 07/03/24 11:55 07/03/24 11:56 07/03/24 11:56 Temperature Pulse Rate 91 H 91 H Respiratory Rate 29 H 27 H Blood Pressure 106/53 L Pulse Oximetry 96 95 Oxygen Delivery Method Nasal Cannula Nasal Cannula Oxygen Flow Rate 2 2 07/03/24 11:58 07/03/24 11:58 07/03/24 12:00 Temperature Pulse Rate 91 H 93 H Respiratory Rate 33 H 34 H Blood Pressure 109/55 L Pulse Oximetry 96 96 Oxygen Delivery Method Nasal Cannula Nasal Cannula Oxygen Flow Rate 2 2 07/03/24 12:00 07/03/24 12:02 07/03/24 12:02 Temperature Pulse Rate 95 H Respiratory Rate 32 H Blood Pressure 102/53 L 107/55 L Pulse Oximetry 94 Oxygen Delivery Method Nasal Cannula Oxygen Flow Rate 2 07/03/24 12:04 07/03/24 12:04 07/03/24 12:05 Temperature Pulse Rate 95 H 94 H Respiratory Rate 37 H 34 H Blood Pressure 104/56 L Pulse Oximetry 94 96 Oxygen Delivery Method Nasal Cannula Nasal Cannula Oxygen Flow Rate 2 2 07/03/24 12:21 07/03/24 12:22 07/03/24 12:22 Temperature Pulse Rate 95 H 94 H Respiratory Rate 26 H 29 H Blood Pressure 106/53 L Pulse Oximetry 95 97 Oxygen Delivery Method Nasal Cannula Nasal Cannula Oxygen Flow Rate 2 2 07/03/24 12:25 07/03/24 12:25 07/03/24 12:30 Temperature Pulse Rate 96 H 96 H Respiratory Rate 28 H 29 H Blood Pressure 104/58 L Pulse Oximetry 98 96 Oxygen Delivery Method Nasal Cannula Nasal Cannula Oxygen Flow Rate 2 2 07/03/24 12:30 07/03/24 12:35 07/03/24 12:35 Temperature Pulse Rate 94 H Respiratory Rate 28 H Blood Pressure 101/51 L 99/51 L Pulse Oximetry 96 Oxygen Delivery Method Nasal Cannula Oxygen Flow Rate 2 07/03/24 12:40 07/03/24 12:40 07/03/24 12:45 Temperature 102.4 F H 103.3 F H Pulse Rate 93 H 93 H Respiratory Rate 31 H 24 Blood Pressure 97/55 L Pulse Oximetry 97 99 Oxygen Delivery Method Nasal Cannula Nasal Cannula Oxygen Flow Rate 2 2 07/03/24 12:45 07/03/24 12:50 07/03/24 12:50 Temperature 103.6 F H Pulse Rate 92 H Respiratory Rate 30 H Blood Pressure 101/57 L 96/52 L Pulse Oximetry 97 Oxygen Delivery Method Nasal Cannula Oxygen Flow Rate 2 07/03/24 12:55 07/03/24 12:55 07/03/24 13:00 Temperature 103.6 F H 103.6 F H Pulse Rate 95 H 94 H Respiratory Rate 22 24 Blood Pressure 100/55 L Pulse Oximetry 95 97 Oxygen Delivery Method Nasal Cannula Nasal Cannula Oxygen Flow Rate 2 2 07/03/24 13:00 07/03/24 13:23 07/03/24 13:23 Temperature 103.1 F H Pulse Rate 87 Respiratory Rate 24 Blood Pressure 96/51 L 81/45 L Pulse Oximetry 95 Oxygen Delivery Method Oxygen Flow Rate 07/03/24 13:25 07/03/24 13:25 07/03/24 13:30 Temperature 103.3 F H 103.1 F H Pulse Rate 88 86 Respiratory Rate 29 H 28 H Blood Pressure 85/46 L Pulse Oximetry 95 95 Oxygen Delivery Method Oxygen Flow Rate 07/03/24 13:30 07/03/24 13:35 07/03/24 13:38 Temperature 102.9 F H 102.7 F H Pulse Rate 88 86 Respiratory Rate 35 H 27 H Blood Pressure 84/48 L Pulse Oximetry 93 Oxygen Delivery Method Oxygen Flow Rate 07/03/24 13:38 07/03/24 13:40 07/03/24 13:40 Temperature 102.7 F H Pulse Rate 86 Respiratory Rate 29 H Blood Pressure 77/48 L 89/52 L Pulse Oximetry 93 Oxygen Delivery Method Oxygen Flow Rate 07/03/24 13:45 07/03/24 13:45 07/03/24 13:50 Temperature 102.4 F H 102.2 F H Pulse Rate 86 87 Respiratory Rate 27 H 27 H Blood Pressure 90/55 L Pulse Oximetry 92 92 Oxygen Delivery Method Oxygen Flow Rate 07/03/24 13:50 07/03/24 13:55 07/03/24 13:55 Temperature 102.0 F H Pulse Rate 86 Respiratory Rate 31 H Blood Pressure 89/50 L 80/52 L Pulse Oximetry 94 Oxygen Delivery Method Oxygen Flow Rate 07/03/24 14:00 07/03/24 14:00 07/03/24 14:05 Temperature 102.0 F H 101.8 F H Pulse Rate 85 85 Respiratory Rate 26 H 28 H Blood Pressure 86/52 L Pulse Oximetry 93 94 Oxygen Delivery Method Oxygen Flow Rate 07/03/24 14:05 07/03/24 14:10 07/03/24 14:10 Temperature 101.5 F H Pulse Rate 85 Respiratory Rate 29 H Blood Pressure 90/53 L 91/50 L Pulse Oximetry 93 Oxygen Delivery Method Oxygen Flow Rate 07/03/24 14:15 07/03/24 14:15 07/03/24 14:20 Temperature 101.5 F H 101.5 F H Pulse Rate 86 87 Respiratory Rate 30 H 28 H Blood Pressure 154/69 H Pulse Oximetry 93 91 Oxygen Delivery Method Oxygen Flow Rate 07/03/24 14:21 07/03/24 14:21 07/03/24 14:25 Temperature 101.3 F H 101.3 F H Pulse Rate 86 84 Respiratory Rate 30 H 30 H Blood Pressure 98/55 L Pulse Oximetry 89 L 91 Oxygen Delivery Method Oxygen Flow Rate 07/03/24 14:25 07/03/24 14:30 07/03/24 14:30 Temperature 101.3 F H Pulse Rate 82 Respiratory Rate 26 H Blood Pressure 104/56 L 99/55 L Pulse Oximetry 92 Oxygen Delivery Method Oxygen Flow Rate 07/03/24 14:35 07/03/24 14:35 07/03/24 14:40 Temperature 101.1 F H 100.9 F H Pulse Rate 82 83 Respiratory Rate 31 H 34 H Blood Pressure 89/48 L Pulse Oximetry 93 92 Oxygen Delivery Method Oxygen Flow Rate 07/03/24 14:40 07/03/24 14:45 07/03/24 14:45 Temperature 100.9 F H Pulse Rate 83 Respiratory Rate 29 H Blood Pressure 108/57 L 111/59 L Pulse Oximetry 93 Oxygen Delivery Method Oxygen Flow Rate 07/03/24 14:50 07/03/24 14:50 07/03/24 14:55 Temperature 100.8 F H Pulse Rate 85 Respiratory Rate 28 H Blood Pressure 106/54 L 107/54 L Pulse Oximetry 93 Oxygen Delivery Method Oxygen Flow Rate 07/03/24 14:55 07/03/24 15:00 07/03/24 15:00 Temperature 100.6 F H 100.4 F H Pulse Rate 83 83 Respiratory Rate 27 H 23 Blood Pressure 110/55 L Pulse Oximetry 93 92 Oxygen Delivery Method Oxygen Flow Rate 07/03/24 15:05 07/03/24 15:05 07/03/24 15:10 Temperature 100.2 F H 100.2 F H Pulse Rate 83 83 Respiratory Rate 20 18 Blood Pressure 112/53 L Pulse Oximetry 93 94 Oxygen Delivery Method Oxygen Flow Rate 07/03/24 15:10 07/03/24 15:15 07/03/24 15:15 Temperature 100.0 F H Pulse Rate 83 Respiratory Rate 22 Blood Pressure 110/53 L 107/53 L Pulse Oximetry 94 Oxygen Delivery Method High Flow Nasal Cannula Oxygen Flow Rate 2 07/03/24 15:20 07/03/24 15:20 07/03/24 15:25 Temperature 100.0 F H 99.9 F H Pulse Rate 83 83 Respiratory Rate 19 21 Blood Pressure 111/56 L Pulse Oximetry 95 95 Oxygen Delivery Method Nasal Cannula Oxygen Flow Rate 2 07/03/24 15:25 07/03/24 15:30 07/03/24 15:30 Temperature 99.7 F H Pulse Rate 81 Respiratory Rate 16 Blood Pressure 114/56 L 109/51 L Pulse Oximetry 95 Oxygen Delivery Method Oxygen Flow Rate 07/03/24 15:35 07/03/24 15:35 07/03/24 15:40 Temperature 99.7 F H 99.7 F H Pulse Rate 81 82 Respiratory Rate 19 26 H Blood Pressure 108/53 L Pulse Oximetry 95 96 Oxygen Delivery Method Nasal Cannula Oxygen Flow Rate 2 07/03/24 15:40 07/03/24 15:45 07/03/24 15:45 Temperature 99.5 F Pulse Rate 81 Respiratory Rate 18 Blood Pressure 99/52 L 112/57 L Pulse Oximetry 94 Oxygen Delivery Method Oxygen Flow Rate 07/03/24 15:50 07/03/24 15:50 07/03/24 15:55 Temperature 99.5 F 99.5 F Pulse Rate 80 80 Respiratory Rate 17 19 Blood Pressure 107/58 L Pulse Oximetry 95 96 Oxygen Delivery Method Oxygen Flow Rate 07/03/24 15:55 07/03/24 16:00 07/03/24 16:00 Temperature 99.3 F Pulse Rate 80 Respiratory Rate 15 Blood Pressure 108/55 L 108/53 L Pulse Oximetry 95 Oxygen Delivery Method Nasal Cannula Oxygen Flow Rate 2 07/03/24 16:05 07/03/24 16:05 07/03/24 16:10 Temperature 99.3 F Pulse Rate 80 Respiratory Rate 16 Blood Pressure 107/53 L 109/55 L Pulse Oximetry 96 Oxygen Delivery Method Oxygen Flow Rate 07/03/24 16:10 07/03/24 16:15 07/03/24 16:15 Temperature 99.1 F 99.1 F Pulse Rate 80 80 Respiratory Rate 18 16 Blood Pressure 110/57 L Pulse Oximetry 96 96 Oxygen Delivery Method Nasal Cannula Oxygen Flow Rate 2 07/03/24 16:20 07/03/24 16:20 07/03/24 16:25 Temperature 99.0 F 99.0 F Pulse Rate 79 79 Respiratory Rate 16 17 Blood Pressure 110/55 L Pulse Oximetry 95 96 Oxygen Delivery Method Nasal Cannula Oxygen Flow Rate 2 07/03/24 16:25 07/03/24 16:30 07/03/24 16:30 Temperature 98.8 F Pulse Rate 78 Respiratory Rate 16 Blood Pressure 110/55 L 101/55 L Pulse Oximetry 96 Oxygen Delivery Method Oxygen Flow Rate 07/03/24 16:35 07/03/24 16:35 07/03/24 16:40 Temperature 98.8 F 98.8 F Pulse Rate 79 78 Respiratory Rate 17 20 Blood Pressure 110/59 L Pulse Oximetry 97 96 Oxygen Delivery Method Nasal Cannula Oxygen Flow Rate 2 07/03/24 16:40 07/03/24 17:00 07/03/24 17:00 Temperature 98.6 F Pulse Rate 78 Respiratory Rate 15 Blood Pressure 111/59 L 109/58 L Pulse Oximetry 96 Oxygen Delivery Method Oxygen Flow Rate 07/03/24 17:05 07/03/24 17:05 07/03/24 17:10 Temperature 98.6 F 98.6 F Pulse Rate 78 78 Respiratory Rate 21 20 Blood Pressure 115/56 L Pulse Oximetry 96 96 Oxygen Delivery Method Oxygen Flow Rate 07/03/24 17:10 07/03/24 17:15 07/03/24 17:15 Temperature 98.6 F Pulse Rate 75 Respiratory Rate 16 Blood Pressure 116/58 L 109/55 L Pulse Oximetry 97 Oxygen Delivery Method Oxygen Flow Rate 07/03/24 17:20 07/03/24 17:20 07/03/24 17:25 Temperature 98.6 F 98.6 F Pulse Rate 75 75 Respiratory Rate 14 14 Blood Pressure 110/57 L Pulse Oximetry 98 98 Oxygen Delivery Method Oxygen Flow Rate 07/03/24 17:25 07/03/24 17:30 07/03/24 17:30 Temperature 98.4 F Pulse Rate 75 Respiratory Rate 14 Blood Pressure 103/59 L 112/55 L Pulse Oximetry 99 Oxygen Delivery Method Oxygen Flow Rate 07/03/24 17:35 07/03/24 17:35 07/03/24 17:40 Temperature 98.4 F 98.4 F Pulse Rate 75 74 Respiratory Rate 20 16 Blood Pressure 107/57 L Pulse Oximetry 91 92 Oxygen Delivery Method Oxygen Flow Rate 07/03/24 17:40 07/03/24 17:45 07/03/24 17:45 Temperature 98.4 F Pulse Rate 74 Respiratory Rate 14 Blood Pressure 107/58 L 111/59 L Pulse Oximetry 97 Oxygen Delivery Method Oxygen Flow Rate 07/03/24 17:50 07/03/24 17:50 07/03/24 17:55 Temperature 98.2 F 98.2 F Pulse Rate 73 74 Respiratory Rate 15 15 Blood Pressure 106/59 L Pulse Oximetry 99 98 Oxygen Delivery Method Oxygen Flow Rate 07/03/24 17:55 07/03/24 18:00 07/03/24 18:00 Temperature 98.1 F Pulse Rate 75 Respiratory Rate 19 Blood Pressure 110/59 L 112/57 L Pulse Oximetry 97 Oxygen Delivery Method Oxygen Flow Rate 07/03/24 18:05 07/03/24 18:05 07/03/24 18:10 Temperature 98.1 F 98.1 F Pulse Rate 74 73 Respiratory Rate 13 16 Blood Pressure 113/57 L Pulse Oximetry 97 97 Oxygen Delivery Method Oxygen Flow Rate 07/03/24 18:10 07/03/24 18:15 07/03/24 18:16 Temperature 97.9 F Pulse Rate 75 Respiratory Rate 19 Blood Pressure 110/58 L 136/63 Pulse Oximetry 95 Oxygen Delivery Method Oxygen Flow Rate 07/03/24 18:16 07/03/24 18:20 07/03/24 18:20 Temperature 98.1 F 98.1 F Pulse Rate 75 74 Respiratory Rate 23 16 Blood Pressure 124/55 L Pulse Oximetry 96 96 Oxygen Delivery Method Oxygen Flow Rate 07/03/24 18:25 07/03/24 18:25 07/03/24 18:30 Temperature 98.1 F 98.1 F Pulse Rate 76 74 Respiratory Rate 26 H 22 Blood Pressure 112/52 L Pulse Oximetry 98 98 Oxygen Delivery Method Oxygen Flow Rate 07/03/24 18:30 07/03/24 18:35 07/03/24 18:35 Temperature 98.2 F Pulse Rate 75 Respiratory Rate 29 H Blood Pressure 123/61 135/63 Pulse Oximetry 97 Oxygen Delivery Method Oxygen Flow Rate 07/03/24 18:40 07/03/24 18:40 07/03/24 18:45 Temperature 98.2 F 98.2 F Pulse Rate 74 75 Respiratory Rate 21 31 H Blood Pressure 125/64 Pulse Oximetry 95 98 Oxygen Delivery Method Oxygen Flow Rate 07/03/24 18:45 07/03/24 18:50 07/03/24 18:50 Temperature 98.4 F Pulse Rate 74 Respiratory Rate 25 H Blood Pressure 126/62 125/61 Pulse Oximetry 96 Oxygen Delivery Method Oxygen Flow Rate 07/03/24 18:55 07/03/24 18:55 07/03/24 19:00 Temperature 98.4 F 98.4 F Pulse Rate 74 Respiratory Rate 28 H Blood Pressure 122/60 Pulse Oximetry 97 Oxygen Delivery Method Oxygen Flow Rate MDM - Back Pain/Injury Lab Data Attestation: I reviewed the patient's lab results. Lab results narrative: White blood cell count 98975, hemoglobin 9.8, platelets [id number]. Basic metabolic panel shows sodium 133 with glucose 100, otherwise unremarkable. 07/03/24 11:30 07/03/24 11:30 Labs: Lab Results 07/03/24 07/03/24 Range/Units 11:30 12:30 WBC 16.8 H (4.5-11.0) X10^3/uL RBC 3.41 L (4.0-5.2) X10^6/uL Hgb 9.8 L (12.0-16.0) g/dL Hct 29.4 L (36-46) % MCV 86.0 (80-100) fL MCH 28.7 (26-34) PG MCHC 33.3 (30-36) % RDW 14.4 (11.6-14.8) % Plt Count 496 H (150-400) X10^3/uL Neut % (Auto) 76.2 H (50-75) % Lymph % (Auto) 14.0 L (25-40) % [place] % (Auto) 7.5 (3-14) % Eos % (Auto) 1.4 L (2-4) % Baso % (Auto) 0.9 (0-2) % Neut # (Auto) 19254 H (2558-2067) /uL Lymph # (Auto) 2300 (1009-7856) /uL [place] # (Auto) 1300 H (0-900) /uL Eos # (Auto) 200 (0-450) /uL Baso # (Auto) 100 (0-100) /uL Sodium 133 L (137-145) mmol/L Potassium 3.6 (3.4-5.1) mmol/L Chloride 102 (98-107) mmol/L Carbon Dioxide 26 (22-32) mmol/L BUN 12 (7-17) mg/dL Creatinine 0.61 (0.52-1.04) mg/dL Estimated GFR > 60 (>60) mL/min BUN/Creatinine Ratio 19.7 (6-22) Glucose 100 (80-110) mg/dL Lactate 1.2 (0.7-2.1) mmol/L Calcium 8.1 L (8.4-10.2) mg/dL Total Bilirubin 0.6 (0.2-1.3) mg/dL AST 58 H (14-36) IU/L ALT 39 H (<35) IU/L Alkaline Phosphatase 114 (38-126) U/L Ammonia < 9 L (9-30) umol/L Total Protein 6.0 L (6.3-8.2) g/dL Albumin 3.3 L (3.5-5.0) g/dL Globulin 2.7 (1.7-4.1) g/dL Albumin/Globulin Ratio 1.2 (1.0-2.8) Lipase 59 (23-300) U/L Procalcitonin 0.141 (<0.5) ng/mL Random Cortisol < 0.16 ug/dL Urine Color Yellow Urine Appearance Sl cloudy Urine pH 7.0 (4.5-8.0) Ur Specific [place] 1.010 (1.000-1.035) Urine Protein Trace H (Negative) Urine Glucose (UA) Negative (Negative) g/dL Urine Ketones Negative (NEGATIVE) Urine Occult Blood Trace-intact (Negative) Urine Nitrate Positive H (Negative) Urine Bilirubin Negative (NEGATIVE) Urine Urobilinogen 1.0 (0.2) E.U./dL Ur Leukocyte Esterase 2+ H (NEGATIVE) Urine RBC 0-1/hpf (0-5/HPF) Urine WBC 30-100/hpf H (0-5/HPF) Ur Squamous Epith Cells None seen (0-5/HPF) Urine Bacteria Moderate (10-30) H (None) Ur Culture Indicated? Specimen cultured Vol Urine Centrifuged 10ml (spun) Chlamy pneumoniae PCR Not detected (Not Detect) Adenovirus (PCR) Not detected (Not Detect) B. pertussis DNA (PCR) Not detected (Not Detect) B.parapertussis DNA PCR Not detected (Not Detecte) Coronavirus OC43 (PCR) Not detected (Not Detect) Coronavirus HKU1 (PCR) Not detected (Not Detect) Coronavirus 229E (PCR) Not detected (Not Detect) SARS-CoV-2 (PCR) Not detected (Not Detecte) Coronavirus NL63 (PCR) Not detected (Not Detect) Human Metapneumovir PCR Not detected (Not Detect) Influenza Type A (PCR) Not detected (Not Detect) Influenza Type B (PCR) Not detected (Not Detect) M. pneumoniae (PCR) Not detected (Not Detect) Parainfluenza 1 (PCR) Not detected (Not Detect) Parainfluenza 2 (PCR) Not detected (Not Detect) Parainfluenza 3 (PCR) Not detected (Not Detect) Parainfluenza 4 (PCR) Not detected (Not Detect) RSV (PCR) Not detected (Not Detect) Entero/Rhino (PCR) Not detected (Not Detect) ECG Data Attestation: I personally reviewed and interpreted this ECG as follows: Interpretation: Normal sinus rhythm with rate of 93, no obvious ST segment elevation or depression changes. CT 134, QRS 84, QTC 437. MDM Narrative Medical decision making narrative: 69-year-old female with fever and generalized weakness, history of Towns's taking oral steroid replacement, feverish today with back pain, recent lumbar surgery noted. Concern for possible postoperative surgical infection or other cause of symptoms. Pre-hospital hypotension, norepinephrine started in the field. Normotensive on arrival, nursing discontinue the pressor, blood pressure seemed to be maintained, hold pressors for now, IV fluid bolus. Labs pending including lactate and urinalysis. If renal function adequate consider CT abdomen and pelvis imaging, if negative consider MRI spine imaging with contrast. Add chest x-ray, respiratory panel. White blood cell count [id number], early empiric antibiotics after blood cultures, IV vancomycin and IV cefepime given recent lumbar surgical intervention. IV fluid bolus. Lactate not elevated. Chest x-ray unremarkable, respiratory panel negative. Urinalysis suspicious for infection, urine culture pending, IV antibiotics initiated prior empirically. CT abdomen and pelvis with IV contrast. Impressions: ?Fluid collection at the superior pole of left kidney measuring 2.7 cm, may represent an abscess. There is significant surrounding inflammation. Wall thickening of the bilateral renal collecting systems and ureters, greater on the left with surrounding inflammation. Wall thickening of the urinary bladder. Findings are most consistent with infection, recommend correlation with urinalysis. Small right pleural effusion. Uupek-[id number]-left lower lobe consolidative opacities, may represent infection or aspiration. Large stool burden, correlate for constipation.? See radiology report Blood pressure drifting down despite fluids, prior peripheral pressor, restart peripheral IV norepinephrine. We will place central line. Ultrasound screening good right IJ site, however patient has history of neck surgery, feels reluctant to hold her neck and lateral position for placement, prefers femoral access site when options discussed. We will place central line right femoral region. See procedure note. Right femoral vein central line placed, flushes easily, peripheral norepinephrine transition to central access, titrate for map greater than 65. Patient has renal abscess, we will consult Urology, distant urology on-call [facility], likely will need transfer, possible interventional radiology drainage with Urology backup, versus other approach. She has possible reason for her infection and back pain, we will hold MRI spinal imaging for now. 1530, case discussed with Katrin Pres[facility] Inter[facility], who feels renal abscess less than 3 cm diameter not typically drained percutaneously, but they could be available for further consultation. Await call back from Katrin Prescott, no Urology locally on-call, no interventional services here. Patient still on norepinephrine pressor, through central line, adequate MAP at this time. 1545, case discussed with intake Olinda Addison, await call back 1600, case discussed with real estate management specialist Katrin Sandhu, accepts for transfer, await bed availability 1630, case discssued with real estate management specialist Olinda May, accepts for transfer, await bed availability 1645, bed available Olinda Addison, we will arrange transport Critical Care Time Critical Care Time Critical Care Time: Yes Total Critical Care Time: 45 Attestation: The high probability of a clinically significant, sudden or life threatening deterioration of the [genitourinary, abdominopelvic, cardiovascular] system(s) required my full and direct attention, intervention and personal management. Resuscitation with fluids and eventual pressor therapy to support blood pressure, antibiotics to address suspected infection that was confirmed on imaging, requires surgical drainage with specialty services not available here, multiple specialty consultations by phone to coordinate tertiary care. The aggregate critical care time was [45] minutes. This time is in addition to time spent performing reported procedures but includes the following: [x] Data Review and interpretation [x] Patient assessment and monitoring of vital signs [x] Documentation [x] Medication orders and management Discharge Plan Departure Patient Disposition: [facility] Clinical Impression: Abscess of left kidney, Urinary tract infection, Septic shock, Generalized weakness, History of Towns's disease Prescriptions: No Action cyclobenzaprine 10 mg tablet 10 mg PO 3XD PRN (Reason: Pain, Severe) lisinopril 10 mg tablet 10 mg PO DAILY Qty: 7 0RF Rx Instructions: PT WILL NEED TO BE SEEN BEFORE NEXT RENWAL 03/27/24 hydrocortisone 10 mg tablet 10 mg PO BID Qty: 14 0RF duloxetine [Cymbalta] 60 mg capsule,delayed release(DR/EC) 60 mg PO DAILY Qty: 90 0RF Rx Instructions: PT WILL NEED TO SEE HER PCP BEFORE NEXT RENEWAL 04/19/24 fludrocortisone 0.1 mg Tablet 0.2 mg PO QAM atorvastatin 40 mg tablet 40 mg PO DAILY metformin 500 mg tablet 1,000 mg PO QAM trazodone 50 mg tablet 50 mg PO BEDTIME pantoprazole 40 mg tablet,delayed release (DR/EC) 40 mg PO QPM montelukast 10 mg tablet 10 mg PO QPM Solu-Cortef Act-O-Vial (PF) 100 mg/2 mL recon soln 100 mg IM DAILY PRN (Reason: Towns's crisis) Gemtesa 75 mg tablet 75 mg PO QAM acetaminophen [Tylenol Extra Strength] 500 mg Tablet 500 mg PO BID PRN (Reason: Pain, Moderate) albuterol sulfate 90 mcg/actuation Hfa Aerosol Inhaler 2 puff INHALATION QID PRN (Reason: asthma) bisacodyl 10 mg Suppository [address] PRN PRN (Reason: Constipation) Qty: 12 0RF oxycodone 5 mg Tablet 5 mg PO Q4-6H PRN (Reason: Pain, Moderate (4-6)) Qty: 40 0RF polyethylene glycol 3350 17 gram Powder In Packet 17 g PO DAILY PRN (Reason: Constipation) Qty: 100 0RF levothyroxine [Synthroid] 75 mcg tablet 75 mcg PO QAM Referrals: Pradip Vasquez DO [Primary Care Provider] -
[2024-07-03 11:56] LABS: Alanine Aminotransferase 39 IU/L (<35); Albumin 3.3 g/dL (3.5-5.0); Albumin Globulin Ratio 1.2 (1.0-2.8); Alkaline Phosphatase 114 U/L (38-126); Aspartate Aminotransferase 58 IU/L (14-36); BUN Creatinine Ratio 19.7 (6-22); Bilirubin Total 0.6 mg/dL (0.2-1.3); Blood Urea Nitrogen 12 mg/dL (7-17); Calcium 8.1 mg/dL (8.4-10.2); Carbon Dioxide 26 mmol/L (22-32); Chloride 102 mmol/L (98-107); Estimated Glomerular Filt Rate > 60 mL/min (>60); Globulin 2.7 g/dL (1.7-4.1); Glucose 100 mg/dL (80-110); HEMOLYSIS 40 (0-50); Lipase 59 U/L (23-300); Potassium 3.6 mmol/L (3.4-5.1); Sodium 133 mmol/L (137-145)
[2024-07-03] MEDS: SODIUM CHLORIDE 0.9% 1,000 ML 2000 ML IV (11:56)
[2024-07-03 11:57] LABS: Ammonia (NH3) < 9 umol/L (9-30)
[2024-07-03] MEDS: HYDROCORTISONE 100 MG/2 ML VIAL IV (11:57)
[2024-07-03] MEDS: CEFEPIME 2 GM in SODIUM CHLORIDE 0.9% 100 ML IV (11:57)
--- NOTE | 2024-07-03 12:01 | PC.NURSE ---
Normal saline placed at 999ml/hr as this as fast as it can go on a pump and patient blood pressure is stable. Provider agreed that this was acceptable.
[2024-07-03 12:04] LABS: Lactate (Lactic Acid) 1.2 mmol/L (0.7-2.1)
[2024-07-03 12:14] LABS: Procalcitonin 0.141 ng/mL (<0.5)
[2024-07-03 12:24] LABS: Adenovirus Not Detected (Not Detect); B. parapertussis Not Detected (Not Detecte); Bordetella pertussis Not Detected (Not Detect); Chlamydophila pneumoniae Not Detected (Not Detect); Coronavirus 229E Not Detected (Not Detect); Coronavirus HKU1 Not Detected (Not Detect); Coronavirus NL 63 Not Detected (Not Detect); Coronavirus OC43 Not Detected (Not Detect); Human Metapneumovirus Not Detected (Not Detect); Human Rhinovirus/Enterovirus Not Detected (Not Detect); Influenza A Not Detected (Not Detect); Influenza B Not Detected (Not Detect); Mycoplasma pneumoniae Not Detected (Not Detect); Parainfluenza Virus 1 Not Detected (Not Detect); Parainfluenza Virus 2 Not Detected (Not Detect); Parainfluenza Virus 3 Not Detected (Not Detect); Parainfluenza Virus 4 Not Detected (Not Detect); Respiratory Syncytial Virus Not Detected (Not Detect); SARS- CoV-2 Not Detected (Not Detecte)
[2024-07-03 12:27] LABS: Cortisol Random < 0.16 ug/dL
[2024-07-03] MEDS: VANCOMYCIN 2,000 MG/400 ML PIGGYBACK 200 MG IV (12:32)
[2024-07-03] MEDS: ACETAMINOPHEN IV 1,000 MG/100 ML VIAL 400 MG IV (12:50)
[2024-07-03 12:59] LABS: Appearance Urine UA SL CLOUDY; Bilirubin Urine UA NEGATIVE (NEGATIVE); Color Urine UA YELLOW; Glucose Urine UA NEGATIVE (Negative); Ketones Urine UA NEGATIVE (NEGATIVE); Leukocyte Esterase Urine UA 2+ (NEGATIVE); Nitrite Urine UA POSITIVE (Negative); Occult Blood Urine UA TRACE-INTACT (Negative); Protein Urine UA TRACE (Negative)
[2024-07-03 13:05] LABS: RBC Urine 0-1/HPF (0-5/HPF); Urine Volume 10mL (spun)
[2024-07-03 13:06] LABS: Bacteria Urine Moderate (10-30); Culture Indicated Urine Specimen Cultured; Squamous Epithelial Cell Urine None Seen (0-5/HPF); WBC Urine 30-100/HPF (0-5/HPF)
--- NOTE | 2024-07-03 13:30 | PC.NURSE ---
SBP dripped below 85, provider notified, pt moved to rm 2 for placement of central line
[2024-07-03] MEDS: LIDOCAINE 1% W/EPI 20ML 20 ML INJ (13:56)
[2024-07-03] MEDS: NOREPINEPHRINE BITARTRATE/D5W 4 MG/250 ML PLAST..BAG 30.702 MG IV (14:03)
--- NOTE | 2024-07-03 15:20 | PC.NURSE ---
Hospital Call List for Patient Transfer 1434: [facility], spoke with Juana, patient not on wait list due to being treat and transfer for IR 1437: [facility], spoke with Mc, patient on wait list 1459: [facility], spoke with Joelle, patient on wait list. 1506: [facility], spoke with Van, stated he will call back when he is available.
== END 2024-07-03 19:08 | disposition short-term general hospital (02) ==
PROVIDERS: Emergency Provider Emergency Medicine; PCP Family Medicine
DX: A41.9 Sepsis, unspecified organism (principal); R65.21 Severe sepsis with septic shock; N15.1 Renal and perinephric abscess; R50.9 Fever, unspecified; N39.0 Urinary tract infection, site not specified; R53.1 Weakness; I95.9 Hypotension, unspecified; R79.89 Other specified abnormal findings of blood chemistry; Z86.39 Personal history of other endocrine, nutritional and metabolic disease; Z98.1 Arthrodesis status
CPT/HCPCS: 36415; 36569; 71045; 71260; 74160; 80053; 81001; 82140; 82533; 83605; 83690; 84145; 85025; 87040; 87077; 87086; 87186; 87633; 93005; 96365; 96366; 96367; 96368; 96375; 99285; 99291; J0134; J0692; J1720; Q9967

== ENCOUNTER → 2024-08-10 10:51 | Outpatient (CLI) | payer MEDICARE, OTHER, SELFPAY ==
[2024-06-19 12:21] VITALS: BMI 28.8
--- NOTE | 2024-08-10 10:52 | DI.MRI.S_ITS ---
PROCEDURE: MR ABDOMEN LIVER PROTOCOL INDICATIONS: new liver lesion seen on CT TECHNIQUE: Coronal HASTE, axial 2D FLASH in- and [id number]; axial breath-hold T2 FSE. Dynamic axial VIBE during the administration of contrast; post-contrast coronal VIBE or 2D FLASH with fat saturation from the hepatic dome to the iliac crests. Optional diffusion weighted imaging and ADC may be performed. COMPARISON: [facility], CT, CT CHEST ABD PEL W CON, 07/03/2024, 12:15. FINDINGS: Image quality: Diagnostic. Lung bases: Unremarkable. Liver: No solid mass. There is a vascular shunt in segment 4 of the liver measuring 1 cm (series 12, image 33). Gallbladder: No gallstones or wall thickening. Biliary ducts: No biliary dilation. Pancreas: No ductal dilation. Tiny dilated pancreatic side branch in the pancreatic head. Spleen: Size is within normal limits. Adrenal Glands: No adrenal nodules. Kidneys and Ureters: Rim enhancing lesion on the superior pole of the left kidney measuring 1.1 x 1.3 cm, previously 2.8 x 2.5 cm. Significant reduction renal edema. Stomach and Bowel: Normal colonic caliber, without significant wall thickening. Peritoneum: No abnormal intraperitoneal fluid. No free air. Ventral Wall: No hernia. Abdominal Nodes: No retroperitoneal or mesenteric adenopathy by size criteria. Vessels: Aorta and inferior vena cava are normal in size. Bones: No aggressive osseous abnormality. IMPRESSION: No hepatic mass. A benign vascular shunt is present in segment 4. Rim enhancing lesion on the superior pole of the left kidney measuring 1.1 x 1.3 cm, previously 2.8 x 2.5 cm. This probably represents a small residual abscess given appearance on 07/03/2024. Recommend 3 month follow-up with ultrasound to ensure resolution. Dictated by: Ja Nguyen M.D. on 08/12/2024 at 10:17 Approved by: Ja Nguyen M.D. on 08/12/2024 at 10:28
== END ==
LOC: MRI 10:51
PROVIDERS: PCP Family Medicine; Referring Provider Family Medicine; Visit Provider Family Medicine
DX: K76.9 Liver disease, unspecified (principal); N28.9 Disorder of kidney and ureter, unspecified
CPT/HCPCS: 74183; A9579

== ENCOUNTER → 2024-10-15 14:24 | Outpatient (CLI) | payer MEDICARE, OTHER, SELFPAY ==
[2024-06-19 12:21] VITALS: BMI 28.8
== END ==
PROVIDERS: PCP Family Medicine; Visit Provider Urology
DX: R39.9 Unspecified symptoms and signs involving the genitourinary system (principal)
CPT/HCPCS: 87086

== ENCOUNTER → 2024-10-22 10:09 | Outpatient (CLI) | payer MEDICARE, OTHER, SELFPAY ==
[2024-06-19 12:21] VITALS: BMI 28.8
--- NOTE | 2024-10-22 10:13 | DI.CT.S_ITS ---
PROCEDURE: CT IVP A/P W/WO INDICATIONS: Follow-up paraspinal abscess/left renal TECHNIQUE: Noncontrast images acquired from the diaphragm to the symphysis pubis. After the administration of intravenous contrast, 5 mm thick images acquired from the diaphragm to the symphysis pubis after a 10-minute delay. 2 mm thick coronal and sagittal reformats were then performed of the kidneys and ureters. For radiation dose reduction, the following was used: automated exposure control, adjustment of mA and/or kV according to patient size. COMPARISON: [facility], CT, CT CHEST ABD PEL W CON, 07/03/2024, 12:15. [facility], MR, MR ABDOMEN LIVER PROTOCOL, 08/10/2024, 11:03. FINDINGS: Image quality: Diagnostic. Kidneys and Ureters: Both kidneys are normal in size, without hydronephrosis or nephrolithiasis. Subtle area of hypodensity at the superior pole the left kidney measuring approximately 1.1 cm, (5/33) stable to slightly decreased. Less of a rounded appearance. No striated nephrogram. Renal calyces appear normal in morphology when filled with contrast. Opacified portions of both ureters demonstrate normal caliber. Bladder: Bladder wall thickness is normal. No calcified bladder stones. OTHER: Lower chest: No pleural effusion. Liver: No solid mass. Gallbladder: Absent. Biliary ducts: No biliary dilation. Pancreas: No ductal dilation. Spleen: Size is within normal limits. Adrenal Glands: No adrenal nodules. Stomach and Bowel: Normal colonic caliber, without significant wall thickening. Normal appendix. Prominent stool in the colon. Peritoneum: No abnormal intraperitoneal fluid. No free air. Ventral Wall: No hernia. Abdominal Nodes: No retroperitoneal or mesenteric adenopathy by size criteria. Vessels: Aorta and inferior vena cava are normal in size. PELVIS: Pelvic Organs: Uterus is absent. Pelvic descent. Pelvic Nodes: No enlarged lymph nodes. Miscellaneous: No inguinal hernias are seen. No posterior paraspinal fluid collection. Trace scarring. Bones: No aggressive osseous abnormality. L4-S1 pedicle screw fixation. IMPRESSION: 1. Left kidney superior pole subtle hypodensity. Sequelae of prior abscess. 2. No fluid collection at the posterior paraspinal musculature. Trace scarring. 3. No hydronephrosis. No kidney stones. Dictated by: Van Mares M.D. on 10/22/2024 at 13:47 Approved by: Van Mares M.D. on 10/22/2024 at 14:03
[2024-10-22 11:07] LABS: Estimated Glomerular Filt Rate > 60 mL/min (>60)
== END ==
PROVIDERS: PCP Family Medicine; Referring Provider Urology; Visit Provider Urology
DX: N15.1 Renal and perinephric abscess (principal); M46.20 Osteomyelitis of vertebra, site unspecified; Z90.49 Acquired absence of other specified parts of digestive tract
CPT/HCPCS: 36415; 74178; 82565; Q9967

== ENCOUNTER → 2024-11-09 | Outpatient (CLI) | payer MEDICARE, OTHER, SELFPAY ==
[2024-06-19 12:21] VITALS: BMI 28.8
--- NOTE | 2024-11-09 10:42 | DI.MG.S_ITS ---
MM screening mammo BI: 11/09/2024. BI-RADS: 1 CLINICAL: 69-year old female for bilateral screening mammogram. Tyrer-Cuzick lifetime risk of 4.5%. No personal or first-degree family history of breast cancer. Current reported family history of breast cancer: paternal aunt. PRIOR EXAMS 10/14/2023, 09/24/2022, 09/01/2021. MAMMOGRAPHY TECHNIQUE: 2D and 3D (tomosynthesis) digital mammographic views obtained, with additional images as needed for full coverage. Current study was also evaluated with a Computer Aided Detection (CAD) system. DENSITY B. There are scattered areas of fibroglandular density. MAMMOGRAPHY FINDINGS Bilateral: No suspicious mass, asymmetry, microcalcification, or other abnormality seen. No significant change from comparison. IMPRESSION: * No evidence of malignancy. RECOMMENDATIONS Bilateral * Annual screening mammography. OVERALL ASSESSMENT CATEGORY BI-RADS-1: Negative. The [employer] recommends annual screening mammography beginning at age 40 for women with average risk of breast cancer. ELECTRONICALLY SIGNED: Mely Monge M.D. on 11/11/2024 at 01:33:12 PM PT Interpreting Station ID: [id number]
== END ==
PROVIDERS: PCP Family Medicine; Referring Provider Family Medicine; Visit Provider Family Medicine
DX: Z12.31 Encounter for screening mammogram for malignant neoplasm of breast (principal); Z80.3 Family history of malignant neoplasm of breast
CPT/HCPCS: 77063; 77067

== ENCOUNTER → 2024-12-20 17:24 | Outpatient (CLI) | payer MEDICARE, OTHER, SELFPAY ==
[2024-06-19 12:21] VITALS: BMI 28.8
== END ==
PROVIDERS: PCP Family Medicine; Visit Provider Chiropractor
DX: R30.0 Dysuria (principal); N94.89 Other specified conditions associated with female genital organs and menstrual cycle
CPT/HCPCS: 87077; 87086; 87147; 87210

== ENCOUNTER → 2025-01-27 11:59 | Outpatient (CLI) | payer MEDICARE, OTHER, SELFPAY ==
[2024-06-19 12:21] VITALS: BMI 28.8
== END ==
PROVIDERS: PCP Family Medicine; Visit Provider Urology
DX: R39.9 Unspecified symptoms and signs involving the genitourinary system (principal)
CPT/HCPCS: 87086

== ENCOUNTER → 2025-02-11 11:39 | Outpatient (CLI) | payer MEDICARE, OTHER, SELFPAY ==
[2024-06-19 12:21] VITALS: BMI 28.8
== END ==
PROVIDERS: PCP Family Medicine; Visit Provider Family Medicine
DX: R39.15 Urgency of urination (principal)
CPT/HCPCS: 87086